=== PATIENT | female | born 1975 | race Caucasian/White ===

== ENCOUNTER 2021-10-13 10:01 | Outpatient (CLI) | payer BC, OTHER, SELFPAY ==
[2021-10-13 13:45] LABS: Aspartate Amino Transferase* 22 U/L (12-35)
[2021-10-13 13:46] LABS: Alanine Aminotransferase* 16 U/L (4-35)
[2021-10-13 13:53] LABS: Total Protein Urine 18 mg/dL
[2021-10-13 13:54] LABS: Creatinine Urine 30.1 mg/dL
[2021-10-13 23:09] LABS: Blood Urea Nitrogen* 10 mg/dL (5-24); Creatinine* 0.5 mg/dL (0.5-1.5); Estimated Glomerular Filt Rate 117 ml/min
[2021-10-14 09:51] LABS: Strep B DNA Probe POSITIVE (Negative)
--- OUTSIDE RECORDS SUMMARY | 2021-11-07 13:10 | XMS_ITS | Encounter Summary ---
:1975 Author Organization [employer] Address [address], [place] [address] Care Team Providers Name Role Phone Britta Cox PA-C Primary Care Provider Encounter Details Date Type Department Care Team Description 08/23/2019 Notes/Orders [facility] Celia Lyons, Abnormal glucose Obstetrics/Gynecolog MD complicating y [address] (Primary Dx) [address] [facility] [address] [place] [id number] [phone] (Wo rk) Social History Tobacco Use Types Packs/Day Years Used Date Smoking Tobacco: Never Smokeless Tobacco: Never Alcohol Use Standard Drinks/Week Comments No 1.7 (1 standard drink = 0.6 oz pure alco hol) 1-2 drinks per week Alcohol Habits Answer Date Recorded How often do you have a drink containing alcohol? Not asked How many drinks containing alcohol do you have on a Not aske d typical day when you are drinking? How often do you have six or more drinks on one Not asked occasion? Comment: 1-2 drinks per week 11/19/2015 Sex Assigned at Date Recorded Not on file documented as of this encounter Plan of Treatment Not on filedocumented as of this encounter Visit Diagnoses Diagnosis Abnormal glucose complicating - Primary Abnormal maternal glucose tolerance, com plicating , childbirth, or the puerperium, unspecified as to episode of care documented in this encounter Care Teams Documentation Clerk Relationship Specialty Start Date End Date Britta Cox PA-C PCP - General 06/13/15 [address], [place] [id number] documented as of this encounter
--- OUTSIDE RECORDS SUMMARY | 2021-11-07 13:10 | XMS_ITS | Encounter Summary ---
:1975 Author Organization [employer] Address [address] [address] Care Team Providers Name Role Phone Britta Cox PA-C Primary Care Provider Reason for Visit Reason Comments Labs Needed Encounter Details Date Type Department Care Team Description 08/25/2019 Telephone [facility] Celia Lyons MD Labs Needed Obstetrics/Gynecolog y [address] [facility] 5th [place] [address] [place], [place] [id number] (Wo rk) Social History Tobacco Use Types [...] on file documented as of this encounter Nursing Notes Kandy Howard LPN - 08/25/2019 9:39 AM CDT Matchbook Assembler spoke with patient to inform her that she needs to make an appointment with lab for the 2 hour glucose test, and gave her number. Patient understands and doesn't have any questions or concerns at this time. documented in this encounter Plan of Treatment Not on filedocumented as of this encounter Visit Diagnoses Not on filedocumented in this encounter Care Teams Wildlife Protector Relationship Specialty Start Date End Date Britta Cox PA-C PCP - General 06/13/[address] [place] [id number] documented as of this encounter
--- OUTSIDE RECORDS SUMMARY | 2021-11-07 13:10 | XMS_ITS | Encounter Summary ---
:1975 Author Organization [employer] Address [address], [place] [address] Care Team Providers Name Role Phone Britta Cox PA-C Primary Care Provider Reason for Visit Reason Onset Date Comments Routine Visit Phone Visit 08/17/2019 Encounter Details Date Type Department Care Team Description 08/17/2019 Telemedicine Cheo Rand, Ruth Ann resul ting from in vitro fertilization in second trimester (Primary Dx); Obstetrics/Gynecolog Paulette H, FOUNTAIN HELPER, Hy pothyroidism, unspecified type; y BREAKER TENDER Psoriasis; [address] [address] [place] Obesi ty in ; Center [facility] [address] Screening for diabetes mellitus; [place] [address] [place], [place] Encounter for blood typing; [phone] screening for isoimmunization; [phone] Screening for b lood disease; (Work) Screening examination for venereal disea se; Screening examination for rubella; Encounter for d rug screening; High-risk pregn sabas, elderly primigravida Social History Tobacco Use Types Packs/Day Years [...] on file documented as of this encounter Last Filed Vital Signs Vital Sign Reading Time Taken Comments Blood Pressure - - Pulse - - Temperature - - Respiratory Rate - - Oxygen Saturation - - Inhaled Oxygen Concentration - - Weight 84.8 kg (187 lb) 08/17/2019 1:47 PM CDT Height - - Body Mass Index 36.52 09/19/2015 11:10 AM CDT documented in this encounter Progress Notes Paulette Rand APRN, CNP - 08/17/2019 1:00 PM CDT Subjective: Today's visit with Courtney was conducted as a scheduled telephone visit. I was at home ,patient at home . Gestational Age: 16w3d AMA , IVF donor egg, both had genetic testing prior to No quickening yet , gets anxious , discussed when she may feel it more. Seems to have grown to her. Weight up 2 lbs , doing well with diet and exercise daily. Has not done her labs yet , orders put back in today . Also glucose and TSH. Level 2 next at . Declines AFP now . Few round ligament pains . Some leg cramping at night , will tryl magnesium. Working at home , also , but he goes out for [employer] some currently. Discussed COVID precautions. Objective: There were no vitals taken for this visit. Weight at home 187lb Assessment/Plan: 1. resulting from in vitro fertilization in second trimester 2. Hypothyroidism, unspecified type (HRC) 3. Psoriasis 4. Obesity in 5. High risk , elderly primipara Will go to [facility] to have New OB labs , TSH and 1 hr glucose. Declines AFP Level 2 Ultrasound next and clinic appt in 4 weeks. Call if problems . . Billing based on: Time 15 minutes spent on the phone with the patient, with greater than 50% in counseling and coordination of care.. Paulette Rand APRN, LIU documented in this encounter Plan of Treatment Not on filedocumented as of this encounter Results Drugs of Abuse Screen, Urine, w/ conf (08/23/2019 9:27 AM CDT) [facility] [employer] Method Time Signature Amphetamines Not Not 08/23/2019 [facility] Screen Detected Detected 5:03 PM CDT LABORATORY Barbiturates Not Not 08/23/2019 [facility] Screen Detected Detected 5:03 PM CDT LABORATORY Benzodiazepines Not Not 08/23/2019 [facility] Screen Detected Detected 5:03 PM CDT LABORATORY Buprenorphine Not Not 08/23/2019 [facility] Screen Detected Detected 5:03 PM CDT LABORATORY Cocaine Metabolite Not Not 08/23/2019 [facility] Screen Detected Detected 5:03 PM CDT LABORATORY Methadone Screen Not Not 08/23/2019 [facility] Detected Detected 5:03 PM CDT LABORATORY Opiates Screen Not Not 08/23/2019 [facility] Detected Detected 5:03 PM CDT LABORATORY Oxycodone Screen Not Not 08/23/2019 [facility] Detected Detected 5:03 PM CDT LABORATORY Phencyclidine Not Not 08/23/2019 [facility] (PCP) Screen Detected Detected 5:03 PM CDT LABORATORY THC (Marijuana) Not Not 08/23/2019 [facility] Metab Screen Detected Detected 5:03 PM CDT LABORATORY Creatinine, Urine, 54 >20 mg/dL 08/23/2019 [facility] Random 5:03 PM CDT LABORATORY Specimen Anatomical Collection Method Collection Time Receive d Time (Source) Location / / Volume Laterality Urine Non-blood 08/23/2019 9:27 AM 0 9:27 Collection / CDT AM CDT Unknown Narrative [facility] - 08/23/2019 5:03 P M CDT The absence of expected drug(s) and/or d rug metabolite(s) may indicate non-compliance, inappropriate timing of specimen collection relative to drug administration, poor drug absorption, di luted/adulterated urine or limitations of testing. The concentration must be great er than or equal to the cutoff concentration to be reported as positive. For medical purposes only: not valid for forensic, legal, or employment use. Paulette Rand APRN, CNP LAB_1 Performing Organization Address City/State/ZIP Code Phon e Number [facility] [address] [place] [address] Urine Culture (08/23/2019 9:27 AM CDT) [facility] [employer] Method Time Signature Urine Culture Urogenital 08/24/2019 [facility] [place] 12:19 PM CDT HOSPITAL Specimen Anatomical Collection Method Collection Time Receive d Time (Source) Location / / Volume Laterality Urine URINE SPECIMEN Non-blood 08/23/2019 9:27 AM 020 9:27 COLLECTION, CLEAN Collection / CDT AM CDT CATCH / Unknown Unknown Paulette Rand APRN, CNP LAB_1 Performing Organization Address [facility]/ZIP Code [facility] [place] [address] (ABNORMAL) Urinalysis Routine(Micro If Pos) (08/23/2019 9:27 AM CDT) [facility] Method Time Signature Urine Color Straw Straw-Yellow 08/23/2019 [facility] 9:50 AM CDT LABORATORY Urine Clarity Hazy (A) Clear 08/23/2019 [place] 9:50 AM CDT LABORATORY Specific 1.020 1.005 - 08/23/2019 [facility] [place], 1.030 9:50 AM CDT LABORATORY Urine PH Urine 6.0 5.0 - 8.0 08/23/2019 [place] 9:50 AM CDT LABORATORY Protein, Negative Neg/Trace 08/23/2019 [place] Urine Qual 9:50 AM CDT LABORATORY (mg/dL) Glucose Urine Negative Negative 08/23/2019 [facility] [place] Qual (mg/dL) 9:50 AM CDT LABORATORY Ketones, Negative Negative 08/23/2019 [facility] [place] Urine (mg/dL) 9:50 AM CDT LABORATORY Urobilinogen, 0.2 <2.0 08/23/2019 [place] [place] Urine (EU/dL) 9:50 AM CDT LABORATORY Bilirubin Negative Negative 08/23/2019 [place] [place] Urine 9:50 AM CDT LABORATORY Blood, Urine Negative Neg/Trace 08/23/2019 [place] 9:50 AM CDT LABORATORY Nitrite Urine Negative Negative 08/23/2019 [place] 9:50 AM CDT LABORATORY Leukocyte Negative Negative 08/23/2019 [place] Est. 9:50 AM CDT LABORATORY Urine Source Clean Catch 08/23/2019 [place] [place] 9:50 AM CDT LABORATORY Specimen Anatomical Collection Method Collection Time Receive d Time (Source) Location / / Volume Laterality Urine URINE SPECIMEN Non-blood 08/23/2019 9:27 AM 020 9:27 COLLECTION, CLEAN Collection / CDT AM CDT CATCH / Unknown Unknown Paulette [place] Radhaelizabeth FOUNTAIN HELPER, BREAKER TENDER LAB_1 Performing Organization Address City/State/ZIP Code Phon e Number [facility] [address] [place] [address] documented in this encounter Visit Diagnoses Diagnosis resulting from in vitro fertil ization in second trimester - Primary Hypothyroidism, unspecified type (HRC) Psoriasis Other psoriasis Obesity in Obesity complicating , childbir th, or the puerperium, unspecified as to episode of care or not applicable Screening for diabetes mellitus Encounter for blood typing screening for isoimmunization Screening for blood disease Screening for unspecified disorder of bl ood and blood-forming organs Screening examination for venereal disea se Screening examination for rubella Encounter for drug screening High-risk , elderly primigravid a Supervision of high-risk of el [place] primigravida documented in this encounter Care Teams Library Services Assistant Relationship Specialty Start Date End Date Britta Cox PA-C PCP - General 06/13/15 [address] [place] [address] documented as of this encounter
--- OUTSIDE RECORDS SUMMARY | 2021-11-07 13:10 | XMS_ITS | Encounter Summary ---
:1975 Author Organization [employer] Address [address] [place] [address] Care Team Providers Name Role Phone Britta Cox PA-C Primary Care Provider Encounter Details Date Type Department Care Team Description 07/20/2019 Lab Visit [facility] Screening for diabetes melli tus; [address] Encounter for blood typing; [place] [address] screening for isoi mmunization; [phone] Screening for b lood disease; Screening exami nation for venereal disease; Screening exami nation for rubella; resul ting from assisted reproductive technology in first trimester; Encounter for d rug screening Social History Tobacco Use Types Packs/Day Years [...] Not on filedocumented as of this encounter Procedures Procedure Name Priority Date/Time Associated Diagnosis Comme nts URINE CULTURE Routine 07/20/2019 8:36 resulting Resu lts for this AM CDT from assisted procedure are in reproductive technology the results in first trimester section. RAPID DRUG PANEL, Routine 07/20/2019 8:36 Encounter for drug R esults for this URINE (WITH AM CDT screening procedure are i n CONFIRMATION) the results section. UA MICRO IF Routine 07/20/2019 8:36 resulting Resul ts for this AM CDT from assisted procedure are in reproductive technology the results in first trimester section. RUBELLA IMMUNE Routine 07/20/2019 8:28 Screening examination R esults for this STATUS, IGG AM CDT for rubella procedure are i n the results section. CBC AND DIFFERENTIAL Routine 07/20/2019 8:28 Screening for blo od Results for this PANEL AM CDT disease procedure are i n the results section. ANTIBODY SCREEN Routine 07/20/2019 8:28 screening fo r Results for this AM CDT isoimmunization procedure ar e in the results section. TREPONEMA SCREEN Routine 07/20/2019 8:28 Screening examination Results for this AM CDT for venereal disease procedu re are in the results section. BLOOD TYPE Routine 07/20/2019 8:28 Encounter for blood Resul ts for this AM CDT typing procedure are i n the results section. HIV 1/2 AG/AB 4TH Routine 07/20/2019 8:28 Screening examinatio n Results for this GEN AM CDT for venereal disease procedu re are in the results section. COMPLETE BLOOD Routine 07/20/2019 8:28 Screening for blood Res ults for this COUNT-W/DIFF AM CDT disease procedure are i n the results section. HBSAG (HEPATITIS B Routine 07/20/2019 8:28 Screening examinati on Results for this SURFACE AG) AM CDT for venereal disease procedu re are in the results section. HGB A1C Routine 07/20/2019 8:28 Screening for diabetes Re sults for this AM CDT mellitus procedure are i n the results section. documented in this encounter Results Drugs of Abuse Screen, Urine, w/ conf (07/20/2019 8:36 AM CDT) [facility] Method Time Signature Amphetamines Not Not 07/20/2019 [facility] Screen Detected Detected 11:38 AM LABORATORY CDT Barbiturates Not Not 07/20/2019 [facility] Screen Detected Detected 11:38 AM LABORATORY CDT Benzodiazepines Not Not 07/20/2019 [facility] Screen Detected Detected 11:38 AM LABORATORY CDT Buprenorphine Not Not 07/20/2019 [facility] Screen Detected Detected 11:38 AM LABORATORY CDT Cocaine Metabolite Not Not 07/20/2019 [facility] Screen Detected Detected 11:38 AM LABORATORY CDT Methadone Screen Not Not 07/20/2019 [facility] Detected Detected 11:38 AM LABORATORY CDT Opiates Screen Not Not 07/20/2019 [facility] Detected Detected 11:38 AM LABORATORY CDT Oxycodone Screen Not Not 07/20/2019 [facility] Detected Detected 11:38 AM LABORATORY CDT Phencyclidine Not Not 07/20/2019 [facility] (PCP) Screen Detected Detected 11:38 AM LABORATORY CDT THC (Marijuana) Not Not 07/20/2019 [facility] Metab Screen Detected Detected 11:38 AM LABORATORY CDT Creatinine, Urine, 155 >20 mg/dL 07/20/2019 [facility] Random 11:38 AM LABORATORY CDT Specimen Anatomical Collection Method Collection Time Receive d Time (Source) Location / / Volume Laterality Urine Non-blood 07/20/2019 8:36 AM 0 8:44 Collection / CDT AM CDT Unknown Narrative [facility] - 07/20/2019 11:38 AM CDT The absence of expected drug(s) and/or d rug metabolite(s) may indicate non-compliance, inappropriate timing of specimen collection relative to drug administration, poor drug absorption, di luted/adulterated urine or limitations of testing. The concentration must be great er than or equal to the cutoff concentration to be reported as positive. For medical purposes only: not valid for forensic, legal, or employment use. Sonal Myers APRN, [employer] LAB_1 Performing Organization Address City/[facility]/ZIP Code Phon e Number [facility] [address] [place] [address] Urine Culture (07/20/2019 8:36 AM CDT) [facility] gist Method Time Signature Urine Culture Urogenital 07/21/2019 [facility] 9:34 AM CDT HOSPITAL Specimen Anatomical Collection Method Collection Time Receive d Time (Source) Location / / Volume Laterality Urine URINE SPECIMEN Non-blood 07/20/2019 8:36 AM 020 8:44 COLLECTION, CLEAN Collection / CDT AM CDT CATCH / Unknown Unknown Sonal Myers APRN, [employer] LAB_1 Performing Organization Address City/[facility]/ZIP [facility] Phon e Number [address] [address] (ABNORMAL) Urinalysis Routine(Micro If Pos) (07/20/2019 8:36 AM CDT) [facility] Method Time Signature Urine Color Yellow Straw-Yellow 07/20/2019 [facility] 9:01 AM CDT LABORATORY Urine Clarity Hazy (A) Clear 07/20/2019 [facility] 9:01 AM CDT LABORATORY Specific 1.017 1.005 - 07/20/2019 [facility] [place], 1.030 9:01 AM CDT LABORATORY Urine PH Urine 5.0 5.0 - 8.0 07/20/2019 [facility] 9:01 AM CDT LABORATORY Protein, Negative Negative 07/20/2019 [facility] Urine Qual 9:01 AM CDT LABORATORY (mg/dL) Glucose Urine Negative Negative 07/20/2019 [facility] Qual (mg/dL) 9:01 AM CDT LABORATORY Ketones, Trace (A) Negative 07/20/2019 [facility] Urine (mg/dL) 9:01 AM CDT LABORATORY Urobilinogen, <2.0 <2.0 07/20/2019 [facility] Urine (EU/dL) 9:01 AM CDT LABORATORY Bilirubin Negative Negative 07/20/2019 [facility] Urine 9:01 AM CDT LABORATORY Blood, Urine Negative Neg/Trace 07/20/2019 [facility] 9:01 AM CDT LABORATORY Nitrite Urine Negative Negative 07/20/2019 [facility] 9:01 AM CDT LABORATORY Leukocyte Negative Negative 07/20/2019 [facility] Est. 9:01 AM CDT LABORATORY Urine Source Clean Catch 07/20/2019 [facility] 9:01 AM CDT LABORATORY Specimen Anatomical Collection Method Collection Time Receive d Time (Source) Location / / Volume Laterality Urine URINE SPECIMEN Non-blood 07/20/2019 8:36 AM 020 8:44 COLLECTION, CLEAN Collection / CDT AM CDT CATCH / Unknown Unknown Sonal Myers APRN, [employer] LAB_1 Performing Organization Address City/State/ZIP Code Phon e Number [facility] [address] [place] [address] (ABNORMAL) Complete Blood Count-W/Diff (07/20/2019 8:28 AM CDT) Analysis Performed At Patho logist Time Signature WBC 9.7 3.5 - 10.5 07/20/2019 [facility] x10(9)/L 8:33 AM CDT LABORATORY RBC 4.70 3.90 - 07/20/2019 [facility] 5.03 8:33 AM CDT LABORATORY x10(12)/L Hemoglobin 14.6 12.0 - 07/20/2019 [facility] 15.5 g/dL 8:33 AM CDT LABORATORY HCT 43.1 34.9 - 07/20/2019 [facility] 44.5 % 8:33 AM CDT LABORATORY MCV 91.7 80.0 - 07/20/2019 [facility] 100.0 fL 8:33 AM CDT LABORATORY MCH 31.1 27.6 - 07/20/2019 [facility] 33.3 pg 8:33 AM CDT LABORATORY MCHC 33.9 31.5 - 07/20/2019 [facility] 35.2 g/dL 8:33 AM CDT LABORATORY RDW 13.9 11.9 - 07/20/2019 [facility] 15.5 % 8:33 AM CDT LABORATORY Platelets 250 150 - 450 07/20/2019 [facility] x10(9)/L 8:33 AM CDT LABORATORY Automated NRBC 0 <=0 /100 07/20/2019 [facility] WBC 8:33 AM CDT LABORATORY Neutrophil 7.1 (H) 1.7 - 7.0 07/20/2019 [facility] Absolute 10(9)/L 8:33 AM CDT LABORATORY Lymphocyte 2.0 1.0 - 4.8 07/20/2019 [facility] Absolute 10(9)/L 8:33 AM CDT LABORATORY Monocytes 0.5 0.2 - 0.9 07/20/2019 [facility] Absolute 10(9)/L 8:33 AM CDT LABORATORY Eosinophil 0.1 0.0 - 0.5 07/20/2019 [facility] Absolute 10(9)/L 8:33 AM CDT LABORATORY Basophil 0.0 0.0 - 0.3 07/20/2019 [facility] Absolute 10(9)/L 8:33 AM CDT LABORATORY Immature Gran % 0.5 0.0 - 0.5 07/20/2019 [facility] % 8:33 AM CDT LABORATORY Specimen Anatomical Collection Method / Collection Time Recei joyce Time (Source) Location / Volume Laterality Blood Venipuncture / 07/20/2019 8:28 07/20/2019 8:30 Unknown AM CDT AM CDT Sonal Myers APRN, LIU LAB_1 Performing Organization Address [facility] Phon e Number [facility] [address] [place] [address] (ABNORMAL) Rubella Immune Status, IgG (07/20/2019 8:28 AM CDT) athologist Signature Rubella Units 0.60 07/20/2019 [facility] 11:12 AM CDT LABORATORY Comment: The magnitude of the measured r esult, above the cutoff, is not indicative of the amount of antibody present. Rubella Intepretation Not Immune (A) Immune 07/20/2019 11 :12 AM [facility] CDT LABORATORY Specimen Anatomical Collection Method / Collection Time Recei joyce Time (Source) Location / Volume Laterality Blood Venipuncture / 07/20/2019 8:28 07/20/2019 8:30 Unknown AM CDT AM CDT Sonal Myers APRN, CNP LAB_1 Performing Organization Address [facility] Phon e Number [facility] [address] [place] [address] Treponema Screen (07/20/2019 8:28 AM CDT) [facility] Method Time Signature Treponema Screen 0.075 {s_co_ratio 07/20/2019 [facility] Result } 10:34 AM LABORATORY CDT Treponema Screen Non Non 07/20/2019 [facility] Interpretation Reactive Reactive 10:34 AM LABORATORY CDT Specimen Anatomical Collection Method / Collection Time Recei joyce Time (Source) Location / Volume Laterality Blood Venipuncture / 07/20/2019 8:28 07/20/2019 8:30 Unknown AM CDT AM CDT Sonal Myers APRN, LIU LAB_1 Performing Organization Address [facility] Phon e Number [facility] [address] [place] [address] HIV 1/2 Ag/Ab 4th Generation (07/20/2019 8:28 AM CDT) [facility] Method Time Signature HIV 1/2 Negative Negative 07/20/2019 [facility] Antigen/Antib (Non (Non 9:21 AM CDT LABORATORY demi (4th Reactive) Reactive) generation) Comment: HIV-1 p24 Antigen and HIV-1/HIV -2 Antibody not detected Specimen Anatomical Collection Method / Collection Time Recei joyce Time (Source) Location / Volume Laterality Blood Venipuncture / 07/20/2019 8:28 07/20/2019 8:30 Unknown AM CDT AM CDT Sonal Myers APRN, LIU LAB_1 Performing Organization Address [facility] Phon e Number [facility] [address] [place] [address] HEP B SURFACE ANTIGEN, NO REFLEX (07/20/2019 8:28 AM CDT) [facility] Method Time Signature Hepatitis B Negative Negative 07/20/2019 [facility] Surface (Non (Non 9:21 AM CDT LABORATORY Antigen Reactive) Reactive) Specimen Anatomical Collection Method / Collection Time Recei joyce Time (Source) Location / Volume Laterality Blood Venipuncture / 07/20/2019 8:28 07/20/2019 8:30 Unknown AM CDT AM CDT Sonal Myers APRN, LIU LAB_1 Performing Organization Address [facility] Phon e Number [facility] [address] [place] [address] Antibody Screen (07/20/2019 8:28 AM CDT) [facility] Method Time Signature Antibody Screen Negative 07/20/2019 [facility] Interpretation 9:47 AM CDT BLOOD BANK Specimen Anatomical Collection Method / Collection Time Recei joyce Time (Source) Location / Volume Laterality Blood Venipuncture / 07/20/2019 8:28 07/20/2019 8:30 Unknown AM CDT AM CDT Sonal Myers APRN, LIU LAB_1 Performing Organization Address [facility] Phon e Number [facility] [address] [place] [address] Blood Group & RH (Blood Type) (07/20/2019 8:28 AM CDT) athologist Signature ABO B 07/20/2019 [facility] 9:47 AM CDT BLOOD BANK RH Positive 07/20/2019 [facility] 9:47 AM CDT BLOOD BANK Specimen Anatomical Collection Method / Collection Time Recei joyce Time (Source) Location / Volume Laterality Blood Venipuncture / 07/20/2019 8:28 07/20/2019 8:30 Unknown AM CDT AM CDT Sonal Myers APRN, [employer] LAB_1 Performing Organization Address City/[facility]/ZIP Code Phon e Number [facility] [address] [place] [address] HGB A1C (07/20/2019 8:28 AM CDT) [facility] Method Time Signature Hemoglobin A1C 4.8 <=5.6 % 07/20/2019 [facility] PM CDT [facility] Specimen Anatomical Collection Method / Collection Time Recei joyce Time (Source) Location / Volume Laterality Blood Venipuncture / 07/20/2019 8:28 07/20/2019 8:30 Unknown AM CDT AM CDT Sonal Myers APRN, LIU LAB_1 Performing Organization Address City/[facility] Phon e Number [facility] [address] [address] documented in this encounter Visit Diagnoses Diagnosis Screening for diabetes mellitus Encounter for blood typing screening for isoimmunization Screening for blood disease Screening for unspecified disorder of bl ood and blood-forming organs Screening examination for venereal disea se Screening examination for rubella resulting from assisted reprod uctive technology in first trimester Encounter for drug screening documented in this encounter Care Teams Hand Hardener Relationship Specialty Start Date End Date Britta Cox PA-C PCP - General 06/13/15 [place] [address] documented as of this encounter
--- OUTSIDE RECORDS SUMMARY | 2021-11-07 13:10 | XMS_ITS | Encounter Summary ---
:1975 Author Organization [facility] Address [address] [address] Care Team Providers Name Role Phone Britta Cox PA-C Primary Care Provider Encounter Details Date Type Department Care Team Description 08/23/2019 Lab Visit Kelvin navarro resulting from in vitro fertilization in second trimester; [address] Encounter for drug screening ; [place] [address] Screening for diabetes primo lim; [phone] Hypothyroidism, unspecified type Social History Tobacco Use Types Packs/Day Years [...] on file documented as of this encounter Progress Notes Celia Lyons MD - 08/23/2019 8:30 AM CDT Please let her know that she had an elevated glucose for the 1 hour lab and needs the 2 hour one. I've ordered it. Please help her schedule it. documented in this encounter Plan of Treatment Not on filedocumented as of this encounter Procedures Procedure Name Priority Date/Time Associated Diagnosis Comme nts TSH, SENSITIVE Routine 08/23/2019 9:42 AM Hypothyroidism, Resu lts for this (WITH REFLEX) CDT unspecified type procedure are in the results section. GLUCOSE - 1 HR. Routine 08/23/2019 9:42 AM Screening for diabe irena Results for this P.C. PREG CDT mellitus procedure are i n the results section. URINE CULTURE Routine 08/23/2019 9:27 AM resulting R esults for this CDT from in vitro procedure are in fertilization in the results second trimester section. RAPID DRUG PANEL, Routine 08/23/2019 9:27 AM Encounter for kevan g Results for this URINE (WITH CDT screening procedure are i n CONFIRMATION) the results section. UA MICRO IF Routine 08/23/2019 9:27 AM resulting Re sults for this CDT from in vitro procedure are in fertilization in the results second trimester section. documented in this encounter Results TSH with Free T4 (if TSH Abnormal) (08/23/2019 9:42 AM CDT) athologist Signature TSH, Reflex 1.88 0.30 - 4.50 08/23/2019 [facility] uIU/mL 5:01 PM CDT LABORATORY Specimen Anatomical Collection Method / Collection Time Recei joyce Time (Source) Location / Volume Laterality Blood Venipuncture / 08/23/2019 9:42 08/23/2019 9:42 Unknown AM CDT AM CDT Narrative [facility] - 08/23/2019 5:01 P M CDT Lab will automatically reflex to Free T4 when TSH results are <0.30 uIU/mL or >4.50 mIU/mL. Celia Lyons MD LAB_1 Performing Organization Address City/State/ZIP Code Phon e Number [facility] [address] [place] [address] (ABNORMAL) Lab Glucose [place] Screen (08/23/2019 9:42 AM CDT) athologist Signature Glucose, 1 157 (H) 70 - 135 08/23/2019 [place] [facility] mg/dL 10:03 AM CDT LABORATORY Challenge Specimen Anatomical Collection Method / Collection Time Recei joyce Time (Source) Location / Volume Laterality Blood Venipuncture / 08/23/2019 9:42 08/23/2019 9:42 Unknown AM CDT AM CDT Celia Lyons MD LAB_1 Performing Organization Address City/State/ZIP Code Phon e Number [facility] [address] [place] [address] Drugs of Abuse Screen, Urine, w/ conf (08/23/2019 9:27 AM CDT) [facility] Method Time Signature Amphetamines Not Not 08/23/2019 [facility] Screen Detected Detected 5:03 PM CDT LABORATORY Barbiturates Not Not 08/23/2019 [facility] Screen Detected Detected 5:03 PM CDT LABORATORY Benzodiazepines Not Not 08/23/2019 [facility] Screen Detected Detected 5:03 PM CDT LABORATORY Buprenorphine Not Not 08/23/2019 [facility] Screen Detected Detected 5:03 PM CDT LABORATORY Cocaine Metabolite Not Not 08/23/2019 [facility] Screen Detected Detected 5:03 PM CDT LABORATORY Methadone Screen Not Not 08/23/2019 [facility] Detected Detected 5:03 PM CDT LABORATORY Opiates Screen Not Not 08/23/2019 [facility] Detected Detected 5:03 PM CDT LABORATORY Oxycodone Screen Not Not 08/23/2019 [facility] Detected Detected 5:03 PM CDT LABORATORY Phencyclidine Not Not 08/23/2019 [facility] (PCP) Screen Detected Detected 5:03 PM CDT LABORATORY THC (Marijuana) Not Not 08/23/2019 [facility] Metab Screen Detected Detected 5:03 PM CDT LABORATORY Creatinine, Urine, 54 >20 mg/dL 08/23/2019 [facility] Random 5:03 PM CDT LABORATORY Specimen Anatomical Collection Method Collection Time Receive d Time (Source) Location / / Volume Laterality Urine Non-blood 08/23/2019 9:27 AM 0 9:27 Collection / CDT AM CDT Unknown Narrative [facility] - 08/23/2019 5:03 P M CDT [...] Organization Address City/State/ZIP Code Phon e Number [facility] [address] [place] [address] Urine Culture (08/23/2019 9:27 AM CDT) [facility] Method Time Signature Urine Culture Urogenital 08/24/2019 [facility] [place] 12:19 PM CDT HOSPITAL Specimen Anatomical Collection Method Collection Time Receive d Time (Source) Location / / Volume Laterality Urine URINE SPECIMEN Non-blood 08/23/2019 9:27 AM 020 9:27 COLLECTION, CLEAN Collection / CDT AM CDT CATCH / Unknown Unknown Paulette Rand APRN, CNP LAB_1 Performing Organization Address City/[facility]/ZIP Code Phon e Number [address] [address] (ABNORMAL) Urinalysis Routine(Micro If Pos) (08/23/2019 9:27 AM CDT) [facility] Method Time Signature Urine Color Straw Straw-Yellow 08/23/2019 [facility] 9:50 AM CDT LABORATORY Urine Clarity Hazy (A) Clear 08/23/2019 [place] 9:50 AM CDT LABORATORY Specific 1.020 1.005 - 08/23/2019 [facility] [place], 1.030 9:50 AM CDT LABORATORY Urine PH Urine 6.0 5.0 - 8.0 08/23/2019 [place] 9:50 AM CDT LABORATORY Protein, Negative Neg/Trace 08/23/2019 [facility] Urine Qual 9:50 AM CDT LABORATORY (mg/dL) Glucose Urine Negative Negative 08/23/2019 [facility] Qual (mg/dL) 9:50 AM CDT LABORATORY Ketones, Negative Negative 08/23/2019 [facility] Urine (mg/dL) 9:50 AM CDT LABORATORY Urobilinogen, 0.2 <2.0 08/23/2019 [facility] Urine (EU/dL) 9:50 AM CDT LABORATORY Bilirubin Negative Negative 08/23/2019 [facility] Urine 9:50 AM CDT LABORATORY Blood, Urine Negative Neg/Trace 08/23/2019 [facility] 9:50 AM CDT LABORATORY Nitrite Urine Negative Negative 08/23/2019 [place] 9:50 AM CDT LABORATORY Leukocyte Negative Negative 08/23/2019 [place] Est. 9:50 AM CDT LABORATORY Urine Source Clean Catch 08/23/2019 [facility] 9:50 AM CDT LABORATORY Specimen Anatomical Collection Method Collection Time Receive d Time (Source) Location / / Volume Laterality Urine URINE SPECIMEN Non-blood 08/23/2019 9:27 AM 020 9:27 COLLECTION, CLEAN Collection / CDT AM CDT CATCH / Unknown Unknown Paulette Rand APRN, LIU LAB_1 Performing Organization Address City/State/ZIP Code Phon e Number [facility] [address] [place] [address] documented in this encounter Visit Diagnoses Diagnosis resulting from in vitro fertil ization in second trimester Encounter for drug screening Screening for diabetes mellitus Hypothyroidism, unspecified type (HRC) documented in this encounter Care Teams Mount Loader Relationship Specialty Start Date End Date Britta Cox PA-C PCP - General 06/13/15 [address] [place] [id number] documented as of this encounter
--- OUTSIDE RECORDS SUMMARY | 2021-11-07 13:10 | XMS_ITS | Encounter Summary ---
:1975 Author Organization [facility] Address [address] [address] Care Team Providers Name Role Phone Britta Cox PA-C Primary Care Provider Reason for Visit Reason Comments Concerns question on lab Encounter Details Date Type Department Care Team Description 07/30/2019 [facility] Celia Lyons MD Concerns Obstetrics/Gynecolog y [address] (question on lab) [address] [facility] [address] [place] [address] [phone] (Wo rk) Social History Tobacco Use Types [...] documented as of this encounter Nursing Notes Stormy Orellana, RN - 07/30/2019 4:12 PM CDT Called pt to review MD message. Left detailed message on pt identified vmail per pt authorization. Lab Scheduling phone number given. Celia Lyons MD - 07/30/2019 3:58 PM CDT 16 weeks Nancy Collado, RN - 07/30/2019 3:50 PM CDT 13w6d ob, saw you 07/20/19. Pt wanting to clarify when she needs to do the 1 hour gtt and TSH. Pleaseadvise. Thanks documented in this encounter Plan of Treatment Not on filedocumented as of this encounter Visit Diagnoses Not on filedocumented in this encounter Care Teams Marketing Reporting Analyst Relationship Specialty Start Date End Date Britta Cox, KARENC PCP - General 06/13/[address] [place] [id number] documented as of this encounter
--- OUTSIDE RECORDS SUMMARY | 2021-11-07 13:10 | XMS_ITS | Clinical Summary ---
:1975 Author Organization [email or web address] Address [address] [place] [address] Care Team Providers Name Role Phone Britta Cox PA-C Primary Care Provider Source Comments You are receiving this document as you are listed as the primary care provider,follow-up provider, or the patient has been referred to you for consultation.This is in compliance with the Medicare and Medicaid EHR Incentive Program,which states Providers who transition their patient to another setting of careor provider of care or refers their patient to another provider of care shouldprovide summarycare record for each transition of care or referral. [employer] Allergies Active Allergy Reactions Severity Noted Date Comments Other 12/25/2011 PN: PT HAS YOANA REAGAN FAMILY HX OF PCN ALLERGY Medications Medication Sig Dispensed Refills Start Date End Date Status Vdtxbd-JrRgt-PpZtay-FA- Take 1 tablet by 0 6 Active [place] mouth daily (MULTIVITAMIN/MINERALS (every 24 hours). OR) clindamycin (CLEOCIN T) 0 06/11/2019 Active 1 % lotion ketoconazole (NIZORAL) 0 06/11/2019 Active 2 % shampoo Active Problems Problem Noted Date Eating disorder 11/19/2011 Overview: Eating disorder, unspecified Major depressive disorder, recurrent episode, moderate 11/19/2011 Obesity, Class II, BMI 35-39.9 11/18/2011 Obesity 12/12/2010 Osteopenia 09/15/2008 Overview: lumbar spine Polycystic ovaries 06/01/2008 Overview: Polycystic Ovary Syndrome Psoriasis 06/01/2008 Overview: josé manuel and legs LAKSHMI III (cervical intraepithelial neoplasia grade III) with severe 06/01/2008 dysplasia Overview: s/p LEEP procedure 2007 Irritable bowel syndrome 06/01/2008 Hypothyroidism 06/01/2008 Overview: subclinical- TSH followed Q6mo ; Hypothyroidism Primary Vitamin D deficiency 05/31/2008 Resolved Problems Problem Noted Date Resolved Date resulting from in vitro fertilization 07/20/2019 01/11/2020 Obesity in 07/20/2019 01/11/2020 Elderly primigravida 07/20/2019 01/11/2020 Primary female infertility 03/06/2018 07/20/2019 Endometrial polyp 02/03/2018 07/20/2019 Overview: Added automatically from request for justus lopez [id number] Encounter for artificial insemination 06/17/2016 Uterine polyp 12/14/2011 07/20/2019 Pneumonia due to organism 08/16/2008 12/13/2010 Overview: LW Modifier: SUZANNE LW Onset: 08/07 ; Pneumonia NOS Immunizations Name Administration Dates Next Due Flu Vac Preserv Free (3+yrs) 12/14/2011, 02/03/2010 Influenza IIV4 (Quadrivalent) 0.5mL (82702) 02/10/2018 TB Skin Test (PPD) 06/12/2011 Family History Medical History Relation Name Comments Osteoporosis Mother Thyroid Disorder Mother Thyroid Disorder Maternal Aunt Alzheimer's Maternal Grandfather Dementia Maternal Grandfather Diabetes Maternal Grandfather Osteoporosis Maternal Grandmother Diabetes Other Heart Disease Paternal Grandfather Thyroid Disorder Paternal Grandmother Relation Name Status Comments Father Alive Mother Alive Brother Alive Maternal Aunt Maternal Grandfather Maternal Grandmother Alive Other Alive Paternal Grandfather Paternal Grandmother Social History Tobacco Use Types Packs/Day Years [...] Assigned at Date Recorded Not on file Last Filed Vital Signs Vital Sign Reading Time Taken Comments Blood Pressure 131/74 07/20/2019 8:37 AM CDT Pulse 91 07/20/2019 8:37 AM CDT Temperature 36.7 ??C (98.1 ??F) 03/02/2019 8:23 AM [facility] Respiratory Rate 16 03/06/2018 5:15 PM [facility] Oxygen Saturation 99% 03/06/2018 5:15 PM [facility] Inhaled Oxygen Concentration - - Weight 84.8 kg (187 lb) 08/17/2019 1:47 PM CDT Height 152.4 cm (5') 09/19/2015 11:10 AM CDT Body Mass Index 36.52 09/19/2015 11:10 AM CDT Plan of Treatment Health Maintenance Due Date Last Done Comments Colon Cancer Screening Plan 1975 Due Hep C Screening (Preventive 1975 Services) HepB (1) 1975 COVID-19 Vaccine (#1) 1975 Adult Preventive Visit 1993 Cholesterol 2020 11/30/2011 Influenza (#1) 2021 01/07/2020, 02/10/2018, 12/14/2011, Additional history exists Pap 07/19/2024 07/20/2019, 05/20/2015, 03/16/2013, Additional history exists Zoster/Shingles (1 of 2) 2025 DTaP/Tdap/Td (2 - Tdap) 11/17/2029 11/18/2019 HIV Screening (Preventive Completed 07/20/2019, 06/24/2012 Services) HepA Aged Out No longer eligib le based on patient 's age to complete this topic Hib Aged Out No longer eligib le based on patient 's age to complete this topic IPV (Polio) Aged Out No longer eligib le based on patient 's age to complete this topic MCV4 Aged Out No longer eligib le based on patient 's age to complete this topic Pneumococcal Aged Out No longer eligib le based on patient 's age to complete this topic Insurance Payer Benefit Plan Subscriber ID Effective Phone Address Typ e / Group Dates MARIVEL THAKUR [id number] 2018-Prese [phone] [employer] [address] [facility] [address] [place] [address] [place] [id number] 2017-[place] [address] [phone] [place] [address] [place]ST [id number] 2019-Prese HEALTH NET G overnment SELECT nt FEDERAL SERV C/O PGBA [address] [place] [address] Courtney Lacy Personal/Family Self 1975 [address] (Home) [place] [phone] [id number] (Work) Courtney Lacy Workers Comp Self 1975 [address] (Home) [place] [id number] Advance Directives Latest Code Status on File Code Status Date Activated Date Inactivated Comments Full Code 03/06/2018 4:19 PM 03/06/2018 7:34 PM Full Code 12/27/2011 10:03 AM 12/27/2011 5:24 PM Care Teams Building Supplies Salesperson Retail Relationship Specialty Start Date End Date Britta Cox PA-C PCP - General 06/13/[address] [place] [id number]
--- OUTSIDE RECORDS SUMMARY | 2021-11-07 13:11 | XMS_ITS | Encounter Summary ---
:1975 Author Organization [facility] Address [address], [place] [address] Care Team Providers Name Role Phone Britta Cox PA-C Primary Care Provider Reason for Visit Auth/Cert Specialty Diagnoses / Procedures Referred By Contact Refer red To Contact Diagnoses Endometrial polyp Referral ID Status Reason Start Date Expiration Date Visits Requ ested Visits Authorized [id number] 1 1 Encounter Details Date Type Department Care Team Description 03/06/2018 Anesthesia Event [facility] [address] [facility] Daryn Chandra MD Bld Ambul Surgery [address] [place] [place] [address] [address] [place] [address] [phone] Anesthesia Record Procedure Summary Procedure Name Responsible Anesthesia Start Anesthesia Stop Anesthesiologist Time Time Hysteroscopy Dilation Daryn Moya MD 03/06/18 1542 09/16 1620 and Curettage and Polypectomy (Uterus) Events Date Time Event Comment 03/06/2018 1542 An Start 1544 An Start Data 1544 Face Tent 1552 An Local Anesthetic By Surgeon 1556 MDA Present 1611 MDA Present 1613 an stop data 1620 An Stop Care transferred . 1620 Care Handoff Note I discussed wi th the receiving nurse and we: 1) Ident ified the patient, pate family member(s) or patient surrogate 2) Identified th e responsible practitioner 3) Reviewed the pertinent medical history 4) Discussed the surgical/procedu re course 5) Reviewed intra-op anesthe aleksandr management and issues during an esthesia 6) Set expectations for the post-procedure period 7) Allowe d opportunity for questions and ac knowledgement of understanding of report Electronically signed by Siobhan Hamm APRN, AIRCRAFT PAINTER Name Total midazolam injection 2 mg/2 mL (VERSED) 2 mg fentaNYL injection (SUBLIMAZE) 100 mcg lidocaine 1% PF injection (XYLOCAINE) 60 mg propofol 10 mg/mL for procedural sedation (aka diPRIva n) 153.94 mg ondansetron injection (ZOFRAN) 4 mg ketorolac 30 mg/mL injection (TORADOL) 30 mg dexamethasone 4 mg/mL injection (aka DECADRON) 4 mg lactated ringers infusion 200 mL Agents Name O2 Identified Agent Name Blood No blood administrations on file. Lines, Drains, and Airways Type Details Placement Removal Airway Placed By: AIRCRAFT PAINTER; 03/06/18 1559 by 03/06/18 1728 by Airway Device: Nasal Kerry Perez, pharyngeal airway; RN Difficulty: Atraumatic; Removal Date: 03/06/18; Removal Time: 1727 Peripheral IV Placement Date: 03/06/18 1507 by 03/06/18 1728 b y 03/06/18; Placement Julianna Swenson, Dee Willis, Time: 150; RN Pre-existing: No; Inserted by?: RN; Size (Gauge): 22 G; Orientation: Right; Site Prep: ChloraPrep; Local Anesthetic: None; Insertion attempts: 1; Blood draw with insertion?: no; Patient Tolerance: Tolerated well; Met Standard Sterile Barrier Technique: Met Standard Sterile Barrier Technique; Removal Date: 03/06/18; Removal Time: 1727 Incision/Surgical Site 03/06/18; 1559; #1; 03/06/18 1559 by 09/16 1728 by No; Vagina; 03/06/18; Shari Rojas Lisabeth A, 172 J, RN RN documented in this encounter Social History Tobacco Use Types Packs/Day Years [...] on file documented as of this encounter Miscellaneous Notes Anesthesia Postprocedure Evaluation - Daryn Moya MD - 03/06/2018 4:29 PM CST [facility] Anesthesia Post-op Note Patient: Courtney Lacy Post-Op Diagnosis: Endometrial polyp Procedure Performed: Procedure(s): Hysteroscopy Dilation and Curettage and Polypectomy Anesthesia Type: MAC Post-op vital signs: BP 125/67 Pulse 89 Temp 36.6 ??C (97.9 ??F) (Temporal) Resp 13 SpO2 96% Pain Score: Presence Of Pain: denies Preferred Pain Scale: number (Numeric Rating Pain Scale) Pain Rating (0-10): Rest: 3 Post-op assessment: No anesthesia complication. Patient location: Phase 2 Airway Status: Patent Cardiovascular function: Satisfactory Hydration status: Satisfactory PONV: None Level of Consciousness: Awake Fully Participates Postop Assessment: Patient tolerated procedure well. Electronically signed by: Daryn Moya MD 03/06/2018 4:29 PM MAKING MACHINE OPERATOR Anesthesia Preprocedure Evaluation - Daryn Moya MD - 03/06/2018 3:02 PM CST [facility] Anesthesia Pre-op Evaluation Procedure: Procedure(s): Hysteroscopy Dilation and Curettage HPI: 42 y.o. old female with Endometrial polyp NPO Status: Last Fluid Intake Time: 1100 Last Fluid Intake Date: 03/06/18 Last Food Intake Date: 03/06/18 Last Food Intake Time: 0700 Allergies Allergen Reactions ??? Other PN: PT HAS MULTIPLE FAMILY HX OF PCN ALLERGY Past Medical History: Diagnosis Date ??? Anxiety (HRC) ??? Asthma (HRC) ??? Cervical dysplasia 2008 LAKSHMI 3, LEEP ??? Depression (HRC) ??? Eating disorder ??? Hypothyroidism Primary ??? Irritable bowel syndrome ??? Migraine ??? Obesity (HRC) ??? Pneumonia ??? Polycystic Ovary Syndrome 24 yo missed periods, acne, hair growth issues, saw Dr Félix Johnson dx with this ??? Psoriasis ??? STD (sexually transmitted disease) (HRC) ??? Vitamin D Deficiency Patient Active Problem List Diagnosis ??? Vitamin D deficiency (HRC) ??? Polycystic ovaries (HRC) ??? Psoriasis ??? Abnormal glandular Papanicolaou smear of cervix ??? Irritable bowel syndrome ??? Hypothyroidism (HRC) ??? Disorder of bone and cartilage ??? Obesity (HRC) ??? Obesity, Class II, BMI 35-39.9 (HRC) ??? Eating disorder ??? Major depressive disorder, recurrent episode, moderate (HRC) ??? Uterine polyp ??? Encounter for artificial insemination ??? Endometrial polyp Past Surgical History: Procedure Laterality Date ??? DILATION AND CURETTAGE ??? LEEP PROCEDURE 2008 LAKSHMI 3 ??? OPERATIVE HYSTEROSCOPY 2012 polyp Outpatient Medications Marked as Taking for the 03/06/18 encounter (Hospital Encounter) Medication Sig Dispense Refill ??? desogestrel-ethinyl estradiol (APRI) 0.15-30 MG-MCG tablet Take 1 Tablet by mouth daily. ??? Btgacr-LpRsg-EaJrtw-FA-[place] (MULTIVITAMIN/MINERALS OR) Take 1 tablet by mouth daily (every 24 hours). ??? scopolamine (TRANSDERM-SCOP) 1.0mg/3 days patch Apply 1 Patch to skin every 3 days. Apply behindthe ear 4 Patch 0 Current Facility-Administered Medications Medication Dose Route Frequency ??? fentaNYL (SUBLIMAZE) injection 25-100 mcg 25-100 mcg Intravenous Q5MIN PRN ??? fentaNYL (SUBLIMAZE) injection 25-50 mcg 25-50 mcg Intravenous Q5MIN PRN ??? HYDROmorphone injectable 0.2-0.4 mg 0.2-0.4 mg Intravenous Q10MIN PRN ??? lactated ringers infusion 25 mL/hr Intravenous Continuous ??? lidocaine (XYLOCAINE) 1 % injection 0.1-0.3 mL 0.1-0.3 mL Subcutaneous Once And ??? lidocaine (XYLOCAINE) 1 % injection 0.1-0.3 mL 0.1-0.3 mL Subcutaneous PRN ??? meperidine (DEMEROL) injection 12.5 mg 12.5 mg Intravenous Q5MIN PRN ??? midazolam (VERSED) injection 1-2 mg 1-2 mg Intravenous Q5MIN PRN ??? morphine injectable 1-2 mg 1-2 mg Intravenous Q5MIN PRN ??? NO pre-op antibiotics needed Miscellaneous Once ??? ondansetron (ZOFRAN) injection 4 mg 4 mg Intravenous Q4H PRN Labs: Lab Results Component Value Date/Time SODIUM 139 02/08/2015 02:21 PM K 4.1 02/08/2015 02:21 PM CHLORIDE 108 (H) 02/08/2015 02:21 PM BUN 11 02/08/2015 02:21 PM CREATININE 0.60 02/08/2015 02:21 PM GLUCOSE 96 02/08/2015 02:21 PM Lab Results Component Value Date/Time WBC 9.3 02/08/2015 02:21 PM HGB 13.3 02/08/2015 02:21 PM HCT 39.6 02/08/2015 02:21 PM PLTS 282 02/08/2015 02:21 PM No results found for: INR No results found for: HCGQUANT Urine : Result: Negative(Simultaneous filing. User may not have seen previous data.) Urine : Blood Bank: No results found for: ABORH, ABSCR EKG: No results found for this or any previous visit. Physical Exam: There were no vitals taken for this visit. Assessment/Plan: Review of Systems Patient does not have GERD. Patient is not a smoker. The patient denies alcohol use. Patient denies any recent URI. History of PONV: No. History of motion sickness: No. Patient denies any personal or family history of anesthesia complications (PONV). Exam Mental Status: Alert and oriented. Mallampati score: II (Two). Mouth opening: Normal Thyromental Distance: > 3 finger breadths and Normal Neck Extension: Full Neck Circumference > 40 cm?: No Current airway assessment:Normal Dentition: Normal. Cardiac Exam: Regular rate and rhythm. Respiratory Exam: Breath sounds clear to auscultation Assessment ASA Status: 2 . Plan Anesthesia type: MAC Induction: Maintenance: PONV Risk Score Peds:0 PONV Risk Score Adult: 2Maint: Propofol Infusion. PONV Prophylaxis (planned):Ondansetron and Decadron Anesthetic plan, risks, benefits and alternatives discussed with: Patient H&P Reviewed and Patient examined, no change observed IV access Antibiotics per surgery Electronically signed by: Daryn Moya MD 03/06/2018 3:02 PM MAKING MACHINE OPERATOR documented in this encounter Plan of Treatment Not on filedocumented as of this encounter Visit Diagnoses Not on filedocumented in this encounter Administered Medications Inactive Administered Medications - up to 3 most recent administrations Medication Order MAR Action Action Date Dose Rate Site dexamethasone (DECADRON) injection Given 03/06/2018 3:50 PM RING MAKING MACHINE OPERATOR 4 mg Starting on Madeleine 18 at 1550, Until Madeleine 03/06/18 at 1620 fentaNYL (SUBLIMAZE) injection Given 03/06/2018 3:40 PM RING MAKING MACHINE OPERATOR 100 mcg Intravenous, Starting on Madeleine 18 at 1540, Until Madeleine 03/06/18 at 1620 ketorolac (TORADOL) injection Given 03/06/2018 4:00 PM RING MAKING MACHINE OPERATOR 30 mg Intravenous, Starting on Madeleine 18 at 1600, Until Madeleine 03/06/18 at 1621 lidocaine (XYLOCAINE) 1 % injection Given 03/06/2018 3:40 PM RING MAKING MACHINE OPERATOR 60 mg Starting on Madeleine 18 at 1540 midazolam (VERSED) injection Given 03/06/2018 3:40 PM RING MAKING MACHINE OPERATOR 2 mg Intravenous, Starting on Madeleine 1218 at 1540, Until Madeleine 03/06/18 at 1620 ondansetron (ZOFRAN) injection Given 03/06/2018 3:45 PM RING MAKING MACHINE OPERATOR 4 mg Intravenous, Starting on Madeleine 18 at 1545, Until Madeleine 03/06/18 at 1620 propofol (aka diPRIvan) Started 03/06/2018 3:40 PM 75 mcg/kg/min 3 6.95 mL/hr injection RING MAKING MACHINE OPERATOR Intravenous, Starting on Madeleine 18 at 1540 documented in this encounter Care Teams Flash Ranging Crewmember Relationship Specialty Start Date End Date Britta Cox PA-C PCP - General 06/13/15 [address] [place] [address] documented as of this encounter
--- OUTSIDE RECORDS SUMMARY | 2021-11-07 13:11 | XMS_ITS | Encounter Summary ---
:1975 Author Organization [facility] Address [address], [place] [address] Care Team Providers Name Role Phone Britta Cox PA-C Primary Care Provider Encounter Details Date Type Department Care Team Description 07/17/2016 [facility] Fertili ty testing Obstetrics/Gynecolog y (Primary Dx) [address] [address] [place], [place] [address] [address] [place], [place] [phone] [address] Social History Tobacco Use Types Packs/Day Years [...] on filedocumented as of this encounter Results Artificial Insemination,Frozen Donor,Specimen Prep (07/17/2016 7:36 AM CDT) P athologist Signature TDI Donor [id number] PN SOFT Number TDI Specimen 10-04-15 PN SOFT Number TDI Number of 2 PN SOFT Vials Semen Total 2.0 PN SOFT Volume Semen % 31 % PN SOFT Motility Grade (IUIP) 2.5 PN SOFT Semen Mil 7.1 PN SOFT Motile (TDI) Specimen Anatomical Collection Method Collection Time Receive d Time (Source) Location / / Volume Laterality 07/17/2016 7:36 AM 7 7:36 CDT AM CDT Narrative PN SOFT - 07/17/2016 7:54 AM CDT Performed at [facility], [address] [place] [address] CLIA number [id number] Good Hernandez MD LAB_1 Performing Organization Address City/State/ZIP Code Phon e Number PN SOFT [address] [place] [address] documented in this encounter Visit Diagnoses Diagnosis Fertility testing - Primary Fertility testing documented in this encounter Care Teams Sliver Handler Relationship Specialty Start Date End Date Britta Cox PA-C PCP - General 06/13/15 [address] [place] [id number] documented as of this encounter
--- OUTSIDE RECORDS SUMMARY | 2021-11-07 13:11 | XMS_ITS | Encounter Summary ---
:1975 Author Organization [employer] Address [address] [address] Care Team Providers Name Role Phone Britta Cox PA-C Primary Care Provider Reason for Visit Reason Comments Routine Visit Encounter Details Date Type Department Care Team Description 07/20/2019 [facility] Celia Lyons Rout ine Obstetrics/Gynecolo MD Visit gy [address] [facility] 5th Floor [facility] [address] [phone] Social History Tobacco Use Types Packs/Day Years [...] Pulse 91 07/20/2019 8:37 AM CDT Temperature - - Respiratory Rate - - Oxygen Saturation - - Inhaled Oxygen Concentration - - Weight 84.2 kg (185 lb 11.2 oz) 07/20/2019 8:37 AM CDT Height - - Body Mass Index 36.27 09/19/2015 11:10 AM CDT documented in this encounter Patient Instructions Patient InstructionsCelia Lyons MD - 07/20/2019 8:30 AM CDT Thank you for choosing [facility] for your care. We recommend you review the following information in the book Your Guide to : ?? Emotional Changes ?? Baby's Development ?? Caring for Yourself It was good to meet you today! As we discussed, please do your labs in four weeks. Do them the day before your next video/phone visit with Miguelina Stevens. Expect movement around 20 weeks. You may also get a little bit of dizzy or lightheaded as wellas headaches from 14-20 weeks. Keep drinking a lot of water. yoga and the back exercises that are in the book we gave you today would also probably be helpful for sleep. documented in this encounter Progress Notes Celia Lyons MD - 07/20/2019 8:30 AM CDT 44 y.o. No LMP recorded. Patient is . EDC 01/29/2020, by early Ultrasound and embryotransfer date, now at 12w3d here for initial MD visit/NOB2 Current Issues: 1. Nausea is subsiding 2. Fatigue is still overwhelming. Not sleeping well, either. No caffeine. Not a lot of exercise except walking the dogs. Working from home. 3. Vulvovaginal itching, which she has had intermittently. She has history of psoriasis, and gets like treatment to her arms and legs, but will not be doing that vaginally. She does not really have a lot of discharge, but she was also recently diagnosed with yeast under her breasts. She had psoriasis there, too. She sees the milk collector on , and will ask her about it but would like a test for yeast today. She does have some steroid creams which she will use if the yeast test is negative. 4. This is an IVF with a donor egg from somebody in their early 20s. Both the donor and her had genetic testing but they did not want to test the embryo due to the potential increasedrisk for nonviable and/or anomalies. So they do not want to do any genetic testing. They are unlikely to want to do an AFP, which would find open neural tube defects that are not genetic, butnorma will discuss that again with her and let us know if she wants that done. Risk Factors: 1. IVF with donor egg from somebody in their early 20s 2. Advanced maternal age 3. Obesity in with pre BMI of 35.81 4. History of PCOS 5. History of subclinical hypothyroidism 6. History of depression, not currently an issue, though certainly some anxiety given current world circumstances BP 131/74 (BP Location: Right Arm, BP Cuff Size: Regular) Pulse 91 Wt 185 lb 11.2 oz (84.2 kg) BMI 36.27 kg/m?? Estimated body mass index is 36.27 kg/m?? as calculated from the following: Height as of 09/19/15: 5' (1.524 m). Weight as of this encounter: 185 lb 11.2 oz (84.2 kg). Gen/Psych: Patient is alert, oriented, normal affect. In no acute distress. Neck: Supple, without masses, nodes, thyromegaly Lungs: Clear to A&P Heart: RRR without murmurs, clicks, rubs Breasts: Examined in the supine and upright positions. No masses. No supraclavicular or axillary adenopathy. No galactorrhea. Erythema with a little bit of a skin break under the right breast, and justerythema under the left breast. Mild satellite lesion formation as well Abdomen: Soft, non-tender, without masses, organomegaly. No CVA tenderness. No inguinal nodes. Pelvic: Normal external genitalia, including urethral meatus, Bartholin's and Micco's glands with the exception of erythema throughout the labia majora, and labia minora, but really not so much in the vestibule. Physiologic appearing discharge at the introitus. Normal perineum and perianal area. Vagina without pathologic appearing discharge or lesions. Cervix without significant discharge, lesions orcervical motion tenderness. Uterus is difficult secondary to obesity but seems about 12 week size. Adnexae without dominant masses, tenderness. Rectovaginal exam is deferred is not clinically indicated. Extremities: Negative for edema or tenderness Skin: No obvious pathologic lesions except some areas of possible psoriasis as noted above ASSESSMENT: 1. Intrauterine at 12w3d 2. IVF with donor egg from somebody in their early 20s 3. Advanced maternal age 4. Obesity in with pre BMI of 35.81 5. History of PCOS 6. History of subclinical hypothyroidism 7. History of depression, not currently an issue, though certainly some anxiety given current world circumstances PLAN: 1. Genetic screening was discussed with the patient and she declines to proceed; will consider AFP at 16 weeks, but would like a regular radiology ultrasound at 20 weeks 2. Visits every 4 weeks to 32 weeks, then every 2 weeks to 36 weeks, then weekly, alternating with the CAREER EDUCATION TEACHER discussed, as well as discussed video/phone visits 3. Early glucose screen is indicated, and will add TSH to it 4. 20 week US; 24-28 week GCT, anti-treponemal marin, hemoglobin, possibly marin screen; 28 week Tdap; 36-37 week GBS discussed 5. She will not need antepartum testing, under the current Covid 19 protocols. They may change by the end of her 6. See checklist for other items discussed today. We did discuss ways to try to improve her insomniaincluding increasing her exercise, and nighttime meditation 7. Pap and wet prep done today. I elected not to do GC/CT as she presumably had that done at [facility] 30 minutes spent with the patient, 20 of which is spent in counseling. Jodi Lyons MD documented in this encounter Plan of Treatment Not on filedocumented as of this encounter Procedures Procedure Name Priority Date/Time Associated Diagnosis Comme nts VAGINAL WET PREP Waiting 07/20/2019 9:25 AM Vaginal itching Re sults for this CDT procedure are i n the results section. PAP TEST Routine 07/20/2019 9:21 AM Screening for malignan t Results for this CDT neoplasm of cervix procedure are in the results section. HPV WITH 16 18 Routine 07/20/2019 9:21 AM Special screening Re sults for this GENOTYPING, CDT examination for human proced ure are in CERVICAL/ENDOCERVI papillomavirus (HPV) t he results JUSTINE section. documented in this encounter Results TSH with Free T4 (if TSH Abnormal) (08/23/2019 9:42 AM CDT) athologist Signature TSH, Reflex 1.88 0.30 - 4.50 08/23/2019 [facility] uIU/mL 5:01 PM CDT LABORATORY Specimen Anatomical Collection Method / Collection Time Recei joyce Time (Source) Location / Volume Laterality Blood Venipuncture / 08/23/2019 9:42 08/23/2019 9:42 Unknown AM CDT AM CDT Narrative [facility] - 08/23/2019 5:01 P M CDT Lab will automatically reflex to Free T4 when TSH results are <0.30 uIU/mL or >4.50 mIU/mL. Celia Lyons MD LAB_1 Performing Organization Address City/State/ZIP Code Phon e Number [facility] [address] [place] [address] (ABNORMAL) Lab Glucose O'Polo Screen (08/23/2019 9:42 AM CDT) athologist Signature Glucose, 1 157 (H) 70 - 135 08/23/2019 [facility] mg/dL 10:03 AM CDT LABORATORY Challenge Specimen Anatomical Collection Method / Collection Time Recei joyce Time (Source) Location / Volume Laterality Blood Venipuncture / 08/23/2019 9:42 08/23/2019 9:42 Unknown AM CDT AM CDT Celia Lyons MD LAB_1 Performing Organization Address City/State/ZIP Code Phon e Number [facility] [address] [place] [address] (ABNORMAL) Wet Prep (07/20/2019 9:25 AM CDT) [facility] Method Time Signature Fungal Not Detected Not detected 07/20/2019 [facility] Elements 9:46 AM CDT LABORATORY Clue Cells Not Detected Not Detected 07/20/2019 [facility] 9:46 AM CDT LABORATORY White Blood Detected (A) Not Detected 07/20/2019 [facility] Cells 9:46 AM CDT LABORATORY Trich Not Detected Not detected 07/20/2019 [facility] Vaginalis 9:46 AM CDT LABORATORY Specimen Anatomical Collection Method Collection Time Receive d Time (Source) Location / / Volume Laterality Swab (Source VAGINAL CERVIX / Non-blood 07/20/2019 9:25 AM 07/19 9:35 Required) Unknown Collection / CDT AM CDT Unknown Narrative [facility] - 07/20/2019 9:46 A M CDT Methodology: ??Manual Microscopic Celia Lyons MD LAB_1 Performing Organization Address [facility] e Number [facility] [address] [place] [address] HPV with 16 18 Genotyping (07/20/2019 9:21 AM CDT) [facility] Method Time [facility] HPV High Risk Not Detected Not detected 07/23/2019 [facility] Type 16 PCR 3:59 PM CDT HOSPITAL HPV High Risk Not Detected Not Detected 07/23/2019 [facility] Type 18 PCR 3:59 PM CDT HOSPITAL HPV High Risk Not Detected Not detected 07/23/2019 [facility] Other Than 3:59 PM CDT HOSPITAL 16/18 Specimen Anatomical Collection Method Collection Time Receive d Time (Source) Location / / Volume Laterality Cervical Broom ENTIRE ENDOCERVIX 07/20/2019 9:21 AM 7:50 / Unknown CDT AM CDT [facility] - 07/23/2019 3:59 PM CD T The Kathy HPV test is a qualitative in vitro test for the detection of Human Papillomavirus in [facility] patient specimens. The test utilizes amplification of target DNA by Polymerase Chain Reaction (PCR ) and nucleic acid hybridization for the detection of 14 high-risk (HR) HPV types. The assay tests for high risk types (16, 18, 31, 33, 35, 39, 45, 51, 52, 56, 58, 59, 66, and 68). Celia Lyons MD LAB_1 Performing Organization Address [facility] e Number [address] [address] PAP Test (07/20/2019 9:21 AM CDT) Component Value Ref Test Analysis Performed At [facility] Method Time [facility] Case Report Pap ? Case: [id number] ? 07/23/2019 [facility] Authorizing Provider: ??Celia Gaona MD ? Collected: ? 07/20/2019 09:21 AM ? 8:54 AM LABORATOR Y Ordering Location: ? [facility] ? Received: ?07/21/2019 07:50 AM ? CDT ? Obstetrics/Gynecology ? First Screen: ? Clarita Blake CT (ASCP) ? Specimen: ?Pap Test, Rou michael, Cervix/Endocervix ? Pap Specimen Satisfactory for 07/23/2019 [facility] Adequacy evaluation, 8:54 AM LABORATORY endocervical/santiago CDT sformation zone component absent. Pap Negative for 07/23/2019 [facility] Electr onically Interpretation intraepithelial 8:54 AM LABORATOR Y signed by jj Blake or CDT MAI Sotomayor malignancy (ASCP) on (NILM). 07/23/2019 at 8:54 AM Pap Disclaimer The Pap test is a 07/23/2019 METHOD IST screening test 8:54 AM LABORATORY designed to aid CDT in the detection of cervical cancer and its precursor lesions. It is not a diagnostic procedure and should not be used as the sole means of detecting cervical cancer. Both false-positive and false-negative reports may occur. Gross The specimen is 07/23/2019 [facility] Description received in 8:54 AM LABORATORY [facility] fixative CDT and properly labeled. 1 Pap-stained [facility] slide is prepared. Embedded Images 07/23/2019 [facility] 8:54 AM LABORATORY CDT Specimen Anatomical Collection Method Collection Time Receive d Time (Source) Location / / Volume Laterality Other Specimen ENTIRE ENDOCERVIX 07/20/2019 9:21 AM 7:50 Type / Unknown CDT AM CDT Comment: LMP: No LMP recorded. Patient i s . Celia Lyons MD LAB PATHOLOGY Performing Organization Address City/State/ZIP Code Phon e Number [facility] [address] [place] [address] documented in this encounter Visit Diagnoses Diagnosis resulting from in vitro fertil ization in first trimester - Primary Obesity in Obesity complicating , childbir th, or the puerperium, unspecified as to episode of care or not applicable Primigravida of advanced maternal age in first trimester Hypothyroidism, unspecified type (HRC) Psoriasis Other psoriasis Vaginal itching Pruritus of genital organs Screening for diabetes mellitus Screening for malignant neoplasm of cerv ix Screening for malignant neoplasm of the cervix Special screening examination for human papillomavirus (HPV) documented in this encounter Care Teams Political Cartoonist Relationship Specialty Start Date End Date Britta Cox PA-C PCP - General 06/13/15 [address] [place] [address] documented as of this encounter
--- OUTSIDE RECORDS SUMMARY | 2021-11-07 13:11 | XMS_ITS | Encounter Summary ---
:1975 Author Organization [employer] Address [address], [place] [address] Care Team Providers Name Role Phone Britta Cox PA-C Primary Care Provider Encounter Details Date Type Department Care Team Description 07/17/2016 Lab Visit Specialty Center 3931 Outpatient Fertility testing Laboratory [address] [place] [address] Social History Tobacco Use Types Packs/Day Years [...] encounter Procedures Procedure Name Priority Date/Time Associated Comments Diagnosis ARTIFICIAL Routine 07/17/2016 7:36 AM Fertility testing Resu lts for this INSEMINATION,FROZEN CDT procedur e are in DONOR,SPECIMEN PREP the resu lts section. documented in this encounter Results Artificial Insemination,Frozen Donor,Specimen Prep [...] - 07/17/2016 7:54 AM CDT Performed at [facility], [address] [place] [address] CLIA number [id number] Good Hernandez MD LAB_1 Performing Organization Address City/State/ZIP Code Phon e Number [facility] [address] [place] [address] documented in this encounter Visit Diagnoses Diagnosis Fertility testing documented in this encounter Care Teams Forming Tube Selector Relationship Specialty Start Date End Date Britta Cox PA-C PCP - General 06/13/15 [address] [place] [id number] documented as of this encounter
--- OUTSIDE RECORDS SUMMARY | 2021-11-07 13:11 | XMS_ITS | Encounter Summary ---
:1975 Author Organization [employer] Address [address], [place] [address] Care Team Providers Name Role Phone Britta Cox PA-C Primary Care Provider Reason for Visit Reason Onset Date Comments Intrauterine Insemination 08/13/2016 Encounter Details Date Type Department Care Team Description 08/13/2016 Telephone Good Monzon, Intrauter ine Obstetrics/Gynecolog y MD Insemination [address] [place] [address] [place] [phone] Social History Tobacco Use Types Packs/Day Years [...] documented as of this encounter Nursing Notes Maddi Marroquin, RN - 08/13/2016 1:00 PM CDT Call placed to the patient; after reviewing the chart. AI process, all pertinent information with her; her questions answered. AI Flowsheets (hard copy and Epic copy) and Schlog completed; reviewed the information with her for accuracy. Gave the patient the call back number for the Nurseline ([phone]) if she has further questions or problems and needs to speak with a nurse. She had her LH surge today; scheduled for AI tomorrow as follows: Future Appointments Date Time Provider Department Center 08/14/2016 8:00 AM Wade Duong MD [facility] OBG PN [facility] Patient verbalized understanding, has no further questions/concerns and is comfortable with the plan. documented in this encounter Plan of Treatment Not on filedocumented as of this encounter Visit Diagnoses Not on filedocumented in this encounter Care Teams Orthotic/Prosthetic Practitioner Relationship Specialty Start Date End Date Britta Cox PA-C PCP - General 06/13/15 [address], [place] [address] documented as of this encounter
--- OUTSIDE RECORDS SUMMARY | 2021-11-07 13:11 | XMS_ITS | Encounter Summary ---
:1975 Author Organization [employer] Address [address] [place] [address] Care Team Providers Name Role Phone Britta Cox PA-C Primary Care Provider Reason for Visit Procedure/Equipment (Routine) - Incomplete Specialty Diagnoses / Procedures Referred By Contact Refer red To Contact Diagnoses Acute left-sided back pain, unspecified back location Martha Gomes PA-C Procedures XR Thoracic Spine [address] [place] [address] Referral ID Status Reason Start Date Expiration Date Visits V isits Requested Authorized [id number] Incomplete 07/31/2018 10/30/2019 1 1 Encounter Details Date Type Department Care Team Description 07/31/2018 Ancillary Procedure [facility] Martha Gomes Acute left-sided [address], [place] ENRIQUE Laura back pain, [address] unspecified back [place] [address] location [phone] [place] [address] Social History Tobacco Use Types Packs/Day Years [...] Name Priority Date/Time Associated Diagnosis Comme nts XR THORACIC SPINE 2 Routine 07/31/2018 3:19 PM Acute left-side d Results for this VIEWS CDT back pain, procedure are i n unspecified back the results location section. documented in this encounter Results XR Thoracic Spine 2 Views (07/31/2018 3:19 PM CDT) Anatomical Region Laterality Modality Spine, T-Spine Computed Radiography Specimen (Source) Anatomical Collection Method Collection Time Re ceived Time Location / / Volume Laterality 07/31/2018 2:41 PM CDT Narrative 07/31/2018 3:27 PM CDT COMPARISON: ??None. FINDINGS: ??Two views were obtained. ??T here are 12 thoracic-type vertebral bodies. ??No fracture or subluxation of the thoracic vertebral bodies is identified. ??Vertebral disk space height and alignment appear normal. Procedure Note Ross Gaviria MD - 07/31/2018Form atting of this note might be different from the original. COMPARISON: None. FINDINGS: Two views were obtained. There are 12 thoracic-type vertebral bodies. No fracture or subluxation of the thoracic vertebral bodies is identified. Vertebral disk space height and alignment appear normal. Martha Gomes PA-C RAD [facility] documented in this encounter Visit Diagnoses Diagnosis Acute left-sided back pain, unspecified back location documented in this encounter Care Teams Senior Professional Services Consultant Relationship Specialty Start Date End Date Britta Cox PA-C PCP - General 06/13/15 [address], [place] [address] documented as of this encounter
--- OUTSIDE RECORDS SUMMARY | 2021-11-07 13:11 | XMS_ITS | Encounter Summary ---
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 [place] [address] Referral ID Status Reason Start Date Expiration Date Visits V isits Requested Authorized [id number] Incomplete 07/11/2016 10/10/2017 1 1 Encounter Details Date Type Department Care Team Description 07/12/2016 Imaging [facility] Good Hernandez, Inf ertility due to Services-Ultrasound oligo-ovulation [address] [place] [address] [address] [place] [address] [phone] (Wo rk) Social History Tobacco Use Types Packs/Day Years Used Date Smoking Tobacco: Never Smokeless Tobacco: Never Alcohol Use Standard Drinks/Week Comments Yes 1.7 (1 standard drink = 0.6 oz [...] Procedure Name Priority Date/Time Associated Diagnosis Comme [facility] US FOLLICLES Routine 07/12/2016 10:44 AM Infertility due to Re sults for this CDT oligo-ovulation procedure ar e in the results section. documented in this encounter Results US Follicles (07/12/2016 10:44 AM CDT) Anatomical Region Laterality Modality Pelvis Ultrasound Specimen (Source) Anatomical Collection Method Collection Time Re ceived Time Location / / Volume Laterality 07/12/2016 9:56 AM CDT Narrative 07/12/2016 10:47 AM CDT HISTORY: Infertility. FINDINGS: Endovaginal scanning was perfo rmed. ?? Day of cycle: ??11 Endometrial Thickness: ??8.0 mm Endometrial Appearance: Trilaminar. Fluid in the Cul [place] Sac: No significant free fluid seen. RIGHT OVARY: Diameters of follicles measuring GREATER than 10 mm (measured in mm): 11.8 and 17.1 mm There are 3 follicles measuring LESS jhonathan n 10mm. LEFT OVARY: Diameters of follicles measuring GREATER than 10 mm (measured in mm): 19.4 and 11.4 mm There are 2 follicles measuring LESS jhonathan n 10mm. Procedure Note Artemio Geller MD - 07/12/2016Formatti ng of this note might be different from the original. HISTORY: Infertility. FINDINGS: Endovaginal scanning was perfo rmed. Day of cycle: 11 Endometrial Thickness: 8.0 mm Endometrial Appearance: Trilaminar. Fluid in the [place]: No significant free fluid seen. RIGHT OVARY: Diameters of follicles measuring GREATER than 10 mm (measured in mm): 11.8 and 17.1 mm There are 3 follicles measuring LESS jhonathan n 10mm. LEFT OVARY: Diameters of follicles measuring GREATER than 10 mm (measured in mm): 19.4 and 11.4 mm There are 2 follicles measuring LESS jhonathan n 10mm. 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
--- OUTSIDE RECORDS SUMMARY | 2021-11-07 13:11 | XMS_ITS | Encounter Summary ---
:1975 Author Organization [employer] Address [address] [place] [address] Care Team Providers Name Role Phone Britta Cox PA-C Primary Care Provider Reason for Visit Reason Comments Ear Pain L Encounter Details Date Type Department Care Team Description 03/02/2019 Office Visit Martha Zapata Ear yancy n, left (Primary Dx); Medicine CARLOS ENRIQUE Laura Motion sickness, subsequent encounter [address], [address] [place] [address] [place], [place] [id number] Social History Tobacco Use Types Packs/Day Years [...] Sign Reading Time Taken Comments Blood Pressure 129/77 03/02/2019 8:23 AM FISH ROE PROCESSOR Pulse 87 03/02/2019 8:23 AM FISH ROE PROCESSOR Temperature 36.7 ??C (98.1 ??F) 03/02/2019 8:23 AM FISH ROE PROCESSOR Respiratory Rate - - Oxygen Saturation - - Inhaled Oxygen Concentration - - Weight 81.6 kg (179 lb 14.4 oz) 03/02/2019 8:23 AM FISH ROE PROCESSOR Height - - Body Mass Index 35.13 09/19/2015 11:10 AM CDT documented in this encounter Patient Instructions Patient InstructionsMartha Gomes PA-C - 03/02/2019 8:00 AM CST 1) I have sent a refill for scopolamine patches to your pharmacy. 2) For the ear discomfort, I recommend the following: -Nasal saline rinses followed by Flonase nasal spray. -Sudafed (follow the package instructions). -Alternate between Tylenol and Ibuprofen for pain control. You can take Tylenol 1000 mg up to 4 times daily and Ibuprofen 400-600 mg up to 3 times daily. -Apply warm compresses to the ear. ROE PROCESSOR documented in this encounter Progress Notes Martha Gomes PA-C - 03/02/2019 8:00 AM CST Patient: Courtney Lacy Provider: Martha Gomes PA-C Chief Complaint Patient presents with ??? Ear Pain L SUBJECTIVE: Courtney is a 43-year-old female who presents with complaints of left ear discomfort. Symptoms began a few days ago. Localizes her discomfort deep within the ear with radiation into the jaw and neck. She will have occasional sharp discomfort as well. The ear feels full and congested, similar to when she has been on an airplane in the past. She denies any popping of the ear. She has had some minor rhinorrhea and a sore throat on and off over the past few weeks. No known fever. She denies any drainage from the ear. No recent swimming. She does not know if she clenches or grinds her teeth but notes she has been under increased stress as of late. She has taken NyQuil on a few occasions. No other OTC treatments have been tried. While here today, she requests a refill of scopolamine patches. She has been prescribed these in thepast for motion sickness on cruises and has tolerated them without apparent adverse effect. She willleaving for a cruise next week for 8 days. Denies possibility of . PAST MEDICAL HISTORY: Past Medical History: Diagnosis Date ??? Anxiety [...] transmitted disease) ([facility]) ??? Vitamin D Deficiency ALLERGIES: Allergies Allergen Reactions ??? Other PN: PT HAS MULTIPLE FAMILY HX OF PCN ALLERGY MEDICATIONS: Current Outpatient Medications Medication Sig Note Dispense Refill ??? cholecalciferol (VITAMIN D3) 1000 UNITS tablet 1 Int'l Units daily (every 24 hours). (Patient not taking: Reported on 03/02/2019) ??? clomiPHENE (CLOMID) 50 MG tablet TAKE TWO TABLETS BY MOUTH EVERY DAY FOR 5 DAYS STARTING ON DAY 3 OR 4 OF CYCLE 08/14/2016: Received from: External Pharmacy 2 ??? ClomiPHENE Citrate (CLOMID OR) 07/17/2016: 100 mg ??? cyclobenzaprine (FLEXERIL) 5 MG tablet Take 1-2 Tablets by mouth daily at bedtime. (Patient not taking: Reported on 03/02/2019) 15 Tablet 0 ??? desogestrel-ethinyl estradiol (APRI) 0.15-30 MG-MCG tablet Take 1 Tablet by mouth daily. ??? ibuprofen (MOTRIN) 200 MG tablet Take 2-3 Tablets by mouth every 6 hours as needed for Pain. (Patient not taking: Reported on 03/02/2019) 100 Tablet 0 ??? Nutritional Supplements (GRAPESEED EXTRACT) 500-50 MG daily. ??? [place]-3 Fatty Acids (FISH OIL) 500 MG Indications: PN: (Patient not taking: Reported on 03/02/2019) ??? Oupgae-IcZcq-QlXojc-FA-[place] (MULTIVITAMIN/MINERALS OR) Take 1 tablet by mouth daily (every 24 hours). ??? Probiotic Product (SUPER PROBIOTIC OR) ??? scopolamine (TRANSDERM-SCOP) 1.0mg/3 days patch Apply 1 Patch to skin every 3 days. Apply behindthe ear 3 Patch 0 No current facility-administered medications for this visit. EXAM VS: BP 129/77 (BP Location: Right Arm, BP Cuff Size: Regular) Pulse 87 Temp 98.1 ??F (36.7 ??C) Wt 179 lb 14.4 oz (81.6 kg) BMI 35.13 kg/m?? General: Pleasant female in NAD. Neck: Supple, non-tender, no cervical or submandibular lymphadenopathy. HEENT: Sclera white, no icterus or injection. External ear canals clear. No pain with palpation of the tragus or traction of the pinna bilaterally. She is mildly TTP over the left TMJ but no crepitus or significant discomfort with jaw range of motion. Her TMs are intact bilaterally, non erythematous. There does appear to be fluid behind the left TM. No mastoid tenderness. Posterior oropharynx is mildly erythematous but without tonsillar enlargement or exudate. Uvula is midline. Nares patent without discharge. No sinus tenderness to percussion. Cardiovascular: RRR, normal S1 & S2, without murmurs, rubs or gallops. Respiratory: Normal respiratory effort. Lungs clear to auscultation bilaterally. Skin: Warm, dry, and well-perfused. Psychiatric: Alert & oriented with appropriate affect and insight ASSESSMENT/PLAN: 1. Ear pain, left Provided Courtney with reassurance that there is no evidence for ear infection. She does have some fluid behind the left TM and likely has a component of eustachian tube dysfunction as well. Recommend more aggressive symptomatic treatment with nasal saline rinses, Flonase nasal spray, and Sudafed. She can alternate between Tylenol and ibuprofen for pain control. I also recommend application of heat to the ear in the event there is a component of TMJ. Should she develop more significant ear pain despitethese measures, or otorrhea, she was advised to return for re-evaluation. 2. Motion sickness, subsequent encounter Refill for scopolamine patches provided to use on upcoming cruise. - scopolamine (TRANSDERM-SCOP) 1.0mg/3 days patch; Apply 1 Patch to skin every 3 days. Apply behind the ear Dispense: 3 Patch; Refill: 0 Maddie Gomes PA-C ROE PROCESSOR documented in this encounter Plan of Treatment Not on filedocumented as of this encounter Visit Diagnoses Diagnosis Ear pain, left - Primary Motion sickness, subsequent encounter documented in this encounter Care Teams Two Way Radio Technician Relationship Specialty Start Date End Date Britta Cox PA-C PCP - General 06/13/15 [address] [place] [address] documented as of this encounter
--- OUTSIDE RECORDS SUMMARY | 2021-11-07 13:11 | XMS_ITS | Encounter Summary ---
:1975 Author Organization [employer] Address [address], [place] [address] Care Team Providers Name Role Phone Britta Cox PA-C Primary Care Provider Reason for Visit Procedure/Equipment (Routine) - Incomplete Specialty Diagnoses / Procedures Referred By Contact Refer red To Contact Diagnoses Primary female infertility Good Hernandez MD Procedures [facility] [id number] [place] [address] C[address] [place] [place] [address] Referral ID Status Reason Start Date Expiration Date Visits V isits Requested Authorized [id number] Incomplete 07/04/2016 10/03/2017 1 1 Encounter Details Date Type Department Care Team Description 07/09/2016 Imaging [facility] Good [facility] female Services-Ultrasound infertility [address] [place] [address], [address] [place] [address] [place] [address] [phone] (Wo rk) Social History Tobacco Use Types [...] Name Priority Date/Time Associated Diagnosis Comme nts US FOLLICLES Routine 07/09/2016 7:41 AM Primary female Results for this CDT infertility procedure are i n the results section. documented in this encounter Results US Follicles (07/09/2016 7:41 AM CDT) Anatomical Region Laterality Modality Pelvis Ultrasound Specimen (Source) Anatomical Collection Method Collection Time Re ceived Time Location / / Volume Laterality 07/09/2016 7:14 AM CDT Narrative 07/09/2016 9:57 AM CDT HISTORY: Infertility. FINDINGS: Endovaginal scanning was perfo rmed. ?? Day of cycle: ??8 Endometrial Thickness: ??6 mm Endometrial Appearance: Trilaminar. Fluid in the Cul de Sac: No significant free fluid seen. RIGHT OVARY: Diameters of follicles measuring GREATER than 10 mm (measured in mm): 10.3, 10.4 There are 6 follicles measuring LESS jhonathan n 10mm. LEFT OVARY: Diameters of follicles measuring GREATER than 10 mm (measured in mm): 14.9, 12.8 There are 3 follicles measuring LESS jhonathan n 10mm. Procedure Note Jonas Talamantes MD - 07/09/2016Format ting of this note might be different from the original. HISTORY: Infertility. FINDINGS: Endovaginal scanning was perfo rmed. Day of cycle: 8 Endometrial Thickness: 6 mm Endometrial Appearance: Trilaminar. Fluid in the Cul de Sac: No significant free fluid seen. RIGHT OVARY: Diameters of follicles measuring GREATER than 10 mm (measured in mm): 10.3, 10.4 There are 6 follicles measuring LESS jhonathan n 10mm. LEFT OVARY: Diameters of follicles measuring GREATER than 10 mm (measured in mm): 14.9, 12.8 There are 3 follicles measuring LESS jhonathan n 10mm. Good Hernandez MD [facility] documented in this encounter Visit Diagnoses Diagnosis Primary female infertility Female infertility of unspecified origin documented in this encounter Care Teams Student Worker Relationship Specialty Start Date End Date Britta Cox PA-C PCP - General 06/13/15 [address] [place] [address] documented as of this encounter
--- OUTSIDE RECORDS SUMMARY | 2021-11-07 13:11 | XMS_ITS | Encounter Summary ---
:1975 Author Organization [employer] Address [address] [place] [address] Care Team Providers Name Role Phone Britta Cox PA-C Primary Care Provider Reason for Visit Procedure/Equipment (Routine) - Incomplete Specialty Diagnoses / Procedures Referred By Contact Refer red To Contact Procedures Provider, Foreign Images LINDA IMAGE(S) [address] [place] [address] Referral ID Status Reason Start Date Expiration Date Visits V isits Requested Authorized [id number] Incomplete 03/20/2018 06/19/2019 1 1 Encounter Details Date Type Department Care Team Description 03/07/2018 Ancillary Procedure [facility] PACS Provider, [address] [address] [address] [place] [address] Social History Tobacco Use Types Packs/Day Years [...] Name Priority Date/Time Associated Diagnosis Comme nts LINDA IMAGE(S) Routine 03/07/2018 12:00 AM Results for this BOTTOM IRONER procedure are i n the results section . documented in this encounter Results LINDA IMAGE(S) (03/07/2018 12:00 AM BOTTOM IRONER) Anatomical Region Laterality Modality Other Specimen (Source) Anatomical Location Collection Method / Collectio n Time Received Time / Laterality Volume Narrative 03/20/2018 11:22 AM BOTTOM IRONER These images were obtained during a surgical procedure. See the Operative Note from this date for findings. Foreign Images Provider RAD NON-REPORTABLES documented in this encounter Visit Diagnoses Not on filedocumented in this encounter Care Teams Mud Analysis Supervisor Relationship Specialty Start Date End Date Britta Cox PA-C PCP - General 06/13/15 [address] [place], [place] [address] documented as of this encounter
--- OUTSIDE RECORDS SUMMARY | 2021-11-07 13:11 | XMS_ITS | Encounter Summary ---
:1975 Author Organization [employer] Address [address] [address] Care Team Providers Name Role Phone Britta Cox PA-C Primary Care Provider Reason for Visit Reason Comments Future Appointments Encounter Details Date Type Department Care Team Description 02/03/2018 Telephone Good Monzon, Future Ap pointments Obstetrics/Gynecolog y [address] [id number] [facility] [place] [address] [place] [address] [phone] (Wo rk) Social History Tobacco Use Types [...] documented as of this encounter Nursing Notes Nancy Collado, RN - 02/04/2018 10:03 AM CST Pt scheduled appt with you 02/10; will bring records at that time. Pt notes ideally she would like to do procedure on 03/06/18. FYI ING MACHINE MECHANIC Good Hernandez MD - 02/03/2018 11:11 AM CST I will put in the request to surgery scheduling. She will need to have a preop with me since she hasn't been seen in quite awhile. ING MACHINE MECHANIC Lizzy Hernandez RN - 02/03/2018 10:20 AM CST Reason for Call: Appointment Work In requested. and Clinician input needed on symptom based concern. Next Steps: Document further recommendations and route to appropriate person or pool. Caller IS expecting a call back from Care Team. Additional Information: Patient called with to schedule procedure. States she is seeing Dr. Plata at [facility], did saline sonogram and found uterine polyp, recommends Hysteroscopy and polypectomy for first week in March. Patient states they will be doing egg retrieval in January and transfer in April. Patient will try todrop off records this week. States she has had a hysteroscopy/polypectomy procedure before. Please advise if patient needs appointment to discuss or if she can schedule procedure. If patient needs to be seen, please advise on work in as well. Thank you! ING MACHINE MECHANIC documented in this encounter Plan of Treatment Not on filedocumented as of this encounter Visit Diagnoses Not on filedocumented in this encounter Care Teams Mental Health Tech Relationship Specialty Start Date End Date Britta Cox PA-C PCP - General 06/13/15 [address] [place], [place] [address] documented as of this encounter
--- OUTSIDE RECORDS SUMMARY | 2021-11-07 13:11 | XMS_ITS | Encounter Summary ---
:1975 Author Organization [employer] Address [address] [place] [address] Care Team Providers Name Role Phone Britta Cox PA-C Primary Care Provider Reason for Visit Procedure/Equipment (Routine) - Incomplete Specialty Diagnoses / Procedures Referred By Contact Refer red To Contact Diagnoses Acute pain of left shoulder Martha Gomes PA-C Procedures XR Shoulder Lt 2+ Views [address] [place] [address] Referral ID Status Reason Start Date Expiration Date Visits V isits Requested Authorized [id number] Incomplete 07/31/2018 10/30/2019 1 1 Encounter Details Date Type Department Care Team Description 07/31/2018 Ancillary Procedure [facility] Martha Gomes Acute pain of left [address] Valentín Morton PA-C shoulder [address] [place] [address] [address] [place] [address] Social History Tobacco Use Types Packs/Day Years [...] Priority Date/Time Associated Diagnosis Comme nts XR SHOULDER LT 2+ Routine 07/31/2018 3:20 PM Acute pain of lef t Results for this VIEWS CDT shoulder procedure are i n the results section. documented in this encounter Results XR Shoulder Lt 2+ Views (07/31/2018 3:20 PM CDT) Anatomical Region Laterality Modality Upper Extremity, Shoulder Computed Radio graphy Specimen (Source) Anatomical Collection Method Collection Time Re ceived Time Location / / Volume Laterality 07/31/2018 2:41 PM CDT Narrative 07/31/2018 3:52 PM CDT COMPARISON: ??None. FINDINGS: ??Mild degenerative and hypert rophic changes in the AC joint. Otherwise unremarkable. Incidentally seen is a small calcified g ranuloma in the left upper lobe and probable calcified lymph node in the left hilum. Procedure Note Ross Gaviria MD - 07/31/2018Form atting of this note might be different from the original. COMPARISON: None. FINDINGS: Mild degenerative and hypertro phic changes in the AC joint. Otherwise unremarkable. Incidentally seen is a small calcified g ranuloma in the left upper lobe and probable calcified lymph node in the left hilum. Martha Gomes PA-C RAD GD documented in this encounter Visit Diagnoses Diagnosis Acute pain of left shoulder documented in this encounter Care Teams Road Engineer Freight Relationship Specialty Start Date End Date Britta Cox PA-C PCP - General 06/13/15 [address] [place] [address] documented as of this encounter
--- OUTSIDE RECORDS SUMMARY | 2021-11-07 13:11 | XMS_ITS | Encounter Summary ---
:1975 Author Organization [employer] Address [address] [place] [address] Care Team Providers Name Role Phone Britta Cox PA-C Primary Care Provider Encounter Details Date Type Department Care Team Description 07/12/2016 Notes/Orders Cheo June, Megan way MD Obstetrics/Gynecolog y [address] [facility] [address] [facility] [place] [address] [place] [address] [phone] Social History Tobacco Use Types Packs/Day Years [...] on filedocumented in this encounter Care Teams Local Telephone Operator Relationship Specialty Start Date End Date Britta Cox PA-C PCP - General 06/13/[address] [place] [address] documented as of this encounter
--- OUTSIDE RECORDS SUMMARY | 2021-11-07 13:11 | XMS_ITS | Encounter Summary ---
:1975 Author Organization [employer] Address [address], [place] [address] Care Team Providers Name Role Phone Britta Cox PA-C Primary Care Provider Reason for Visit Auth/Cert Specialty Diagnoses / Procedures Referred By Contact Refer red To Contact Diagnoses Endometrial polyp Referral ID Status Reason Start Date Expiration Date Visits Requ ested Visits Authorized [id number] 1 1 Encounter Details Date Type Department Care Team Description 03/06/2018 Surgery [facility] [address] , Hysteroscopy Dilation Bld Ambul Surgery MD and Curettage and [address] [facility] [address] [place] [address] [phone] (Wo rk) Social History Tobacco Use Types [...] Sign Reading Time Taken Comments Blood Pressure 106/65 03/06/2018 3:09 PM CREATIVE RECRUITER Pulse 76 03/06/2018 3:09 PM CREATIVE RECRUITER Temperature 37 ??C (98.6 ??F) 03/06/2018 3:09 PM CREATIVE RECRUITER Respiratory Rate 16 03/06/2018 3:09 PM CREATIVE RECRUITER Oxygen Saturation 95% 03/06/2018 3:09 PM CREATIVE RECRUITER Inhaled Oxygen Concentration - - Weight - - Height - - Body Mass Index - - documented in this encounter Medications at Time of Discharge Medication Sig Dispensed Refills Start Date End Date Bnkbxi-JfHkh-TdOdiq-FA- Take 1 tablet by 0 2015 [place] mouth daily (every 24 (MULTIVITAMIN/MINERALS hours). OR) cholecalciferol 1 Int'l Units daily 0 09/03/2008 03/02/2019 (VITAMIN D3) 1000 UNITS (every 24 hours). tablet clomiPHENE (CLOMID) 50 TAKE TWO TABLETS BY 2 07/201607/20/2019 MG tablet MOUTH EVERY DAY FOR 5 DAYS STARTING ON DAY 3 OR 4 OF CYCLE ClomiPHENE Citrate 0 2019 (CLOMID OR) desogestrel-ethinyl Take 1 Tablet by 0 07/20/2019 estradiol (APRI) mouth daily. 0.15-30 MG-MCG tablet HYDROcodone-acetaminoph Take 1-2 Tablets by 4 Tablet 0 08/201707/31/2018 en (NORCO) 5-325 MG mouth every 4 hours tablet as needed for Pain. Maximum acetaminophen dose is 4000 mg in 24 hours. ibuprofen (MOTRIN) 200 Take 2-3 Tablets by 100 Tablet 0 08/201707/20/2019 MG tablet mouth every 6 hours as needed for Pain. Nutritional Supplements daily. 0 0 07/20/2019 (GRAPESEED EXTRACT) 500-50 MG [place]-3 Fatty Acids Indications: PN: 0 05/31/2008 07/20/2019 (FISH OIL) 500 MG Probiotic Product 0 020 (SUPER PROBIOTIC OR) scopolamine Apply 1 Patch to skin 4 Patch 0 02/10/2018 (TRANSDERM-SCOP) every 3 days. Apply 1.0mg/3 days patch behind the ear documented as of this encounter Procedure Notes Good Hernandez MD - 03/06/2018 4:13 PM CST NEWS CONTENT SPECIALIST OPERATIVE REPORT Name: Courtney M Nucla Date of Procedure: 03/06/2018 Pre-Op Diagnosis: 1. Endometrial polyp Post-Op Diagnosis: 1. Endometrial polyp Procedure: Hysteroscopy, Polypectomy Surgeon: Good Hernandez MD Anesthesia: MAC with paracervical block Indications: Patient is a 42yo female G0 LMP 02/25/18 with a polyp on ultrasound. She is going through IVF and it is recommended that she do this before a transfer. Findings: On pelvic exam uterus is anteverted, normalsize. The uterus is sounded to 7cm. On hysteroscopy there is a 1cm long X3mm wide endometrial polyp arising from the anterior left lower uterine segment. Procedure: Patient was taken to the operative room and IV sedation was administered. The patient was placed in the dorsal lithotomy position and a pelvic exam was performed. The perineum was prepped and draped margarita sterile fashion. The 'pause for the cause' was performed. The speculum was placed and the anterior lip of the cervix was infiltrated with 2cc 1% lidocaine with epinephrine and a single toothed tenaculum was applied. A paracervical block was placed for a totalof 20cc local. The uterus was sounded and the cervix dilated to accept a #6 Hegar dilator. The Truclear hysteroscope was inserted and saline was used for distension media. The above findings were noted. The polyp morcellator was used to remove the polyp to the base. Tissue sent to pathology. Instruments were removed. Bleeding from the tenaculum was controlled with silver nitrate. Patient tolerated the procedure well. EBL: 1cc Fluid discrepancy: 50cc Good Hernandez MD TIVE RECRUITER documented in this encounter Plan of Treatment Pending Results Name Type Priority Associated Diagnoses Date/Ti in POCT urine Point of Care STAT 03/06/2018 2:5 2 PM CREATIVE RECRUITER : Scheduled Orders Name Type Priority Associated Diagnoses Order S chedule POCT urine Point of Care STAT Once today sta rting now : for 1 Occurrenc es starting 2017 until 8 POCT Glucose: Point of Care Routine Once today st arting now for 1 Occurrenc es starting 2017 until 8 POCT Glucose: Point of Care Routine Once today st arting now for 1 Occurrenc es starting 2017 until 8 documented as of this encounter Procedures Procedure Name Priority Date/Time Associated Diagnosis Comme nts HYSTEROSCOPY WITH 03/06/2018 3:30 PM Endometrial polyp MORCELLATOR CREATIVE RECRUITER Case Notes 1 HOSPITAL OBTAINED Routine 03/06/2018 3:28 PM CREATIVE RECRUITER Results for this ANATOMICAL PATHOLOGY procedu re are in the REQUEST results section . SURGICAL [facility] COVEL Routine 03/06/2018 6:00 AM CREATIVE RECRUITER Results for this NICOLLET procedure are i n the results section . documented in this encounter Results Anatomical Pathology Request (03/06/2018 3:28 PM CREATIVE RECRUITER) athologist Signature Surgical Path Received PN SOFT Ord Specimen Anatomical Collection Method Collection Time Receive d Time (Source) Location / / Volume Laterality 03/06/2018 3:28 PM 8 1:12 CREATIVE RECRUITER AM CREATIVE RECRUITER Narrative PN SOFT - 03/07/2018 9:53 AM CREATIVE RECRUITER Performed at [facility], [address] [place] [address] CLIA number [id number] Good Hernandez MD LAB_1 Performing Organization Address City/State/[facility] Code Phon e Number PN SOFT [address] [place] [address] Pathology Report (03/06/2018 6:00 AM CREATIVE RECRUITER) [facility] Time Signature Path: FINAL SURGICAL PATHOLOGY REPORT PN SOFT Pathology #: [id number] ? Date Obtained: 03/06/2018 ?Date Received: 03/07/2018 DIAGNOSIS: A) Uterus, hysteroscopic resection: ?- Endometrial polyp ?- Inactive glandular epithelium and pseudodecidual change ?(changes consistent with progestational effect) ?Roxanna MARAVILLA ? (electronic signatur e) ? 03/10/2018 ??09:0 0 CLINICAL NOTES: Endometrial polyp GROSS DESCRIPTION: The specimen is received in formalin labeled endometrial p olyp and ?? consists of still, polypoid tissue fragments admixed with blood clot ?? aggregating to 1.5 x 1.5 x 1 cm. ??The tissue is filtere d and ?? submitted in one block. ? WEYAL MICROSCOPIC DESCRIPTION: The microscopic examination has been performed. Performed at [facility], [facility], [place] [address] Specimen Anatomical Location Collection Method Collection Time Received Time (Source) / Laterality / Volume ENDOMETRIAL 03/06/2018 6:00 03/06/2018 6 :00 STRUCTURE / Unknown AM CREATIVE RECRUITER AM CREATIVE RECRUITER Good Hernandez MD LAB_1 Performing Organization Address City/State/ZIP Code Phon e Number PN SOFT [address] [place] [address] documented in this encounter Visit Diagnoses Diagnosis Endometrial polyp - Primary Polyp of corpus uteri Endometrial polyp Polyp of corpus uteri documented in this encounter Administered Medications Inactive Administered Medications - up to 3 most recent administrations Medication Order MAR Action Action Date Dose Rate Site fentaNYL (SUBLIMAZE) injection 25-100 mc g 25-100 mcg, Intravenous, [id number], Pain, Sedation, Pro cedure, Severe Pain (pain score 8-10), Starting on Madeleine 03/06/18 at 1436, Until Th u 03/06/18 at 192, Notify Anesthesiologist if total cumulative dose in excess of 250 mcg., Pre-op fentaNYL (SUBLIMAZE) injection 25-50 mcg 25-50 mcg, Intravenous, [id number], Other, Moderate to Severe Pain (pain score 5 and above) in the immediate postop period when faster on-s et, short acting agent is desired., Starting on Madeleine 03/06/18 at 122 2, Until Madeleine 03/06/18 at 1929, Administer every 5 minutes as needed, to a maximum cumulative dose of 250 mcg. For patients with a regional, spinal, or local anesth etic, may give for anticipated pain as the anesthetic wears off., PACU/Recovery HYDROcodone-acetaminophen (NORCO) 5-325 MG Given 03/06 4:47 PM CREATIVE RECRUITER 2 Tablets per tablet 1-2 Tablet 1-2 Tablet, Oral, Q4H PRN, Other, Moderate Pain (pain score 5-7), Starting on Madeleine 03/06/18 at 1643, Until [facility] 03/06/18 at 192, Post-op HYDROmorphone injectable 0.2-0.4 mg 0.2-0.4 mg, Intravenous, Q10MIN PRN, Oth er, : Moderate to Severe Pain (pain score 5 and above) in the immediate postop period when longer acting agent is desired., Starting on Madeleine 03/06/18 at 1222, Until [facility] 03/06/18 at 1929, Maximum cumulative dose is 2 mg. For patients with a regional, s vivek, or local anesthetic, may give for anticipated pain as the anesthetic wears off., PACU/Re covery lactated ringers infusion Started 03/06/2018 3:08 PM CREATIVE RECRUITER 25 mL/hr 25 mL/hr 25 mL/hr, Intravenous, CONTINUOUS, Starting on Madeleine 03/06/18 at 1500, Administer on all preop surgery patients, ages 12 and older, unless specified differently in the Protocol for Preop Initiation of IV fluids Order Set., Pre-op lidocaine (XYLOCAINE) 1 % injection 0.1- 0.3 mL 0.1-0.3 mL, Subcutaneous, PRN, Other, for additional I V starts, Starting on Madeleine 03/06/18 at 1436, Pre-op lidocaine-epinephrine 1 %-1:243105 Given 03/06/2018 3:59 PM CREATIVE RECRUITER 20 mL Vaginal injection ONCE PRN, Starting on Madeleine 03/06/18 at 1559, Until [facility] 03/06/18 at 192, Intra-op meperidine (DEMEROL) injection 12.5 mg 12.5 mg, Intravenous, [id number], Shiverin g, Starting on Madeleine 03/06/18 at 1222, Until [facility] 03/06/18 at 1929, For 2 doses, Maximu m cumulative dose is 25 mg. Do not give to patients receiving MAO inhibitors (e.g. phenelzine (NA RDIL), tranylcypromine (PARNATE), selegiline (ELDEPRYL))., PACU/Recovery midazolam (VERSED) injection 1-2 mg 1-2 mg, Intravenous, [id number], Sedation, Anxiety, Proc edure, Starting on Madeleine 03/06/18 at 1436, Until Madeleine 03/06/18 at 1929, MAX Dose 2 mg, Pre-op morphine injectable 1-2 mg 1-2 mg, Intravenous, [id number], Other, Moderate to Yoly re Pain (pain score 5 and above) Moderate to Severe Pain (pain score 5 and above ) in the immediate postop period when longer acting agent is desired and HYDROmo rphone is not tolerated., Starting on Madeleine 03/06/18 at 1222, Until [facility] 03/06/18 at 1929, Maximum cumulative dose is 12 mg. For patients with a regional, spinal, or local anesthetic, may give for anticipated pain as the anesthetic wears off., PACU/Re covery ondansetron (ZOFRAN) injection 4 mg 4 mg, Intravenous, Q4H PRN, Nausea, Vomiting, Starting on Madeleine 03/06/18 at 1222, Until Madeleine 03/06/18 at 1929, If multiple medications are ordered for nausea or vomiting - administer in the following priority based on medications ordered, effectiveness and availability: ondanset keely (ZOFRAN) > prochlorPERAZINE (COMPAZINE) > diphenhydrAMINE (BENADRYL) > hydrOXYzi ne HCl (VISTARIL)> ePHEDrine > scopolamine (TRANSDERM-SCOP)., PACU/Recovery documented in this encounter Active and Recently Administered Medications Times are shown in CREATIVE RECRUITER. Scheduled Medication Order 03/04/2018 03/05/2018 03/06/2018 lidocaine (XYLOCAINE) 1 % injection 0.1-0.3 mL 1500 (Due) 0.1-0.3 mL, Subcutaneous, ONCE, Madeleine 03/06 at 1500, For 1 dose, Lidocaine to be used for IV starts unless patient refuses., Pre-op NO pre-op antibiotics needed 150 0 (Due) ONCE, Madeleine 12/6/18 at 1500, For 1 dose, Pre-op Continuous Medication Order 03/04/2018 03/05/2018 03/06/2018 lactated ringers infusion 1508 ( Started - Provider: Julianna Swenson RN)1550 (Anesthesia Fluid - Provider: Siobhan Hamm APRN, WINDOWS ADMIN)1700 (Stopped - Provider: Dee Perez RN) 25 mL/hr, Intravenous, at 25 mL/hr, CONT INUOUS, Starting Madeleine 03/06/18 at 1500, Administer on all preop surgery patients, ages 12 and older, unless specified differently in the Protocol for Preop Initiation of IV fluids Order Set., Pre-op PRN Medication Order 03/04/2018 03/05/2018 03/06/2018 acetaminophen (TYLENOL) tablet 325-650 mg 325-650 mg, Oral, Q4H PRN, Other, Mild P ain (pain score 1-4), Starting Madeleine 03/06/18 at 1643, Give for mild pain or if patient prefers acetaminophen over other options for pain (all pain scores)., Post-op fentaNYL (SUBLIMAZE) injection 25-100 mcg 25-100 mcg, Intravenous, [id number], Pain, Sedation, Procedure, Severe Pain (pain score 8-10), Starting Madeleine 03/06/18 at 1436, Notify Anesthesiologist if total cumulative dose in excess of 250 mcg., Pre-op fentaNYL (SUBLIMAZE) injection 25-50 mcg 25-50 mcg, Intravenous, [id number], Other, Moderate to Severe Pain (pain score 5 and above) in the immediate postop period when faster on-set, short acting agent is desired., Starting Madeleine 03/06/18 at 1222, Administer every 5 minutes as needed, t o a maximum cumulative dose of 250 mcg. For patients with a regional, spinal, or local anesthetic, may give for anticipated pain as the anesthetic wears off., PACU/Recovery HYDROcodone-acetaminophen (NORCO) 5-325 MG per tablet 1-2 Tablet 1647 (Given - Provider: Jael Ribeiro RN) 1-2 Tablet, Oral, Q4H PRN, Other, Modera te Pain (pain score 5-7), Starting Madeleine 03/06/18 at 1643, Post-op HYDROmorphone injectable 0.2-0.4 mg 0.2-0.4 mg, Intravenous, Q10MIN PRN, Oth er, : Moderate to Severe Pain (pain score 5 and above) in the immediate postop period when longer acting agent is desired., Starting Madeleine 03/06/18 at 1222, Maximum cumulative dose is 2 mg. For patients wi a regional, spinal, or local anesthetic, may give for anticipated pain as the anesthetic wears off., PACU/Recovery lidocaine (XYLOCAINE) 1 % injection 0.1-0.3 mL 0.1-0.3 mL, Subcutaneous, PRN, Other, fo r additional IV starts, Starting Madeleine 03/06/18 at 1436, Pre-op lidocaine-epinephrine 1 %-1:811533 injection 1559 (Given - Provider: Good Hernandez MD) ONCE PRN, Starting Madeleine 03/06/18 at 1559, Intra-op meperidine (DEMEROL) injection 12.5 mg 12.5 mg, Intravenous, [id number], Shiverin g, Starting Madeleine 03/06/18 at 1222, For 2 doses, Maximum cumulative dose is 25 mg. Do not give to patients receiving MAO inhibitors (e.g. phenelzine (NARDIL), tranyl cypromine (PARNATE), selegiline (ELDEPRYL))., PACU/Recovery midazolam (VERSED) injection 1-2 mg 1-2 mg, Intravenous, [id number], Sedation, Anxiety, Procedure, Starting Madeleine 03/06/18 at 1436, MAX Dose 2mg, Pre-op morphine injectable 1-2 mg 1-2 mg, Intravenous, [id number], Other, Mo derate to Severe Pain (pain score 5 and above) Moderate to Severe Pain (pain score 5 and above) in the immediate postop period when longer acting agent is desired and HYDROmorphone is not tolerated., St arting Madeleine 03/06/18 at 1222, Maximum cumulative dose is 12 mg. For patients with a regional, spinal, or local anesthetic, may give for anticipated pain as the anesthetic wears off., PACU/Recovery ondansetron (ZOFRAN) injection 4 mg 4 mg, Intravenous, Q4H PRN, Nausea, Vomi ting, Starting Madeleine 03/06/18 at 1222, If multiple medications are ordered for nausea or vomiting - administer in the following priority based on medications ordered , effectiveness and availability: ondans etron (ZOFRAN) > prochlorPERAZINE (COMPAZINE) > diphenhydrAMINE (BENADRYL) > hydrOXYzine HCl (VISTARIL)> ePHEDrine > scopolamine (TRANSDERM-SCOP)., PACU/Recovery documented in this encounter Care Teams Nursing Aide Relationship Specialty Start Date End Date Britta Cox, KARENC PCP - General 06/13/15 [address] [place] [address] documented as of this encounter
--- OUTSIDE RECORDS SUMMARY | 2021-11-07 13:11 | XMS_ITS | Encounter Summary ---
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 Good Hernandez MD Procedures US Follicles [address] [facility] [address] [place] [id number] Referral ID Status Reason Start Date Expiration Date Visits V isits Requested Authorized [id number] Incomplete 07/11/2016 10/10/2017 1 1 Encounter Details Date Type Department Care Team Description 07/11/2016 Notes/Orders Good Monzon Infertility due to Obstetrics/Gynecolog melanie Sandhu MD oligo-ovulation [address] [facility] [address] [facility] (Prim talha Dx) [facility] [place] [address] [address] [place] [phone] Social History Tobacco Use Types Packs/Day Years [...] on filedocumented as of this encounter Results US Follicles (07/12/2016 10:44 [...] LESS jhonathan n 10mm. 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
--- OUTSIDE RECORDS SUMMARY | 2021-11-07 13:11 | XMS_ITS | Encounter Summary ---
:1975 Author Organization [employer] Address [address], [place] [address] Care Team Providers Name Role Phone Britta Cox PA-C Primary Care Provider Reason for Visit Reason Comments Post-Op Follow Up Call Encounter Details Date Type Department Care Team Description 03/07/2018 Telephone Good Monzon, Post-Op F ollow Up Call Obstetrics/Gynecolog y [address] [place] [address] [place] [phone] [id number] Social History Tobacco Use Types Packs/Day Years [...] documented as of this encounter Nursing Notes Ezequiel Greenwood RN - 03/10/2018 4:24 PM CST Post-Surgical Discharge follow-up call completed. Please refer to DOC Flowsheet: SURGDC for details. F RESEARCH ASSOCIATE Julianna Byrd RN - 03/07/2018 11:27 AM CST Procedure: Hysteroscopy, Polypectomy F RESEARCH ASSOCIATE documented in this encounter Plan of Treatment Not on filedocumented as of this encounter Visit Diagnoses Not on filedocumented in this encounter Care Teams Multiple Drill Operator Relationship Specialty Start Date End Date Britta Cox PA-C PCP - General 06/13/[address] [place] [address] documented as of this encounter
--- OUTSIDE RECORDS SUMMARY | 2021-11-07 13:11 | XMS_ITS | Encounter Summary ---
:1975 Author Organization [employer] Address [address], [place] [address] Care Team Providers Name Role Phone Britta Cox PA-C Primary Care Provider Reason for Visit Auth/Cert Specialty Diagnoses / Procedures Referred By Contact Refer red To Contact Diagnoses Endometrial polyp Referral ID Status Reason Start Date Expiration Date Visits Requ ested Visits Authorized [id number] 1 1 Encounter Details Date Type Department Care Team Description 03/06/2018 Hospital Encounter [facility] [address] Ambul Surgery [address] [address] [place], [place] [facility] [address] [facility] [place] [phone] (Wo rk) Social History Tobacco Use Types [...] Sign Reading Time Taken Comments Blood Pressure 117/80 03/06/2018 5:15 PM SERVICE CENTER COORDINATOR Pulse 92 03/06/2018 5:15 PM SERVICE CENTER COORDINATOR Temperature 36.4 ??C (97.5 ??F) 03/06/2018 5:00 PM SERVICE CENTER COORDINATOR Respiratory Rate 16 03/06/2018 5:15 PM SERVICE CENTER COORDINATOR Oxygen Saturation 99% 03/06/2018 5:15 PM SERVICE CENTER COORDINATOR Inhaled Oxygen Concentration - - Weight - - Height - - Body Mass Index - - documented in this encounter Medications at Time of Discharge Medication Sig Dispensed Refills Start Date End Date Oklclv-UlQjj-KnVbgk-FA- Take 1 tablet by 0 2015 Turpin mouth daily (every 24 (MULTIVITAMIN/MINERALS hours). OR) [...] 0 0 07/20/2019 (GRAPESEED EXTRACT) 500-50 MG Turpin-3 Fatty Acids Indications: PN: 0 05/31/2008 07/20/2019 (FISH OIL) 500 MG Probiotic Product 0 020 (SUPER PROBIOTIC OR) scopolamine Apply 1 Patch to skin 4 Patch 0 02/10/2018 (TRANSDERM-SCOP) every 3 days. Apply 1.0mg/3 days patch behind the ear documented as of this encounter Procedure Notes Good Hernandez MD - 03/06/2018 4:13 PM CST COGNOS DEVELOPER OPERATIVE REPORT Name: Courtney Lacy Date of Procedure: 03/06/2018 Pre-Op Diagnosis: 1. [...] 1cc Fluid discrepancy: 50cc Good Hernandez MD ICE CENTER COORDINATOR documented in this encounter Plan of Treatment Pending Results Name Type Priority Associated Diagnoses Date/Ti mt POCT urine Point of Care STAT 03/06/2018 2:5 2 PM SERVICE CENTER COORDINATOR : Scheduled Orders Name Type Priority Associated [...] WITH 03/06/2018 3:30 PM Endometrial polyp MORCELLATOR SERVICE CENTER COORDINATOR Case Notes 1 HOSPITAL OBTAINED Routine 03/06/2018 3:28 PM SERVICE CENTER COORDINATOR Results for this ANATOMICAL PATHOLOGY procedu re are in the REQUEST results section . SURGICAL [facility] Routine 03/06/2018 6:00 AM SERVICE CENTER COORDINATOR Results for this NICOLLET procedure are i n the results section . documented in this encounter Results Anatomical Pathology Request (03/06/2018 3:28 PM SERVICE CENTER COORDINATOR) athologist Signature Surgical Path Received PN SOFT Ord Specimen Anatomical Collection Method Collection Time Receive d Time (Source) Location / / Volume Laterality 03/06/2018 3:28 PM 8 1:12 SERVICE CENTER COORDINATOR AM SERVICE CENTER COORDINATOR Narrative PN SOFT - 03/07/2018 9:53 AM SERVICE CENTER COORDINATOR Performed at [facility], [address] [place] [address] CLIA number [id number] Good Hernandez MD LAB_1 Performing Organization Address City/State/ZIP Code Phon e Number PN SOFT [address] [place] [address] Pathology Report (03/06/2018 6:00 AM SERVICE CENTER COORDINATOR) [facility] Signature Path: FINAL SURGICAL PATHOLOGY REPORT PN SOFT Pathology #: [id number] ? Date Obtained: 03/06/2018 ?Date Received: 03/07/2018 [...] microscopic examination has been performed. Performed at [facility], [facility], [place] [address] Specimen Anatomical Location Collection Method Collection Time Received Time (Source) / Laterality / Volume ENDOMETRIAL 03/06/2018 6:00 03/06/2018 6 :00 STRUCTURE / Unknown AM SERVICE CENTER COORDINATOR AM SERVICE CENTER COORDINATOR Good Hernandez MD LAB_1 Performing Organization Address City/State/ZIP Code Phon e Number PN SOFT [address] [place] [address] documented in this encounter Visit Diagnoses Diagnosis Endometrial polyp - Primary Polyp of corpus uteri Obesity, Class II, BMI 35-39.9 (HRC) Obesity, unspecified Primary female infertility Female infertility of unspecified origin documented in this encounter Administered Medications Inactive Administered Medications - up to 3 most recent administrations Medication Order MAR Action Action Date Dose Rate Site fentaNYL (SUBLIMAZE) injection 25-100 mc g 25-100 mcg, Intravenous, [id number], Pain, Sedation, Pro cedure, Severe Pain (pain score 8-10), Starting on Madeleine 03/06/18 at 1436, Until Th u 03/06/18 at 1929, Notify Anesthesiologist if total cumulative dose in excess of 250 mcg., Pre-op fentaNYL (SUBLIMAZE) injection 25-50 mcg 25-50 mcg, Intravenous, [id number], Other, Moderate to Severe Pain (pain score [...] (NORCO) 5-325 MG Given 03/06 4:47 PM SERVICE CENTER COORDINATOR 2 Tablets per tablet 1-2 Tablet 1-2 Tablet, Oral, Q4H PRN, Other, Moderate Pain (pain score 5-7), Starting on Madeleine 03/06/18 at 1643, Until [facility] 03/06/18 at 192, Post-op HYDROmorphone injectable 0.2-0.4 mg 0.2-0.4 mg, Intravenous, Q10MIN PRN, Oth er, : Moderate to Severe Pain (pain score 5 and above) in the immediate postop period when longer acting agent is desired., Starting on Madeleine 03/06/18 at 1222, Until [facility] 03/06/18 at 192, Maximum cumulative dose is 2 mg. For patients with a regional, s vivek, or local anesthetic, may give for anticipated pain as the anesthetic wears off., PACU/Re covery lactated ringers infusion Started 03/06/2018 3:08 PM SERVICE CENTER COORDINATOR 25 mL/hr 25 mL/hr 25 mL/hr, Intravenous, [...] Madeleine 03/06/18 at 1436, Pre-op lidocaine-epinephrine 1 %-1:135578 Given 03/06/2018 3:59 PM SERVICE CENTER COORDINATOR 20 mL Vaginal injection ONCE PRN, Starting on Madeleine 03/06/18 at 1559, Until [facility] 03/06/18 at 192, Intra-op meperidine (DEMEROL) injection 12.5 mg 12.5 mg, Intravenous, [id number], Shiverin g, Starting on Madeleine 03/06/18 at 1222, Until [facility] 03/06/18 at 1929, For 2 doses, Maximu m cumulative dose is 25 mg. Do not give to patients receiving MAO inhibitors (e.g. phenelzine (NA RDIL), tranylcypromine (PARNATE), selegiline (ELDEPRYL))., PACU/Recovery midazolam (VERSED) injection 1-2 mg 1-2 mg, Intravenous, [id number], Sedation, Anxiety, Proc edure, Starting on Madeleine 03/06/18 at 1436, Until [facility] 03/06/18 at 1929, MAX Dose 2 mg, Pre-op morphine injectable 1-2 mg 1-2 mg, Intravenous, [id number], Other, Moderate to Yoly re Pain (pain score 5 and above) Moderate to Severe Pain (pain score 5 and above ) in the immediate postop period when longer acting agent is desired and HYDROmo rphone is not tolerated., Starting on Madeleine 03/06/18 at 1222, Until [facility] 03/06/18 at 1929, Maximum cumulative dose is 12 mg. For patients with a regional, spinal, or local anesthetic, may give for anticipated pain as the anesthetic wears off., PACU/Re covery ondansetron (ZOFRAN) injection 4 mg 4 mg, Intravenous, Q4H PRN, Nausea, Vomiting, Starting on Madeleine 03/06/18 at 1222, Until [facility] 03/06/18 at 1929, If multiple medications are ordered for nausea or vomiting - administer in the following priority based on medications ordered, effectiveness and availability: ondanset keely (ZOFRAN) > prochlorPERAZINE (COMPAZINE) > diphenhydrAMINE (BENADRYL) > hydrOXYzi ne HCl (VISTARIL)> ePHEDrine > scopolamine (TRANSDERM-SCOP)., PACU/Recovery documented in this encounter Active and Recently Administered Medications Times are shown in SERVICE CENTER COORDINATOR. Scheduled Medication Order 03/04/2018 03/05/2018 03/06/2018 lidocaine (XYLOCAINE) 1 % injection 0.1-0.3 mL 1500 (Due) 0.1-0.3 mL, Subcutaneous, ONCE, Madeleine 03/0618 at 1500, For 1 dose, Lidocaine to be used for IV starts unless patient refuses., Pre-op NO pre-op antibiotics needed 150 0 (Due) ONCE, Madeleine 03/06/18 at 1500, For 1 dose, Pre-op Continuous Medication Order 03/04/2018 03/05/2018 03/06/2018 lactated ringers infusion 1508 ( Started - Provider: Julianna Swenson RN)1550 (Anesthesia Fluid - Provider: Siobhan Hamm APRN, WEIGHMASTER LEAD)1700 (Stopped - Provider: Dee Perez RN) 25 [...] (SUBLIMAZE) injection 25-100 mcg 25-100 mcg, Intravenous, [id number], Pain, Sedation, Procedure, Severe Pain (pain score 8-10), Starting Madeleine 03/06/18 at 1436, Notify Anesthesiologist if total cumulative dose in excess of 250 mcg., Pre-op fentaNYL (SUBLIMAZE) injection 25-50 mcg 25-50 mcg, Intravenous, [id number], Other, Moderate to Severe Pain (pain score [...] Madeleine 03/06/18 at 1436, Pre-op lidocaine-epinephrine 1 %-1:954517 injection 1559 (Given - Provider: Good Hernandez MD) ONCE PRN, Starting [facility] 03/06/18 at 1559, Intra-op meperidine (DEMEROL) injection 12.5 mg 12.5 mg, Intravenous, [id number], Shiverin g, Starting [facility] 03/06/18 at 1222, For 2 doses, Maximum cumulative dose is 25 mg. Do not give to patients receiving MAO inhibitors (e.g. phenelzine (NARDIL), tranyl cypromine (PARNATE), selegiline (ELDEPRYL))., PACU/Recovery midazolam (VERSED) injection 1-2 mg 1-2 mg, Intravenous, [id number], Sedation, Anxiety, Procedure, Starting Madeleine 03/06/18 at 1436, MAX Dose 2mg, Pre-op morphine injectable 1-2 mg 1-2 mg, Intravenous, [id number], Other, Mo derate to Severe Pain (pain [...] PACU/Recovery documented in this encounter Care Teams Spool Hauler Relationship Specialty Start Date End Date Britta Cox PA-C PCP - General 06/13/15 [id number], [place] [id number] documented as of this encounter
--- OUTSIDE RECORDS SUMMARY | 2021-11-07 13:11 | XMS_ITS | Encounter Summary ---
:1975 Author Organization [employer] Address [address], [place] [address] Care Team Providers Name Role Phone Britat Cox PA-C Primary Care Provider Reason for Visit Reason Comments Procedure AI INFERTILITY Encounter Details Date Type Department Care Team Description 07/17/2016 Procedure Visit [facility] Eve Langston Proced ure (AI); Obstetrics/Gynecolog INFERTILITY y [address] [facility] [address] [place] [address] [place], [place] [phone] [id number] Social History Tobacco Use Types Packs/Day Years [...] documented as of this encounter Progress Notes Eve Langston MD - 07/17/2016 8:32 AM CDT nsemination procedure note: 41 y.o. presents for intrauterine donor insemination. Her primary fish roe technician is Mary. Her donor sperm number is [id number] and it is her husbands kendy/ Reji Lacy. Patient's last menstrual period was 07/02/2016 (exact date). and she is day 16of her cycle. This is her 3 cycle of insemination. Infertility related medications include 100mg clomid. Her ovulation was identified by LH testing which was positive 07/16/16. Semen sample characteristics include 31% motility, grade 2.5 and total motile sperm count is 7.1 million. Cervical mucous is noted to be of excellent quality. The accuracy of the donor semen specimen identification was confirmed with the patient. A long Marty speculum was placed to visualize and straighten the cervix. A sterile catheter containing the semen specimen was passed through the external os to just past the internal os and the specimen placed in the uterus slowly over 30-60 seconds to minimize cramping. The catheter and speculum were removed, the patient's hips elevated, and the patient instructed to rest for 10 minutes prior to leaving the office. She will call the office with her next menstrual period, if not , to schedule another insemination or make an appointment to discuss options. There were no complications. Diagnosis: Intrauterine insemination donor sperm cycle 3 documented in this encounter Plan of Treatment Not on filedocumented as of this encounter Visit Diagnoses Diagnosis Encounter for artificial insemination - Primary Artificial insemination documented in this encounter Care Teams Paste Thinner Relationship Specialty Start Date End Date Britta Cox PA-C PCP - General 06/13/15 [address] [place] [id number] documented as of this encounter
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
--- OUTSIDE RECORDS SUMMARY | 2021-11-07 13:11 | XMS_ITS | Encounter Summary ---
:1975 Author Organization [employer] Address [address] [address] Care Team Providers Name Role Phone Britta Cox PA-C Primary Care Provider Reason for Visit Reason Comments CONSULT Encounter Details Date Type Department Care Team Description 02/10/2018 Office Visit Good Monzon Preop examin ation (Primary Dx); Obstetrics/Gynecolog melanie Sandhu MD Endometrial polyp [address] [place] [address] [place] [phone] Social History Tobacco Use Types Packs/Day Years [...] Sign Reading Time Taken Comments Blood Pressure 111/81 02/10/2018 11:09 AM WEATHER STRIP MECHANIC Pulse 80 02/10/2018 11:09 AM WEATHER STRIP MECHANIC Temperature - - Respiratory Rate - - Oxygen Saturation - - Inhaled Oxygen Concentration - - Weight 82.1 kg (181 lb) 02/10/2018 11:09 AM WEATHER STRIP MECHANIC Height - - Body Mass Index 35.35 09/19/2015 11:10 AM CDT documented in this encounter Progress Notes Tommy Conley LPN - 02/10/2018 11:00 AM WEATHER STRIP MECHANIC Addended by: TOMMY CONLEY on: 02/10/2018 01:14 PM Modules accepted: Orders HER STRIP MECHANIC Good Hernandez MD - 02/10/2018 11:00 AM CST Name: Courtney Lacy Clinician: Good Hernandez MD Date: 02/10/2018 OPERATIONS MANAGEMENT TRAINEE PRE-OPERATIVE VISIT Scheduled Procedure: Hysteroscopy with polypectomy Date of Procedure: 03/06/18 SUBJECTIVE: Patient is a 42yo female G0 LMP 01/13/18 who presents today for a preoperative visit. Patient is undergoing a hysteroscopy with polypectomy prior to an IVF transfer. She is [facility] K[facility] and on ultrasound 01/31/18 had a probable anterior end ometrial polyp measuring 7.2X5.7mm. Patient brought a copy of the images and report with her. Of note, Courtney, her and tition will be going on a [place] Cruise in March to the [facility]. Her will have already done the semen donation. Past Medical History: Diagnosis Date ??? Anxiety [...] transmitted disease) ([facility]) ??? Vitamin D Deficiency Past Surgical History: Procedure Laterality Date ??? DILATION AND CURETTAGE ??? LEEP PROCEDURE 2008 [place] 3 ??? OPERATIVE HYSTEROSCOPY 2012 polyp Current Outpatient Medications Medication Sig Note Dispense Refill ??? cholecalciferol (VITAMIN D3) 1000 UNITS tablet 1 Int'l Units daily (every 24 hours). (Patient not taking: Reported on 02/10/2018) ??? clomiPHENE (CLOMID) 50 MG tablet TAKE TWO TABLETS BY MOUTH EVERY DAY FOR 5 DAYS STARTING ON DAY 3 OR 4 OF CYCLE 08/14/2016: Received from: External Pharmacy 2 ??? ClomiPHENE Citrate (CLOMID OR) 07/17/2016: 100 mg ??? Nutritional Supplements (GRAPESEED EXTRACT) 500-50 MG daily. ??? [place]-3 Fatty Acids (FISH OIL) 500 MG Indications: PN: ??? Ygtjhc-PyOnz-YcPtyc-FA-[place] (MULTIVITAMIN/MINERALS OR) Take 1 tablet by mouth daily (every 24 hours). ??? Probiotic Product (SUPER PROBIOTIC OR) ??? scopolamine (TRANSDERM-SCOP) 1.0mg/3 days patch Apply 1 Patch to skin every 3 days. Apply behindthe ear 4 Patch 0 No current facility-administered medications for this visit. Allergies Allergen Reactions ??? Other PN: PT HAS MULTIPLE FAMILY HX OF PCN ALLERGY Social History Socioeconomic History ??? Marital status: Single Spouse name: Not on file ??? Number of children: 0 ??? Years of education: Not on file ??? Highest education level: Not on file Social Needs ??? Financial resource strain: Not on file ??? Food insecurity - worry: Not on file ??? Food insecurity - inability: Not on file ??? Transportation needs - medical: Not on file ??? Transportation needs - non-medical: Not on file Occupational History ??? 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 Smoking status: Never Smoker ??? Smokeless tobacco: Never Used Substance and Sexual Activity ??? Alcohol use: No Alcohol/week: 1.0 oz Types: 2 Standard drinks or equivalent per week Comment: 1-2 drinks per week ??? Drug use: No ??? Sexual activity: Yes Partners: Male control/protection: None Comment: Partner-vasectomy Other Topics Concern ??? Bike Helmet Yes ??? City Water No ??? Exercise Yes ??? Guns in home Yes ??? Seat Belt Yes ??? Special Diet No ??? Weight Concern Yes Social History Narrative Works in [employer]. Single, partnered. 1 dog. Review of Systems: As above, otherwise GI and review of systems negative. Objective: Pt is a healthy appearing female in no acute distress. Vital Signs: BP 111/81 (BP Location: Left Arm, BP Cuff Size: Adult Regular) Pulse 80 Wt 181 lb (82.1 kg) LMP 01/13/2018 BMI 35.35 kg/m?? Heart: Regular rate and rhythm without murmurs, rubs or gallops Lung: Clear to auscultation without crackles, wheezes or distress Abdomen: Soft, non-tender, No organomegaly or masses. Pelvic: Deferred to OR ASSESSMENT: 1. Pre-operative Visit. Patient is cleared for surgery. 2. Discussed Zika exposure and CDC recommendations - a 2 month wait from exposure is recommended for2 women and 3 mos for men. [facility] is on the list. This would not change the retrieval timing because that is planned before they leave, however it may impact the transfer timing. The procedure was discussed at length, including risks of bleeding, infection, recurrence of polyp. The consent was reviewed and signed. Recovery was discussed. Total time 25min with 15 min in counseling. HER STRIP MECHANIC documented in this encounter Plan of Treatment Not on filedocumented as of this encounter Visit Diagnoses Diagnosis Preop examination - Primary Preoperative examination, unspecified Endometrial polyp Polyp of corpus uteri documented in this encounter Care Teams Live Games Dealer Relationship Specialty Start Date End Date Britta Cox PA-C PCP - General 06/13/15 [address] [place] [address] documented as of this encounter
--- OUTSIDE RECORDS SUMMARY | 2021-11-07 13:11 | XMS_ITS | Encounter Summary ---
:1975 Author Organization [employer] Address [address] [address] Care Team Providers Name Role Phone Britta Cox PA-C Primary Care Provider Reason for Visit Reason Comments Procedure AID/ [place] Encounter Details Date Type Department Care Team Description 08/14/2016 Procedure Visit [facility] Elizabeth Duong (AID/ Obstetrics/Gynecolog MD Nev[place]) [address] [facility] [address] [place] [address] [place], [place] [phone] [address] Social History Tobacco Use Types Packs/Day Years [...] documented as of this encounter Progress Notes Wade Duong MD - 08/14/2016 8:41 AM CDT Insemination procedure note: 41 y.o. presents for intrauterine donor insemination. Her primary visual basic programmer is Mary Her donor sperm number is [id number] from [facility]-- [place] - is deployed for .The indication for insemination is away spouse Patient's last menstrual period was 08/01/2016. and she is day 14of her cycle. This is her 4 cycle of insemination. Infertility related medications include clomid. Her ovulation was identified by LH testing which was positive 08/13/2016. Semen sample characteristics include 25% motility, grade 2.5 and total motile sperm count is 5.1 million. Cervical mucous is noted to be of fair quality. The accuracy of the donor semen [...] complications. Diagnosis: Intrauterine insemination donor sperm cycle 4 ICD-10-CM 1. Encounter for artificial insemination Z31.89 Artficl Insemination; Intra-Uterine To review with Dr Hernandez whether to do the [facility]. Will contact primary INFORMATION SYSTEMS PROFESSOR documented in this encounter Plan of Treatment Not on filedocumented as of this encounter Visit Diagnoses Diagnosis Encounter for artificial insemination - Primary Artificial insemination documented in this encounter Care Teams Hospice Executive Director Relationship Specialty Start Date End Date Britta Cox PA-C PCP - General 06/13/15 [address] [place], [place] [address] documented as of this encounter
--- OUTSIDE RECORDS SUMMARY | 2021-11-07 13:11 | XMS_ITS | Encounter Summary ---
:1975 Author Organization [email or web address] Address [address], [place] [address] Care Team Providers Name Role Phone Britta Cox PA-C Primary Care Provider Reason for Referral (Routine) - Incomplete Specialty Diagnoses / Procedures Referred By Contact Refer red To Contact Diagnoses Endometrial polyp Good Hernandez MD Procedures Case Request OR - Gynecologic Surg: DILATATION AND CURETTAGE WITH HYSTEROSCOPY [address] [facility] [place] [address] Referral ID Status Reason Start Date Expiration Date Visits V isits Requested Authorized [id number] Incomplete 02/03/2018 05/05/2019 1 1 EL DEPARTMENT MANAGER Encounter Details Date Type Department Care Team Description 02/03/2018 Notes/Orders Good Monzon Endometrial polyp Obstetrics/Gynecolog melanie Sandhu MD (Primary Dx) [address] [facility] [address] [place] [facility] [address] [place] [address] [place] [phone] Social History Tobacco Use Types Packs/Day Years [...] as of this encounter Visit Diagnoses Diagnosis Endometrial polyp - Primary Polyp of corpus uteri documented in this encounter Care Teams Legal Word Processor Relationship Specialty Start Date End Date Britta Cox PA-C PCP - General 06/13/15 [address] [place] [address] documented as of this encounter
--- OUTSIDE RECORDS SUMMARY | 2021-11-07 13:11 | XMS_ITS | Encounter Summary ---
:1975 Author Organization [employer] Address [address], [place] [address] Care Team Providers Name Role Phone Britta Cox PA-C Primary Care Provider Reason for Visit Reason Onset Date Comments Intrauterine Insemination 07/16/2016 Encounter Details Date Type Department Care Team Description 07/16/2016 [facility]phone [facility] Good Hernandez Intraut erine Obstetrics/Gynecolog y MD Insemination [address] [place] [address] [place], [place] [address] [address] [place], [place] [phone] [address] Social History Tobacco Use Types Packs/Day Years [...] documented as of this encounter Nursing Notes Ananya Painter, RN - 07/16/2016 11:41 AM CDT Pt called with surge and would like to schedule AI tomorrow. Reviewed time and location, completed flow sheet, scheduled appt and routed to AI pool. Future Appointments Date Time Provider Department Center 07/17/2016 8:00 AM Eve Langston MD [facility] Karina Francis, BERTA - 07/16/2016 11:32 AM CDT Pt calling to report [facility]K surge that happened this morning. Pt wanting to schedule for AI. documented in this encounter Plan of Treatment Not on filedocumented as of this encounter Visit Diagnoses Not on filedocumented in this encounter Care Teams Grease Rack Worker Relationship Specialty Start Date End Date Britta Cox PAJoeyC PCP - General 06/13/15 [address] [place], [place] [address] documented as of this encounter
--- OUTSIDE RECORDS SUMMARY | 2021-11-07 13:11 | XMS_ITS | Encounter Summary ---
:1975 Author Organization [employer] Address [address], [place] [address] Care Team Providers Name Role Phone Britta Cox PA-C Primary Care Provider Reason for Visit Reason Comments Concerns Encounter Details Date Type Department Care Team Description 06/30/2019 Telephone Good Monzon, Concerns Obstetrics/Gynecolog y [address] [facility] [address] [facility] [place] [address] [employer] [place] [employer] [facility] [place] [address] [phone] (Wo rk) Social History Tobacco Use Types [...] documented as of this encounter Nursing Notes Julianna Byrd RN - 06/30/2019 4:35 PM CDT Newly in vitro wants to know dates to schedule NOB 1&2. U/S at [facility] today shows 9 weeks.Discussed with Keyona and advised NOB 1 for next week and NOB 2 two weeks later. Pt agrees to plan and transferred to schedule. documented in this encounter Plan of Treatment Not on filedocumented as of this encounter Visit Diagnoses Not on filedocumented in this encounter Care Teams Car Sales Consultant Relationship Specialty Start Date End Date Britta Cox PA-C PCP - General 06/13/15 [address], [place] [address] documented as of this encounter
--- OUTSIDE RECORDS SUMMARY | 2021-11-07 13:11 | XMS_ITS | Encounter Summary ---
:1975 Author Organization [employer] Address [address], [place] [address] Care Team Providers Name Role Phone Britta Cox PA-C Primary Care Provider Reason for Visit Reason Comments Ear Pain Encounter Details Date Type Department Care Team Description 02/28/2019 Nurse Triage Britta Paige PA-C Ear Pain [address] [place] [address] [place] [address] [phone] (Wo rk) Social History Tobacco Use Types [...] documented as of this encounter Nursing Notes Melquiades Saul RN - 02/28/2019 11:28 AM CST Called pt who had made appt for Mo. nday already. Pt has had left ear pain and now sore throat and not sure how long but recent. Afebrile. Pain is not severe. Denied recent swimming. Reviewed guidelineto be seen within 24 hours but she would like to wait to see if sx resolve before Saturday. UC advisedwithin 24 hours if sx worsen. Problem list, allergies, and medications reviewed. Reason for Disposition ? ? Earache (Exceptions: brief ear pain of < 60 minutes duration, earache occurring during air travel Protocols used: [id number] MATIC OPERATOR Cherie Rizo - 02/28/2019 11:22 AM CST Symptoms Describe your symptoms (if pain, include location): Ear pain When did they start? unknown Additional comments (related to the above concern): Pt has appt Saturday for her ear ache. Please advise. If a prescription is needed, patient would like it filled at the pharmacy listed in Meds & Orders. (Verify the pharmacy patient would like to use for this request is highlighted in blue in PharmacySelection under Meds & Orders) Is it okay to leave a detailed message on your voicemail? Yes (Advise caller that the PN call back number will end with [phone] or unknown) For urgent symptoms: Please route and transfer to: Triage Pool (high priority) For routine symptoms: Please route to: Triage Pool (only transfer if caller insists) MATIC OPERATOR documented in this encounter Plan of Treatment Not on filedocumented as of this encounter Visit Diagnoses Not on filedocumented in this encounter Care Teams Vb Net Programmer Relationship Specialty Start Date End Date Britta Cox PA-C PCP - General 06/13/15 [address] [place] [address] documented as of this encounter
--- OUTSIDE RECORDS SUMMARY | 2021-11-07 13:11 | XMS_ITS | Encounter Summary ---
:1975 Author Organization [employer] Address [address] [place] [address] Care Team Providers Name Role Phone Britta Cox PA-C Primary Care Provider Reason for Visit Procedure/Equipment (Routine) - Incomplete Specialty Diagnoses / Procedures Referred By Contact Refer red To Contact Diagnoses Acute left-sided back pain, unspecified back location Martha Gomes PA-C Procedures XR Cervical Spine [address] [place] [address] Referral ID Status Reason Start Date Expiration Date Visits V isits Requested Authorized [id number] Incomplete 07/31/2018 10/30/2019 1 1 Encounter Details Date Type Department Care Team Description 07/31/2018 Ancillary Procedure [facility] Martha Gomes Acute left-sided [address], [place] Laura back pain, [address] unspecified back [place] [address] [address] location [phone] [place] [address] Social History Tobacco Use Types Packs/Day Years [...] Priority Date/Time Associated Diagnosis Comme nts XR CERVICAL SPINE 2 Routine 07/31/2018 3:20 PM Acute left-side d Results for this VIEWS CDT back pain, procedure are i n unspecified back the results location section. documented in this encounter Results XR Cervical Spine 2 [...] is seen. Martha Gomes PA-C RAD GD documented in this encounter Visit Diagnoses Diagnosis Acute left-sided back pain, unspecified back location documented in this encounter Care Teams Retanned Leather Roller Relationship Specialty Start Date End Date Britta Cox PA-C PCP - General 06/13/15 [address] [place] [address] documented as of this encounter
--- OUTSIDE RECORDS SUMMARY | 2021-11-07 13:11 | XMS_ITS | Encounter Summary ---
:1975 Author Organization [employer] Address [address], [place] [address] Care Team Providers Name Role Phone Britta Cox PA-C Primary Care Provider Reason for Visit Reason Onset Date Comments Other 08/03/2016 AI Encounter Details Date Type Department Care Team Description 08/03/2016 Telephone Good Monzon MD Other (AI) Obstetrics/Gynecolog y [address] [facility] [address] [address] [place] [address] [place] [address] [phone] Social History Tobacco Use Types Packs/Day Years [...] as of this encounter Nursing Notes Ananya Painter RN - 08/03/2016 3:13 PM CDT Called pt to confirm AI for this cycle. LMP 08/02/16. Will call morning of surge to schedule AI the next day. documented in this encounter Plan of Treatment Not on filedocumented as of this encounter Visit Diagnoses Not on filedocumented in this encounter Care Teams Lead Sustainability Specialist Relationship Specialty Start Date End Date Britta Cox PA-C PCP - General 06/13/[address] [place] [address] [address] documented as of this encounter
--- OUTSIDE RECORDS SUMMARY | 2021-11-07 13:11 | XMS_ITS | Encounter Summary ---
:1975 Author Organization [employer] Address [address] [address] Care Team Providers Name Role Phone Britta Cox PA-C Primary Care Provider Encounter Details Date Type Department Care Team Description 07/12/2016 Notes/Orders [facility] Ce ntGood Boss MD [address] [facility] [address] [place], [place] [address] [place], [place] [address] (Wo rk) Social History Tobacco Use Types [...] documented as of this encounter Progress Notes Good Hernandez MD - 07/12/2016 4:01 PM CDT Patient to have prescription for Novarel (HCG) injection 10,000 units this evening in [facility] documented in this encounter Plan of Treatment Not on filedocumented as of this encounter Visit Diagnoses Not on filedocumented in this encounter Care Teams Towing Pilot Relationship Specialty Start Date End Date Britta Cox, KARENC PCP - General 06/13/[address] [place] [place] [address] documented as of this encounter
--- OUTSIDE RECORDS SUMMARY | 2021-11-07 13:11 | XMS_ITS | Encounter Summary ---
:1975 Author Organization [employer] Address [address] [place] [address] Care Team Providers Name Role Phone Britta Cox PA-C Primary Care Provider Encounter Details Date Type Department Care Team Description 07/31/2018 Lab Visit [facility] Acute pain of left shoulder [address] [place], [place] [id number] Social History Tobacco Use Types Packs/Day Years [...] Name Priority Date/Time Associated Diagnosis Comme nts TEST Routine 07/31/2018 2:39 PM Acute pain of left R esults for this (URINE) CDT shoulder procedure are i n the results section. documented in this encounter Results Test Screen Urine (07/31/2018 2:39 PM CDT) P athologist Signature HCG, Urine Negative Negative 07/31/2018 [place] 2:47 PM CDT LABORATORY Specimen Anatomical Collection Method Collection Time Receive d Time (Source) Location / / Volume Laterality Urine URINE SPECIMEN Non-blood 07/31/2018 2:39 PM 019 2:39 COLLECTION, CLEAN Collection / CDT PM CDT CATCH / Unknown Unknown Martha Gomes PA-C LAB_1 Performing Organization Address City/State/ZIP Code Phon e Number [facility] [address] [facility] [place] [phone] documented in this encounter Visit Diagnoses Diagnosis Acute pain of left shoulder documented in this encounter Care Teams Screener And Blender Operator Relationship Specialty Start Date End Date Britta Cox PA-C PCP - General 06/13/[address] [place] [address] [address] documented as of this encounter
--- OUTSIDE RECORDS SUMMARY | 2021-11-07 13:11 | XMS_ITS | Encounter Summary ---
:1975 Author Organization [id number] Address [address], [place] [address] Care Team Providers Name Role Phone Britta Cox PA-C Primary Care Provider Encounter Details Date Type Department Care Team Description 08/14/2016 Lab Visit Special[facility] 3931 Outpatient Fertility testing Laboratory [address] [place] [address] Social History Tobacco Use Types [...] Priority Date/Time Associated Comments Diagnosis ARTIFICIAL Routine 08/14/2016 7:10 AM Fertility testing Resu lts for this INSEMINATION,FROZEN CDT procedur e are in DONOR,SPECIMEN PREP the resu lts section. documented in this encounter Results Artificial Insemination,Frozen Donor,Specimen Prep (08/14/2016 7:10 AM CDT) P athologist Signature TDI Donor [id number] PN SOFT Number TDI Specimen 10-04-15 PN SOFT Number TDI Number of 2 PN SOFT Vials Semen Total 2.0 PN SOFT Volume Semen % 25 % PN SOFT Motility Grade (IUIP) 2.5 PN SOFT Semen Mil 5.1 PN SOFT Motile (TDI) Specimen Anatomical Collection Method Collection Time Receive d Time (Source) Location / / Volume Laterality 08/14/2016 7:10 AM 7 7:13 CDT AM CDT Narrative PN SOFT - 08/14/2016 7:37 AM CDT Performed at [facility], [address] [place] [address] CLIA number [id number] Good Hernandez MD LAB_1 Performing Organization Address City/State/ZIP Code Phon e Number PN SOFT [address] [place] [address] [phone] documented in this encounter Visit Diagnoses Diagnosis Fertility testing documented in this encounter Care Teams Assistant Football Coach Relationship Specialty Start Date End Date Britta Cox PA-C PCP - General 06/13/15 [address] [place] [id number] documented as of this encounter
--- OUTSIDE RECORDS SUMMARY | 2021-11-07 13:11 | XMS_ITS | Encounter Summary ---
:1975 Author Organization [id number] Address [address], [place] [address] Care Team Providers Name Role Phone Britta Cox PA-C Primary Care Provider Reason for Visit Reason Onset Date Comments INITIAL VISIT Video Visit Video Visit 07/08/2019 Encounter Details Date Type Department Care Team Description 07/08/2019 Telemedicine Cheo Myers, resul ting from assisted reproductive technology in first trimester; Obstetrics/Gynecolog y Sonal I, TALENT CONSULTANT, Screening for diabetes melli tus; [address] [facility] ELECTRIC TAPE SLITTER Encounter for blood typing; [address] [address] [facility] screening for isoi mmunization; [place] [address] Screening for blood disease; [phone] [place], [place] Screening exa mination for venereal disease; [address] Screening examination for rubella; [phone] Encounter for d rug screening (Work) Social History Tobacco Use Types Packs/Day Years [...] - Inhaled Oxygen Concentration - - Weight 82.3 kg (181 lb 8 oz) 07/08/2019 8:20 AM CDT fausto e Height - - Body Mass Index 35.45 09/19/2015 11:10 AM CDT documented in this encounter Progress Notes Sonal Myers I, TALENT CONSULTANT, ELECTRIC TAPE SLITTER - 07/08/2019 8:30 AM CDT Subjective: Today's visit with Courtney was conducted as a scheduled video visit After identifying myself I discussed the video visit purpose and confidentiality which she was in agreement with and wished to continuing with the visit. Courtney Lacy is being seen today for initial care [facility] with Dr. Lunsford for IVF with donor egg and sperm Blastocyst embryosdate - 05/12/19 and 05/13/19 day 5 and 6 No need for genetic testing Positive test: HCG 05/21/19 Gestational age: 10 and 6/7 weeks EDC: Estimated Date of Delivery: 01/29/20 Current symptoms: Nausea, fatigue, breast tenderness. Using Unisom and vitamin B6 OB History Para Term AB Living 1 0 0 0 0 0 SAB TAB Ectopic Multiple Live Births 0 0 0 0 0 # Outcome Date GA Lbr James/2nd Weight Sex Delivery Anes PTL Lv 1 Current Last pap smear: 05/20/15 History of abnormal: no History of sexually transmitted diseases: no Menstrual History: OB History 1 Para 0 Term 0 0 AB 0 Living 0 SAB 0 TAB 0 Ectopic 0 Multiple 0 Live Births Patient plans to breast feed. Past Medical History: Diagnosis Date ??? Anxiety [...] LAKSHMI 3 ??? OPERATIVE HYSTEROSCOPY 2012 polyp ??? OPERATIVE HYSTEROSCOPY 03/06/2018 polypectomy Family History Problem Relation Age of Onset ??? Osteoporosis Mother ??? Thyroid Disorder Mother ??? Osteoporosis Maternal Grandmother ??? Alzheimer's Maternal Grandfather ??? Dementia Maternal Grandfather ??? Diabetes Maternal Grandfather ??? Thyroid Disorder Paternal Grandmother ??? Heart Disease Paternal Grandfather ??? Diabetes Other ??? Thyroid Disorder Maternal Aunt Current Outpatient Medications Medication Sig Note Dispense Refill ??? clomiPHENE (CLOMID) 50 MG tablet TAKE TWO TABLETS BY MOUTH EVERY DAY FOR 5 DAYS STARTING ON DAY 3 OR 4 OF CYCLE 08/14/2016: Received from: External Pharmacy 2 ??? ClomiPHENE Citrate (CLOMID OR) 07/17/2016: 100 mg ??? desogestrel-ethinyl estradiol (APRI) 0.15-30 MG-MCG tablet Take 1 Tablet by mouth daily. ??? ibuprofen (MOTRIN) 200 MG tablet Take 2-3 Tablets by mouth every 6 hours as needed for Pain. (Patient not taking: Reported on 03/02/2019) 100 Tablet 0 ??? Nutritional Supplements (GRAPESEED EXTRACT) 500-50 MG daily. ??? Ronco-3 Fatty Acids (FISH OIL) 500 MG Indications: PN: (Patient not taking: Reported on 03/02/2019) ??? Zchgoy-PyUjh-KwPqmu-FA-Ronco (MULTIVITAMIN/MINERALS OR) Take 1 tablet by mouth daily (every 24 hours). ??? Probiotic Product (SUPER PROBIOTIC OR) ??? scopolamine (TRANSDERM-SCOP) 1.0mg/3 days patch Apply 1 Patch to skin every 3 days. Apply behindthe ear (Patient not taking: Reported on 07/08/2019) 3 Patch 0 No current facility-administered medications for this visit. Outpatient Medications Prior to Visit Medication Sig Note Dispense Refill ??? clomiPHENE (CLOMID) 50 MG tablet TAKE TWO TABLETS BY MOUTH EVERY DAY FOR 5 DAYS STARTING ON DAY 3 OR 4 OF CYCLE 08/14/2016: Received from: External Pharmacy 2 ??? ClomiPHENE Citrate (CLOMID OR) 07/17/2016: 100 mg ??? desogestrel-ethinyl estradiol (APRI) 0.15-30 MG-MCG tablet Take 1 Tablet by mouth daily. ??? ibuprofen (MOTRIN) 200 MG tablet Take 2-3 Tablets by mouth every 6 hours as needed for Pain. (Patient not taking: Reported on 03/02/2019) 100 Tablet 0 ??? Nutritional Supplements (GRAPESEED EXTRACT) 500-50 MG daily. ??? Ronco-3 Fatty Acids (FISH OIL) 500 MG Indications: PN: (Patient not taking: Reported on 03/02/2019) ??? Znxspv-VdUwm-CfOufh-FA-Ronco (MULTIVITAMIN/MINERALS OR) Take 1 tablet by mouth daily (every 24 hours). ??? Probiotic Product (SUPER PROBIOTIC OR) ??? scopolamine (TRANSDERM-SCOP) 1.0mg/3 days patch Apply 1 Patch to skin every 3 days. Apply behindthe ear (Patient not taking: Reported on 07/08/2019) 3 Patch 0 No facility-administered medications prior to visit. Allergies Allergen Reactions ??? Other PN: PT HAS MULTIPLE FAMILY HX OF PCN ALLERGY Social History Socioeconomic History ??? Marital status: Spouse name: Not on file ??? Number of children: 0 ??? Years of education: Not on file ??? Highest education level: Not on file Occupational History ??? 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 Financial resource strain: Not on file ??? Food insecurity Worry: Not on file Inability: Not on file ??? Transportation needs Medical: Not on file Non-medical: Not on file Tobacco Use ??? Smoking status: Never Smoker ??? Smokeless tobacco: Never Used Substance and Sexual Activity ??? Alcohol use: No Alcohol/week: 1.7 standard drinks Types: 2 Standard drinks or equivalent per week Comment: 1-2 drinks per week ??? Drug use: No ??? Sexual activity: Yes Partners: Male control/protection: None Comment: Partner-vasectomy Lifestyle ??? Physical activity Days per week: Not on file Minutes per session: Not on file ??? Stress: Not on file Relationships ??? Social connections Talks on phone: Not on file Gets together: Not on file Attends restoration service: Not on file Active member of club or organization: Not on file Attends meetings of clubs or organizations: Not on file Relationship status: Not on file ??? Intimate partner violence Fear of current or ex partner: Not on file Emotionally abused: Not on file Physically abused: Not on file Forced sexual activity: Not on file Other Topics Concern ??? Bike Helmet Yes ??? City Water No ??? Exercise Yes ??? Guns in home Yes ??? Seat Belt Yes ??? Special Diet No Comment: gluten free ??? Weight Concern Yes Social History Narrative Works in [employer]. Single, partnered. 1 dog. 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 Mother's ethnicity: caucasain Father's ethnicity: Objective: Wt 181 lb 8 oz (82.3 kg) Comment: home BMI 35.45 kg/m?? Transvaginal ultrasound was ordered 06/10/2019 Indication: confirm EDC and viability, Findings: Single living intrauterine . [place] Length: .87 cm Gestational age by ultrasound: 6 and 5/7 weeks cardiac activity: present Yolk sac present present movement present . EDC by ultrasound: 01/28/20 EDC by LMP: Estimated Date of Delivery: 01/29/20 Assessment: Estimated Date of Delivery: 01/29/20 DIAGNOSIS for this visit: ICD-10-CM 1. resulting from assisted reproductive technology in first trimester O09.811 Urinalysis Routine(Micro If Pos) Urine Culture 2. Screening for diabetes mellitus Z13.1 HGB A1C 3. Encounter for blood typing Z01.83 Blood Group & RH (Blood Type) 4. screening for isoimmunization Z36.5 Antibody Screen 5. Screening for blood disease Z13.0 HEMOGRAM/PLTS/DIFF 6. Screening examination for venereal disease Z11.3 HEP B SURFACE ANTIGEN, NO REFLEX HIV 1/2 Ag/Ab 4th Generation Treponema Screen 7. Screening examination for rubella Z11.59 Rubella Immune Status, IgG 8. Encounter for drug screening Z02.83 Drugs of Abuse Screen, Urine, w/ conf Plan: Orders Placed This Encounter ??? HGB A1C ? ? Blood Group & RH (Blood Type) ??? Antibody Screen ??? HEMOGRAM/PLTS/DIFF ??? Urinalysis Routine(Micro If Pos) ??? Drugs of Abuse Screen, Urine, w/ conf ??? HEP B SURFACE ANTIGEN, NO REFLEX ??? HIV 1/2 Ag/Ab 4th Generation ??? Treponema Screen ??? Rubella Immune Status, IgG ??? Urine Culture vitamins. Problem list reviewed and updated. See checklist for documentation of education. New OB education provided regarding anticipated care, vitamins genetic screening, diet, exercise, sexual activity, travel, medication use in , environmental/work hazards, seat belt use, fish precautions, toxoplasmosis and listeriosis. Optional genetic testing available during reviewed and instructed on timing of tests. She was further advised to check for insurance coverage's as some available tests may not be covered by insurance. She will call to schedule any of the offered genetic tests if she desires them. Follow-up in 2 weeks 60% of 45 min visit spent on counseling and coordination of care. Assessment/Plan: Courtney was seen today for initial visit, video visit and video visit. Diagnoses and all orders for this visit: resulting from assisted reproductive technology in first trimester - Urinalysis Routine(Micro If Pos); Future - Urine Culture; Future Screening for diabetes mellitus - HGB A1C; Future Encounter for blood typing - Blood Group & RH (Blood Type); Future screening for isoimmunization - Antibody Screen; Future Screening for blood disease - HEMOGRAM/PLTS/DIFF; Future Screening examination for venereal disease - HEP B SURFACE ANTIGEN, NO REFLEX; Future - HIV 1/2 Ag/Ab 4th Generation; Future - Treponema Screen; Future Screening examination for rubella - Rubella Immune Status, IgG; Future Encounter for drug screening - Drugs of Abuse Screen, Urine, w/ conf; Future Clinician located at: clinic Patient located at: home 25 total time spent on the phone with the patient, with 20 % in counseling and coordination of care. documented in this encounter Plan of Treatment Not on filedocumented as of this encounter Results Drugs of Abuse Screen, Urine, w/ conf (07/20/2019 8:36 AM CDT) [facility] Method Time Signature Amphetamines Not Not 07/20/2019 [facility] Screen Detected Detected 11:38 AM LABORATORY CDT Barbiturates Not Not 07/20/2019 [facility] Screen Detected Detected 11:38 AM LABORATORY CDT Benzodiazepines Not Not 07/20/2019 [facility] Screen Detected Detected 11:38 AM LABORATORY CDT Buprenorphine Not Not 07/20/2019 [facility] Screen Detected Detected 11:38 AM LABORATORY CDT Cocaine Metabolite Not Not 07/20/2019 [facility] Screen Detected Detected 11:38 AM LABORATORY CDT Methadone Screen Not Not 07/20/2019 [facility] Detected Detected 11:38 AM LABORATORY CDT Opiates Screen Not Not 07/20/2019 [facility] Detected Detected 11:38 AM LABORATORY CDT Oxycodone Screen Not Not 07/20/2019 [facility] Detected Detected 11:38 AM LABORATORY CDT Phencyclidine Not Not 07/20/2019 [facility] (PCP) Screen Detected Detected 11:38 AM LABORATORY CDT THC (Marijuana) Not Not 07/20/2019 [facility] Metab Screen Detected Detected 11:38 AM LABORATORY CDT Creatinine, Urine, 155 >20 mg/dL 07/20/2019 [facility] Random 11:38 AM LABORATORY CDT Specimen Anatomical Collection Method Collection Time Receive d Time (Source) Location / / Volume Laterality Urine Non-blood 07/20/2019 8:36 AM 0 8:44 Collection / CDT AM CDT Unknown Narrative [facility] - 07/20/2019 11:38 AM CDT The [...] legal, or employment use. Sonal Myers APRN, ELECTRIC TAPE SLITTER LAB_1 Performing Organization Address City/State/ZIP Code Phon e Number [facility] [address] [place] [address] Urine Culture (07/20/2019 8:36 AM CDT) [facility] Method Time Signature Urine Culture Urogenital 07/21/2019 [facility] Elisabet 9:34 AM CDT HOSPITAL Specimen Anatomical Collection Method Collection Time Receive d Time (Source) Location / / Volume Laterality Urine URINE SPECIMEN Non-blood 07/20/2019 8:36 AM 020 8:44 COLLECTION, CLEAN Collection / CDT AM CDT CATCH / Unknown Unknown Sonal Myers APRN, ELECTRIC TAPE SLITTER LAB_1 Performing Organization Address City/State/ZIP Code Phon e Number [address] [address] (ABNORMAL) Urinalysis Routine(Micro If Pos) (07/20/2019 8:36 AM CDT) [facility] Method Time Signature Urine Color Yellow Straw-Yellow 07/20/2019 [facility] 9:01 AM CDT LABORATORY Urine Clarity Hazy (A) Clear 07/20/2019 [facility] 9:01 AM CDT LABORATORY Specific 1.017 1.005 - 07/20/2019 [facility] [place], 1.030 9:01 AM CDT LABORATORY Urine PH Urine 5.0 5.0 - 8.0 07/20/2019 [facility] 9:01 AM CDT LABORATORY Protein, Negative Negative 07/20/2019 [facility] Urine Qual 9:01 AM CDT LABORATORY (mg/dL) Glucose Urine Negative Negative 07/20/2019 [facility] Qual (mg/dL) 9:01 AM CDT LABORATORY Ketones, Trace (A) Negative 07/20/2019 [facility] Urine (mg/dL) 9:01 AM CDT LABORATORY Urobilinogen, <2.0 <2.0 07/20/2019 [facility] Urine (EU/dL) 9:01 AM CDT LABORATORY Bilirubin Negative Negative 07/20/2019 [facility] Urine 9:01 AM CDT LABORATORY Blood, Urine Negative Neg/Trace 07/20/2019 [facility] 9:01 AM CDT LABORATORY Nitrite Urine Negative Negative 07/20/2019 [facility] 9:01 AM CDT LABORATORY Leukocyte Negative Negative 07/20/2019 [facility] Est. 9:01 AM CDT LABORATORY Urine Source Clean Catch 07/20/2019 [facility] 9:01 AM CDT LABORATORY Specimen Anatomical Collection Method Collection Time Receive d Time (Source) Location / / Volume Laterality Urine URINE SPECIMEN Non-blood 07/20/2019 8:36 AM 020 8:44 COLLECTION, CLEAN Collection / CDT AM CDT CATCH / Unknown Unknown Sonal Myers APRN, ELECTRIC TAPE SLITTER LAB_1 Performing Organization Address City/State/ZIP Code Phon e Number [facility] [address] [place] [address] (ABNORMAL) Rubella Immune Status, IgG (07/20/2019 8:28 AM CDT) athologist Signature Rubella Units 0.60 07/20/2019 [facility] 11:12 AM CDT LABORATORY Comment: The magnitude of the measured r esult, above the cutoff, is not indicative of the amount of antibody present. Rubella Intepretation Not Immune (A) Immune 07/20/2019 11 :12 AM [facility] CDT LABORATORY Specimen Anatomical Collection Method / Collection Time Recei joyce Time (Source) Location / Volume Laterality Blood Venipuncture / 07/20/2019 8:28 07/20/2019 8:30 Unknown AM CDT AM CDT Sonal Myers APRN, CNP LAB_1 Performing Organization Address [facility] Phon e Number [facility] [address] [place] [address] Treponema Screen (07/20/2019 8:28 AM CDT) [facility] Method Time Signature Treponema Screen 0.075 {s_co_ratio 07/20/2019 [facility] Result } 10:34 AM LABORATORY CDT Treponema Screen Non Non 07/20/2019 [facility] Interpretation Reactive Reactive 10:34 AM LABORATORY CDT Specimen Anatomical Collection Method / Collection Time Recei joyce Time (Source) Location / Volume Laterality Blood Venipuncture / 07/20/2019 8:28 07/20/2019 8:30 Unknown AM CDT AM CDT Sonal Myers APRN, CNP LAB_1 Performing Organization Address City/[facility] Phon e Number [facility] [address] [place] [phone] HIV 1/2 Ag/Ab 4th Generation (07/20/2019 8:28 AM CDT) [facility] [employer] Method Time Signature HIV 1/2 Negative Negative 07/20/2019 [facility] Antigen/Antib (Non (Non 9:21 AM CDT LABORATORY demi (4th Reactive) Reactive) generation) Comment: HIV-1 p24 Antigen and HIV-1/HIV -2 Antibody not detected Specimen Anatomical Collection Method / Collection Time Recei joyce Time (Source) Location / Volume Laterality Blood Venipuncture / 07/20/2019 8:28 07/20/2019 8:30 Unknown AM CDT AM CDT Sonal Karin Myers APRN, CNP LAB_1 Performing Organization Address [facility] Phon e Number [facility] [address] [place] [id number] HEP B SURFACE ANTIGEN, NO REFLEX (07/20/2019 8:28 AM CDT) [facility] Method Time Signature Hepatitis B Negative Negative 07/20/2019 [facility] Surface (Non (Non 9:21 AM CDT LABORATORY Antigen Reactive) Reactive) Specimen Anatomical Collection Method / Collection Time Recei joyce Time (Source) Location / Volume Laterality Blood Venipuncture / 07/20/2019 8:28 07/20/2019 8:30 Unknown AM CDT AM CDT Sonal Karin Myers APRN, LIU LAB_1 Performing Organization Address [facility] Phon e Number [facility] [address] [place] [id number] Antibody Screen (07/20/2019 8:28 AM CDT) [facility] Method Time Signature Antibody Screen Negative 07/20/2019 [facility] Interpretation 9:47 AM CDT BLOOD BANK Specimen Anatomical Collection Method / Collection Time Recei joyce Time (Source) Location / Volume Laterality Blood Venipuncture / 07/20/2019 8:28 07/20/2019 8:30 Unknown AM CDT AM CDT Sonal Myers APRN, CNP LAB_1 Performing Organization Address [facility] Phon e Number [facility] [address] [place] [phone] Blood Group & RH (Blood Type) (07/20/2019 8:28 AM CDT) athologist Signature ABO B 07/20/2019 [facility] 9:47 AM CDT BLOOD BANK RH Positive 07/20/2019 [facility] 9:47 AM CDT BLOOD BANK Specimen Anatomical Collection Method / Collection Time Recei joyce Time (Source) Location / Volume Laterality Blood Venipuncture / 07/20/2019 8:28 07/20/2019 8:30 Unknown AM CDT AM CDT Sonal Karin Myers APRN LIU LAB_1 Performing Organization Address City/State/ZIP Code Phon e Number [facility] [address] [place] [address] HGB A1C (07/20/2019 8:28 AM CDT) [facility] gist Method Time Signature Hemoglobin A1C 4.8 <=5.6 % 07/20/2019 [facility] 3:54 PM CDT CENTRAL LAB Specimen Anatomical Collection Method / Collection Time Recei joyce Time (Source) Location / Volume Laterality Blood Venipuncture / 07/20/2019 8:28 07/20/2019 8:30 Unknown AM CDT AM CDT Sonal Myers APRN, LIU LAB_1 Performing Organization Address [facility] Code Phon e Number [facility] [address] [address] documented in this encounter Visit Diagnoses Diagnosis resulting from assisted reprod uctive technology in first trimester Screening for diabetes mellitus Encounter for blood typing screening for isoimmunization Screening for blood disease Screening for unspecified disorder of bl ood and blood-forming organs Screening examination for venereal disea se Screening examination for rubella Encounter for drug screening documented in this encounter Care Teams Plant Control Operator Relationship Specialty Start Date End Date Britta Cox PA-C PCP - General 06/13/15 [address] [place] [address] documented as of this encounter
--- OUTSIDE RECORDS SUMMARY | 2021-11-07 13:12 | XMS_ITS | Encounter Summary ---
:1975 Author Organization [employer] Address [address] [address] Care Team Providers Name Role Phone Britta Cox PA-C Primary Care Provider Reason for Visit Reason Comments Cough Encounter Details Date Type Department Care Team Description 06/13/2015 Office Visit Soheila Garcia e Britta Cox, Breast cancer screening (Damaris héctor Dx); [address] PA-C Acute sinusitis, recurrence not specifie d, unspecified location [place] [address] [address] [phone] [place] [id number] (Wo rk) Social History Tobacco Use Types Packs/Day Years Used Date Smoking Tobacco: Never Assessed Sex Assigned at Date Recorded Not on file documented as of this encounter Last Filed Vital Signs Vital Sign Reading Time Taken Comments Blood Pressure 100/70 06/13/2015 1:24 PM CDT Pulse - - Temperature 36.8 ??C (98.2 ??F) 06/13/2015 1:24 PM CDT Respiratory Rate - - Oxygen Saturation - - Inhaled Oxygen Concentration - - Weight 81.6 kg (180 lb) 06/13/2015 1:24 PM CDT Height - - Body Mass Index 35.15 05/20/2015 11:05 AM [employer] P[employer]ER documented in this encounter Progress Notes Britta Saha PA-C - 06/13/2015 1:55 PM CDT Subjective: Courtney Lang is a 40 y.o. female who presents for evaluation of sinus pain. Symptoms include achiness, congestion, facial pain, lightheadedness, nasal congestion, non productive cough and sinus pressure with no fever, chills, night sweats or weight loss. Onset of symptoms was 12 days ago, gradually worsening since that time. Past history is significant for occasional episodes of bronchitis. Patient is a non-smoker. Patient's medications, allergies, past medical, surgical, social and family histories were reviewed and updated as appropriate. Review of Systems Pertinent items are noted in HPI. Objective: General Appearance: Alert, cooperative, no distress, appears stated age Head: Normocephalic, without obvious abnormality, atraumatic Eyes: PERRL, conjunctiva/corneas clear, EOM's intact, fundi benign, both eyes Ears: Normal TM's and external ear canals, both ears Nose: Nares normal, septum midline, mucosa normal, no drainage or sinus tenderness Throat: Lips, mucosa, and tongue normal; teeth and gums normal Neck: Supple, symmetrical, trachea midline, no adenopathy; thyroid: no enlargement/tenderness/nodules; no carotid bruit or JVD Back: Symmetric, no curvature, ROM normal, no CVA tenderness Lungs: Clear to auscultation bilaterally, respirations unlabored Chest Wall: No tenderness or deformity Heart: Regular rate and rhythm, S1 and S2 normal, no murmur, rub or gallop Breast Exam: No tenderness, masses, or nipple abnormality Abdomen: Soft, non-tender, bowel sounds active all four quadrants, no masses, no organomegaly Genitalia: Normal female without lesion, discharge or tenderness Rectal: Normal tone, no masses or tenderness; guaiac negative stool Extremities: Extremities normal, atraumatic, no cyanosis or edema Pulses: 2+ and symmetric all extremities Skin: Skin color, texture, turgor normal, no rashes or lesions Lymph nodes: Cervical, supraclavicular, and axillary nodes normal Neurologic: CNII-XII intact, normal strength, sensation and reflexes throughout Assessment: Acute bacterial sinusitis. Plan: Discussed dx and tx of URIs Suggested symptomatic OTC remedies. Nasal saline sprays for congestion. RTC prn. Zithromax and cheratussin per epic Risks, benefits and side effects discussed. documented in this encounter Plan of Treatment Not on filedocumented as of this encounter Visit Diagnoses Diagnosis Breast cancer screening - Primary Breast screening, unspecified Acute sinusitis, recurrence not specifie d, unspecified location documented in this encounter Care Teams Cannon Pinion Adjuster Relationship Specialty Start Date End Date Britta Cox PA-C PCP - General 06/13/15 [address] [place] [address] documented as of this encounter
--- OUTSIDE RECORDS SUMMARY | 2021-11-07 13:12 | XMS_ITS | Encounter Summary ---
:1975 Author Organization [employer] Address [address] [place] [address] Care Team Providers Name Role Phone Md DEISI Elaine Primary Care Provider Encounter Details Date Type Department Care Team Description 08/27/2013 Notes/Orders [facility] ry Non Pn, Psoriasis (Primary Dx) [address] ClinicianMD [place], [place] [address] [phone] [place] [address] Social History Tobacco Use Types Packs/Day Years Used Date Smoking Tobacco: Never Assessed Sex Assigned at Date Recorded Not on file documented as of this encounter Plan of Treatment Not on filedocumented as of this encounter Visit Diagnoses Diagnosis Psoriasis - Primary Other psoriasis documented in this encounter Care Teams Engineering Faculty Member Relationship Specialty Start Date End Date Md Elaine MD PCP - General 07/24/11 06/12/15 [place], [place] [id number] documented as of this encounter
--- OUTSIDE RECORDS SUMMARY | 2021-11-07 13:12 | XMS_ITS | Encounter Summary ---
:[address] [facility] Address [address], [place] [address] Care Team Providers Name Role Phone Md DEISI Elaine Primary Care Provider Encounter Details Date Type Department Care Team Description 02/09/2015 Notes/Orders Soheila Owen Medicin e Nuñez, Martha B, Other fatigue (Primary [address] Gorman PA-C Dx) [place] Parnell [address] [address] [phone] GABRIELLA PARNELL [id number] Social History Tobacco Use Types Packs/Day Years Used Date Smoking Tobacco: Never Assessed Sex Assigned at Date Recorded Not on file documented as of this encounter Plan of Treatment Not on filedocumented as of this encounter Visit Diagnoses Diagnosis Other fatigue - Primary documented in this encounter Care Teams Systems Programmer Analyst Relationship Specialty Start Date End Date Md Elaine MD PCP - General 07/24/11 06/12/15 [place] [address] documented as of this encounter
--- OUTSIDE RECORDS SUMMARY | 2021-11-07 13:12 | XMS_ITS | Encounter Summary ---
:1975 Author Organization [employer] Address [address], [place] [address] Care Team Providers Name Role Phone Britta Cox PA-C Primary Care Provider Reason for Visit Reason Onset Date Comments Intrauterine Insemination 05/16/2016 Encounter Details Date Type Department Care Team Description 05/16/2016 Telephone Good Monzon, Intrauter ine Obstetrics/Gynecolog y MD Insemination [address] [place] [address] [place] [phone] Social History Tobacco Use Types Packs/Day Years [...] encounter Nursing Notes Ananya Painter, RN - 05/16/2016 1:35 PM CST Pt left signed consent at restaurant front manager. Consent was sent to Scan doc. Front line stated pt had many questions regarding the AI process. Informed front line information was given to pt over the phone earlier today and letter is at restaurant front manager for pt with AI process information. When pt comes back to front line letter will be given and pt instructed to call nurse line with questions. Routed to Scan doc. Called [facility] management and informed consent was obtained. Note Closed. NESS SERVICES CLERK Ananya Painter RN - 05/16/2016 10:02 AM CST Called pt regarding AI consent. Pt will order picker/assembler today at [facility] and attempt to get it signed by and bring to yet today. Reviewed AI process and phone numbers to all with surge during theweek and on weekend. Left AI information folder at restaurant front manager for pt to order picker/assembler today. Pt is expecting surge Saturday -Saturday. Future Appointments Date Time Provider Department Center 05/16/2016 1:30 PM Nurse, [facility] Obg 1 [facility] OBG PN [facility] 05/16/2016 2:00 PM Eve Langston MD [facility] OBG PN [facility] 05/16/2016 2:00 PM METH XR5 METH XRAY PN METH NESS SERVICES CLERK documented in this encounter Plan of Treatment Not on filedocumented as of this encounter Visit Diagnoses Not on filedocumented in this encounter Care Teams Nursing Education Consultant Relationship Specialty Start Date End Date Britta Cox PA-C PCP - General 06/13/15 [address] [place] [address] documented as of this encounter
--- OUTSIDE RECORDS SUMMARY | 2021-11-07 13:12 | XMS_ITS | Encounter Summary ---
:1975 Author Organization [employer] Address [address] [address] Care Team Providers Name Role Phone Britta Cox PA-C Primary Care Provider Encounter Details Date Type Department Care Team Description 05/20/2016 Lab Visit Specialty Center 3931 Outpatient Fertility testing Laboratory 3931 [place] [address] Social History Tobacco Use Types [...] Priority Date/Time Associated Comments Diagnosis ARTIFICIAL Routine 05/20/2016 6:09 AM Fertility testing Resu lts for this INSEMINATION,FROZEN LIFE INSURANCE UNDERWRITER procedur e are in DONOR,SPECIMEN PREP the resu lts section. documented in this encounter Results Artificial Insemination,Frozen Donor,Specimen Prep (05/20/2016 6:09 AM LIFE INSURANCE UNDERWRITER) P athologist Signature TDI Donor 311,797 PN SOFT Number TDI Specimen 7-5-16 PN SOFT Number TDI Number of 1 PN SOFT Vials Semen Total 1.0 PN SOFT Volume Semen % 27 % PN SOFT Motility Grade (IUIP) 2.5 PN SOFT Semen Mil 2.5 PN SOFT Motile (TDI) Specimen Anatomical Collection Method Collection Time Receive d Time (Source) Location / / Volume Laterality 05/20/2016 6:09 AM 7 6:09 LIFE INSURANCE UNDERWRITER AM LIFE INSURANCE UNDERWRITER Narrative PN SOFT - 05/20/2016 7:48 AM LIFE INSURANCE UNDERWRITER Performed at [facility], [address] [place] [address] CLIA number [id number] Good Hernandez MD LAB_1 Performing Organization Address City/State/ZIP Code Phon e Number PN SOFT [address] [place] [address] documented in this encounter Visit Diagnoses Diagnosis Fertility testing documented in this encounter Care Teams Consulting Solution Manager Relationship Specialty Start Date End Date Britta Cox PA-C PCP - General 06/13/15 [address] [place] [id number] documented as of this encounter
--- OUTSIDE RECORDS SUMMARY | 2021-11-07 13:12 | XMS_ITS | Encounter Summary ---
:1975 Author Organization [employer] Address [address], [place] [address] Care Team Providers Name Role Phone Britta Cox PA-C Primary Care Provider Reason for Referral Procedure/Equipment (Routine) - Incomplete Specialty Diagnoses / Procedures Referred By Contact Refer red To Contact Diagnoses Female infertility Good Hernandez MD Procedures Follicles [address] [facility] Ctr [place] [address] Referral ID Status Reason Start Date Expiration Date Visits V isits Requested Authorized [id number] Incomplete 07/11/2016 10/10/2017 1 1 Encounter Details Date Type Department Care Team Description 07/06/2016 Notes/Orders Good Monzon Female infer [facility] Obstetrics/Gynecolog melanie Sandhu MD (Primary Dx) [address] [facility] [address] [facility] Ctr [place] [address] [place] [phone] Social History Tobacco Use Types Packs/Day Years [...] as of this encounter Results US Follicles (07/11/2016 7:46 AM CDT) Anatomical Region Laterality Modality Pelvis Ultrasound Specimen (Source) Anatomical Collection Method Collection Time Re ceived Time Location / / Volume Laterality 07/11/2016 7:17 AM CDT Narrative 07/11/2016 8:07 AM CDT HISTORY: Infertility. Previous study done on 07/09/2016. FINDINGS: Endovaginal scanning was perfo rmed. ?? Day of cycle: ??10 Endometrial Thickness: ??6.6 mm Endometrial Appearance: Trilaminar. Fluid in the Cul de Sac: No significant free fluid seen. RIGHT OVARY: Diameters of follicles measuring GREATER than 10 mm (measured in mm): 12.3, 14.2, 12.2, 11.6, 11.3. The increased number of small follicles greater than 10 mm on the right compared with 07/09/2016. There are 2 follicles measuring LESS jhonathan n 10mm. LEFT OVARY: Diameters of follicles measuring GREATER than 10 mm (measured in mm): 16.4, 15.9, 12.0. 2 of these are larger than on previous study. There are 2 follicles measuring LESS jhonathan n 10mm. Left ovary difficult to visualize shara alcala of its high location. Procedure Note Ross Gaviria MD - 07/11/2016Form atting of this note might be different from the original. HISTORY: Infertility. Previous study don e on 07/09/2016. FINDINGS: Endovaginal scanning was perfo rmed. Day of cycle: 10 Endometrial Thickness: 6.6 mm Endometrial Appearance: Trilaminar. Fluid in the Cul de Sac: No significant free fluid seen. RIGHT OVARY: Diameters of follicles measuring GREATER than 10 mm (measured in mm): 12.3, 14.2, 12.2, 11.6, 11.3. The increased number of small follicles greater than 10 mm on the right compared with 07/09/2016. There are 2 follicles measuring LESS jhonathan n 10mm. LEFT OVARY: Diameters of follicles measuring GREATER than 10 mm (measured in mm): 16.4, 15.9, 12.0. 2 of these are larger than on previous study. There are 2 follicles measuring LESS jhonathan n 10mm. Left ovary difficult to visualize becaus e of its high location. Good Hernandez MD [facility] documented in this encounter Visit Diagnoses Diagnosis Female infertility - Primary Female infertility of unspecified origin Female infertility Female infertility of unspecified origin documented in this encounter Care Teams Esl Teacher Relationship Specialty Start Date End Date Britta Cox, PA-C PCP - General 06/13/15 [address] [place] [address] documented as of this encounter
--- OUTSIDE RECORDS SUMMARY | 2021-11-07 13:12 | XMS_ITS | Encounter Summary ---
:1975 Author Organization [employer] Address [address] [address] Care Team Providers Name Role Phone Britta Cox PA-C Primary Care Provider Reason for Referral Procedure/Equipment (Routine) - Incomplete Specialty Diagnoses / Procedures Referred By Contact Refer red To Contact Diagnoses Fertility testing Good Hernandez MD Procedures [place] Hysterosalpingiogram Surgical [address] [facility] [place] [address] Referral ID Status Reason Start Date Expiration Date Visits V isits Requested Authorized [id number] Incomplete 05/10/2016 08/09/2017 1 1 ECTIONS TECHNICIAN Procedure/Equipment (Routine) - Incomplete Specialty Diagnoses / Procedures Referred By Contact Refer red To Contact Diagnoses Fertility testing Good Hernandez MD Procedures [place] Hysterosalpingiogram Imaging [address] [facility] [place] [address] Referral ID Status Reason Start Date Expiration Date Visits V isits Requested Authorized [id number] Incomplete 05/10/2016 08/09/2017 1 1 ECTIONS TECHNICIAN Encounter Details Date Type Department Care Team Description 05/10/2016 Notes/Orders [facility] Good Hernandezi ty testing Joe Sandhu MD (Primary Dx) [address] [address] [facility] [address] [place] [id number] [phone] Social History Tobacco Use Types Packs/Day Years [...] on filedocumented as of this encounter Results FL Hysterosalpingiogram Surgical (05/16/2016 2:33 PM COLLECTIONS TECHNICIAN) Anatomical Region Laterality Modality Pelvis Computed Radiography Specimen (Source) Anatomical Location Collection Method / Collectio n Time Received Time / Laterality Volume Narrative 05/21/2016 8:37 AM COLLECTIONS TECHNICIAN Procedure performed under fluoroscopic guidance. See report in Epic for this date. Good Hernandez MD [facility] [place] Hysterosalpingiogram Imaging (05/16/2016 2:33 PM COLLECTIONS TECHNICIAN) Anatomical Region Laterality Modality Pelvis Computed Radiography Specimen (Source) Anatomical Collection Method Collection Time Re ceived Time Location / / Volume Laterality 05/16/2016 1:51 PM COLLECTIONS TECHNICIAN Narrative 05/16/2016 2:46 PM COLLECTIONS TECHNICIAN COMPARISON: ??None. TECHNIQUE: ??Study and procedure were pe rformed in conjunction with the attending LOWER SCHOOL MUSIC TEACHER physician. The uterine cavity was cannulated and nonionic contrast was instilled. FINDINGS: ??The endometrial cavity appea rs normal. Bilateral fallopian tubes appear patent and demonstrate spillage of contrast into the peritoneal cavity. The lower uterine segment was visualized fluoroscopically and appeared normal. Procedure Note Nikko Kilpatrick MD - 05/16/2016Forma tting of this note might be different from the original. COMPARISON: None. TECHNIQUE: Study and procedure were perf ormed in conjunction with the attending LOWER SCHOOL MUSIC TEACHER physician. The uterine cavity was cannulated and nonionic contrast was instilled. FINDINGS: The endometrial cavity appears normal. Bilateral fallopian tubes appear patent and demonstrate spillage of contrast into the peritoneal cavity. The lower uterine segment was visualized fluoroscopically and appeared normal. Good Hernandez MD [facility] documented in this encounter Visit Diagnoses Diagnosis Fertility testing - Primary Fertility testing documented in this encounter Care Teams Railroad Repairer Relationship Specialty Start Date End Date Britta Cox PA-C PCP - General 06/13/15 [address] [place] [address] documented as of this encounter
--- OUTSIDE RECORDS SUMMARY | 2021-11-07 13:12 | XMS_ITS | Encounter Summary ---
:1975 Author [facility] Address [address], [place] [address] Care Team Providers Name Role Phone Britta oCx PA-C Primary Care Provider Encounter Details Date Type Department Care Team Description 09/29/2015 Lab Visit [facility] Encounter for fertility [address] [place] [id number] Social History Tobacco Use Types Packs/Day Years Used Date Smoking Tobacco: Never Assessed Sex Assigned at Date Recorded Not on file documented as of this encounter Plan of Treatment Not on filedocumented as of this encounter Procedures Procedure Name Priority Date/Time Associated Diagnosis Comme nts ANTI MULLERIAN Routine 09/29/2015 1:09 PM Encounter for Result s for this HORMONE CDT fertility planning procedure are in the results section. ESTRADIOL Routine 09/29/2015 1:09 PM Encounter for Results for this CDT fertility planning procedure are in the results section. FSH Routine 09/29/2015 1:09 PM Encounter for Results for this CDT fertility planning procedure are in the results section. documented in this encounter Results ANTI MULLERIAN HORMONE (09/29/2015 1:09 PM CDT) P athologist Signature Anti Mullerian 1.880 <=6.282 HP CONVERSION Hormone ng/mL Comment: INTERPRETIVE INFORMATION: Anti-Mullerian Hormone FEMALE: 6 months - 14 years: 0.256 - 6.345 ng/mL 15-17 years: ? 0.861 - 10.451 ng/mL 18-29 years: ? 0.401 - 16.015 ng/mL 30-39 years: ? 0.176 - 11.705 ng/mL 40-45 years: ? 6.282 ng/mL or less 46-50 years: ? 0.064 ng/mL or less Post-menopausal: ? 0.003 ng/mL or le ss MALE: 6-11 months: ? 56.677 - 495.29 9 ng/mL 1-6 years: ? 33.442 - 342.4 50 ng/mL 7-9 years: ? 20.245 - 189.7 81 ng/mL 10-12 years: ? 2.903 - 178.243 ng/mL 13 years and older: ??2.079 - 30.656 ng/ mL Test developed and characteristics deter mined by [employer]. See Compliance Statement D : [employer]/CS Specimen Anatomical Collection Method Collection Time Receive d Time (Source) Location / / Volume Laterality 09/29/2015 1:09 PM 6 CDT 10:38 AM CDT Narrative HP CONVERSION - 10/02/2015 3:26 PM CDT Performed at [facility] [address] [place] [address] [place] villagomeztobias [id number] Good Hernandez MD LAB_1 Performing Organization Address City/State/ZIP Code Phon e Number HP CONVERSION Estradiol (09/29/2015 1:09 PM CDT) athologist Signature Estradiol 28 pg/mL HP CONVERSION Comment: Reference Ranges (pg/mL): Males: ? <=42 pg/mL Menstruating Females: Follicular Phase: ?27-12 2 pg/mL Mid Luteal Phase: ?49-29 1 pg/mL Luteal Phase: ?95- 433 pg/mL Post Menopause: ?<41 pg/mL Specimen Anatomical Collection Method Collection Time Receive d Time (Source) Location / / Volume Laterality 09/29/2015 1:09 PM 6 CDT 10:24 AM CDT Narrative HP CONVERSION - 09/30/2015 1:38 PM CDT Performed at [address] [address] CLIA number [id number] Good Hernandez MD LAB_1 Performing Organization Address [facility] Phon e Number HP CONVERSION FSH (09/29/2015 1:09 PM CDT) athologist Signature Follicle 5.8 mIU/mL HP CONVERSION Stimulating Hormone Comment: Normal Males: 1.0-12.0 Normally Menstruating Females Follicular Phase: 3.0-8.1 Mid-Cycle Peak: 2.6-16.7 Luteal Phase: 1.4-5.5 Postmenopausal Females without HRT: 26.8 -133.4 Specimen Anatomical Collection Method Collection Time Receive d Time (Source) Location / / Volume Laterality 09/29/2015 1:09 PM 6 7:51 CDT PM CDT Narrative HP CONVERSION - 09/29/2015 8:55 PM CDT Performed at [address] [address] CLIA number [id number] Good Hernandez MD LAB_1 Performing Organization Address [facility] Phon e Number HP CONVERSION documented in this encounter Visit Diagnoses Diagnosis Encounter for fertility planning Other specified procreative management documented in this encounter Care Teams Smoke Chaser Relationship Specialty Start Date End Date Britta Cox PA-C PCP - General 06/13/15 [address] [place] [address] documented as of this encounter
--- OUTSIDE RECORDS SUMMARY | 2021-11-07 13:12 | XMS_ITS | Encounter Summary ---
:1975 Author Organization [employer] Address [address], [place] [address] Care Team Providers Name Role Phone Britta Cox PA-C Primary Care Provider Reason for Visit Reason Onset Date Comments Intrauterine Insemination 05/19/2016 Encounter Details Date Type Department Care Team Description 05/19/2016 [facility]phone [facility] Good Hernandez Intraut erine Obstetrics/Gynecolog y MD Insemination [address] [facility]. [address] [place], [place] [address] [address] [place], [place] [phone] Social History Tobacco Use Types Packs/Day Years [...] documented as of this encounter Nursing Notes Michelle Jose RN - 05/19/2016 9:04 AM CST Pt calling to schedule insemination. Warm-transferred to Church Educational Advisor. RAFT ACCESSORIES MECHANIC documented in this encounter Plan of Treatment Not on filedocumented as of this encounter Visit Diagnoses Not on filedocumented in this encounter Care Teams Supervisor Braiding Relationship Specialty Start Date End Date Britta Cox PA-C PCP - General 06/13/[address] [place] [address] documented as of this encounter
--- OUTSIDE RECORDS SUMMARY | 2021-11-07 13:12 | XMS_ITS | Encounter Summary ---
:1975 Author Organization [employer] Address [address], [place] [address] Care Team Providers Name Role Phone Britta Cox PA-C Primary Care Provider Reason for Visit Reason Onset Date Comments APPOINTMENT REQUEST 06/16/2016 Encounter Details Date Type Department Care Team Description 06/16/2016 Telephone Britta Paige, APPOINTMENT REQUEST [address] [place]C [address] [address] [phone] [place] [id number] (Wo rk) Social History Tobacco Use Types [...] documented as of this encounter Nursing Notes Mady Paz RN - 06/16/2016 9:00 AM CDT Pt calling to set up an appoint for IUI . Warm transfer to Community Midwife to page out the saloonkeeper for OB. documented in this encounter Plan of Treatment Not on filedocumented as of this encounter Visit Diagnoses Not on filedocumented in this encounter Care Teams Alumni Secretary Relationship Specialty Start Date End Date Britta Cox PA-C PCP - General 06/13/[address] [place] [address] documented as of this encounter
--- OUTSIDE RECORDS SUMMARY | 2021-11-07 13:12 | XMS_ITS | Encounter Summary ---
:1975 Author Organization [employer] Address [address] [address] Care Team Providers Name Role Phone Britta Cox PA-C Primary Care Provider Encounter Details Date Type Department Care Team Description 06/17/2016 Notes/Orders Good Monzon Fertility te sting Obstetrics/Gynecolog melanie Sandhu MD (Primary Dx) [address] [place] [address] [facility] [place] [phone] [address] Social History Tobacco Use Types Packs/Day Years [...] this encounter Results Artificial Insemination,Frozen Donor,Specimen Prep (06/17/2016 6:04 AM CDT) P athologist Signature TDI Donor 311,797 PN SOFT Number TDI Specimen 7-5-16 PN SOFT Number TDI Number of 1 PN SOFT Vials Semen Total 1.0 PN SOFT Volume Semen % 23 % PN SOFT Motility Grade (IUIP) 2.5 PN SOFT Semen Mil 2.4 PN SOFT Motile (TDI) Specimen Anatomical Collection Method Collection Time Receive d Time (Source) Location / / Volume Laterality 06/17/2016 6:04 AM 7 6:04 CDT AM CDT Narrative PN SOFT - 06/17/2016 7:37 AM CDT Performed at [facility], [address] [place] [address] CLIA number [id number] Good Hernandez MD LAB_1 Performing Organization Address City/State/ZIP Code Phon e Number PN SOFT [address] [place] [address] documented in this encounter Visit Diagnoses Diagnosis Fertility testing - Primary Fertility testing documented in this encounter Care Teams Yarn Bleaching Machine Operator Relationship Specialty Start Date End Date Britta Cox PA-C PCP - General 06/13/15 [address], [place] [id number] documented as of this encounter
--- OUTSIDE RECORDS SUMMARY | 2021-11-07 13:12 | XMS_ITS | Encounter Summary ---
:1975 Author Organization [employer] Address [address] [address] Care Team Providers Name Role Phone Britta Cox PA-C Primary Care Provider Encounter Details Date Type Department Care Team Description 06/17/2016 Lab Visit Specialty Center 3931 Outpatient Fertility [...] Priority Date/Time Associated Comments Diagnosis ARTIFICIAL Routine 06/17/2016 6:04 AM Fertility testing Resu lts for this [...] - 06/17/2016 7:37 AM CDT Performed at [facility], [address] [place] [address] CLIA number [id number] Good Hernandez MD LAB_1 Performing Organization Address City/State/ZIP Code Phon e Number PN SOFT [address] [place] [address] [phone] documented in this encounter Visit Diagnoses Diagnosis Fertility testing documented in this encounter Care Teams Window Shade Estimator Relationship Specialty Start Date End Date Britta Cox PA-C PCP - General 06/13/15 [address] [place] [id number] documented as of this encounter
--- OUTSIDE RECORDS SUMMARY | 2021-11-07 13:12 | XMS_ITS | Encounter Summary ---
:1975 Author Organization [employer] Address [address] [place] [address] Care Team Providers Name Role Phone Britta Cox PA-C Primary Care Provider Encounter Details Date Type Department Care Team Description 05/11/2016 Notes/Orders Good Monzon MD Obstetrics/Gynecolog y [address] [facility] [address] [facility] [place] [address] [place] [address] [phone] Social History Tobacco Use Types Packs/Day Years [...] on filedocumented in this encounter Care Teams Toy Electric Train Repairer Relationship Specialty Start Date End Date Britta Cox PA-C PCP - General 06/13/[address] [place] [address] documented as of this encounter
--- OUTSIDE RECORDS SUMMARY | 2021-11-07 13:12 | XMS_ITS | Encounter Summary ---
:1975 Author Organization [employer] Address [address], [place] [address] Care Team Providers Name Role Phone Britta Cox PA-C Primary Care Provider Reason for Visit Reason Comments Procedure Encounter Details Date Type Department Care Team Description 05/16/2016 Procedure Visit [facility] Eve Langston MD Procedure Obstetrics/Gynecolog y [address] [facility] 5th [place] [address] [phone] (Wo rk) Social History Tobacco Use Types [...] encounter Progress Notes Eve Langston MD - 05/16/2016 2:32 PM CST [place]. LMP 9 days ago. Preg test is negative. Reviewed procedure in detail with patient. Procedure: SSE, betadine prep Catheter passed without difficulty HSG performed. Grossly normal cavity and lower uterine segment. Spill and fill on left. Fill and probable spill on right. No tubal dilation. See radiology official read. SELING CENTER DIRECTOR documented in this encounter Plan of Treatment Not on filedocumented as of this encounter Visit Diagnoses Diagnosis Fertility testing - Primary documented in this encounter Care Teams Machine Erector Relationship Specialty Start Date End Date Britta Cox, KARENC PCP - General 06/13/15 [address] [place] [address] documented as of this encounter
--- OUTSIDE RECORDS SUMMARY | 2021-11-07 13:12 | XMS_ITS | Encounter Summary ---
:1975 Author Organization [facility] Address [address], [place] [address] Care Team Providers Name Role Phone Md DEISI Elaine Primary Care Provider Reason for Visit Reason Comments MASS FATIGUE WEIGHT GAIN Encounter Details Date Type Department Care Team Description 02/08/2015 Office Visit Martha Denton, Other fatigue (Primary Dx); [address] Marta Gorman PA-C Weight gain GABRIELLA Parnell [id number] [address] MARTA ROLBES [phone] GABRIELLA PARNELL [id number] Social History Tobacco Use Types Packs/Day Years Used Date Smoking Tobacco: Never Assessed Sex Assigned at Date Recorded Not on file documented as of this encounter Last Filed Vital Signs Vital Sign Reading Time Taken Comments Blood Pressure 110/72 02/08/2015 1:00 PM BLANKER OPERATOR Pulse - - Temperature - - Respiratory Rate - - Oxygen Saturation - - Inhaled Oxygen Concentration - - Weight 79.8 kg (176 lb) 02/08/2015 1:00 PM BLANKER OPERATOR Height 151 cm (4' 11.45) 02/08/2015 1:00 PM BLANKER OPERATOR Body Mass Index 35.01 02/08/2015 1:00 PM BLANKER OPERATOR documented in this encounter Progress Notes Martha Nuñez PA-C - 02/08/2015 2:43 PM CST Clinic Visit SUBJECTIVE: CC: Chief Complaint Patient presents with ??? Mass R side of neck x1 wk ??? Fatigue x 2 wks ??? Weight Gain History of Present Illness: Patient is here with a few concerns. Over the last 2 weeks she has felt extremely exhausted. She states she will often sleep 9-12 hours nightly and not feel well rested upon waking. During the day shewill feel like she needs to take a nap in order to get through the day. This is extremely unusual for her. She has also noticed increase in diffuse hair loss, her boyfriend has commented that she seemsto be losing more hair as well. No constipation or diarrhea. Menstrual cycle is regular without change. Last week she became concerned when she noticed a small lump on the right side of her neck. She thinks it is smaller than when she first noticed it. It is minimally uncomfortable with palpation. She's had some recent mild congestion but no fevers or significant respiratory illnesses. She is also frustrated that despite exercising 4-5 days weekly for an hour and maintaining a [id number]-[id number] dietdaily baths instead of losing weight the number is actually increasing. She has dealt with depression in the past and states her current fatigue and exhaustion are quite different. She feels like her mood is overall relatively good. She has been told on occasion that she snores. She has a history of psoriasis, on Humira Past Medical History: Patient Active Problem List Diagnosis ??? Vitamin D Deficiency ??? Polycystic Ovary Syndrome ??? Psoriasis ??? Pap Smear Abnormal Cervix ??? Irritable bowel syndrome ??? Hypothyroidism Primary ??? Osteopenia ??? Obesity ??? Obesity, Class II, BMI 35-39.9 ??? Eating disorder, unspecified ??? Major depressive disorder, recurrent episode, moderate (HRC) ??? Uterine polyp Adverse Drug Reactions: is allergic to allergen not in computer. Medications: Outpatient Encounter Prescriptions as of 02/08/2015 Medication Sig Dispense Refill ??? Adalimumab (HUMIRA PEN) 40 mg/0.8 mL PnKt Inject 40 mg subcutaneously every 2 weeks. ??? cholecalciferol (VITAMIN D) 1,000 unit Tab 1 Int'l Units daily (every 24 hours). ??? clobetasol (TEMOVATE) 0.05 % cream Apply topically 2 times daily. ??? Fluocinolone-Shower Cap (DERMA-SMOOTHE/FS SCALP OIL) 0.01 % Oil Apply 1 Application topically. 118.28 ??? [place] Oil-[place]-3 Fatty Acids (FISH OIL) 500-100 mg Cap No facility-administered encounter medications on file as of 02/08/2015. Family History: Family History Problem Relation Age of Onset ??? Osteoporosis Mother ??? Thyroid Disease Mother ??? Osteoporosis Maternal Grandmother ??? Alzheimer's Dz Maternal Grandfather ??? Dementia Maternal Grandfather ??? Diabetes Maternal Grandfather ??? Thyroid Disease Paternal Grandmother ??? Heart Disease Paternal Grandfather ??? Diabetes Other ??? Thyroid Disease Maternal Aunt Review of Systems: All systems were reviewed and found to be negative except as noted below. OBJECTIVE: Vital Signs: BP 110/72 mmHg Ht 4' 11.45 (1.51 m) Wt 176 lb (79.833 kg) BMI 35.01 kg/m2 General: pleasant in NAD. HEENT:PERRLA, EOM intact. TM's and external canals clear bilaterally. Oropharynx clear. Neck: Supple, no lthyromegaly. She has one freely mobile minimally tender lymph node overlying the sternocleidomastoid muscle, 3-4 mm in size. Lungs: clear to auscultation bilaterally with no crackles or wheezing. CV:RRR, no murmurs, rubs or gallops. Abdomen:Bowel sounds normoactive. Soft, nontender to palpation. Skin: Warm and dry without lesions. Neuro:CN 2-12 intact. Upper and lower extremity reflexes normal bilaterally. Psych:well dressed and groomed, thoughts are linear, affect is normal. ASSESSMENT: Encounter Diagnoses Name Primary? Other fatigue Yes ??? Weight gain PLAN: No orders of the defined types were placed in this encounter. Orders Placed This Encounter Procedures ??? Complete Blood Count W/Diff ??? Thyroid Stimulating Hormone ??? Ferritin ??? Glucose ??? Creatinine ??? Electrolytes (NA, K, CL, Bicarb) ??? BUN ??? Hemoglobin A1C Glycosylated Recommend starting with labs as above. Discussed the lymph nodes most likely reactive based on history and the fact that it is decreasing in size. Recommend she avoid palpating the area for the next week or 2. Followup if it is increasing in size, and not resolving or she notices any other new masses. Abnormal labs will be handled appropriately. If labs are normal recommend consideration of a sleep study. This note was created using voice recognition software and may contain typographical errors. *SH~DNS~SOAP1 KER OPERATOR documented in this encounter Plan of Treatment Not on filedocumented as of this encounter Visit Diagnoses Diagnosis Other fatigue - Primary Weight gain Abnormal weight gain documented in this encounter Care Teams Structural Metal Worker Relationship Specialty Start Date End Date Md Argentina, PCP - General 07/24/11 06/12/15 [place] [address] documented as of this encounter
--- OUTSIDE RECORDS SUMMARY | 2021-11-07 13:12 | XMS_ITS | Encounter Summary ---
:1975 Author Organization [facility] Address [address], [place] [address] Care Team Providers Name Role Phone Md DEISI Elaine Primary Care Provider Reason for Visit Reason Comments Annual Exam Encounter Details Date Type Department Care Team Description 03/16/2013 Office Visit Good Monzon Routine gene ral medical examination at a health care facility (Primary Dx); Obstetrics/Gynecolog melanie Sandhu MD Procreative management counseling; [address] [address] [address] Polyc ystic ovaries; [address] Abnormal cervical Papanicolaou smear; [place] [address] [place], [place] Screening for lipoid disorde rs; [phone] Screening for thyroid disorder; [phone] Screening for o ther and unspecified endocrine, nutritional, metabolic, and immunity disorders (Work) Social History Tobacco Use Types Packs/Day Years Used Date Smoking Tobacco: Never Assessed Sex Assigned at Date Recorded Not on file documented as of this encounter Last Filed Vital Signs Vital Sign Reading Time Taken Comments Blood Pressure - - Pulse - - Temperature - - Respiratory Rate - - Oxygen Saturation - - Inhaled Oxygen Concentration - - Weight 71.7 kg (158 lb) 03/16/2013 2:46 PM PAPER RULER Height 151.8 cm (4' 11.75) 03/16/2013 2:46 PM PAPER RULER Body Mass Index 31.12 03/16/2013 2:46 PM PAPER RULER documented in this encounter Progress Notes Good Hernandez MD - 03/17/2013 8:11 AM CST Name:Courtney Lang MR#:[id number] Clinician: Good Hernandez Date: 03/17/2013 DRAFTER COMMERCIAL PREVENTATIVE EXAM & PELVIC SUBJECTIVE: Patient is a 37-year-old G0 last mental period 03/15/13 who presents today for an annual DRAFTER COMMERCIAL exam. Patient was on antihypertensive and been seen at the [facility] for weight loss and an eating disorder. She stopped all her medications and started a Paleo diet. She has lost approximately 20 pounds and is working out 3-4 times per week with cardio and weight. She is feeling very will good, but still like to lose a significant amount more. The patient has been in a new relationship for last 7-8 months and is hoping that this will lead to marriage. They have not yet been sexually active and he lives 2 hours away. He has a 9-year-old son. Patient had a D&C with hysteroscopy in 2011 and was found to have endometrial polyps. Her periodwas soaker helper for several months, but now is getting heavier again. It is every 28 days lasting for 5-7 days. At this point it is still manageable for her. Current Contraceptive Method: none needed Past Medical History Diagnosis Date ??? Obesity ??? Vitamin D Deficiency ??? Polycystic Ovary Syndrome 24 yo missed periods, acne, hair growth issues, saw Dr Félix Johnson dx with this ??? Psoriasis ??? Pap Smear Abnormal Cervix LEEP ??? Hypothyroidism Primary ??? Pneumonia ??? Anxiety ??? Asthma ??? Depression ??? Migraine ??? STD (sexually transmitted disease) ??? Eating disorder ??? Irritable bowel syndrome ??? Cervical dysplasia 2008 LAKSHMI 3, LEEP Past Surgical History Procedure Laterality Date ??? Leep 2008 LAKSHMI 3 ??? Hysteroscopy 2012 polyp ??? Dilation and curettage of uterus Current Outpatient Prescriptions Medication Sig Dispense Refill ??? Adalimumab (HUMIRA PEN) 40 mg/0.8 mL PnKt Inject 40 mg subcutaneously every 2 weeks. ??? cholecalciferol (VITAMIN D) 1,000 unit Tab 1 Int'l Units daily (every 24 hours). ??? clobetasol (TEMOVATE) 0.05 % cream Apply topically 2 times daily. ??? Fluocinolone-Shower Cap (DERMA-SMOOTHE/FS SCALP OIL) 0.01 % Oil Apply 1 Application topically. 118.28 ??? [place] Oil-[place]-3 Fatty Acids (FISH OIL) 500-100 mg Cap No current facility-administered medications for this visit. Allergies Allergen Reactions ??? Allergen Not In Computer PT HAS MULTIPLE FAMILY HX OF PCN ALLERGY History Social History ??? Marital Status: Single Spouse Name: N/A Number of Children: 0 ??? 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 Smoking status: Never Smoker ??? Smokeless tobacco: Never Used ??? Alcohol Use: 1.0 oz/week 2 drink(s) per week Comment: 1-2 drinks per week ??? Drug Use: No ??? Sexually Active: Yes -- Male partner(s) Control/ Protection: None Comment: Partner-vasectomy Other Topics Concern ??? Bike Helmet Yes ??? City Water Yes ??? Exercise Yes ??? Guns In Home No ??? Seat Belt Yes ??? Special Diet Yes ??? Weight Concern Yes Social History Narrative Works in [employer]. Single, partnered. 1 dog. Patient is single and works in [employer]. She is exercising regularly. Family History Problem Relation Age of Onset ??? Osteoporosis Mother ??? Thyroid Disease Mother ??? Osteoporosis Maternal Grandmother ??? Alzheimer's Dz Maternal Grandfather ??? Dementia Maternal Grandfather ??? Diabetes Maternal Grandfather ??? Thyroid Disease Paternal Grandmother ??? Heart Disease Paternal Grandfather ??? Diabetes Other REVIEW OF SYSTEMS: With the exception of any items noted above, the remainder of the GI and ROS is negative. OBJECTIVE: Healthy appearing female in no acute distress. Vital Signs: Ht 4' 11.75 (1.518 m) Wt 158 lb (71.668 kg) BMI 31.1 kg/m2 LMP 03/15/2013 Breasts: Symmetrical, nontender. No dominant masses, skin dimpling, nipple retraction or nipple discharge. Abdomen: Soft, non-tender, without hepatospenomegaly, masses or hernias. Lymphatics: No lymphadenopathy in the neck, axillae or groin Pelvic: Normal external genitalia including vulva, urethral meatus, Bartholin's and skene's glands. Normal vaginal mucosa and discharge. Pelvic support normal. Cervix is without lesions. Urethra and bladder are without masses or tenderness. Uterus is normal size, nontender. No adnexal masses or tenderness.masses ASSESSMENT: 1. Annual DRAFTER COMMERCIAL Exam. 2. history of LAKSHMI-3 status post LEEP 2006-continued annual Pap smear screening 3. PCOS - patient is having normal menses and weight loss will certainly be helpful. We'll check a cholesterol this year. 4. STD testing-tested after last relationship and has not been sexually active since. 5. Preconception counseling-patient will like to know what she should do in order to make herself ashealthy as possible to get in the future. We discussed diet, exercise, vitamins. Patient is a nonsmoker. We did discuss the decline of infertility with age, increased risk of miscarriage and chromosome abnormalities and discussed testing. I also was optimistic however given her age and current her health. 6. History of depression - has questions regarding the SAD light and she was referred back to her therapist. 7. Preventative labs-cholesterol, TSH, vitamin D PLAN: Follow-up in 1 year, sooner prn any concerns. Prescriptions provided R RULER documented in this encounter Plan of Treatment Not on filedocumented as of this encounter Procedures Procedure Name Priority Date/Time Associated Diagnosis Comme nts ANATOMICAL PATH Routine 03/16/2013 3:36 PM Result s for this LIQUID BASED PAPER RULER procedure are i n the results section. PAP SMEAR ORDER Routine 03/16/2013 3:36 PM Abnormal cervical R esults for this PAPER RULER Papanicolaou smear procedure are in the results section. documented in this encounter Results Pap Smear (03/16/2013 3:36 PM PAPER RULER) Specimen (Source) Anatomical Collection Method Collection Time Re ceived Time Location / / Volume Laterality 03/16/2013 3:36 PM PAPER RULER Narrative HP CONVERSION - 04/03/2013 11:34 AM PAPER RULER FINAL GYNECOLOGICAL CYTOLOGY REPORT Pathology #: [id number] ?Date Obtained: 03/16/2013 ? Date Received: 03/17/2013 INTERPRETATION/RESULTS: Negative for Intraepithelial Lesion or M alignancy SPECIMEN ADEQUACY: Satisfactory for Evaluation. ??No endoce rvical cells/transformation zone component present. Verified on 04/03/2013 ??by MAI REYES(ASCP) (electronic signature) CLINICAL NOTES: ?Abnormal bleeding: No, LMP: , Hormonal TX: No LIQUID BASED PAP SMEAR SPECIMEN TYPE: ?CERVICAL WITH REFLEX TO HPV IF ASCUS PLEASE NOTE: The pap smear is a screening test design ed to aid in the detection of cervical cancer and its pre cursor lesions. It is not a diagnostic procedure and orquidea uld not be used as the sole means of detecting cervical cancer. Both false-positive and false-negative report s may occur. ? End of Report Good Hernandez MD LAB_1 Performing Organization Address City/[facility]/ZIP Code Phon e Number HP CONVERSION Pap Smear Order (03/16/2013 3:36 PM PAPER RULER) P athologist Signature PAP Routine Collected HP CONVERSION Specimen Anatomical Collection Method Collection Time Receive d Time (Source) Location / / Volume Laterality 03/16/2013 3:36 PM 3 6:44 PAPER RULER AM PAPER RULER Good Hernandez MD LAB_1 Performing Organization Address [facility] Phon e Number HP CONVERSION documented in this encounter Visit Diagnoses Diagnosis Routine general medical examination at a health care facility - Primary Procreative management counseling Other procreative management counseling and advice Polycystic ovaries (HRC) Polycystic ovaries Abnormal cervical Papanicolaou smear Abnormal glandular Papanicolaou smear of cervix Screening for lipoid disorders Screening for thyroid disorder Screening for other and unspecified endo crine, nutritional, metabolic, and immunity disorders documented in this encounter Care Teams Steamer Operator Relationship Specialty Start Date End Date Md Elaine MD PCP - General 07/24/11 06/12/15 [place] [address] documented as of this encounter
--- OUTSIDE RECORDS SUMMARY | 2021-11-07 13:12 | XMS_ITS | Encounter Summary ---
:1975 Author Organization [facility] Address [address] [place] [address] Care Team Providers Name Role Phone Md DEISI Elaine Primary Care Provider Encounter Details Date Type Department Care Team Description 07/30/2012 Hospital Encounter [facility] [address] [facility] [address] [facility] [address] [place], [place] [address] Social History Tobacco Use Types Packs/Day Years Used Date Smoking Tobacco: Never Assessed Sex Assigned at Date Recorded Not on file documented as of this encounter Medications at Time of Discharge Medication Sig Dispensed Refills Start Date End Date azithromycin (AKA Take by mouth. Take 2 6 tablet 0 013 08/10/2012 ZITHROMAX) 250 MG tablets by mouth on tabletIndications: day 1, then take 1 Acute sinusitis, tablet by mouth daily unspecified on days 2-5. Etanercept 25 MG/0.5ML Inject 25 mg 0 11/06/2011 08/10/2012 SOSYIndications: subcutaneously twice a Depression, major week. (HRC), Obesity, Class II, BMI 35-39.9 (HRC) fluticasone (AKA 1-2 sprays daily 16 11 02/03/2010 FLONASE) 50 MCG/ACT (every 24 hours). nasal solution sertraline (aka ZOLOFT) Take 1.5 tablets by 45 tablet 12 03/201203/12/2013 tabletIndications: mouth daily (every 24 Major depressive hours). disorder, recurrent episode, moderate (HRC) TOPAMAX Take 1 tablet by mouth 60 tablet 12 03/12/2012 TABSIndications: Eating 2 times daily. disorder, unspecified, Obesity, Class II, BMI 35-39.9 (HRC) Calcipotriene-Betameth Apply 1 Application 0 07/0103/16/2013 Diprop (AKA TACLONEX) topically daily (every 0.005-0.064 % ointment 24 hours). cholecalciferol 1 Int'l Units daily 0 09/03/2008 03/02/2019 (VITAMIN D3) 1000 UNITS (every 24 hours). tablet clobetasol prop Apply topically 2 0 10/25/2011 emollient base 0.05 % times daily. cream FLUOCINOLONE ACETONIDE Apply 1 Application 118.28 0 07/0109/19/2015 SCALP 0.01 % OIL topically. LORazepam (AKA ATIVAN) Take 1-2 tablets by 30 tablet 0 11/3003/16/2013 0.5 MG mouth 2 times daily as tabletIndications: needed. Generalized anxiety disorder (HRC) [place]-3 Fatty Acids Indications: PN: 0 05/31/2008 07/20/2019 (FISH OIL) 500 MG documented as of this encounter Plan of Treatment Not on filedocumented as of this encounter Visit Diagnoses Not on filedocumented in this encounter Care Teams Train Gateman Relationship Specialty Start Date End Date Md Elaine MD PCP - General 07/24/11 06/12/15 [place] [address] documented as of this encounter
--- OUTSIDE RECORDS SUMMARY | 2021-11-07 13:12 | XMS_ITS | Encounter Summary ---
:1975 Author Organization [facility] Address [address], [place] [address] Care Team Providers Name Role Phone Britta Cox PA-C Primary Care Provider Reason for Visit Reason Comments TEST, Encounter Details Date Type Department Care Team Description 05/16/2016 [facility] Visit [facility], [id number] Obg Pregnanc y examination Obstetrics/Gynecolog y 1 or test, negative [address] result (Primary Dx) [place] [address] Social History Tobacco Use Types Packs/Day Years [...] documented as of this encounter Progress Notes Cynthia Conley LPN - 05/16/2016 1:39 PM VENEER STOCK GRADER Addended by: CYNTHIA CONLEY on: 05/16/2016 01:39 PM Modules accepted: Orders ER STOCK GRADER documented in this encounter Plan of Treatment Not on filedocumented as of this encounter Procedures Procedure Name Priority Date/Time Associated Diagnosis Comme nts POCT URINE Routine 05/16/2016 1:40 PM Results f or this VENEER STOCK GRADER examination or test, procedu re are in negative result the results section. documented in this encounter Results POCT urine (05/16/2016 1:40 PM VENEER STOCK GRADER) [facility] Method Time Signature Urine Negative PN POCT Test - POC Control Line Yes PN POCT Present, Clear Background - Internal control Cartridge Lot# [id number] PN POCT Specimen (Source) Anatomical Collection Method Collection Time Re ceived Time Location / / Volume Laterality Urine specimen 05/16/2016 1:40 PM (specimen) VENEER STOCK GRADER Eve Langston MD PN POINT OF CARE TESTS Performing Organization Address City/State/ZIP Code Phon e Number POCT PN POCT documented in this encounter Visit Diagnoses Diagnosis examination or test, negative result - Primary documented in this encounter Care Teams Franchise Sales Manager Relationship Specialty Start Date End Date Britta Cox PA-C PCP - General 06/13/15 [address] [place] [address] documented as of this encounter
--- OUTSIDE RECORDS SUMMARY | 2021-11-07 13:12 | XMS_ITS | Encounter Summary ---
:1975 Author Organization [facility] Address [address] [place] [address] Care Team Providers Name Role Phone Md DEISI Elaine Primary Care Provider Encounter Details Date Type Department Care Team Description 02/08/2015 Lab Visit [facility] Other fatigue; [address] Weight gain GABRIELLA Parnell [phone] Social History Tobacco Use Types Packs/Day Years Used Date Smoking Tobacco: Never Assessed Sex Assigned at Date Recorded Not on file documented as of this encounter Plan of Treatment Not on filedocumented as of this encounter Procedures Procedure Name Priority Date/Time Associated Comments Diagnosis GLUCOSE Routine 02/08/2015 2:21 PM Other fatigue Results for this ELECTRIC CELL TENDER Weight gain procedure are i n the results section. THYROID STIMULATING Routine 02/08/2015 2:21 PM Other fat igue Results for this HORMONE ELECTRIC CELL TENDER Weight gain procedure are i n the results section. CREATININE / GFR Routine 02/08/2015 2:21 PM Other fatigu e Results for this ELECTRIC CELL TENDER Weight gain procedure are i n the results section. COMPLETE BLOOD Routine 02/08/2015 2:21 PM Other fatigue Results for this COUNT-W/DIFF ELECTRIC CELL TENDER Weight gain procedure are i n the results section. DIFFERENTIAL Routine 02/08/2015 2:21 PM Results f or this ELECTRIC CELL TENDER procedure are i n the results section. ELECTROLYTE PANEL Routine 02/08/2015 2:21 PM Other fatig ue Results for this ELECTRIC CELL TENDER Weight gain procedure are i n the results section. FERRITIN Routine 02/08/2015 2:21 PM Other fatigue Results for this ELECTRIC CELL TENDER Weight gain procedure are i n the results section. HGB A1C Routine 02/08/2015 2:21 PM Other fatigue Results for this ELECTRIC CELL TENDER Weight gain procedure are i n the results section. BUN Routine 02/08/2015 2:21 PM Other fatigue Results for this ELECTRIC CELL TENDER Weight gain procedure are i n the results section. documented in this encounter Results Differential (02/08/2015 2:21 PM ELECTRIC CELL TENDER) athologist Signature Absolute 5.7 1.8 - 8.0 HP CONVERSION Neutrophils k/cmm Absolute 2.8 1.1 - 4.0 HP CONVERSION Lymphocytes k/cmm Absolute 0.7 0.2 - 0.8 HP CONVERSION Monocytes k/cmm Absolute 0.1 0.0 - 0.5 HP CONVERSION Eosinophils k/cmm Absolute 0.0 0.0 - 0.2 HP CONVERSION Basophils k/cmm Specimen Anatomical Collection Method Collection Time Receive d Time (Source) Location / / Volume Laterality 02/08/2015 2:21 PM 5 2:20 ELECTRIC CELL TENDER PM ELECTRIC CELL TENDER Narrative HP CONVERSION - 02/08/2015 2:34 PM ELECTRIC CELL TENDER Performed at [facility], [address] [place] [address] CLIA number [id number] Martha Nuñez PA-C LAB_1 Performing Organization Address City/[facility] Phon e Number HP CONVERSION Hgb A1c (02/08/2015 2:21 PM ELECTRIC CELL TENDER) athologist [facility] HGB A1C 5.3 4.0 - 5.6 % HP CONVERSION Specimen Anatomical Collection Method Collection Time Receive d Time (Source) Location / / Volume Laterality 02/08/2015 2:21 PM 5 7:35 ELECTRIC CELL TENDER PM ELECTRIC CELL TENDER Narrative HP CONVERSION - 02/08/2015 8:42 PM ELECTRIC CELL TENDER Performed at [address] [address] CLIA number [id number] Martha Nuñez PA-C LAB_1 Performing Organization Address City/State/ZIP Code Phon e Number HP CONVERSION BUN (02/08/2015 2:21 PM ELECTRIC CELL TENDER) athologist Signature Blood Urea 11 9 - 26 HP CONVERSION Nitrogen mg/dL Specimen Anatomical Collection Method Collection Time Receive d Time (Source) Location / / Volume Laterality 02/08/2015 2:21 PM 5 5:41 ELECTRIC CELL TENDER PM ELECTRIC CELL TENDER Narrative HP CONVERSION - 02/08/2015 7:17 PM ELECTRIC CELL TENDER Performed at [facility], [facility] [address] [address] CLIA number [id number] Martha Nuñez PA-C LAB_1 Performing Organization Address [facility] Phon e Number HP CONVERSION (ABNORMAL) Electrolyte Panel (02/08/2015 2:21 PM ELECTRIC CELL TENDER) athologist Signature Sodium 139 136 - 145 HP CONVERSION mmol/L Potassium 4.1 3.5 - 5.2 HP CONVERSION mmol/L Chloride 108 (H) 98 - 107 HP CONVERSION mmol/L Bicarbonate 23 22 - 29 HP CONVERSION mmol/L Specimen Anatomical Collection Method Collection Time Receive d Time (Source) Location / / Volume Laterality 02/08/2015 2:21 PM 5 5:41 ELECTRIC CELL TENDER PM ELECTRIC CELL TENDER Narrative HP CONVERSION - 02/08/2015 7:17 PM ELECTRIC CELL TENDER Performed at [facility], [facility] [address] [place] [id number] CLIA number [id number] Martha Nuñez PA-C LAB_1 Performing Organization Address [facility] Phon e Number HP CONVERSION Creatinine / GFR (02/08/2015 2:21 PM ELECTRIC CELL TENDER) athologist Signature Creatinine 0.60 0.55 - HP CONVERSION Serum 1.02 mg/dL Est GFR >60 >60 HP CONVERSION Am mL/min/1.7 3m2 Est GFR Non-Afr >60 >60 HP CONVERSION Am mL/min/1.7 3m2 Comment: Normal>60, moderate decrease 30 - 59, se pastor decrease 15 - 29, renal failure <15 mL/min/1.73 m2 NOTE: ??Choose the eGFR result above john paul ropriate for the race of the patient. Specimen Anatomical Collection Method Collection Time Receive d Time (Source) Location / / Volume Laterality 02/08/2015 2:21 PM 5 5:41 ELECTRIC CELL TENDER PM ELECTRIC CELL TENDER Narrative HP CONVERSION - 02/08/2015 7:17 PM ELECTRIC CELL TENDER Performed at [facility], [facility] [address] [place] [id number] CLIA number [id number] Martha Nuñez PA-C LAB_1 Performing Organization Address City/[facility] Code Phon e Number HP CONVERSION GLUCOSE (02/08/2015 2:21 PM ELECTRIC CELL TENDER) athologist Signature Lab Glucose 96 60 - 100 HP CONVERSION mg/dL Specimen Anatomical Collection Method Collection Time Receive d Time (Source) Location / / Volume Laterality 02/08/2015 2:21 PM 5 5:41 ELECTRIC CELL TENDER PM ELECTRIC CELL TENDER Narrative HP CONVERSION - 02/08/2015 7:17 PM ELECTRIC CELL TENDER Performed at [facility], [address] [place] [address] CLIA number [id number] Martha Nuñez PA-C LAB_1 Performing Organization Address [facility] Phon e Number HP CONVERSION Ferritin (02/08/2015 2:21 PM ELECTRIC CELL TENDER) athologist Signature Ferritin Serum 16 10 - 291 HP CONVERSION ng/mL Specimen Anatomical Collection Method Collection Time Receive d Time (Source) Location / / Volume Laterality 02/08/2015 2:21 PM 5 7:34 ELECTRIC CELL TENDER PM ELECTRIC CELL TENDER Narrative HP CONVERSION - 02/08/2015 8:19 PM ELECTRIC CELL [place]END[place] [address] CLIA number [id number] Martha Nuñez PA-C LAB_1 Performing Organization Address [facility] Phon e Number HP CONVERSION THYROID STIMULATING HORMONE (02/08/2015 2:21 PM ELECTRIC CELL TENDER) athologist Signature Thyroid 4.11 0.20 - HP CONVERSION Stimulating 4.50 mIU/L Hormone Specimen Anatomical Collection Method Collection Time Receive d Time (Source) Location / / Volume Laterality 02/08/2015 2:21 PM 5 7:34 ELECTRIC CELL TENDER PM ELECTRIC CELL TENDER Narrative HP CONVERSION - 02/08/2015 8:19 PM ELECTRIC CELL [place]ENDER [place] [address] CLIA number [id number] Martha Nuñez PA-C LAB_1 Performing Organization Address [facility] Phon e Number HP CONVERSION Complete Blood Count W/Diff (02/08/2015 2:21 PM ELECTRIC CELL TENDER) P athologist Signature White Blood Cell 9.3 3.8 - 11.0 HP CONVERSIO N Count k/cmm Red Blood Cell 4.55 3.70 - HP CONVERSION Count 5.20 m/cmm Hemoglobin 13.3 11.8 - HP CONVERSION 15.5 g/dL Hematocrit 39.6 35.0 - HP CONVERSION 46.0 % Mean Corpuscular 87.0 80.0 - HP CONVERSION Volume 100.0 fL RDW 13.2 11.0 - HP CONVERSION 15.0 % Platelet Count 282 140 - 450 HP CONVERSION k/cmm Specimen Anatomical Collection Method Collection Time Receive d Time (Source) Location / / Volume Laterality 02/08/2015 2:21 PM 5 2:20 ELECTRIC CELL TENDER PM ELECTRIC CELL TENDER Narrative HP CONVERSION - 02/08/2015 2:34 PM ELECTRIC CELL TENDER Performed at [facility], [address] [place] [address] CLIA number [id number] Martha Nuñez PA-C LAB_1 Performing Organization Address City/State/[facility] Code Phon e Number HP CONVERSION documented in this encounter Visit Diagnoses Diagnosis Other fatigue Weight gain Abnormal weight gain documented in this encounter Care Teams Netsuite Consultant Relationship Specialty Start Date End Date Md Elaine MD PCP - General 07/24/11 06/12/15 [place] [address] documented as of this encounter
--- OUTSIDE RECORDS SUMMARY | 2021-11-07 13:12 | XMS_ITS | Encounter Summary ---
:1975 Author Organization [employer] Address [address], [place] [address] Care Team Providers Name Role Phone Britta Cox PA-C Primary Care Provider Reason for Visit Reason Comments Procedure AIH frozen Encounter Details Date Type Department Care Team Description 05/20/2016 [facility] Procedure ([facility]H frozen) Obstetrics/Gynecolog y [address] [place] [address] Social History Tobacco Use Types Packs/Day Years [...] documented as of this encounter Progress Notes Arabella Kern MD - 05/20/2016 8:46 AM CST Insemination procedure note: 41 y.o. No obstetric history on file. presents for intrauterine donor insemination. Her primary typing section chief is Dr. June. Her donor sperm number is [id number] from [facility]. 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 Patient's last menstrual period was 05/07/2016 (exact date). and she is day 14of her cycle. This is her 1 cycle of insemination. Infertility related medications include none. Her ovulation was identified by LH testing which was positive on 05/19, yesterday. Semen sample characteristics include 27% motility, grade 2.5 and total motile sperm count is 2.5 million. Cervical mucous is noted to be of excellent quality. The accuracy of the donor semen specimen identification was confirmed with the patient. A long Graves speculum was placed to visualize and straighten the cervix. A sterile catheter containing the semenspecimen was passed through the external os to [...] complications. Diagnosis: Intrauterine insemination donor sperm cycle 1 ICD-10-CM 1. Encounter for artificial insemination Z31.89 Cath&Intro Saline/Contrast Sis/Hsg [07591] Patient Active Problem List Diagnosis Date Noted ??? Uterine polyp 12/14/2011 ??? Eating disorder 11/19/2011 ??? Major depressive disorder, recurrent episode, moderate ([facility]) 11/19/2011 ??? Obesity, Class II, BMI 35-39.9 ([facility]) 11/18/2011 ??? Obesity ([facility]) 12/12/2010 ??? 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 Polycystic ovaries ([facility]) 06/01/2008 ??? Psoriasis 06/01/2008 Overview Note: josé manuel and legs ??? Abnormal glandular Papanicolaou smear of cervix 06/01/2008 Overview Note: s/p LEEP procedure 2007 ??? Irritable bowel syndrome 06/01/2008 ??? Hypothyroidism ([facility]) 06/01/2008 Overview Note: subclinical- TSH followed Q6mo ??? Vitamin D deficiency ([facility]) 05/31/2008 Prior to Admission medications Medication Sig Start Date End Date Taking? Authorizing Provider cholecalciferol (VITAMIN D3) 1000 UNITS tablet 1 Int'l Units daily (every 24 hours). 09/03/08 Yes Lubna Yee MD Nutritional Supplements (GRAPESEED EXTRACT) 500-50 MG daily. Yes Unknown, Physician Cordova-3 Fatty Acids (FISH OIL) 500 MG Indications: PN: 05/31/08 Yes Agedoo-XoMgt-BwQqah-FA-Cordova (MULTIVITAMIN/MINERALS OR) Take 1 tablet by mouth daily (every 24 hours). 09/19/15 Yes Provider, External, Probiotic Product (SUPER PROBIOTIC OR) Yes Unknown, Physician Arabella Kern MD LE TIER AND LABELER documented in this encounter Plan of Treatment Not on filedocumented as of this encounter Visit Diagnoses Diagnosis Encounter for artificial insemination - Primary Artificial insemination documented in this encounter Care Teams Employee Benefits Coordinator Relationship Specialty Start Date End Date Britta Cox PAAnkit PCP - General 06/13/15 [address] [place] [address] documented as of this encounter
--- OUTSIDE RECORDS SUMMARY | 2021-11-07 13:12 | XMS_ITS | Encounter Summary ---
:1975 Author Organization [employer] Address [address] [address] Care Team Providers Name Role Phone Britta Cox PA-C Primary Care Provider Reason for Visit Reason Onset Date Comments Intrauterine Insemination 05/11/2016 Encounter Details Date Type Department Care Team Description 05/11/2016 Telephone Good Monzon, Intrauter ine Obstetrics/Gynecolog y [place] Insemination [address] [place] [address] [place] [phone] [address] Social History Tobacco Use Types Packs/Day Years [...] documented as of this encounter Nursing Notes Diana Mancilla RN - 05/14/2016 12:23 PM CST Consent placed at front loader residential driver for pt to picker tender tomorrow, 05/15/16 RINTENDENT STEVEDORING Ananya Painter RN - 05/14/2016 9:25 AM CST Called pt to obtain more information. Reviewed chart and completed LMP flow sheet. Reviewed AI process and paperwork needed. Background is completed, but consent was not signed. Pt informed it must be obtained in order for AI to occur. Pt states she was not informed a consent was needed at and has only signed consents at [facility]. 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 Pt has Power of Sales Project Manager and was recently able to purchase a home by emailing documents. Pt will attempt to email consent and obtain signature. Ptwill come to [facility] to picker tender consent on . 05/15/16, as donor, frozen sperm.This AI will be ordered at [facility] and entered on schedule as frozen. Would like to move forward with AI this cycle, most likely will surge 05/20-05/21. Advised to order specimen from [employer] and have available at lab. Risk Management has been contacted to review process if unable to obtain signature via email. Will call pt on 05/16 to obtain update on signature. Note Closed. RINTENDENT STEVEDORING Ananya Painter RN - 05/11/2016 2:07 PM CST Called pt and left detailed message on personal voice mail regarding AI consent. 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 Will call pt back on . RINTENDENT STEVEDORING documented in this encounter Plan of Treatment Not on filedocumented as of this encounter Visit Diagnoses Not on filedocumented in this encounter Care Teams Acid Etch Operator Relationship Specialty Start Date End Date Britta Cox PA-C PCP - General 06/13/15 [address], [place] [address] documented as of this encounter
--- OUTSIDE RECORDS SUMMARY | 2021-11-07 13:12 | XMS_ITS | Encounter Summary ---
:1975 Author Organization [employer] Address [address], [place] [address] Care Team Providers Name Role Phone Britta Cox PA-C Primary Care Provider Encounter Details Date Type Department Care Team Description 05/20/2016 Notes/Orders Good Monzon Fertility te sting Obstetrics/Gynecolog melanie Sandhu MD (Primary Dx) [address] [place] [address] [facility] [place] [place] [phone] [address] Social History Tobacco Use Types Packs/Day Years [...] Artificial Insemination,Frozen Donor,Specimen Prep (05/20/2016 6:09 AM BATH STEWARD) P athologist Signature TDI Donor [id number] PN [...] Volume Laterality 05/20/2016 6:09 AM 7 6:09 BATH STEWARD AM BATH STEWARD Narrative PN SOFT - 05/20/2016 7:48 AM BATH STEWARD Performed at [facility], [address] [place] [address] CLIA number [id number] Good Hernandez MD LAB_1 Performing Organization Address City/State/ZIP Code Phon e Number PN SOFT [address] [place] [address] [phone] documented in this encounter Visit Diagnoses Diagnosis Fertility testing - Primary Fertility testing documented in this encounter Care Teams Airport Ramp Agent Relationship Specialty Start Date End Date Britta Cox PA-C PCP - General 06/13/15 [address], [place] [id number] documented as of this encounter
--- OUTSIDE RECORDS SUMMARY | 2021-11-07 13:12 | XMS_ITS | Encounter Summary ---
:1975 Author Organization [employer] Address [address] [address] Care Team Providers Name Role Phone Britta Cox PA-C Primary Care Provider Encounter Details Date Type Department Care Team Description 06/06/2016 Notes/Orders Good Monzon MD Obstetrics/Gynecolog y [address] [facility] [address] [facility] [place] [address] [place] [address] [phone] Social History Tobacco Use Types Packs/Day Years [...] on filedocumented in this encounter Care Teams Data Management Specialist Relationship Specialty Start Date End Date Britta Cox PA-C PCP - General 06/13/[address] [place] [address] documented as of this encounter
--- OUTSIDE RECORDS SUMMARY | 2021-11-07 13:12 | XMS_ITS | Encounter Summary ---
:1975 Author Organization [employer] Address [address], [place] [address] Care Team Providers Name Role Phone Md DEISI Elaine Primary Care Provider Reason for Visit Reason Comments Pharyngitis Encounter Details Date Type Department Care Team Description 08/10/2012 Hospital Encounter [facility] [address] Hong , Acute pharyngitis (Primary Dx); Urgent Care URI (upper respiratory infection) [address] [facility] [address] [phone] Social History Tobacco Use Types Packs/Day Years Used Date Smoking Tobacco: Never Assessed Sex Assigned at Date Recorded Not on file documented as of this encounter Last Filed Vital Signs Vital Sign Reading Time Taken Comments Blood Pressure 119/79 08/10/2012 8:23 AM CDT Pulse 90 08/10/2012 8:23 AM CDT Temperature 37.1 ??C (98.8 ??F) 08/10/2012 8:23 AM CDT Respiratory Rate 16 08/10/2012 8:23 AM CDT Oxygen Saturation - - Inhaled Oxygen Concentration - - Weight - - Height - - Body Mass Index - - documented in this encounter Medications at Time of Discharge Medication Sig Dispensed Refills Start Date End Date sertraline (aka ZOLOFT) Take 1.5 tablets by 45 tablet 12 03/201203/12/2013 tabletIndications: mouth daily (every 24 Major depressive hours). disorder, recurrent episode, moderate (HRC) TOPAMAX Take 1 tablet by mouth 60 tablet 12 03/12/2012 TABSIndications: Eating 2 times daily. disorder, unspecified, Obesity, Class II, BMI 35-39.9 (HRC) adalimumab (aka HUMIRA) Inject 40 mg 0 08/10/2012 05/20/2015 subcutaneously every 2 weeks. Calcipotriene-Betameth Apply 1 Application 0 07/0103/16/2013 Diprop [...] as tabletIndications: needed. Generalized anxiety disorder (HRC) [place]-3 Fatty Acids Indications: PN: 0 05/31/2008 07/20/2019 (FISH OIL) 500 MG documented as of this encounter ED Notes Catarina Hong MD - 08/10/2012 3:26 PM CDT ED Provider Notes signed by Catarina Hong MD at 08/13/12 1029 Author: Catarina Hong MD Service: (none) Author Type: Physician Filed: 08/13/12 1029 Note Time: 08/11/12 1017 Status: Signed Interactive Media Designer: Catarina Hong MD (Physician) NAME: SHARIF PRICE MR#: [id number] CSN: [id number] AUTHENTICATING CLINICIAN: Catarina Hong MD CONFIRM #: [id number] LOC: 420 URGENT CARE PROGRESS NOTE DATE OF VISIT: 08/10/2012 : 1975 This 37-year-old woman complains of sore throat for the last 3 days with some coughing. No fever. MEDICATIONS: Reviewed. ALLERGIES: Family history of penicillin allergy. PHYSICAL EXAMINATION: BP 119/79, pulse 90, respirations 16, temperature 98.8. EARS: The TMs are olman bilaterally, right greater than left. THROAT: No erythema, exudate or edema. NECK: No nodes. LUNGS: Entirely clear. Rapid strep test negative. ASSESSMENT: Upper respiratory infection. PLAN: OTC cold medicines are suggested. Recheck p.r.n. worsening. A strep culture is pending. CAM:MEDQ C: CONFIRM #: [id number] documented in this encounter Miscellaneous Notes Medication History - Ed Ames MD - 08/10/2012 8:41 AM CDT INPATIENT MEDS Encounter Date: 08/10/12 Adalimumab (HUMIRA PEN) 40 mg/0.8 mL PnKt Start Date:-, End Date:05/20/15, Frequency:EVERY 2 WEEKS *No Administrations Recorded documented in this encounter Plan of Treatment Not on filedocumented as of this encounter Procedures Procedure Name Priority Date/Time Associated Diagnosis Comme nts BETA STREP FOLLOWUP STAT 08/10/2012 9:11 AM Re sults for this CDT procedure are i n the results section. GROUP A STREP STAT 08/10/2012 8:32 AM Acute pharyngitis Res ults for this ANTIGEN SCREEN CDT procedure are in the results section. documented in this encounter Results BETA STREP FOLLOWUP (08/10/2012 9:11 AM CDT) Patholo gist Method Time Signature Source Throat HP CONVERSION Site HP CONVERSION Strep Screen No beta HP CONVERSION hemolytic Strep Group A isolated. Specimen (Source) Anatomical Collection Method Collection Time Re ceived Time Location / / Volume Laterality Throat: 08/10/2012 9:11 AM CDT Catarina Hong MD LAB_1 Performing Organization Address City/State/ZIP Code Phon e Number HP CONVERSION RAPID STREP GROUP A WAIVED (08/10/2012 8:32 AM CDT) Analysis Performed At Patho logist Time Signature Strep A Negative Negative HP CONVERSION Antigen Strep A Source Throat: HP CONVERSION Specimen Anatomical Collection Method Collection Time Receive d Time (Source) Location / / Volume Laterality 08/10/2012 8:32 AM 3 9:11 CDT AM CDT Narrative HP CONVERSION - 08/10/2012 9:13 AM CDT Performed at [facility], [address] [place] [address] Catarina Hong MD LAB_1 Performing Organization Address City/State/ZIP Code Phon e Number HP CONVERSION documented in this encounter Visit Diagnoses Diagnosis Acute pharyngitis - Primary URI (upper respiratory infection) Acute upper respiratory infections of un specified site Triage Assessment Note - Carlotta Florez RN - 08/10/2012 8:[address] x 3 days. Dur for Humira inj next week, wondering if she should still do it being sick. documented in this encounter Care Teams Offc Spec Relationship Specialty Start Date End Date Md Elaine MD PCP - General 07/24/11 06/12/15 [place] [address] documented as of this encounter
--- OUTSIDE RECORDS SUMMARY | 2021-11-07 13:12 | XMS_ITS | Encounter Summary ---
:1975 Author Organization [employer] Address [address], [place] [address] Care Team Providers Name Role Phone Britta Cox PA-C Primary Care Provider Reason for Referral Procedure/Equipment (Routine) - Incomplete Specialty Diagnoses / Procedures Referred By Contact Refer red To Contact Diagnoses Primary female infertility Good Hernandez MD Procedures US Follicles [address] [facility] [place] [address] Referral ID Status Reason Start Date Expiration Date Visits V isits Requested Authorized [id number] Incomplete 07/04/2016 10/03/2017 1 1 Reason for Visit Reason Onset Date Comments Intrauterine Insemination 07/02/2016 Encounter Details Date Type Department Care Team Description 07/02/2016 [facility]phone [facility] Good Hernandez Intraut erine Obstetrics/Gynecolog y MD Insemination [address] [facility] [address] [place], [place] Ctr [address] [place] [phone] [id number] Social History Tobacco Use Types Packs/Day Years [...] as of this encounter Nursing Notes Ezequiel Lopez, RN - 07/05/2016 8:53 AM CDT Pt returning call. Reviewed Dr. Howell message with pt. Pt agrees to plan and verbalizes understanding. Assisted pt in scheduling US's. Lauren Arzola LPN - 07/04/2016 1:56 PM CDT Left msg for pt to call back Triage and we'll assist in scheduling u/s appts. Needs first thing in morning u/s to allow for dictation of results and AI scheduling Good Hernandez MD - 07/04/2016 1:08 PM CDT Detailed message left on voicemail. Will fax prescription for clomid 100mg d.3-7 and order a follicle study to start d. 8 which is 4/10. We will then repeat q2days until lead follicle is 16mm then qd. If she would like to do hcg she will need to administer that herself IM at nighttime. Typically inject the night the lead follicle is 18mm and insem 36 hours later. Otherwise I recommend using LH predictor kit. Ananya Painter RN - 07/03/2016 1:12 PM CDT Reason for Call: Order Follicle study and which days. Also will HCG injection be ordered? Next Steps: Route to [facility] OB AI pool. Pt would like to move forward with follicle study. LMP 4/3. Has 28-29 day cycles. Pt would like to know if HCG will be ordered also. Informed pt US needs to be scheduled as soon as orders received, schedule early in the morning to allow time for OB to read and advise plan for continued US or AI the next day. Informed AI needs to be scheduled by 1330. Routed to Dr. Hernandez and AI pool. May be reached at [phone] Carlotta Gibbons RN - 07/03/2016 1:06 PM CDT Gave patient recommendation below. States she plans to follow with [facility] but she is unable to be seen with them until August or September of this year. Patient has additional questions. Will route to Ananya in regards to AI questions. Good Hernandez MD - 07/03/2016 12:24 PM CDT Detailed message left on voicemail. Yes, I do think she should use 2 vials because of decreased count last cycle. We could do follicle studies, I just need to know LMP to know when to start them. I would recommend using clomid 100mg d.3-7 this cycle. Lastly I recommend making an appt with an infertility specialist at this time, being sure to use fellowship trained specialist. I suggested looking at [facility] in [place] because they advertise a discount. Ananya Painter RN - 07/02/2016 1:16 PM CDT Reason for Call: Questions regarding AI. Next Steps: Route to Triage Nurse pool for patient follow up. Pt called back. Plans to have AI this cycle with husbands frozen sperm. Completed flow sheet. Routed questions to Dr. Hernadnez. Please route response to AI pool - [facility] OB AI pool. 1. Based on 's sperm, Pt would like to know if she should use 2 vials instead of 1 at next AI. 2. Would US follicle study be of benefit to her. Wants to know if she has viable eggs. Has positive OPK. 3. Pt is concerned that PCOS is causing OPK results to be incorrect. 4. Pt would like to know when she should be referred to Reproductive Endo. Pt has reviewed list of clinics and understands she may need to wait for an appt. Informed endo would do more completed testing. Also, pt has order for 50 mgs of clomid, but is aware she was instructed to take 100 mgs. May be reached at [phone]. 06/10/2016 11:35 PM by Courtney Lacy ?? Hi Courtney, I will prescribe the clomid, 100mg days 3-7. ??Sometimes it can change the day you ovulate, but typically it is between days 12-16 of the cycle. Good Note routed to Dr. Hernandez and SHERIF salinas. Cynthia Herrera RN - 07/02/2016 12:31 PM CDT Pt called with update for AI. LMP today 07/02/16 (period flow started lat night). Pt on Clomid 50 mg day 3-7. documented in this encounter Plan of Treatment Not on filedocumented as of this encounter Results US Follicles (07/09/2016 7:41 [...] LESS jhonathan n 10mm. Good Hernandez MD [facility] documented in this encounter Visit Diagnoses Diagnosis Primary female infertility - Primary Female infertility of unspecified origin Primary female infertility Female infertility of unspecified origin documented in this encounter Care Teams [employer] Maintenance Worker Relationship Specialty Start Date End Date Britta Cox, CARLOS ENRIQUE PCP - General 06/13/15 [address] [place] [address] documented as of this encounter
--- OUTSIDE RECORDS SUMMARY | 2021-11-07 13:12 | XMS_ITS | Encounter Summary ---
:1975 Author Organization [employer] Address [address], [place] [address] Care Team Providers Name Role Phone Britta Cox PA-C Primary Care Provider Reason for Visit Reason Onset Date Comments Appt. Needed 05/10/2016 [facility] Encounter Details Date Type Department Care Team Description 05/10/2016 Telephone Good Monzon, Appt. Eliza silva (HSG) Obstetrics/Gynecolog y [address] [facility] [address] [facility] [place] [address] [place] [address] [phone] (Wo rk) Social History Tobacco Use Types [...] on file documented as of this encounter Patient Instructions Patient InstructionsMaNirali ibanez LPN - 05/11/2016 10:57 AM CST Pt notified of HSG May.16 130pm RVISOR DYER documented in this encounter Nursing Notes Good Hernandez MD - 05/11/2016 2:28 PM CST Nurse, Ananya Painter, will be following up with Courtney. I completed the forms. RVISOR DYER Ezequiel Greenwood, BERTA - 05/10/2016 4:12 PM CST Pt is calling to schedule HSG. LMP 05/07/16. Pt has also misplaced instructions for when to order frozen sperm, where to have it sent, etc. She is requesting info, jonel if possible. Message forwarded to Dr. Hernandez's raymond nurse. RVISOR DYER documented in this encounter Plan of Treatment Not on filedocumented as of this encounter Visit Diagnoses Not on filedocumented in this encounter Care Teams Carbon Paper Coating Machine Setter Relationship Specialty Start Date End Date Britta Cxo PA-C PCP - General 06/13/15 [address] [place], [place] [address] documented as of this encounter
--- OUTSIDE RECORDS SUMMARY | 2021-11-07 13:12 | XMS_ITS | Encounter Summary ---
:1975 Author Organization [employer] Address [address] [address] Care Team Providers Name Role Phone Md DEISI Elaine Primary Care Provider Encounter Details Date Type Department Care Team Description 05/20/2015 Lab Visit [facility] Fatigue, unspecified type; [address] [facility] [address] [place] [address] Social History Tobacco Use Types Packs/Day Years Used Date Smoking Tobacco: Never Assessed Sex Assigned at Date Recorded Not on file documented as of this encounter Plan of Treatment Not on filedocumented as of this encounter Procedures Procedure Name Priority Date/Time Associated Diagnosis Comme nts THYROID STIMULATING Routine 05/20/2015 11:53 Fatigue, unspecif ied Results for this HORMONE AM JUNIOR QA ANALYST type procedure are in Abnormal weight gain the res ults section. T3, FREE Routine 05/20/2015 11:53 Fatigue, unspecified Res ults for this AM JUNIOR QA ANALYST type procedure are in Abnormal weight gain the res ults section. FREE T4 Routine 05/20/2015 11:53 Fatigue, unspecified Res ults for this AM JUNIOR QA ANALYST type procedure are in Abnormal weight gain the res ults section. documented in this encounter Results T3, Free, Serum (05/20/2015 11:53 AM JUNIOR QA ANALYST) P athologist Signature Triiodothyronin 2.6 1.7 - 3.7 HP CONVERSION e, Free pg/mL Specimen Anatomical Collection Method Collection Time Receive d Time (Source) Location / / Volume Laterality 05/20/2015 11:53 05/20/2015 3:21 AM JUNIOR QA ANALYST PM JUNIOR QA ANALYST Narrative HP CONVERSION - 05/20/2015 4:38 PM JUNIOR QA ANALYST Performed at [facility], [address] [place] [address] CLIA number [id number] Good Hernandez MD LAB_1 Performing Organization Address [facility] Phon e Number HP CONVERSION Free T4 (05/20/2015 11:53 AM JUNIOR QA ANALYST) athologist Signature Thyroxine, Free 0.9 0.7 - 1.5 HP CONVERSION ng/dL Specimen Anatomical Collection Method Collection Time Receive d Time (Source) Location / / Volume Laterality 05/20/2015 11:53 05/20/2015 3:21 AM JUNIOR QA ANALYST PM JUNIOR QA ANALYST Narrative HP CONVERSION - 05/20/2015 4:38 PM JUNIOR QA ANALYST Performed at [facility], [address] [place] [address] CLIA number [id number] Good Hernandez MD LAB_1 Performing Organization Address [facility] Phon e Number HP CONVERSION THYROID STIMULATING HORMONE (05/20/2015 11:53 AM JUNIOR QA ANALYST) athologist Signature Thyroid 3.17 0.20 - HP CONVERSION Stimulating 4.50 Hormone uIU/mL Specimen Anatomical Collection Method Collection Time Receive d Time (Source) Location / / Volume Laterality 05/20/2015 11:53 05/20/2015 3:21 AM JUNIOR QA ANALYST PM JUNIOR QA ANALYST Narrative HP CONVERSION - 05/20/2015 4:38 PM JUNIOR QA ANALYST Performed at [facility], [address] [place] [address] CLIA number [id number] Good Hernandez MD LAB_1 Performing Organization Address [facility] Phon e Number HP CONVERSION documented in this encounter Visit Diagnoses Diagnosis Fatigue, unspecified type Abnormal weight gain documented in this encounter Care Teams Die Cast Die Maker Relationship Specialty Start Date End Date Md Elaine MD PCP - General 07/24/11 06/12/15 [place] [address] documented as of this encounter
--- OUTSIDE RECORDS SUMMARY | 2021-11-07 13:12 | XMS_ITS | Encounter Summary ---
:1975 Author Organization [facility] Address [address], [place] [address] Care Team Providers Name Role Phone Britta Cox PA-C Primary Care Provider Reason for Referral Procedure/Equipment (Routine) - Incomplete Specialty Diagnoses / Procedures Referred By Contact Refer red To Contact Diagnoses Fertility testing Good Hernandez MD Procedures [place] Hysterosalpingiogram Surgical [address] [facility] [place] [address] Referral ID Status Reason Start Date Expiration Date Visits V isits Requested Authorized [id number] Incomplete 05/10/2016 08/09/2017 1 1 [address] OPERATOR Procedure/Equipment (Routine) - Incomplete Specialty Diagnoses / Procedures Referred By Contact Refer red To Contact Diagnoses Fertility testing Good Hernandez MD Procedures [place] Hysterosalpingiogram Imaging [address] [place] [address] Referral ID Status Reason Start Date Expiration Date Visits V isits Requested Authorized [id number] Incomplete 05/10/2016 08/09/2017 1 1 TER OPERATOR Reason for Visit Procedure/Equipment (Routine) - Incomplete Specialty Diagnoses / Procedures Referred By Contact Refer red To Contact Diagnoses Fertility testing Good Hernandez MD Procedures [place] Hysterosalpingiogram [facility] [address] [place] [address] Referral ID Status Reason Start Date Expiration Date Visits V isits Requested Authorized [id number] Incomplete 05/10/2016 08/09/2017 1 1 Encounter Details Date Type Department Care Team Description 05/16/2016 Hospital Encounter [facility] Good Hernandez Fertility testing [address] [place] [address] [facility] [address] [facility] [phone] [place] [address] Social History Tobacco Use Types Packs/Day Years [...] Sig Dispensed Refills Start Date End Date Kehnzm-UmIdn-CbKbri-FA-Omeg Take 1 tablet by 0 a (MULTIVITAMIN/MINERALS mouth daily (every OR) 24 hours). cholecalciferol (VITAMIN 1 Int'l Units 0 09/04/19 09 03/02/2019 D3) 1000 UNITS tablet daily (every 24 hours). Winter-3 Fatty Acids (FISH Indications: PN: 0 05/200807/20/2019 OIL) 500 MG documented as of this encounter Plan of Treatment Not on filedocumented as of this encounter Procedures Procedure Name Priority Date/Time Associated Comments Diagnosis FL HYSTEROSALPINGIOGRAM Routine 05/16/2016 2:33 Fertility test ing Results for this IMAGING PM SWEATER OPERATOR procedure are i n the results section. FL HYSTEROSALPINGIOGRAM Routine 05/16/2016 2:33 Fertility test ing Results for this SURGICAL PM SWEATER OPERATOR procedure are i n the results section. documented in this encounter Results FL Hysterosalpingiogram Surgical (05/16/2016 2:33 PM SWEATER OPERATOR) Anatomical Region Laterality Modality Pelvis Computed Radiography Specimen (Source) Anatomical Location Collection Method / Collectio n Time Received Time / Laterality Volume Narrative 05/21/2016 8:37 AM SWEATER OPERATOR Procedure performed under fluoroscopic guidance. See report in Epic for this date. Good Hernandez MD RAD FL FL Hysterosalpingiogram Imaging (05/16/2016 2:33 PM SWEATER OPERATOR) Anatomical Region Laterality Modality Pelvis Computed Radiography Specimen (Source) Anatomical Collection Method Collection Time Re ceived Time Location / / Volume Laterality 05/16/2016 1:51 PM SWEATER OPERATOR Narrative 05/16/2016 2:46 PM SWEATER OPERATOR COMPARISON: ??None. TECHNIQUE: ??Study and procedure were pe rformed in conjunction with the attending LOSS CONTROL ENGINEER physician. The uterine cavity was cannulated and [...] perf ormed in conjunction with the attending LOSS CONTROL ENGINEER physician. The uterine cavity was cannulated and nonionic contrast was instilled. FINDINGS: The endometrial cavity appears normal. Bilateral fallopian tubes appear patent and demonstrate spillage of contrast into the peritoneal cavity. The lower uterine segment was visualized fluoroscopically and appeared normal. Good Hernandez MD RAD [place] documented in this encounter Visit Diagnoses Diagnosis Fertility testing documented in this encounter Administered Medications Inactive Administered Medications - up to 3 most recent administrations Medication Order MAR Action Action Date Dose Rate Site iopamidol (ISOVUE-M 300) 61 % Given 05/16/2016 2:30 PM SWEATER OPERATOR 15 mL intrathecal injection 15 mL 15 mL, Intrathecal, ONCE, On Sat05/16/16 at 1500, For 1 dose, Radiology documented in this encounter Care Teams Oil Distributor Relationship Specialty Start Date End Date Britta Cox PA-C PCP - General 06/13/15 [address] [place] [address] documented as of this encounter
--- OUTSIDE RECORDS SUMMARY | 2021-11-07 13:13 | XMS_ITS | Encounter Summary ---
:1975 Author Organization [employer] Address [address] [address] Care Team Providers Name Role Phone Lubna Yee MD Primary Care Provider Reason for Visit Reason Comments Refill Encounter Details Date Type Department Care Team Description 05/28/2011 Refill [facility] Lubna Yee MD Refill [address] [facility] [address] [place] [address] [place] [address] [phone] Social History Tobacco Use Types Packs/Day Years Used Date Smoking Tobacco: Never Assessed Sex Assigned at Date Recorded Not on file documented as of this encounter Nursing Notes Nicole Moser RN - 05/28/2011 1:11 PM CST faxed documented in this encounter Plan of Treatment Not on filedocumented as of this encounter Visit Diagnoses Not on filedocumented in this encounter Care Teams Snuff Drier Relationship Specialty Start Date End Date Lubna Yee MD PCP - General 07/04/10 07/23/[address] [place] [address] documented as of this encounter
--- OUTSIDE RECORDS SUMMARY | 2021-11-07 13:13 | XMS_ITS | Encounter Summary ---
:1975 Author Organization [employer] Address [address] [place] [address] Care Team Providers Name Role Phone Lubna Yee MD Primary Care Provider Encounter Details Date Type Department Care Team Description 06/14/2011 Lab Visit [facility] Paresthesias; [address] Fatigue; [place] [address] Unspecified vitamin D defici [facility] [phone] Social History Tobacco Use Types Packs/Day Years Used Date Smoking Tobacco: Never Assessed Sex Assigned at Date Recorded Not on file documented as of this encounter Progress Notes Erica Arroyo PA-C - 06/19/2011 11:33 AM CDT Quick Note: Reviewed, letter done, sent to staff for printing and distribution. documented in this encounter Miscellaneous Notes Miscellaneous - 05/11/2016 7:41 PM CSTNotes Recorded by Erica Arroyo PA-C on 06/19/2011 at 11:33 Duc, letter done, sent to staff for printing and distribution. UTER SYSTEM SPECIALIST Miscellaneous - 05/11/2016 7:41 PM CSTNotes Recorded by Erica Arroyo PA-C on 06/19/2011 at 11:33 AMRreinier, letter done, sent to staff for printing and distribution. UTER SYSTEM SPECIALIST Miscellaneous - 05/11/2016 7:41 PM CSTNotes Recorded by Erica Arroyo PA-C on 06/19/2011 at 11:33 AMReviewed, letter done, sent to staff for printing and distribution. UTER SYSTEM SPECIALIST Miscellaneous - 05/11/2016 7:41 PM CSTNotes Recorded by Erica Arroyo PA-C on 06/19/2011 at 11:33 AMReviewed, letter done, sent to staff for printing and distribution. UTER SYSTEM SPECIALIST Miscellaneous - 05/11/2016 7:41 PM CSTNotes Recorded by Erica Arroyo PA-C on 06/19/2011 at 11:33 AMReviewed, letter done, sent to staff for printing and distribution. UTER SYSTEM SPECIALIST Miscellaneous - 05/11/2016 7:41 PM CSTNotes Recorded by Erica Arroyo PA-C on 06/19/2011 at 11:33 AMReviewed, letter done, sent to staff for printing and distribution. UTER SYSTEM SPECIALIST Miscellaneous - 05/11/2016 7:41 PM CSTNotes Recorded by Erica Arroyo PA-C on 06/19/2011 at 11:33 AMReviewed, letter done, sent to staff for printing and distribution. UTER SYSTEM SPECIALIST documented in this encounter Plan of Treatment Not on filedocumented as of this encounter Procedures Procedure Name Priority Date/Time Associated Diagnosis Comme nts TSH AND FREE T4 (FRT4 Routine 06/14/2011 8:53 AM Fatigue Results for this IF TSH ABNORM) CDT procedure are in the results section. VITAMIN D 25-HYDROXY, Routine 06/14/2011 8:53 AM Unspecified v itamin Results for this TOTAL CDT D deficiency (HR C) procedure are in Paresthesias the results section. RHEUMATOID FACTOR, Routine 06/14/2011 8:53 AM Paresthesias Res ults for this QUANT CDT procedure are i n the results section. LYME ANTIBODY (REFLEX Routine 06/14/2011 8:53 AM Paresth esias Results for this TO LYME CONFIRMATORY CDT Fatigue procedu re are in PANEL) the results section. C-REACTIVE PROTEIN Routine 06/14/2011 8:53 AM Paresthesias Res ults for this CDT procedure are i n the results section. CHERISE SCREEN Routine 06/14/2011 8:53 AM Paresthesias Results f or this CDT procedure are i n the results section. ESR Routine 06/14/2011 8:53 AM Paresthesias Results f or this CDT procedure are i n the results section. documented in this encounter Results Vitamin D 25-Hydroxy, Total (06/14/2011 8:53 AM CDT) P athologist Signature Vitamin D 25 Oh 32 20 - 80 HP CONVERSION ng/mL Comment: Deficiency = <20 Adequate ??= 20-29 Preferred = 30-50 Uncertain safety = 51-80 High = >80 Specimen Anatomical Collection Method Collection Time Receive d Time (Source) Location / / Volume Laterality 06/14/2011 8:53 AM 2 CDT 10:51 AM CDT Transcriptions 05/11/2016 7:41 PM CSTNotes Recorded by Erica Arroyo PA-C on 06/19/2011 at 11:33 AMRevcristinawed, letter done, sent to staff for printing and distribution. Erica Arroyo PA-C LAB_1 Performing Organization Address City/State/ZIP Code Phon e Number HP CONVERSION Lyme Antibody, and Western Blot(If Needed) (06/14/2011 8:53 AM CDT) athologist Signature Lyme Screen Negative Negative HP CONVERSION Comment: This is screening test. ??If results are equivocal or positive, serum will be sent to [facility] ref erence lab for western blot confirmatory testing. Specimen Anatomical Collection Method Collection Time Receive d Time (Source) Location / / Volume Laterality 06/14/2011 8:53 AM 2 CDT 12:58 PM CDT Transcriptions 05/11/2016 7:41 PM CSTNotes Recorded by Erica Arroyo PA-C on 06/19/2011 at 11:33 AMReviewed, letter done, sent to staff for printing and distribution. Erica Arroyo PA-C LAB_1 Performing Organization Address [facility] Code Phon e Number HP CONVERSION C-Reactive Protein (06/14/2011 8:53 AM CDT) athologist Signature CRP 0.4 0.0 - 0.9 HP CONVERSION mg/dL Specimen Anatomical Collection Method Collection Time Receive d Time (Source) Location / / Volume Laterality 06/14/2011 8:53 AM 2 CDT 10:51 AM CDT Transcriptions 05/11/2016 7:41 PM CSTNotes Recorded by Erica Arroyo PA-C on 06/19/2011 at 11:33 AMReviewed, letter done, sent to staff for printing and distribution. Erica Arroyo PA-C LAB_1 Performing Organization Address [facility] Phon e Number HP CONVERSION (ABNORMAL) ESR (06/14/2011 8:53 AM CDT) [facility] Method Time Signature Sedimentation Rate 22 (H) 0 - 20 HP CONVERSI ON mm/hr Specimen Anatomical Collection Method Collection Time Receive d Time (Source) Location / / Volume Laterality 06/14/2011 8:53 AM 2 8:53 CDT AM CDT Narrative HP CONVERSION - 06/14/2011 9:26 AM CDT Performed at [facility], [facility] [place] [address] Transcriptions 05/11/2016 7:41 PM CSTNotes Recorded by Erica Arroyo PA-C on 06/19/2011 at 11:33 AMReviewed, letter done, sent to staff for printing and distribution. Erica Arroyo PA-C LAB_1 Performing Organization Address [facility] Code Phon e Number HP CONVERSION TSH AND FREE T4 (FRT4 IF TSH ABNORM) (06/14/2011 8:53 AM CDT) athologist Signature Thyroid 2.79 0.20 - HP CONVERSION Stimulating 4.50 mIU/L Hormone Specimen Anatomical Collection Method Collection Time Receive d Time (Source) Location / / Volume Laterality 06/14/2011 8:53 AM 2 CDT 10:51 AM CDT Transcriptions 05/11/2016 7:41 PM CSTNotes Recorded by Erica Arroyo PA-C on 06/19/2011 at 11:33 AMReviewed, letter done, sent to staff for printing and distribution. Erica Arroyo PA-C LAB_1 Performing Organization Address City/[facility]/ZIP Code Phon e Number HP CONVERSION Rheumatoid Factor, Quant (06/14/2011 8:53 AM CDT) P athologist Signature Rheumatoid 6 0 - 14 HP CONVERSION Factor IU/mL Specimen Anatomical Collection Method Collection Time Receive d Time (Source) Location / / Volume Laterality 06/14/2011 8:53 AM 2 CDT 10:51 AM CDT Transcriptions 05/11/2016 7:41 PM CSTNotes Recorded by Erica Arroyo PA-C on 06/19/2011 at 11:33 AMReviewed, letter done, sent to staff for printing and distribution. Erica Arroyo PA-C LAB_1 Performing Organization Address [facility] Code Phon e Number HP CONVERSION CHERISE Screen (06/14/2011 8:53 AM CDT) Analysis Performed At Patho logist Time Signature Anti-Nuclear Negative Negative HP CONVERSION Ab Specimen Anatomical Collection Method Collection Time Receive d Time (Source) Location / / Volume Laterality 06/14/2011 8:53 AM 2 CDT 12:58 PM CDT Transcriptions 05/11/2016 7:41 PM CSTNotes Recorded by Erica Arroyo PA-C on 06/19/2011 at 11:33 AMReviewed, letter done, sent to staff for printing and distribution. Erica Arroyo PA-C LAB_1 Performing Organization Address City/[facility]/ZIP Code Phon e Number HP CONVERSION documented in this encounter Visit Diagnoses Diagnosis Paresthesias Disturbance of skin sensation Fatigue Other malaise and fatigue Unspecified vitamin D deficiency documented in this encounter Care Teams Director It Relationship Specialty Start Date End Date Lubna Yee MD PCP - General 07/04/10 07/23/11 [address] [place] [address] documented as of this encounter
--- OUTSIDE RECORDS SUMMARY | 2021-11-07 13:13 | XMS_ITS | Encounter Summary ---
:1975 Author Organization [employer] Address [address] [place] [address] Care Team Providers Name Role Phone Lubna Yee MD Primary Care Provider Encounter Details Date Type Department Care Team Description 06/14/2011 Lab Visit [facility] Paresthesias [address] [place] [address] Social History Tobacco Use Types Packs/Day Years [...] sent to staff for printing and distribution. SHER SCREWDOWN documented in this encounter Plan of Treatment Not on filedocumented as of this encounter Procedures Procedure Name Priority Date/Time Associated Diagnosis Comme nts ELECTROLYTE PANEL Routine 06/14/2011 8:53 AM Paresthesias Resu lts for this CDT procedure are i n the results section. documented in this encounter Results Electrolyte Panel (06/14/2011 8:53 AM CDT) P athologist Signature Sodium 138 137 - 147 HP CONVERSION mEq/L Potassium 4.5 3.5 - 5.2 HP CONVERSION mEq/L Chloride 107 98 - 110 HP CONVERSION mEq/L Bicarbonate 24 23 - 33 HP CONVERSION mmol/L Specimen Anatomical Collection Method [...] Diagnoses Diagnosis Paresthesias Disturbance of skin sensation documented in this encounter Care Teams Side Door Man Relationship Specialty Start Date End Date Lubna Yee MD PCP - General 07/04/10 07/23/11 [address] [place] [address] documented as of this encounter
--- OUTSIDE RECORDS SUMMARY | 2021-11-07 13:13 | XMS_ITS | Encounter Summary ---
:1975 Author Organization [employer] Address [address] [place] [address] Care Team Providers Name Role Phone Md DEISI Elaine Primary Care Provider Encounter Details Date Type Department Care Team Description 03/01/2012 Hospital Encounter [facility] [address] [facility] [address] [facility] [address] [place] [address] Social History Tobacco Use Types Packs/Day Years Used Date Smoking Tobacco: Never Assessed Sex Assigned at Date Recorded Not on file documented as of this encounter Medications at Time of Discharge Medication Sig Dispensed Refills Start Date End Date acetaminophen-codeine Take 1-2 tablets by 6 tablet 0 12/2603/12/2012 (aka TYLENOL NO.3) mouth every 4 hours as 300-30 MG tablet needed for Pain. Maximum of 13 tablets/24 hours. Etanercept 25 MG/0.5ML Inject 25 mg 0 11/06/2011 08/10/2012 SOSYIndications: subcutaneously twice a Depression, major week. (HRC), Obesity, Class II, BMI 35-39.9 (HRC) fluticasone (AKA 1-2 sprays daily 16 11 02/03/2010 FLONASE) 50 MCG/ACT (every 24 hours). nasal solution sertraline (AKA ZOLOFT) Take 1 tablet by mouth 30 tablet 12 12/06/2011 03/12/2012 100 MG daily (every 24 tabletIndications: hours). Major depressive disorder, recurrent episode, moderate (HRC) topiramate (AKA Take 1 tablet by mouth 60 tablet 3 12/06/19 12 03/12/2012 TOPAMAX) 25 MG 2 times daily. tabletIndications: Eating disorder, unspecified Calcipotriene-Betameth Apply 1 Application 0 07/0103/16/2013 Diprop [...] as tabletIndications: needed. Generalized anxiety disorder (HRC) [place]-3 Fatty Acids Indications: PN: 0 05/31/2008 07/20/2019 (FISH OIL) 500 MG documented as of this encounter Plan of Treatment Not on filedocumented as of this encounter Visit Diagnoses Not on filedocumented in this encounter Care Teams Photo Mask Cleaner Relationship Specialty Start Date End Date Md Elaine MD PCP - General 07/24/11 06/12/15 [place] [address] documented as of this encounter
--- OUTSIDE RECORDS SUMMARY | 2021-11-07 13:13 | XMS_ITS | Encounter Summary ---
:1975 Author Organization [employer] Address [address], [place] [address] Care Team Providers Name Role Phone Md DEISI Elaine Primary Care Provider Encounter Details Date Type Department Care Team Description 12/27/2011 Hospital Encounter [facility] [place], [address] [place], [place] [address] [facility] [phone] [place] [address] (Wo rk) Social History Tobacco Use Types Packs/Day Years Used Date Smoking Tobacco: Never Assessed Sex Assigned at Date Recorded Not on file documented as of this encounter Last Filed Vital Signs Vital Sign Reading Time Taken Comments Blood Pressure - - Pulse - - Temperature - - Respiratory Rate - - Oxygen Saturation - - Inhaled Oxygen Concentration - - Weight 80.3 kg (177 lb) 12/27/2011 10:19 AM CDT Height 152.4 cm (5') 12/27/2011 10:19 AM CDT Body Mass Index 34.57 12/27/2011 10:19 AM CDT documented in this encounter Medications at Time [...] as tabletIndications: needed. Generalized anxiety disorder (HRC) [place]-3 Fatty Acids Indications: PN: 0 05/31/2008 07/20/2019 (FISH OIL) 500 MG documented as of this encounter Progress Notes Good Hernandez MD - 12/27/2011 3:24 PM CDT Quick Note: Message left on voicemail that pathology was benign and consistent with polypoid tissue. documented in this encounter Procedure Notes Good Hernandez MD - 12/27/2011 1:56 PM CDT Op Note signed by Good Hernandez MD at 12/28/11724 Author: Good Hernandez MD Service: (none) Author Type: Physician Filed: 12/28/11724 Note Time: 12/27/11 1356 Status: Signed Truck Headlight Assembler: Good Hernandez MD (Physician) NAME: SHARIF PRICE MR#: [id number] CSN: [id number] AUTHENTICATING CLINICIAN: Good Hernandez MD CONFIRM #: [id number] LOC: 1 OPERATIVE REPORT DATE OF OPERATION: 12/27/2011 : 1975 SURGEON: Good Hernandez MD PREOPERATIVE DIAGNOSIS: Menorrhagia, intrauterine lesion. POSTOPERATIVE DIAGNOSIS: Menorrhagia, intrauterine lesion, cervical stenosis. PROCEDURE: Hysteroscopy, dilation and curettage. ANESTHESIA: MAC with paracervical block. INDICATIONS: The patient is a 36-year-old female, 0 with a history of heavy bleeding and on ultrasound on11/01/2011, had an endometrial stripe of 12 mm and a thickened, ill-defined hyperechoic area in the upper part of the endometrium. OPERATIVE FINDINGS: On examination under anesthesia, the uterus is anteverted, anteflexed and normal size. No adnexal masses. The uterus was sounded to 7 cm. On hysteroscopy, there was a thickened endometrium and an irregular intrauterine lesion on the posterior right lateral wall, possibly fibroid versus polypoid lesionmeasuring about 1.2 cm in size. PROCEDURE: The patient was taken to the operating room and IV sedation was administered. The patient was placedin the dorsal lithotomy position and a pelvic exam was performed. The perineum was prepped and draped in a sterile fashion. A speculum was placed and the anterior lip of the cervix infused with 2 mL of1% lidocaine with epinephrine and grasped with a single-tooth tenaculum. A paracervical block was placed for a total of 20 mL of local. The uterus was difficult to sound because of cervical stenosis and ultimately a severely anteverted, anteflexed uterus was identified. An os finder was used, followedby the dilation up to a #8 Hegar dilator. Inspection revealed the above. A gentle sharp curettage was performed and there was some gritty along the right posterior uterine wall, possibly consistent with a fibroid. Reinspection, however, showed this area to be clear and the tissue had been obtained. Another sharp curettage was performed to ensure that all the tissue was sampled. Instruments were removed and good hemostasis was noted. ESTIMATED BLOOD LOSS: 30 cc. FLUID DISCREPANCY: 50 cc. FRAN:MARIXA C: CONFIRM #: [id number] documented in this encounter Miscellaneous Notes Miscellaneous - 12/27/2011 3:24 PM CDTNotes Recorded by Good Hernandez MD on 12/31/2011 at 10:09 AMMessage left on voicemail that pathology was benign and consistent with polypoid tissue. EMATICS TEACHER Medication History - Ed Ames MD - 12/27/2011 3:24 PM CDT INPATIENT MEDS Encounter Date: 12/21/11 acetaminophen-codeine (TYLENOL #3) 300-30 mg per tablet 1-2 tablet Start Date:12/27/11, End Date:12/27/11, Frequency:EVERY 4 HOURS PRN *No Administrations Recorded acetaminophen-codeine (TYLENOL #3) 300-30 mg per tablet Start Date:12/27/11, End Date:03/12/12, Frequency:EVERY 4 HOURS PRN *No Administrations Recorded midazolam (VERSED) injection 1-2 mg Start Date:12/27/11, End Date:12/27/11, Frequency:EVERY 5 MIN PRN *No Administrations Recorded fentaNYL (SUBLIMAZE) injection 25-50 mcg Start Date:12/27/11, End Date:12/27/11, Frequency:EVERY 5 MIN PRN *No Administrations Recorded midazolam (VERSED) injection 0.5-1 mg Start Date:12/27/11, End Date:12/27/11, Frequency:EVERY 5 MIN PRN *No Administrations Recorded HYDROmorphone (DILAUDID) injection 0.2-0.6 mg Start Date:12/27/11, End Date:12/27/11, Frequency:EVERY 5 MIN PRN *No Administrations Recorded fentaNYL (SUBLIMAZE) injection 25-50 mcg Start Date:12/27/11, End Date:12/27/11, Frequency:EVERY 5 MIN PRN *No Administrations Recorded meperidine (DEMEROL) injection 12.5 mg Start Date:12/27/11, End Date:12/27/11, Frequency:EVERY 5 MIN PRN *No Administrations Recorded NO pre-op antibiotics needed Start Date:12/27/11, End Date:12/27/11, Frequency:ONCE *No Administrations Recorded lidocaine 1% (PF) 10 mg/mL (1 %) injection Start Date:12/27/11, End Date:-, Frequency:- *No Administrations Recorded lactated ringers infusion Start Date:12/27/11, End Date:-, Frequency:- *No Administrations Recorded HYDROmorphone (DILAUDID) 2 mg/mL injection Start Date:12/27/11, End Date:-, Frequency:- *No Administrations Recorded acetaminophen-codeine (TYLENOL #3) 300-30 mg per tablet Start Date:12/27/11, End Date:-, Frequency:- *No Administrations Recorded documented in this encounter Plan of Treatment Not on filedocumented as of this encounter Procedures Procedure Name Priority Date/Time Associated Diagnosis Comme nts POCT URINE STAT 12/27/2011 10:19 AM Results for this CDT procedure are i n the results section. SURGICAL DENNY MORALES Routine 12/27/2011 7:00 AM Re sults for this NICOLLET CDT procedure are i n the results section. documented in this encounter Results POCT URINE (12/27/2011 10:19 AM CDT) [facility] gist Method Time Signature Urine Negative HP CONVERSION Test - POC Control Line Yes HP CONVERSION Present, Clear Background - Internal control Cartridge Lot# [id number] HP CONVERSION Specimen (Source) Anatomical Collection Method Collection Time Re ceived Time Location / / Volume Laterality 12/27/2011 10:19 AM CDT Good Hernandez MD PN POINT OF CARE TESTS Performing Organization Address City/State/ZIP Code Phon e Number HP CONVERSION Pathology Report (12/27/2011 7:00 AM CDT) [facility] gist Method Time Signature Path: ?Final SURGICAL PATHOLOGY REP ORT HP CONVERSION Pathology #: [id number] ? Date Obtained: 12/27/2011 ?Date Received: 12/27/2011 DIAGNOSIS: Endometrial curettings: ??-Polypoid fragments of secretory endometrium (postovulato ry day ?? -10). ?TATYANA FERGUSON MD ? (electronic signatur e) ? 12/28/2011 ??12:3 5 CLINICAL NOTES: Endometrial lesion ORGAN/TISSUE SITE: Endometrial curettings GROSS DESCRIPTION: The specimen is labeled endometrial curettings and consis ts of a 2.5 x 2 x 2 cm aggregate of still-pink soft tissue fragments admi xed with blood-tinged mucus. ??Entirely submitted in cassette 10000. WEYAL MICROSCOPIC DESCRIPTION: Microscopic examination performed. CPT Codes: ?30599 x 1 ? End of Report Specimen Anatomical Location Collection Method Collection Time Received Time (Source) / Laterality / Volume ENDOMETRIAL 12/27/2011 7:00 12/27/2011 7 :00 STRUCTURE / Unknown AM CDT AM CDT Transcriptions 12/27/2011 3:24 PM CDTNotes Recorded by Good Hernandez MD on 12/31/2011 at 10:09 AMMessage left on voicemail that pathology was benign and consistent with polypoid tissue. Good Hernandez MD LAB_1 Performing Organization Address City/State/ZIP Code Phon e Number HP CONVERSION documented in this encounter Visit Diagnoses Not on filedocumented in this encounter Care Teams Paint Roller Cover Machine Setter Relationship Specialty Start Date End Date Md Elaine MD PCP - General 07/24/11 06/12/15 [place] [address] documented as of this encounter
--- OUTSIDE RECORDS SUMMARY | 2021-11-07 13:13 | XMS_ITS | Encounter Summary ---
:1975 Author Organization [employer] Address [address] [address] Care Team Providers Name Role Phone Md DEISI Elaine Primary Care Provider Encounter Details Date Type Department Care Team Description 11/13/2011 E-Visit Jet Sanchez MD Obstetrics/Gynecolog y [address] [facility] [address] [place] [address] [address] [place] [phone] Social History Tobacco Use Types Packs/Day Years Used Date Smoking Tobacco: Never Assessed Sex Assigned at Date Recorded Not on file documented as of this encounter Miscellaneous Notes Patient Email (Converted) - Trey Corado Provider - 11/14/2011 9:14 AM CDT Subject: RE: E-Visit Submission: E-Visit Form From User: JET LOPEZ I sent the ultrasound results with comments in another [employer] message. Zonia ----- Message ----- From: SHARIF PRICE Sent: 11/13/11 07:20 AM To: Jet Lopez MD Subject: E-Visit Submission: E-Visit Form E-Visit Submission: E-Visit Form Question: What is your current Health Concern? Answer: Received your VM. Can you tell me more about the ultrasound results and recommended next steps? I'm feeling pretty lousy, with continued bloating and severe fatigue. Dr. Mullen did switch me from Celexa to Zoloft for my depression, so some of the fatigue may be an adjustment to new meds. [employer] documented in this encounter Plan of Treatment Not on filedocumented as of this encounter Visit Diagnoses Not on filedocumented in this encounter Care Teams Credit Resolution Representative Relationship Specialty Start Date End Date Md Elaine MD PCP - General 07/24/11 06/12/15 [place] [address] documented as of this encounter
--- OUTSIDE RECORDS SUMMARY | 2021-11-07 13:13 | XMS_ITS | Encounter Summary ---
:1975 Author Organization [facility] Address [address] [address] Care Team Providers Name Role Phone Md DEISI Elaine Primary Care Provider Reason for Visit Reason Comments Surgery Scheduling Log Encounter Details Date Type Department Care Team Description 12/14/2011 Telephone Good [place], Surgery S [place] Log Obstetrics/Gynecolog y [address] [place] [address] [place] [phone] [address] Social History Tobacco Use Types Packs/Day Years Used Date Smoking Tobacco: Never Assessed Sex Assigned at Date Recorded Not on file documented as of this encounter Plan of Treatment Not on filedocumented as of this encounter Visit Diagnoses Not on filedocumented in this encounter Care Teams Wildland Fire Fighter Specialist Relationship Specialty Start Date End Date Md Elaine MD PCP - General 07/24/11 06/12/15 [place] [address] documented as of this encounter
--- OUTSIDE RECORDS SUMMARY | 2021-11-07 13:13 | XMS_ITS | Encounter Summary ---
:1975 Author Organization [employer] Address [address] [address] Care Team Providers Name Role Phone Lubna Yee MD Primary Care Provider Encounter Details Date Type Department Care Team Description 02/03/2010 Office Visit [facility] [place] [address] [address] [phone] Social History Tobacco Use Types Packs/Day Years Used Date Smoking Tobacco: Never Assessed Sex Assigned at Date Recorded Not on file documented as of this encounter Last Filed Vital Signs Vital Sign Reading Time Taken Comments Blood Pressure 104/70 02/03/2010 3:25 PM CDT Pulse 84 02/03/2010 3:25 PM CDT Temperature - - Respiratory Rate - - Oxygen Saturation - - Inhaled Oxygen Concentration - - Weight 74.8 kg (164 lb 15.9 oz) 02/03/2010 3:25 PM CDT C: 74.8kg Height - - Body Mass Index - - documented in this encounter Progress Notes Lubna Yee MD - 02/03/2010 12:01 AM CDT NAME: SHARIF PRICE MR#: [id number] ACCT: [id number] VISIT: [id number] DICTATING CLINICIAN: Lubna Yee MD CONFIRM #: [id number] LOC: 602 CLINIC PROGRESS NOTE DATE OF VISIT: 02/03/2010 : 1975 HPI: The patient presents to follow up on left ear pain. She had some congestion and popping. She has history of rhinitis. She has no fever, chills, sinus pain, sore throat, postnasal drip, cough. She has history of eczema in her ear canals and would like a recheck as well. No history of ceruminosis. She has subclinical hypothyroidism and needs to have her TSH rechecked. She is off medication at this time. REVIEW OF SYSTEMS: Otherwise negative. PAST MEDICAL HISTORY: Reviewed, see PHP in [employer] MEDICATIONS: Reviewed and see PHP in [employer] ALLERGIES: REVIEWED AND SEE PHP IN [employer]. HABITS: Nonsmoker. OBJECTIVE: VITAL SIGNS: Blood pressure 104/70, pulse 84, weight 165 pounds. In general, NAD. Alert and oriented. Well groomed. HEENT: Eyes: Conjunctivae clear. The left ear canal has white, flaky material consistent with eczema. Canal is slightly erythematous. No ceruminosis. TM normal without fluid. Right ear canal again appears flaky, slightly erythematous, nontender. TM normal. Nasal turbinates are enlarged and injected. Nasal passages are slightly occluded by turbinates No thick mucus present. Oropharynx clear without lesions or exudate. NECK: Supple. Thyroid gland nontender. No thyromegaly. No palpable nodules. CV: Regular. No murmurs. LUNGS: Clear. EXTREMITIES: Without lower extremity edema. ASSESSMENT: 1. Subclinical hypothyroidism. Recheck TSH and we will add medication as needed. Continue to observe for now. 2. Eustachian tube is dysfunction. 3. Chronic rhinitis. Will add fluticasone 2 sprays each nostril once daily. Side-effect profile reviewed. Proper delivery of technique reviewed. She may use Afrin nasal spray. Each nostril before flying with travel or business. She is instructed not to use more than 3 days to avoid rebound congestion. She may also try oral decongestant p.r.n. 4. Eczema, ear canals. She may use a steroid ointment and apply with Q-tip as needed. 5. Influenza vaccine given today. She will return to clinic p.r.n. PLAN: See Assessment. ELB:MARIXA C: CONFIRM #: [id number] CHBOARD RECEPTIONIST documented in this encounter Plan of Treatment Not on filedocumented as of this encounter Visit Diagnoses Not on filedocumented in this encounter Care Teams Space Systems Operations Manager Relationship Specialty Start Date End Date Lubna Yee MD PCP - General 07/04/10 07/23/11 [address] [place] [address] documented as of this encounter
--- OUTSIDE RECORDS SUMMARY | 2021-11-07 13:13 | XMS_ITS | Encounter Summary ---
:1975 Author Organization [employer] Address [address], [place] [address] Care Team Providers Name Role Phone Lubna Yee MD Primary Care Provider Encounter Details Date Type Department Care Team Description 07/25/2010 Office Visit [facility] [place] [address] [address] [phone] Social History Tobacco Use Types Packs/Day Years Used Date Smoking Tobacco: Never Assessed Sex Assigned at Date Recorded Not on file documented as of this encounter Last Filed Vital Signs Vital Sign Reading Time Taken Comments Blood Pressure 102/66 07/25/2010 2:40 PM CDT Pulse 62 07/25/2010 2:40 PM CDT Temperature - - Respiratory Rate - - Oxygen Saturation - - Inhaled Oxygen Concentration - - Weight 76.2 kg (167 lb 15.9 oz) 07/25/2010 2:40 PM CDT C: 76.2kg Height - - Body Mass Index - - documented in this encounter Progress Notes Lubna Yee MD - 07/25/2010 12:01 AM CDT Progress Notes signed by Lubna Yee MD at 07/27/10 9350 Author: Lubna Yee MD Service: (none) Author Type: Physician Filed: 08/11/10 7461 Note Time: 07/25/10 0001 Status: Signed Fringe Maker: Lubna Yee MD (Physician) NAME: SHARIF PRICE MR#: [id number] ACCT: [id number] VISIT: [id number] DICTATING CLINICIAN: Lubna Yee MD CONFIRM #: [id number] LOC: 602 CLINIC PROGRESS NOTE DATE OF VISIT: 07/25/2010 : 1975 HPI: Sharif presents to talk about her generalized anxiety and recurrent major depression. She has struggled with depression on and off since high school and had a serious bout of major depression in college, at which time she was given a trial of Paxil which caused a flat affect and Wellbutrin which caused her to hear voices. She did not tolerate these medications. She has been resistant to a trial of other medications due to these side effects. She has tried therapy in the past twice without good result. She feels after each therapy session she cried and felt worse. She presents today with increasing concerns of her emotional lability interfering with her work and personal life. She also had a friend who is 40 years old who of a blood clot, and another friend who is on the liver transplant list for liver failure. Her grandfather has Alzheimer's dementia and does not recognize her now. These events have also made her more emotional. She is in a long-term relationship with her boyfriend and they do not plan to . Their sex life has not been the same since she has felt depressed and she has no libido. She completes a PHQ-9 questionnaire today and scores a 21 with 2 in little interest in doing things, 3 with feeling sadness, 3 trouble sleeping, 3 feeling fatigued, 2 slightly overeating, 3 with feeling bad about herself that she may be a failure, and 3 difficulty concentrating at work, 2 feeling fidgety and restless. She denies any suicidal ideation, but states that these symptoms are somewhat difficult, to very difficult, in managing her ADLs. She is willing to start medication at this time and give a trial of therapy again. PAST MEDICAL HISTORY: Reviewed, see PHP in [employer] MEDICATIONS: Reviewed and updated, see PHP in [employer]. HABITS: She is a nonsmoker. Very little alcohol intake. She exercises regularly with a personal investment adviser. OBJECTIVE: Blood pressure 102/66, pulse 62, weight 168 pounds. GENERAL: She is tearful, depressed, anxious today. CV: Regular. No murmurs. LUNGS: Clear. PSYCH EXAM: Mood and affect appear depressed, slightly flat affect. Her insight is normal. She has no tangential thoughts. Her speech is normal rate and tone. She has no delusions, hallucinations or suicidal ideation. ASSESSMENT/PLAN: Recurrent major depression with severe symptoms. No psychotic features. Will give a trial of citalopram 20 mg, a half a tab daily times 6 days and increase to 1 tab daily. Side effect profile reviewed. I will also add lorazepam 0.5 mg 1 p.o. b.i.d. p.r.n. for breakthrough anxiety and to help her sleep. She will use this sparingly and this will be prescribed on a short-term basis. Potential for dependence reviewed with her. Sedation precaution also reviewed. I gave her referral for behavioral health for therapy and she will return to clinic in 3 weeks for recheck or sooner if needed. She agrees with plan. ELB:MEDQ C: CONFIRM #: [id number] documented in this encounter Plan of Treatment Not on filedocumented as of this encounter Visit Diagnoses Not on filedocumented in this encounter Care Teams Funding Specialist Relationship Specialty Start Date End Date Lubna Yee MD PCP - General 07/04/10 07/23/11 [address] [place] [address] documented as of this encounter
--- OUTSIDE RECORDS SUMMARY | 2021-11-07 13:13 | XMS_ITS | Encounter Summary ---
:1975 Author Organization [employer] Address [address] [address] Care Team Providers Name Role Phone Lubna Yee MD Primary Care Provider Reason for Visit Reason Comments NUMBNESS Encounter Details Date Type Department Care Team Description 06/12/2011 Telephone [facility] Lubna Yee MD NUMBNESS [address] [facility] [address] [place] [address] [place] [address] [phone] Social History Tobacco Use Types Packs/Day Years Used Date Smoking Tobacco: Never Assessed Sex Assigned at Date Recorded Not on file documented as of this encounter Nursing Notes Karla Clark MD - 06/12/2011 7:48 PM CDT agree with recommendation Cindy Rodríguez - 06/12/2011 11:55 AM CDT Call received on ER line. Courtney is complaining of L arm tingling and numbness. Sxs began this morning. She also reports that she had a Mantoux this morning L forearm. There is no redness or swelling atinjection site. Courtney denies headache, dizziness, visual changes. Speech is not slurred and she doesnot feel there has been a change in mental status. She says that she feels flushed - does not knowif she has a fever. Advised that Courtney come to for eval of the numbness L arm. documented in this encounter Plan of Treatment Not on filedocumented as of this encounter Visit Diagnoses Not on filedocumented in this encounter Care Teams Link Trainer Maintenance Man Relationship Specialty Start Date End Date Lubna Yee MD PCP - General 07/04/10 07/23/11 [address] [place] [address] documented as of this encounter
--- OUTSIDE RECORDS SUMMARY | 2021-11-07 13:13 | XMS_ITS | Encounter Summary ---
:1975 Author Organization [facility] Address [address] [address] Care Team Providers Name Role Phone Md DEISI Elaine Primary Care Provider Encounter Details Date Type Department Care Team Description 12/25/2011 Lab Visit [facility] [address] Preop examination [address] [facility] [place] [address] Social History Tobacco Use Types Packs/Day Years Used Date Smoking Tobacco: Never Assessed Sex Assigned at Date Recorded Not on file documented as of this encounter Plan of Treatment Not on filedocumented as of this encounter Procedures Procedure Name Priority Date/Time Associated Diagnosis Comme nts TEST Routine 12/25/2011 9:59 AM Preop examination Re sults for this (URINE) CDT procedure are i n the results section. documented in this encounter Results Test (Urine) (12/25/2011 9:59 AM CDT) Analysis Performed At Patho logist Time Signature Urine Negative HP CONVERSION Test Specimen Anatomical Collection Method Collection Time Receive d Time (Source) Location / / Volume Laterality 12/25/2011 9:59 AM 2 9:59 CDT AM CDT Narrative HP CONVERSION - 12/25/2011 10:09 AM CDT Performed at [facility] [address] [facility], [place] [address] Keyona Wick MD LAB_1 Performing Organization Address City/State/ZIP Code Phon e Number HP CONVERSION documented in this encounter Visit Diagnoses Diagnosis Preop examination Preoperative examination, unspecified documented in this encounter Care Teams Core Winding Operator Relationship Specialty Start Date End Date Md Elaine MD PCP - General 07/24/11 06/12/15 [place] [address] documented as of this encounter
--- OUTSIDE RECORDS SUMMARY | 2021-11-07 13:13 | XMS_ITS | Encounter Summary ---
:1975 Author Organization [employer] Address [address], [place] [address] Care Team Providers Name Role Phone Md DEISI Elaine Primary Care Provider Reason for Visit Reason Comments Appt. Needed Encounter Details Date Type Department Care Team Description 10/23/2011 Telephone Delia Sanchez MD Appt. Needed Obstetrics/Gynecolog y [address] [facility] [address] [place] [address] [place] [address] Social History Tobacco Use Types Packs/Day Years Used Date Smoking Tobacco: Never Assessed Sex Assigned at Date Recorded Not on file documented as of this encounter Nursing Notes Celia Nuñez RN - 10/23/2011 8:42 AM CDT Pt calling to schedule annual exam with Dr Menjivar and also mentions a bump under left armpit sinceyesterday and notice some drainage. Pt denies fever. Explained to pt this should be evaluated with FM or IM and pt wishes to have Dr Menjivar look at it during appointment on 10/25/11 so does not have to make 2 appointments. documented in this encounter Plan of Treatment Not on filedocumented as of this encounter Visit Diagnoses Not on filedocumented in this encounter Care Teams Rivet Sorter Relationship Specialty Start Date End Date Md Elaine MD PCP - General 07/24/11 06/12/15 [place] [address] documented as of this encounter
--- OUTSIDE RECORDS SUMMARY | 2021-11-07 13:13 | XMS_ITS | Encounter Summary ---
:1975 Author Organization [employer] Address [address], [place] [address] Care Team Providers Name Role Phone Lubna Yee MD Primary Care Provider Encounter Details Date Type Department Care Team Description 08/03/2010 PN Conversion Only [facility] [place] [address] [facility] [address] [place] [address] [place] [address] [phone] Social History Tobacco Use Types Packs/Day Years Used Date Smoking Tobacco: Never Assessed Sex Assigned at Date Recorded Not on file documented as of this encounter Plan of Treatment Not on filedocumented as of this encounter Visit Diagnoses Not on filedocumented in this encounter Care Teams Software Installation Engineer Relationship Specialty Start Date End Date Lubna Yee MD PCP - General 07/04/10 07/23/11 [address] [place] [address] documented as of this encounter
--- OUTSIDE RECORDS SUMMARY | 2021-11-07 13:13 | XMS_ITS | Encounter Summary ---
:1975 Author Organization [facility] Address [address], [place] [address] Care Team Providers Name Role Phone Lubna Yee MD Primary Care Provider Encounter Details Date Type Department Care Team Description 02/03/2010 PN Conversion [place] [address] [facility] [address] [place] [address] [place] [address] Social History Tobacco Use Types Packs/Day Years Used Date Smoking Tobacco: Never Assessed Sex Assigned at Date Recorded Not on file documented as of this encounter Plan of Treatment Not on filedocumented as of this encounter Procedures Procedure Name Priority Date/Time Associated Comments Diagnosis THYROID STIMULATING Routine 02/03/2010 4:01 PM Re sults for this HORMONE CDT procedure are i n the results section. documented in this encounter Results THYROID STIMULATING HORMONE (02/03/2010 4:01 PM CDT) athologist Signature Thyroid 2.82 0.20 - HP CONVERSION Stimulating 4.50 mIU/L Hormone Specimen (Source) Anatomical Collection Method Collection Time Re ceived Time Location / / Volume Laterality 02/03/2010 4:01 PM CDT Lubna Yee MD LAB_1 Performing Organization Address City/State/ZIP Code Phon e Number HP CONVERSION documented in this encounter Visit Diagnoses Not on filedocumented in this encounter Care Teams Ship Unloader Relationship Specialty Start Date End Date Lubna Yee MD PCP - General 07/04/10 07/23/11 [address] [place] [address] documented as of this encounter
--- OUTSIDE RECORDS SUMMARY | 2021-11-07 13:13 | XMS_ITS | Encounter Summary ---
:1975 Author Organization [employer] Address [address] [address] Care Team Providers Name Role Phone Md DEISI Elaine Primary Care Provider Reason for Visit Reason Comments CONGESTION Headache FATIGUE Altered Mental Status Encounter Details Date Type Department Care Team Description 04/05/2012 Office Visit [facility] [address] Yepez (upper respiratory infection) (Primary Dx); Internal Medicine MD Bessy Major depressive disorder, recurrent epi sode, moderate; [address] [place] [address] [place] [address] [phone] Social History Tobacco Use Types Packs/Day Years Used Date Smoking Tobacco: Never Assessed Sex Assigned at Date Recorded Not on file documented as of this encounter Last Filed Vital Signs Vital Sign Reading Time Taken Comments Blood Pressure 106/66 04/05/2012 11:57 AM WEB ANALYTICS SPECIALIST Pulse - - Temperature - - Respiratory Rate - - Oxygen Saturation - - Inhaled Oxygen Concentration - - Weight 80.7 kg (178 lb) 04/05/2012 11:57 AM WEB ANALYTICS SPECIALIST Height 152.4 cm (5') 04/05/2012 11:57 AM WEB ANALYTICS SPECIALIST Body Mass Index 34.76 04/05/2012 11:57 AM WEB ANALYTICS SPECIALIST documented in this encounter Progress Notes Paty Yepez MD - 04/13/2012 7:23 PM CST SUBJECTIVE: Courtney is a 36-year-old female comes in to clinic today for evaluation of fatigue and an upper respiratory infection. She states she's had fatigue now for quite some time. This is a constellation of symptoms of depression, eating disorder, and psoriasis. she is seen in mental health and has a counselor. no suicidal ideation. she does have decreased interest in activities and fatigue. She has taken a new job and there are stressors at her job with change in management. she states she's handling the stressors . she states she has supportive friends and family. Limited exercise. menses are r egular denies chance of . Upper respiratory infection started approximately 3 weeks ago andinitial she had a fever but does no longer. minimal cough. no fevers chills or sweats. no shortness of breath. No other complaints today. Past Medical History Diagnosis Date ??? Obesity [...] ??? Cervical dysplasia 2008 LAKSHMI 3, LEEP Social history: single. No children. 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 Limited exercise. rare alcohol. Allergies Allergen Reactions ??? Allergen Not In Computer PT HAS MULTIPLE FAMILY HX OF PCN ALLERGY Current outpatient prescriptions Medication Sig Dispense Refill ??? calcipotriene-betamethasone (TACLONEX) ointment Apply 1 Application topically daily (every 24 hours). ??? cholecalciferol (VITAMIN D) 1,000 unit Tab 1 Int'l Units daily (every 24 hours). ??? clobetasol (TEMOVATE) 0.05 % cream Apply topically 2 times daily. ??? etanercept (ENBREL) 25 mg (1 mL) injection Inject 25 mg subcutaneously twice a week. ??? Fluocinolone-Shower Cap (DERMA-SMOOTHE/FS SCALP OIL) 0.01 % Oil Apply 1 Application topically. 118.28 ??? fluticasone (FLONASE) 50 mcg/Actuation nasal spray 1-2 sprays daily (every 24 hours). 16 11 ??? LORazepam (ATIVAN) 0.5 mg tablet Take 1-2 tablets by mouth 2 times daily as needed. 30 tablet 0 ??? [place] Oil-Spruce Pine-3 Fatty Acids (FISH OIL) 500-100 mg Cap ??? sertraline (ZOLOFT) 100 mg tablet Take 1.5 tablets by mouth daily (every 24 hours). 45 tablet 12 ??? topiramate (TOPAMAX) 50 mg tablet Take 1 tablet by mouth 2 times daily. 60 tablet 12 OBJECTIVE: Vital Signs: BP 106/66 Ht 1.524 m (5') Wt 80.74 kg (178 lb) BMI 34.76 kg/m2 General: appears well, NAD, appropriately groomed and answers questions appropriately. affect appears flat. she's not tearful. HEENT: TM's clear, oropharynx clear, no adenopathy Heart: RR without murmurs, rubs, or gallops. Respiratory: Normal respiratory effort. Lungs are clear with good breath sounds. No crackles or wheezes. Extremities: No edema, rashes or bruises. ASSESSMENT: 36-year-old female comes into clinic today with the following active issues: 1. fatigue 2. depression 3. Upper respiratory infection PLAN: 1-2. fatigue is likely secondary to her depressive symptoms and stressors. Recommend continuing with counseling and current medications. encouraged healthy diet regular exercise 30-60 minutes daily. recent labs were all normal. 3. azithromycin 5 day course. use, benefits and side effects discussed. Followup as needed and for preventive care. The patient was discharged ambulatory and in stable condition. *SH~DNS~SOAP documented in this encounter Plan of Treatment Not on filedocumented as of this encounter Visit Diagnoses Diagnosis URI (upper respiratory infection) - Prim talha Acute upper respiratory infections of un specified site Major depressive disorder, recurrent epi sode, moderate (HRC) Major depressive disorder, recurrent epi sode, moderate Fatigue Other malaise and fatigue documented in this encounter Care Teams Cottonseed Meat Presser Relationship Specialty Start Date End Date Md Elaine MD PCP - General 07/24/11 06/12/15 [place] [address] documented as of this encounter
--- OUTSIDE RECORDS SUMMARY | 2021-11-07 13:13 | XMS_ITS | Encounter Summary ---
:1975 Author Organization [employer] Address [address] [address] Care Team Providers Name Role Phone Md DEISI Elaine Primary Care Provider Reason for Visit Reason Comments CONSULT Encounter Details Date Type Department Care Team Description 12/14/2011 Office Visit Good Monzon Uterine poly p (Primary Dx); Obstetrics/Gynecolog melanie Sandhu MD Influenza vaccine needed [address] [place] [address] [facility] [place] [phone] [address] Social History Tobacco Use Types Packs/Day Years Used Date Smoking Tobacco: Never Assessed Sex Assigned at Date Recorded Not on file documented as of this encounter Last Filed Vital Signs Vital Sign Reading Time Taken Comments Blood Pressure 112/78 12/14/2011 9:11 AM CDT Pulse - - Temperature - - Respiratory Rate - - Oxygen Saturation - - Inhaled Oxygen Concentration - - Weight 80.3 kg (177 lb) 12/14/2011 9:11 AM CDT Height 151.8 cm (4' 11.75) 12/14/2011 9:11 AM CDT Body Mass Index 34.86 12/14/2011 9:11 AM CDT documented in this encounter Patient Instructions Patient InstructionsMargaret Coates - 12/14/2011 9:13 AM CDT Thank you for enrolling in [facility]. Please follow the instructions below to securely access your online medical record. [facility] allows you to send messages to your doctor, view your test results, renewyour prescriptions, schedule appointments, and more. How Do I Sign Up? 1. In your Internet browser, go to: [email or web address] 2. Click on the Sign Up Now link in the Sign In box. You will see the New Member Sign Up page. 3. Enter your [facility] Access Code exactly as it appears below. You will not need to use this code after you???ve completed the sign-up process. If you do not sign up before the expiration date, you must request a new code. [facility] Access Code: Not generated Current [facility] Status: Active 4. Enter your Social Security Number ([id number]) and Date of (mm/dd/yyyy) as indicated and click Submit. You will be taken to the next sign- up page. 5. Create a [facility] ID. This will be your [facility] login ID and cannot be changed, so think of one that is secure and easy to remember. 6. Create a [facility] password. You can change your password at any time. 7. Enter your Password Reset Question and Answer. This can be used at a later time if you forget your password. 8. Enter your e-mail address. You will receive e-mail notification when new information is availablein [facility]. 9. Click Sign Up. You can now view your medical record. Additional Information If you have questions, you can call [phone] to talk to our [facility] staff. Remember, [facility] is NOT to be used for urgent needs. For medical emergencies, dial 911. documented in this encounter Progress Notes Good Hernandez MD - 12/14/2011 9:42 AM CDT Name: Courtney Lang MR#: [id number] Clinician: Good Hernandez MD Date: 12/14/2011 OFFICE SEE SUPERVISOR VISIT CHIEF COMPLAINT: Endometrial lesion on ultrasound, heavy menses SUBJECTIVE: Patient is a 36-year-old female G0 who presents today for followup of an abnormal Pap smear. Patientwas seen for an annual exam by Dr. Menjivar in October and was complaining of a six plus-month history of worsening periods. She noted that they were heavier with more dysmenorrhea and midcycle cramping. Patient has a history of PCO S. and an ultrasound was obtained on 11/01/11 showing a thickened endometrium of 12 mm and in an ill-defined focal area in the upper part of the endometrium in which a polyp cannot be ruled out. Patient states that she has always had difficult period and was diagnosed with PCO S. when she was younger and was on OCPs from the time of college until 4 years ago. She is currently working with Dr. Mullen at [place] for weight control and eating disorder. She is on sertraline and Topamax. Past Medical History Diagnosis Date ??? Obesity 12/12/2010 ??? Vitamin D Deficiency #*LW 1 05/31/2008 ??? Polycystic Ovary Syndrome #*LW 2 06/01/2008 24 yo missed periods, acne, hair growth issues, saw Dr Félix Johnson dx with this ??? Psoriasis #*LW 3 06/01/2008 ??? Pap Smear Abnormal Cervix #*LW 4 06/01/2008 ??? Irritable Bowel Syndrome ??? Hypothyroidism Primary ??? Pneumonia ??? Anxiety ??? Asthma ??? Depression ??? Migraine ??? Urinary tract infection ??? STD (sexually transmitted disease) ??? Eating disorder Past Surgical History Procedure Date ??? Leep 2007 Current outpatient prescriptions Medication Sig Dispense Refill [...] 2 times daily as needed. 30 tablet 1 ??? [place] [employer]-[place]-3 Fatty Acids (FISH OIL) 500-100 mg Cap ??? sertraline (ZOLOFT) 100 mg tablet Take 1 tablet by mouth daily (every 24 hours). 30 tablet 12 ??? topiramate (TOPAMAX) 25 mg tablet Take 1 tablet by mouth 2 times daily. 60 tablet 3 No Known Allergies Social: Patient is in a long-term monogamous relationship with a man with 2 children, ages 17 and 11. He has had a vasectomy. Patient is now thinking about pursuing in her future and is working with a psychologist regarding this. ROS: Pertinent positives as listed above, otherwise complete GI and review of systems is negative. Objective: Heathy appearing female in no acute distress. Vital Signs: BP 112/78 Ht 4' 11.75 (1.518 m) Wt 177 lb (80.287 kg) BMI 34.86 kg/m2 LMP 12/02/2011 ASSESSMENT: 1. Heavy menses with irregular lesion in endometrium-I do agree that a D&C with hysteroscopy would be a good option at this time both for diagnosis and treatment. The ultrasound was reviewed and procedure was discussed as well as risks and recovery. Surgery request forms were submitted. 2. Records requested for LEEP procedure in 2006. PLAN: The patient was discharged ambulatory and in stable condition. Total time spent was 20 minutes to 10minutes in counseling. documented in this encounter Plan of Treatment Not on filedocumented as of this encounter Visit Diagnoses Diagnosis Uterine polyp - Primary Polyp of corpus uteri Influenza vaccine needed Need for prophylactic vaccination and in oculation against influenza documented in this encounter Care Teams Spring Winder Relationship Specialty Start Date End Date Md Elaine MD PCP - General 07/24/11 06/12/15 [place] [address] documented as of this encounter
--- OUTSIDE RECORDS SUMMARY | 2021-11-07 13:13 | XMS_ITS | Encounter Summary ---
:1975 Author Organization [employer] Address [address], [place] [address] Care Team Providers Name Role Phone Md DEISI Elaine Primary Care Provider Reason for Visit Reason Comments Refill Encounter Details Date Type Department Care Team Description 07/22/2011 Refill [facility] Medic Lubna Abebe MD Refill [address] [address] [phone] Social History Tobacco Use Types Packs/Day Years Used Date Smoking Tobacco: Never Assessed Sex Assigned at Date Recorded Not on file documented as of this encounter Nursing Notes Arabella Barrett RN - 08/09/2011 10:02 AM CDT Prescription Refills Refused Prescriptions Disp Refills ??? phentermine 15 mg capsule [Pharmacy Med Name: PHENTERMINE 15 MG CAPSULE] 30 capsule 1 Sig: Take 1 capsule by mouth every morning. Refused By: ARABELLA BARRETT Reason for Refusal: PATIENT NEEDS AN APPOINTMENT Mis Lyons - 08/08/2011 11:59 AM CDT Lm for pt to call back [phone] and ask for Mis. Please transfer to [phone]. Gabriele Moore MD - 08/08/2011 11:17 AM CDT FDC phentermine is not something that I manage. She will need to establish primary care for refills. This is not an urgent meds so no refills until seen by an MD that is willing to manage this. I'm not sure who does phentermine so probably something that should be screened for by MD before scheduling apt. Arabella Barrett RN - 08/08/2011 10:54 AM CDT Med refill needs to be addressed by covering clinician for Nakia at [facility]. Patient last see in [facility] by float clinician; float clinicians do not refill medications. Please advise. Mis Lyons - 08/08/2011 10:03 AM CDT Pt was last seen by Dina in [place] on 06/14/2011. Routing to correct clinic. Nakia is not longer with [facility]. Medication is still pending with no documentation that refill was addressed. Erica Herrera RN - 07/25/2011 11:31 AM CDT UNABLE TO REFILL PER MEDICAL REFILL PROTOCOL Comment: Medication not on [facility] medication list. Prescription Refills Pending Prescriptions Disp Refills ??? phentermine 15 mg capsule [Pharmacy Med Name: PHENTERMINE 15 MG CAPSULE] Sig: Take 1 capsule by mouth every morning. Last qualified clinic visit for medication: 12/12/2010- [facility] Lubna Yee,please forward to appropriate covering provider. Last refill date 12/12/2010 # of tablets dispensed 30 # of refills provided 5 Mis Lyons - 07/24/2011 8:51 AM CDT Pt was last seen by Dina in [place] on 06/14/2011. Routing to correct clinic. documented in this encounter Plan of Treatment Not on filedocumented as of this encounter Visit Diagnoses Not on filedocumented in this encounter Care Teams Cable Wirer Relationship Specialty Start Date End Date Md Elaine MD PCP - General 07/24/11 06/12/15 [place] [address] documented as of this encounter
--- OUTSIDE RECORDS SUMMARY | 2021-11-07 13:13 | XMS_ITS | Encounter Summary ---
:1975 Author Organization [employer] Address [address], [place] [address] Care Team Providers Name Role Phone Md DEISI Elaine Primary Care Provider Reason for Visit Reason Comments Refill Encounter Details Date Type Department Care Team Description 08/08/2011 Refill [facility] Lubna Abebe MD Refill [address] [place] [address] [address] [phone] Social History Tobacco Use Types Packs/Day Years Used Date Smoking Tobacco: Never Assessed Sex Assigned at Date Recorded Not on file documented as of this encounter Nursing Notes Kasey Jimenes RN - 08/09/2011 12:22 PM CDT LM for Courtney that the refill request was denied. Will need to make an appt and establish care with anew provider to discuss future use of Phentermine. Williams Hadley - 08/09/2011 12:15 PM CDT Pt should see new primary MD to address this and discuss appropriateness of refill. Also I do not manage this medication. Kasey Jimenes RN - 08/09/2011 10:19 AM CDT Forwarding Phentermine refill request to the covering provider for Dr Yee. Last Rx was on 12/12/10for 30 tabs with 5 refills. Last appt was on 12/12/10. Per that progress note Dr Yee wrote: Obesity: may continue phentermine but will decrease dose to 15mg daily #30/5. She has been on this years ago for over a year and it helped with cravings. she is going to restart . Has not established care with a new provider. No future appt is scheduled. Michelle Jose RN - 08/08/2011 10:50 AM CDT Pt. needs to establish care with a new provider as Dr. Yee is no longer at [facility]. Called #[phone] and #[phone], left message for return call to [id number] Lea Martin - 08/08/2011 10:44 AM CDT PRESCRIPTION REFILL Please provide enough refills to last until patient's next visit. Comment: Pharmacy Name: [facility] Phone/Fax#: [phone] fax [phone] or City: [facility] Clinician Name: Nakia Drug Name/Strength: phentermine 15mg cap Si cap po qam Quantity: 30 Last Fill: 12/12/10 *ECODE documented in this encounter Plan of Treatment Not on filedocumented as of this encounter Visit Diagnoses Not on filedocumented in this encounter Care Teams Valve Repairer Reclamation Relationship Specialty Start Date End Date Md Elaine MD PCP - General 07/24/11 06/12/15 [place] [address] documented as of this encounter
--- OUTSIDE RECORDS SUMMARY | 2021-11-07 13:13 | XMS_ITS | Encounter Summary ---
:1975 Author Organization [facility] Address [address], [place] [address] Care Team Providers Name Role Phone Lubna Yee MD Primary Care Provider Reason for Visit Reason Comments Provider Return Call Request Encounter Details Date Type Department Care Team Description 03/16/2011 Telephone [facility] Lubna Yee, Provider Return Call Medicine MD Request [address] [address] [phone] Social History Tobacco Use Types Packs/Day Years Used Date Smoking Tobacco: Never Assessed Sex Assigned at Date Recorded Not on file documented as of this encounter Nursing Notes Lubna Yee MD - 03/19/2011 12:46 PM CST Left VM to call back EXAMINER Debbie Ash RN - 03/16/2011 2:16 PM CST Message sent to Dr. Yee. EXAMINER Elinor Chopra - 03/16/2011 2:02 PM CST Patient called to cancel appointment scheduled for later this afternoon because she will not be ableto get to our office and requests a call from Dr Yee. EXAMINER documented in this encounter Plan of Treatment Not on filedocumented as of this encounter Visit Diagnoses Not on filedocumented in this encounter Care Teams Engine Head Repairer Relationship Specialty Start Date End Date Lubna Yee MD PCP - General 07/04/10 07/23/11 [address] [facility] [place] [address] documented as of this encounter
--- OUTSIDE RECORDS SUMMARY | 2021-11-07 13:13 | XMS_ITS | Encounter Summary ---
:1975 [facility] Address [address], [place] [address] Care Team Providers Name Role Phone Lubna Yee MD Primary Care Provider Reason for Visit Reason Comments Other Encounter Details Date Type Department Care Team Description 07/17/2010 [facility]phone [facility], Message Other [address] [place] [address] Social History Tobacco Use Types Packs/Day Years Used Date Smoking Tobacco: Never Assessed Sex Assigned at Date Recorded Not on file documented as of this encounter Progress Notes Center, Message - 07/17/2010 9:34 AM CDT Phone Note filed by Valentin Uzhun at 07/27/10 3194 Author: Valentin Uzhun Service: (none) Author Type: (none) Filed: 07/27/10 1046 Note Time: 07/17/10933 Status: Addendum Route Manager: Valentin Uzhun (Resource) Related Notes: Original Note by Imr Essie (Physician) filed at 07/27/10 1046 Front Line Sx Call Caller Name/Relationship:Courtney/Pt Primary Carpet Journeyman:Dr. Yee Symptom or request?Work in request. Pt is requesting an appt earlier than 08/[address] Yee to discuss sx of fatigue,anxiety & depression. Please contact. Is appointment scheduled & when?yes, 08/01 at 2:30pm Cto:Courtney/Oz Best call back number:[phone] Pharmacy Name:n/a Is it OK to leave a confidential message on this voicemail?Yes *ECODE~PNSX2 Created on 17Jul2010 9:34am by CHIQUITA RIOS On 17Jul2010 10:08am HELEN GARCIA wrote: CA made callback to the patient. Need to get more details on her symptoms of Fatigue, anxiety, and depression for Dr Yee to consider earlier appt. On 18Jul2010 4:21pm KIT BHAKTA wrote: Left Message to call back. Transfer to . On 19Jul2010 10:54am DANUTA SWENSON wrote: Left message at 10:55 am, instructed to call [phone]; tranfer to triage; . On 19Jul2010 11:19am FIDEL MCKNIGHT wrote: CA spoke to pt. She says that her sxs of depression, anxiety and fatigue have worsened and now are consistent. Courtney says that she has spoken to about these sxs in the past. Pt questioned if she needed her thyroid checked, but this was done 2009 (WNL). She is asking for a work-in appt to discuss her sxs. Plz call either cell above or work: [phone] and OK to LM at the work number. On 19Jul2010 8:39pm LUBNA YEE wrote: pls put her in next Tues in 15min slot in AM. see if she availabel otherwise next available is 07/31. thanks Acknowledged by LUBNA YEE on 8:39pm On 20Jul2010 8:48am KIT VICENTE wrote: VM left notifying pt to return call [phone] Acknowledged by KIT VICENTE on 8:48am On 20Jul2010 8:52am KIT VICENTE wrote: appt schedule pt notified. Acknowledged by KIT VICENTE on 8:52am IZED FINISH PLATER documented in this encounter Plan of Treatment Not on filedocumented as of this encounter Visit Diagnoses Not on filedocumented in this encounter Care Teams Nursing Department Chairperson Relationship Specialty Start Date End Date Lubna Yee MD PCP - General 07/04/10 07/23/11 [address] [address] documented as of this encounter
--- OUTSIDE RECORDS SUMMARY | 2021-11-07 13:13 | XMS_ITS | Encounter Summary ---
:1975 Author Organization [employer] Address [address] [place] [address] Care Team Providers Name Role Phone Lubna Yee MD Primary Care Provider Reason for Visit Reason Comments MANTOUX/PPD READ NUMBNESS Encounter Details Date Type Department Care Team Description 06/14/2011 Office Visit Prakash Haro (Primary Dx); Medicine Erica Almendarez PA-C Fatigue; [address] [facility] Unspecified [place] [address] [address] [phone] [place] [address] Social History Tobacco Use Types Packs/Day Years Used Date Smoking Tobacco: Never Assessed Sex Assigned at Date Recorded Not on file documented as of this encounter Last Filed Vital Signs Vital Sign Reading Time Taken Comments Blood Pressure 103/67 06/14/2011 8:03 AM CDT Pulse 77 06/14/2011 8:03 AM CDT Temperature - - Respiratory Rate - - Oxygen Saturation - - Inhaled Oxygen Concentration - - Weight 80.3 kg (177 lb) 06/14/2011 8:03 AM CDT Height - - Body Mass Index - - documented in this encounter Progress Notes Erica Arroyo PA-C - 06/14/2011 9:51 AM CDT note: patient reports CBC, LFTs and kidney function done through outside specialist within last weekand therefore CBC and kidney function not done today. Erica Arroyo PA-C - 06/14/2011 9:27 AM CDT Dictating clinician: Erica Arroyo PA-C SUBJECTIVE: CC: urgent care follow up for arm and face numbness and tingling HPI: Courtney is a 36 y.o. female here alone for urgent care follow up for left arm and face numbness and tingling. This occurred 2 days ago. Reports that had PPD placed and then went to work meeting and 30-60 minutes after PPD was placed developed left arm and face numbness and tingling. Called nurse line and advised to go to . Was seen at , note reviewed. Normal exam at that time. Reassurance given. Clinician suspected anxiety. Patient advised to follow up as needed. Returns today as worried about the events that occurred 2 days ago. States numbness and tingling remained for the day and then better yesterday. Now this morning has numbness and tingling in the left 4th and 5th digits occuring intermittently. Also noting ongoing fatigue, mild not severe headache and feels cloudy, not quite right. No fevers. No vision changes. No congestion, sore throat, ear pain, cough. No chest pain or dyspnea. No abdominal pain. Mild nausea without vomiting or appetite change. Normal urination. Stools loose, not tio diarrhea x 3 days. Has not had anything like this similar. PPD was placed as suspicion for psoriatic arthritis and dermatology outside of [facility] may be starting embrel. also history of vitamin D deficiency. no longer on supplement, would like vitamin D level checked given fatigue. PMH: Patient Active Problem List Diagnoses Code ??? Vitamin D Deficiency 268.9 ??? Polycystic Ovary Syndrome 256.4 ??? Psoriasis 696.1 ??? Pap Smear Abnormal Cervix 795.00 ??? Irritable Bowel Syndrome 564.1 ??? Hypothyroidism Primary 244.9 ??? Osteopenia 733.90 ??? Obesity 278.00M SH: History Smoking status ??? Never Smoker Smokeless tobacco ??? Never Used FH: significant for diabetes, arthritis and fibromyalgia. No family history of CAD or stroke. Adverse Drug Reactions: Review of patient's allergies indicates no known allergies. Medications: Current outpatient prescriptions Medication Sig Dispense Refill ??? calcipotriene-betamethasone (TACLONEX) ointment Apply 1 Application topically daily (every 24 hours). ??? cholecalciferol (VITAMIN D) 1,000 unit Tab 1 Int'l Units daily (every 24 hours). ??? citalopram (CELEXA) 20 mg tablet Take 1 tablet by mouth daily (every 24 hours). LW Comment:Rx PRIORITY: Pt in Clinic LW Addl Instr:Please fill early traveling out of town 30 11 ??? Fluocinolone-Shower Cap (DERMA-SMOOTHE/FS SCALP OIL) 0.01 % Oil Apply 1 Application topically. 118.28 ??? fluticasone (FLONASE) 50 mcg/Actuation nasal spray 1-2 sprays daily (every 24 hours). 16 11 ??? LORazepam (ATIVAN) 0.5 mg tablet Take 1-2 tablets by mouth 2 times daily as needed. 30 tablet 1 ??? [place] [employer]-[place]-3 Fatty Acids (FISH OIL) 500-100 mg Cap OBJECTIVE: Blood pressure 103/67, pulse 77, weight 80.287 kg (177 lb), last menstrual period 05/24/2011. General Appearance: Alert, cooperative, no distress, appears stated age, mildly anxious Head: Normocephalic, without obvious abnormality, atraumatic Eyes: PERRL, conjunctiva/corneas clear, EOM's intact, both eyes Ears: Normal TM's and external ear canals, both ears Nose: Nares normal, septum midline, mucosa normal, no drainage or sinus tenderness Throat: Lips, mucosa, and tongue normal; teeth and gums normal Neck: Supple, symmetrical, trachea midline, no adenopathy; thyroid: no enlargement/tenderness/nodules Lungs: Clear to auscultation bilaterally, respirations unlabored Chest Wall: No tenderness or deformity Heart: Regular rate and rhythm, S1 and S2 normal, no murmur, rub or gallop Breast Exam: No tenderness, masses, or nipple abnormality Abdomen: Soft, non-tender, bowel sounds active all four quadrants, no masses, no organomegaly Extremities: Extremities normal, atraumatic, no cyanosis or edema. left upper extremity appears normal. sensation intact to distal fingers. negative tinels at elbow and wrist. negative phalens. Pulses: 2+ and symmetric all extremities Skin: Skin color, texture, turgor normal, no rashes or lesions Lymph nodes: Cervical, supraclavicular, and axillary nodes normal Neurologic: CNII-XII intact, normal strength, sensation and reflexes throughout; normal finger to nose test. steady gait. normal sensation through facial nerve branches. ASSESSMENT 1. paresthesias, improved 2. fatigue 3. vitamin D deficiency. PLAN 1. reassurance again that todays exam normal. will check baseline labs including lytes, tsh, esr, crp, lyme, CHERISE, rheumatoid and vitamin D. Will mail results and recommendations. referral or treatment if labs indicate need. 2. continue to monitor, do not anticipate recurrence. if new, recurrent or persistent symptoms recheck. Also note: nursing read PPD placed 2 days ago as negative/normal at 0 mm. form for specialist was completed by nursing. Questions answered, patient discharged in stable condition. documented in this encounter Plan of Treatment Not on filedocumented as of this encounter Visit Diagnoses Diagnosis Paresthesias - Primary Disturbance of skin sensation Fatigue Other malaise and fatigue Unspecified vitamin D deficiency documented in this encounter Care Teams Auto Detailer Relationship Specialty Start Date End Date Lubna Yee MD PCP - General 07/04/10 07/23/11 [address] [place] [address] documented as of this encounter
--- OUTSIDE RECORDS SUMMARY | 2021-11-07 13:13 | XMS_ITS | Encounter Summary ---
:1975 Author Organization [facility] Address [address] [place] [address] Care Team Providers Name Role Phone Md DEISI Elaine Primary Care Provider Encounter Details Date Type Department Care Team Description 06/24/2012 Lab Visit [facility] [address] Other psoriasis [address] [place], [place] [address] Social History Tobacco Use Types Packs/Day Years Used Date Smoking Tobacco: Never Assessed Sex Assigned at Date Recorded Not on file documented as of this encounter Plan of Treatment Not on filedocumented as of this encounter Procedures Procedure Name Priority Date/Time Associated Comments Diagnosis HIV ANTIBODY Routine 06/24/2012 2:58 PM Other psoriasis Result s for this CDT procedure are i n the results section. HEPATITIS C VIRUS Routine 06/24/2012 2:58 PM Other psoriasis R esults for this QUANT RT PCR CDT procedure are i n the results section. HEPATITIS B VIRUS Routine 06/24/2012 2:58 PM Other psoriasis R esults for this QUANT RT PCR CDT procedure are i n the results section. COMPLETE BLOOD Routine 06/24/2012 2:58 PM Other psoriasis Resu lts for this COUNT-W/DIFF CDT procedure are i n the results section. COMP METABOLIC PANEL Routine 06/24/2012 2:58 PM Other psoriasi s Results for this CDT procedure are i n the results section. DIFFERENTIAL Routine 06/24/2012 2:58 PM Results f or this CDT procedure are i n the results section. QUANTIFERON GOLD Routine 06/24/2012 2:56 PM Other psoriasis Re sults for this (IN-HOUSE) (TBQFT) CDT procedure are in the results section. documented in this encounter Results Differential (06/24/2012 2:58 PM CDT) athologist Signature Absolute 6.5 1.8 - 8.0 HP CONVERSION Neutrophils k/cmm Absolute 2.7 1.1 - 4.0 HP CONVERSION Lymphocytes k/cmm Absolute 0.6 0.2 - 0.8 HP CONVERSION Monocytes k/cmm Absolute 0.0 0.0 - 0.5 HP CONVERSION Eosinophils k/cmm Absolute 0.1 0.0 - 0.2 HP CONVERSION Basophils k/cmm Specimen Anatomical Collection Method Collection Time Receive d Time (Source) Location / / Volume Laterality 06/24/2012 2:58 PM 3 2:58 CDT PM CDT Narrative HP CONVERSION - 06/24/2012 3:08 PM CDT Performed at [facility], [address] [place] [address] Hudson Millan MD LAB_1 Performing Organization Address City/[facility] Phon e Number HP CONVERSION HIV ANTIBODY (06/24/2012 2:58 PM CDT) athologist Signature HIV 1/HIV 2 Non-React Non-Reacti HP CONVERSION ve Specimen Anatomical Collection Method Collection Time Receive d Time (Source) Location / / Volume Laterality 06/24/2012 2:58 PM 3 4:46 CDT PM CDT Narrative HP CONVERSION - 06/24/2012 10:46 PM CDT .LAB RESULTS FAXED TO [phone], 05/31,15:30, by [facility] Hudson Millan MD LAB_1 Performing Organization Address City/State/ZIP Code Phon e Number HP CONVERSION Comp Metabolic Panel (06/24/2012 2:58 PM CDT) [facility] gist Method Time Signature Aspartate 15 0 - 45 HP CONVERSION Aminotransferase U/L Lab Glucose 86 60 - 100 HP CONVERSION mg/dL Bilirubin Total 0.5 0.2 - 1.2 HP CONVERSION mg/dL Calcium 9.5 8.5 - HP CONVERSION 10.5 mg/dL Sodium 139 137 - 147 HP CONVERSION mEq/L Potassium 3.8 3.5 - 5.2 HP CONVERSION mEq/L Blood Urea Nitrogen 12 5 - 26 HP CONVERS ION mg/dL Albumin 4.4 3.4 - 5.0 HP CONVERSION g/dL Chloride 107 98 - 110 HP CONVERSION mEq/L Alk Phos 86 25 - 135 HP CONVERSION U/L Protein Total, Serum 8.2 5.7 - 8.3 HP CONVER NOVA g/dL Creatinine Serum 0.9 0.4 - 1.3 HP CONVERSION mg/dL Est GFR Am >60 >60 HP CONVERSI ON mL/min/1. 73m2 Est GFR Non-Afr Am >60 >60 HP CONVERSI ON mL/min/1. 73m2 Comment: Normal>60, moderate decrease 30 - 59, se pastor decrease 15 - 29, renal failure <15 mL/min/1.73 m2 NOTE: ??Choose the eGFR result above john paul ropriate for the race of the patient. Alanine Aminotransferase 20 4 - 55 U/L HP C ONVERSION Bicarbonate 26 23 - 33 mmol/L HP CONVERSION Specimen Anatomical Collection Method Collection Time Receive d Time (Source) Location / / Volume Laterality 06/24/2012 2:58 PM 3 2:58 CDT PM CDT Narrative HP CONVERSION - 06/24/2012 3:27 PM CDT Performed at [facility], [address] [place] [address] Hudson Millan MD LAB_1 Performing Organization Address City/State/ZIP Code Phon e Number HP CONVERSION HEPATITIS B VIRUS QUANT RT PCR (06/24/2012 2:58 PM CDT) [facility] Method Time Signature Hep B Quant Not Detec See Text HP CONVERSION PCR IU/mL Comment: Hepatitis B virus DNA not detected Reference Range: Not detected The BENJY TaqMan HBV Test is not intende d for use in the diagnosis or confirmation of primary HBV infection. The linear range of the BENJY TaqMan HBV Test has been determined by the photo mask processor to be 20 IU/mL to 17 0,000,000 IU/mL. An interpretation of Not Detected does no t rule out the presence of PCR inhibitors or Hepatitis B virus D NA virus concentrations below the level of detection of the assa y. LOG HBV DNA QUANT Not Detected HP CONVER NOVA Specimen Anatomical Collection Method Collection Time Receive d Time (Source) Location / / Volume Laterality 06/24/2012 2:58 PM 3 4:35 CDT PM CDT Narrative HP CONVERSION - 06/30/2012 3:40 PM CDT .Results faxed to [phone], 06/28/19 13,11:08, by [facility].LAB RESULTS FAXED TO [phone], 06/25/2012,14:21, by [facility] .LAB RESULTS FAXED TO [phone], 06/24/2012,15:30, by [facility] Hudson Millan MD LAB_1 Performing Organization Address City/State/ZIP Code Phon e Number HP CONVERSION HEPATITIS C VIRUS QUANT RT PCR (06/24/2012 2:58 PM CDT) [facility] gist Method Time Signature Hepatitis C Not Detec Not Detected HP CONVERSION Virus Quant IU/ml Real-Time Comment: Hepatitis C virus RNA not detected An interpretation of Not detected does not rule out the presence of PCR inhibitors or Hepatitis C virus concentr ations below the level of detection. Reference Range: ??Not detected The Yuriy BENJY AmpliPrep/BENJY TaqMan H CV Test is not intended for use in the primary diagnosis or conf irmation of Hepatitis C Virus infection. The linear range of the Yuriy BENJY Ampl iPrep/BENJY TaqMan HCV Test has been determined by the [facility] urer to be 43 IU/mL to 69,000,000 IU/mL. Hepatitis C Virus Log Not detected Log HP CO NVERSION Specimen Anatomical Collection Method Collection Time Receive d Time (Source) Location / / Volume Laterality 06/24/2012 2:58 PM 3 4:35 CDT PM CDT Narrative HP CONVERSION - 06/25/2012 2:15 PM CDT .LAB RESULTS FAXED TO [phone], 05/31,15:30, by [facility] Hudson Millan MD LAB_1 Performing Organization Address City/State/ZIP Code Phon e Number HP CONVERSION Hemogram/Plts/Diff (06/24/2012 2:58 PM CDT) P athologist Signature White Blood Cell 9.9 3.8 - 11.0 HP CONVERSIO N Count k/cmm Red Blood Cell 4.81 3.70 - HP CONVERSION Count 5.20 m/cmm Hemoglobin 14.2 11.8 - HP CONVERSION 15.5 g/dL Hematocrit 43.0 35.0 - HP CONVERSION 46.0 % Mean Corpuscular 89.4 80.0 - HP CONVERSION Volume 100.0 fL RDW 13.5 11.0 - HP CONVERSION 15.0 % Platelet Count 285 140 - 450 HP CONVERSION k/cmm Specimen Anatomical Collection Method Collection Time Receive d Time (Source) Location / / Volume Laterality 06/24/2012 2:58 PM 3 2:58 CDT PM CDT Narrative HP CONVERSION - 06/24/2012 3:08 PM CDT Performed at [facility], [address] [place] [address] .LAB RESULTS FAXED TO [phone], 05/31,14:21, by [facility].LAB RESULTS FAXED TO [phone], 06/24/2012,15:30, by [facility] Hudson Millan MD LAB_1 Performing Organization Address City/State/ZIP Code Phon e Number HP CONVERSION QUANTIFERON GOLD (IN-HOUSE) (TBQFT) (06/24/2012 2:56 PM CDT) [facility] Method Time Signature Tuberculosis Negative Negative HP CONVERSION Qualitative Inhouse Comment: The test result is Negative M.tuberculosis infection is unlikely, bu t cannot be excluded, especially when illness is consistent wi th TB. Qiagen QuantiFERON-TB Gold is an indirec t test utilizing Interferon-gamma (IFN-y) VINCE for M.tub erculosis infection (including disease) and is intended for use in conjunction with risk assessment, radiography and ot her medical and diagnostic evaluations. ??The performanc e of the [facility] format of the test has not been extensively jessika luated with specimens from the followin.Individua ls who have impaired or altered immune function such as those who have HIV infection or AIDS, those who have transp lantation managed with immunosuppressive treatment or othe rs who receive immunosuppressive drugs, and those who h ave other clinical conditions:diabetes, silicosis, chronic renal failure, hematological disorders(e.g.leukemia & l ymphomas), and other specific malignancies (e.g.carcinoma of the head, neck, or lung). 2. Individuals younger than 17 ye ars. Specimen Anatomical Collection Method Collection Time Receive d Time (Source) Location / / Volume Laterality 06/24/2012 2:56 PM 3 3:48 CDT PM CDT Narrative HP CONVERSION - 06/27/2012 10:58 AM CDT .LAB RESULTS FAXED TO [phone], 05/31,14:21, by [facility].LAB RESULTS FAXED TO [phone], 06/24/2012,15:30, by [facility] Hudson Millan MD LAB_1 Performing Organization Address City/State/ZIP Code Phon e Number HP CONVERSION documented in this encounter Visit Diagnoses Diagnosis Other psoriasis documented in this encounter Care Teams Spd Manager Relationship Specialty Start Date End Date Md Elaine MD PCP - General 07/24/11 06/12/15 [place] [address] documented as of this encounter
--- OUTSIDE RECORDS SUMMARY | 2021-11-07 13:13 | XMS_ITS | Encounter Summary ---
:1975 [address] [facility] Address [address], [place] [address] Care Team Providers Name Role Phone Lubna Yee MD Primary Care Provider Encounter Details Date Type Department Care Team Description 10/24/2009 PN Conversion Only BRAY CONVERSION Maikol Conley, [address] [facility] MD [place] [address] [facility] [place] [address] [place] [phone] (Wo rk) Social History Tobacco Use Types Packs/Day Years Used Date Smoking Tobacco: Never Assessed Sex Assigned at Date Recorded Not on file documented as of this encounter Plan of Treatment Not on filedocumented as of this encounter Procedures Procedure Name Priority Date/Time Associated Diagnosis Comme nts LEENA PREP Routine 10/24/2009 2:53 PM Results f or this CDT procedure are i n the results section . documented in this encounter Results LEENA Prep (10/24/2009 2:53 PM CDT) P athologist Signature Leena Prep SEE TEXT HP CONVERSION Comment: LEENA LEENA Prep ? ORDERED BY: MAIKOL CONLEY SOURCE: Skin Scraping Left Torso ? COLLECTED: ??10/24/09 14:53 ? PLATED: ? 10/24/09 15:17 LEENA Prep ? FINAL ? 10/24/09 15:33 No yeast or fungal elements seen. Specimen (Source) Anatomical Collection Method Collection Time Re ceived Time Location / / Volume Laterality 10/24/2009 2:53 PM CDT Maikol Conley MD LAB_1 Performing Organization Address City/State/ZIP Code Phon e Number HP CONVERSION documented in this encounter Visit Diagnoses Not on filedocumented in this encounter Care Teams Environmental Compliance Specialist Relationship Specialty Start Date End Date Lubna Yee MD PCP - General 07/04/10 07/23/11 [address] [facility] [address] documented as of this encounter
--- OUTSIDE RECORDS SUMMARY | 2021-11-07 13:13 | XMS_ITS | Encounter Summary ---
:1975 Author Organization [facility] Address [address] [address] Care Team Providers Name Role Phone Lubna Yee MD Primary Care Provider Reason for Visit Reason Comments ALLERGIC REACTION Encounter Details Date Type Department Care Team Description 06/12/2011 Hospital Encounter [facility] [address] Valentín Hong MD [facility] [address] [place] [address] [phone] Social History Tobacco Use Types Packs/Day Years Used Date Smoking Tobacco: Never Assessed Sex Assigned at Date Recorded Not on file documented as of this encounter Last Filed Vital Signs Vital Sign Reading Time Taken Comments Blood Pressure 121/80 06/12/2011 12:16 PM CDT Pulse 86 06/12/2011 12:16 PM CDT Temperature 36.7 ??C (98.1 ??F) 06/12/2011 12:16 PM CDT Respiratory Rate 24 06/12/2011 12:16 PM CDT Oxygen Saturation 98% 06/12/2011 12:16 PM CDT Inhaled Oxygen Concentration - - Weight - - Height - - Body Mass Index - - documented in this encounter Medications at Time of Discharge Medication Sig Dispensed Refills Start Date End Date citalopram (AKA CELEXA) Take 1 tablet by 30 11 201012/06/2011 20 MG tablet mouth daily (every 24 hours). LW Comment:Rx PRIORITY: Pt in Clinic LW Addl Instr:Please fill early traveling out of town fluticasone (AKA 1-2 sprays daily 16 11 02/03/2010 FLONASE) 50 MCG/ACT (every 24 hours). nasal solution LORazepam (AKA ATIVAN) Take 1-2 tablets by 30 tablet 1 05/0312/17/2011 0.5 MG tablet mouth 2 times daily as needed. phentermine 15 MG Take 1 capsule by 30 capsule 5 12/12/2010 12/06/2011 capsuleIndications: mouth every morning. Obesity ([facility]) Indications: OBESITY Calcipotriene-Betameth Apply 1 Application 0 07/0103/16/2013 Diprop (AKA TACLONEX) topically daily 0.005-0.064 % ointment (every 24 hours). cholecalciferol (VITAMIN 1 Int'l Units daily 0 03/02/2019 D3) 1000 UNITS tablet (every 24 hours). FLUOCINOLONE ACETONIDE Apply 1 Application 118.28 0 07/0109/19/2015 SCALP 0.01 % OIL topically. [facility]-3 Fatty Acids Indications: PN: 0 05/31/2008 07/20/2019 (FISH OIL) 500 MG documented as of this encounter Progress Notes Catarina Hong MD - 06/12/2011 1:48 PM CDT Progress Notes signed by Catarina Hong MD at 06/19/11 1115 Author: Catarina Hong MD Service: (none) Author Type: Physician Filed: 06/19/11 1115 Note Time: 06/12/11 1348 Status: Signed Contract Technical Writer: Catarina Hong MD (Physician) NAME: SHARIF PRICE MR#: [id number] CSN: [id number] AUTHENTICATING CLINICIAN: Catarina Hong MD CONFIRM #: [id number] LOC: 420 CLINIC PROGRESS NOTE DATE OF VISIT: 06/12/2011 : 1975 This 36-year-old woman had a Mantoux done on her left volar forearm at 9 a.m. this morning. At 9:30 she noticed some numbness of her lips and a feeling of swelling. She states that the first symptom was aching in the left forearm with pressure feeling and then tingling and numbness of the fingers. She has had no wheezing or shortness of breath and no cough. No chest pain. She states that with time her lips are coming back to normal sensation. MEDICATIONS: Reviewed. ALLERGIES: None. OBJECTIVE: VITAL SIGNS: BP: 121/80. Pulse 86. Respirations 24. Temperature 98 degrees. Oxygen saturation 98% on room air. Left Forearm: The site of the Mantoux appears entirely normal. No swelling, bruising, or redness. The sensation to light touch is entirely normal in the left forearm and hand. 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 Cerebellar function and muscle strength are all normal. Throat: No edema or erythema. The face appears symmetrical, and the lips do not appear swollen to my eye at all. LUNGS: Clear without wheezing. Mental status normal. ASSESSMENT: Paresthesias. PLAN: I suspect this is related to anxiety and hyperventilation. She is advised to go to the emergency room if she notices asymmetry of her face, or if symptoms do not gradually resolve with time. CAM:MEDQ C: CONFIRM #: [id number] documented in this encounter Plan of Treatment Not on filedocumented as of this encounter Visit Diagnoses Diagnosis Paresthesias Disturbance of skin sensation documented in this encounter Care Teams Solar Energy Specialist Relationship Specialty Start Date End Date Lubna Yee MD PCP - General 07/04/10 07/23/11 [address] [place] [address] documented as of this encounter
--- OUTSIDE RECORDS SUMMARY | 2021-11-07 13:13 | XMS_ITS | Encounter Summary ---
:1975 Author Organization [facility] Address [address] [place] [address] Care Team Providers Name Role Phone Md DEISI Elaine Primary Care Provider Encounter Details Date Type Department Care Team Description 11/30/2011 Lab Visit [facility], [facility]; [address] [facility] . Obesity, Class II, BMI 35-39 .[address] [place], [place] [address] Social History Tobacco Use Types Packs/Day Years Used Date Smoking Tobacco: Never Assessed Sex Assigned at Date Recorded Not on file documented as of this encounter Progress Notes Carlotta Mullen MD - 12/04/2011 8:54 AM CDT Quick Note: Your fasting insulin level (the hormone that controls your blood sugar) is elevated. This is called insulin resistance. Insulin resistance is caused by a lot of factors (genetics, weight, our dietary consumption of sugar). The higher your insulin level the more weight you tend to gain. High insulin levels chronically cause a darkening and thickening of the skin on the back of your neck termed acanthosis nigricans. High insulin levels also predispose you to using your insulin stores up faster and can lead to an earlier onset of diabetes in your lifetime. We treat these high levels with a medication called metformin. It helps to lower these levels and reverse the metabolic syndrome caused by the high insulin levels. We can talk about this medication at your follow up appointment. documented in this encounter Miscellaneous Notes Miscellaneous - 05/11/2016 3:07 PM CSTNotes Recorded by Carlotta Mullen MD on 12/04/2011 at 8:54 AMYour fasting insulin level (the hormone that controls your blood sugar) is elevated.This is called insulin resistance. Insulin resistance is caused by a lot of factors (genetics, weight, our dietary consumption of sugar). The higher your insulin level the more weight you tend to gain.High insulin levels chronically cause a darkening and thickening of the skin on the back of your neck termed acanthosis nigricans.High insulin levels also predispose you to using your insulin stores up faster and can lead to an earlier onset of diabetes in your lifetime.We treat these high levels with a medication called metformin. It helps to lower these levels and reverse the metabolic syndrome caused by the high insulin levels.We can talk about this medication at your follow up appointment. CAR SALES SUPERVISOR Masoud - 05/11/2016 3:07 PM CSTNotes Recorded by Carlotta Mullen MD on 12/04/2011 at 8:54 AMYour fasting insulin level (the hormone that controls your blood sugar) is elevated.This is called insulin resistance. Insulin resistance is caused by a lot of factors (genetics, weight, our dietary consumption of sugar). The higher your insulin level the more weight you tend to gain.High insulin levels chronically cause a darkening and thickening of the skin on the back of your neck termed acanthosis nigricans.High insulin levels also predispose you to using your insulin stores up faster and can lead to an earlier onset of diabetes in your lifetime.We treat these high levels with a medication called metformin. It helps to lower these levels and reverse the metabolic syndrome caused by the high insulin levels.We can talk about this medication at your follow up appointment. CAR SALES SUPERVISOR Masoud - 05/11/2016 3:07 PM CSTNotes Recorded by Carlotta Mullen MD on 12/04/2011 at 8:54 AMYour fasting insulin level (the hormone that controls your blood sugar) is elevated.This is called insulin resistance. Insulin resistance is caused by a lot of factors (genetics, weight, our dietary consumption of sugar). The higher your insulin level the more weight you tend to gain.High insulin levels chronically cause a darkening and thickening of the skin on the back of your neck termed acanthosis nigricans.High insulin levels also predispose you to using your insulin stores up faster and can lead to an earlier onset of diabetes in your lifetime.We treat these high levels with a medication called metformin. It helps to lower these levels and reverse the metabolic syndrome caused by the high insulin levels.We can talk about this medication at your follow up appointment. [facility] - 05/11/2016 3:07 PM CSTNotes Recorded by Carlotta Mullen MD on 12/04/2011 at 8:54 AMYour fasting insulin level (the hormone that controls your blood sugar) is elevated.This is called insulin resistance. Insulin resistance is caused by a lot of factors (genetics, weight, our dietary consumption of sugar). The higher your insulin level the more weight you tend to gain.High insulin levels chronically cause a darkening and thickening of the skin on the back of your neck termed acanthosis nigricans.High insulin levels also predispose you to using your insulin stores up faster and can lead to an earlier onset of diabetes in your lifetime.We treat these high levels with a medication called metformin. It helps to lower these levels and reverse the metabolic syndrome caused by the high insulin levels.We can talk about this medication at your follow up appointment. CAR SALES SUPERVISOR [facility] - 05/11/2016 3:07 PM CSTNotes Recorded by Carlotta Mullen MD on 12/04/2011 at 8:54 AMYour fasting insulin level (the hormone that controls your blood sugar) is elevated.This is called insulin resistance. Insulin resistance is caused by a lot of factors (genetics, weight, our dietary consumption of sugar). The higher your insulin level the more weight you tend to gain.High insulin levels chronically cause a darkening and thickening of the skin on the back of your neck termed acanthosis nigricans.High insulin levels also predispose you to using your insulin stores up faster and can lead to an earlier onset of diabetes in your lifetime.We treat these high levels with a medication called metformin. It helps to lower these levels and reverse the metabolic syndrome caused by the high insulin levels.We can talk about this medication at your follow up appointment. CAR SALES SUPERVISOR Miscellaneous - 05/11/2016 3:07 PM CSTNotes Recorded by Carlotta Mullen MD on 12/04/2011 at 8:54 AMYour fasting insulin level (the hormone that controls your blood sugar) is elevated.This is called insulin resistance. Insulin resistance is caused by a lot of factors (genetics, weight, our dietary consumption of sugar). The higher your insulin level the more weight you tend to gain.High insulin levels chronically cause a darkening and thickening of the skin on the back of your neck termed acanthosis nigricans.High insulin levels also predispose you to using your insulin stores up faster and can lead to an earlier onset of diabetes in your lifetime.We treat these high levels with a medication called metformin. It helps to lower these levels and reverse the metabolic syndrome caused by the high insulin levels.We can talk about this medication at your follow up appointment. CAR SALES SUPERVISOR Miscellaneous - 05/11/2016 3:07 PM CSTNotes Recorded by Carlotta Mullen MD on 12/04/2011 at 8:54 AMYour fasting insulin level (the hormone that controls your blood sugar) is elevated.This is called insulin resistance. Insulin resistance is caused by a lot of factors (genetics, weight, our dietary consumption of sugar). The higher your insulin level the more weight you tend to gain.High insulin levels chronically cause a darkening and thickening of the skin on the back of your neck termed acanthosis nigricans.High insulin levels also predispose you to using your insulin stores up faster and can lead to an earlier onset of diabetes in your lifetime.We treat these high levels with a medication called metformin. It helps to lower these levels and reverse the metabolic syndrome caused by the high insulin levels.We can talk about this medication at your follow up appointment. CAR SALES SUPERVISOR documented in this encounter Plan of Treatment Not on filedocumented as of this encounter Procedures Procedure Name Priority Date/Time Associated Diagnosis Comme nts CORTISOL AM Routine 11/30/2011 11:04 AM Depression, major Results for this CDT Obesity, Class II, procedure are in BMI 35-39.9 the results section. TSH AND FREE T4 Routine 11/30/2011 11:04 AM Depression, major Results for this (FRT4 IF TSH CDT Obesity, Class II, procedure are in ABNORM) BMI 35-39.9 the results section. INSULIN, SERUM Routine 11/30/2011 11:04 AM Depression, major Results for this (10HR FAST CDT Obesity, Class II, procedure are in RECOMMENDED) BMI 35-39.9 the results section. LIPID PANEL AND Routine 11/30/2011 11:04 AM Depression, major Results for this DIRECT LDL(IF CDT Obesity, Class II, procedur e are in NEEDED) BMI 35-39.9 the results section. VITAMIN D Routine 11/30/2011 11:04 AM Depression, major Results for this 25-HYDROXY, TOTAL CDT Obesity, Class II, proc edure are in BMI 35-39.9 the results section. COMP METABOLIC Routine 11/30/2011 11:04 AM Depression, major Results for this PANEL CDT Obesity, Class II, procedure are in BMI 35-39.9 the results section. COMPLETE BLOOD Routine 11/30/2011 11:04 AM Depression, major Results for this COUNT-NO DIFF CDT Obesity, Class II, procedur e are in BMI 35-39.9 the results section. HGB A1C Routine 11/30/2011 11:04 AM Depression, major Results for this CDT Obesity, Class II, procedure are in BMI 35-39.9 the results section. documented in this encounter Results Hemogram/Plts (11/30/2011 11:04 AM CDT) [facility] Signature White Blood Cell 7.6 3.8 - 11.0 HP CONVERSIO N Count k/cmm Red Blood Cell 4.48 3.70 - HP CONVERSION Count 5.20 m/cmm Hemoglobin 13.7 11.8 - HP CONVERSION 15.5 g/dL Hematocrit 39.1 35.0 - HP CONVERSION 46.0 % Mean Corpuscular 87.3 80.0 - HP CONVERSION Volume 100.0 fL RDW 12.5 11.0 - HP CONVERSION 15.0 % Platelet Count 267 140 - 450 HP CONVERSION k/cmm Specimen Anatomical Collection Method Collection Time Receive d Time (Source) Location / / Volume Laterality 11/30/2011 11:04 11/30/2011 AM CDT 11:04 AM CDT Narrative HP CONVERSION - 11/30/2011 11:10 AM CDT Performed at [facility], [address] [place] [address] Transcriptions 05/11/2016 3:07 PM CSTNotes Recorded by Carlotta Mullen MD on 12/04/2011 at 8:54 AMYour fasting insulin level (the hormone that controls your blood sugar) is elevated. This is called insulin resistance. Insul in resistance is caused by a lot of factors (genetics, weight, our dietary consumption of sugar). The higher your insulin level the more weight you tend to gain. High insulin levels chronically cause a darkening and thickening of the skin on the back of your neck termed acanthosis nigricans.High insulin levels also predispose you to using your insulin stores up faster and can lead to an ear lier onset of diabetes in your lifetime. We treat these high levels with a medication called metformin. It helps to lower these levels and reverse the metabolic syndrome caused by the high insulin levels. We can talk about this medication at you r follow up appointment. Carlotta Mullen LAB_1 Performing Organization Address City/State/ZIP Code Phon e Number HP CONVERSION CORTISOL AM (11/30/2011 11:04 AM CDT) athologist Signature Cortisol - AM 12.2 5.0 - 23.0 HP CONVERSION ug/dL Specimen Anatomical Collection Method Collection Time Receive d Time (Source) Location / / Volume Laterality 11/30/2011 11:04 11/30/2011 1:56 AM CDT PM CDT Transcriptions 05/11/2016 3:07 PM CSTNotes Recorded by Carlotta Mullen MD on 12/04/2011 at 8:54 AMYour fasting insulin level (the hormone that controls your blood sugar) is elevated. This is called insulin resistance. Insul in resistance is caused by a lot of factors (genetics, weight, our dietary consumption of sugar). The higher your insulin level the more weight you tend to gain. High insulin levels chronically cause a darkening and thickening of the skin on the back of your neck termed acanthosis nigricans.High insulin levels also predispose you to using your insulin stores up faster and can lead to an ear lier onset of diabetes in your lifetime. We treat these high levels with a medication called metformin. It helps to lower these levels and reverse the metabolic syndrome caused by the high insulin levels. We can talk about this medication at you r follow up appointment. Carlotta Mullen LAB_1 Performing Organization Address City/[facility] Phon e Number HP CONVERSION Insulin, Serum (11/30/2011 11:04 AM CDT) athologist Signature Insulin, 14 3 - 19 HP CONVERSION Fasting uIU/mL Comment: INTERPRETIVE INFORMATION: Insulin, Fasti ng This assay reacts on a nearly equimolar basis with the analogs insulin aspart, insulin glargine , and insulin lispro. To convert to pmol/L, multiply uIU/mL by 6.0. Specimen Anatomical Collection Method Collection Time Receive d Time (Source) Location / / Volume Laterality 11/30/2011 11:04 11/30/2011 3:31 AM CDT PM CDT Narrative HP CONVERSION - 12/03/2011 12:06 AM CDT Performed at [facility] [address] [place] [id number] Transcriptions 05/11/2016 3:07 PM CSTNotes Recorded by Carlotta Mullen MD on 12/04/2011 at 8:54 AMYour fasting insulin level (the hormone that controls your blood sugar) is elevated. This is called insulin resistance. Insul in resistance is caused by a lot of factors (genetics, weight, our dietary consumption of sugar). The higher your insulin level the more weight you tend to gain. High insulin levels chronically cause a darkening and thickening of the skin on the back of your neck termed acanthosis nigricans.High insulin levels also predispose you to using your insulin stores up faster and can lead to an ear lier onset of diabetes in your lifetime. We treat these high levels with a medication called metformin. It helps to lower these levels and reverse the metabolic syndrome caused by the high insulin levels. We can talk about this medication at you r follow up appointment. Carlotta Mullen LAB_1 Performing Organization Address City/[facility] Phon e Number HP CONVERSION Hgb A1c (11/30/2011 11:04 AM CDT) athologist Signature HGB A1C 5.3 0.0 - 6.0 % HP CONVERSION Specimen Anatomical Collection Method Collection Time Receive d Time (Source) Location / / Volume Laterality 11/30/2011 11:04 11/30/2011 1:57 AM CDT PM CDT Transcriptions 05/11/2016 3:07 PM CSTNotes Recorded by Carlotta Mullen MD on 12/04/2011 at 8:54 AMYour fasting insulin level (the hormone that controls your blood sugar) is elevated. This is called insulin resistance. Insul in resistance is caused by a lot of factors (genetics, weight, our dietary consumption of sugar). The higher your insulin level the more weight you tend to gain. High insulin levels chronically cause a darkening and thickening of the skin on the back of your neck termed acanthosis nigricans.High insulin levels also predispose you to using your insulin stores up faster and can lead to an ear lier onset of diabetes in your lifetime. We treat these high levels with a medication called metformin. It helps to lower these levels and reverse the metabolic syndrome caused by the high insulin levels. We can talk about this medication at you r follow up appointment. Carlotta Mullen LAB_1 Performing Organization Address City/State/ZIP Code Phon e Number HP CONVERSION Comp Metabolic Panel (11/30/2011 11:04 AM CDT) [facility] gist Method Time Signature Aspartate 17 0 - 45 HP CONVERSION Aminotransferase U/L Lab Glucose 91 60 - 100 HP CONVERSION mg/dL Bilirubin Total 0.6 0.2 - 1.2 HP CONVERSION mg/dL Calcium 9.1 8.5 - HP CONVERSION 10.5 mg/dL Sodium 141 137 - 147 HP CONVERSION mEq/L Potassium 4.6 3.5 - 5.2 HP CONVERSION mEq/L Blood Urea Nitrogen 10 5 - 26 HP CONVERS ION mg/dL Albumin 4.1 3.4 - 5.0 HP CONVERSION g/dL Chloride 106 98 - 110 HP CONVERSION mEq/L Alk Phos 78 25 - 135 HP CONVERSION U/L Protein Total, Serum 7.3 5.7 - 8.3 HP CONVER NOVA g/dL Creatinine Serum 0.7 0.4 - 1.3 HP CONVERSION mg/dL Est GFR Am >60 >60 HP CONVERSI ON mL/min/1. 73m2 Est GFR Non-Afr Am >60 >60 HP CONVERSI ON mL/min/1. 73m2 Comment: Normal>60, moderate decrease 30 - 59, se pastor decrease 15 - 29, renal failure <15 mL/min/1.73 m2 NOTE: ??Choose the eGFR result above john paul ropriate for the race of the patient. Alanine Aminotransferase 18 4 - 55 U/L HP C ONVERSION Bicarbonate 27 23 - 33 mmol/L HP CONVERSION Specimen Anatomical Collection Method Collection Time Receive d Time (Source) Location / / Volume Laterality 11/30/2011 11:04 11/30/2011 1:56 AM CDT PM CDT Transcriptions 05/11/2016 3:07 PM CSTNotes Recorded by Carlotta Mullen MD on 12/04/2011 at 8:54 AMYour fasting insulin level (the hormone that controls your blood sugar) is elevated. This is called insulin resistance. Insul in resistance is caused by a lot of factors (genetics, weight, our dietary consumption of sugar). The higher your insulin level the more weight you tend to gain. High insulin levels chronically cause a darkening and thickening of the skin on the back of your neck termed acanthosis nigricans.High insulin levels also predispose you to using your insulin stores up faster and can lead to an ear lier onset of diabetes in your lifetime. We treat these high levels with a medication called metformin. It helps to lower these levels and reverse the metabolic syndrome caused by the high insulin levels. We can talk about this medication at you r follow up appointment. Carlotta Mullen LAB_1 Performing Organization Address City/State/ZIP Code Phon e Number HP CONVERSION (ABNORMAL) Lipid Panel and Direct LDL(If Needed) (11/30/2011 11:04 AM CDT) [facility] Method Time Signature Cholesterol 147 0 - 200 HP CONVERSION mg/dL Triglycerides 69 0 - 149 HP CONVERSION mg/dL HDL Cholesterol 38 (L) >39 mg/dL HP CONVERSION Cholesterol/HDL 3.9 HP CONVERSION Ratio Screen LDL Calculated 95 19 - 130 HP CONVERSION mg/dL Length Of Fast 12.0 HP CONVERSION Specimen Anatomical Collection Method Collection Time Receive d Time (Source) Location / / Volume Laterality 11/30/2011 11:04 11/30/2011 1:56 AM CDT PM CDT Transcriptions 05/11/2016 3:07 PM CSTNotes Recorded by Carlotta Mullen MD on 12/04/2011 at 8:54 AMYour fasting insulin level (the hormone that controls your blood sugar) is elevated. This is called insulin resistance. Insul in resistance is caused by a lot of factors (genetics, weight, our dietary consumption of sugar). The higher your insulin level the more weight you tend to gain. High insulin levels chronically cause a darkening and thickening of the skin on the back of your neck termed acanthosis nigricans.High insulin levels also predispose you to using your insulin stores up faster and can lead to an ear lier onset of diabetes in your lifetime. We treat these high levels with a medication called metformin. It helps to lower these levels and reverse the metabolic syndrome caused by the high insulin levels. We can talk about this medication at you r follow up appointment. Carlotta Mullen LAB_1 Performing Organization Address City/State/ZIP Code Phon e Number HP CONVERSION Vitamin D 25-Hydroxy, Total (11/30/2011 11:04 AM CDT) athologist Signature Vitamin D 25 Oh 30 20 - 80 HP CONVERSION ng/mL Comment: Deficiency = <20 Adequate ??= 20-29 Preferred = 30-50 Uncertain safety = 51-80 High = >80 Specimen Anatomical Collection Method Collection Time Receive d Time (Source) Location / / Volume Laterality 11/30/2011 11:04 11/30/2011 1:56 AM CDT PM CDT Carlotta Mullen LAB_1 Performing Organization Address City/[facility] Code Phon e Number HP CONVERSION TSH AND FREE T4 (FRT4 IF TSH ABNORM) (11/30/2011 11:04 AM CDT) athologist Signature Thyroid 2.10 0.20 - HP CONVERSION Stimulating 4.50 mIU/L Hormone Specimen Anatomical Collection Method Collection Time Receive d Time (Source) Location / / Volume Laterality 11/30/2011 11:04 11/30/2011 1:56 AM CDT PM CDT Transcriptions 05/11/2016 3:07 PM CSTNotes Recorded by Carlotta Mullen MD on 12/04/2011 at 8:54 AMYour fasting insulin level (the hormone that controls your blood sugar) is elevated. This is called insulin resistance. Insul in resistance is caused by a lot of factors (genetics, weight, our dietary consumption of sugar). The higher your insulin level the more weight you tend to gain. High insulin levels chronically cause a darkening and thickening of the skin on the back of your neck termed acanthosis nigricans.High insulin levels also predispose you to using your insulin stores up faster and can lead to an ear lier onset of diabetes in your lifetime. We treat these high levels with a medication called metformin. It helps to lower these levels and reverse the metabolic syndrome caused by the high insulin levels. We can talk about this medication at you r follow up appointment. Carlotta Bowie Sebas LAB_1 Performing Organization Address City/State/ZIP Code Phon e Number HP CONVERSION documented in this encounter Visit Diagnoses Diagnosis Depression, major ([facility]) Major depressive disorder, single episod e, unspecified Obesity, Class II, BMI 35-39.9 ([facility]) Obesity, unspecified documented in this encounter Care Teams Quality Assurance Supervisor Trim Relationship Specialty Start Date End Date Md Elaine MD PCP - General 07/24/11 06/12/15 [place] [address] documented as of this encounter
--- OUTSIDE RECORDS SUMMARY | 2021-11-07 13:13 | XMS_ITS | Encounter Summary ---
:1975 Author Organization [facility] Address [address] [address] Care Team Providers Name Role Phone Md DEISI Elaine Primary Care Provider Encounter Details Date Type Department Care Team Description 10/25/2011 Lab Visit [facility] Laboratory Female pelvic pain [address] [place] [address] Social History Tobacco Use Types Packs/Day Years Used Date Smoking Tobacco: Never Assessed Sex Assigned at Date Recorded Not on file documented as of this encounter Plan of Treatment Not on filedocumented as of this encounter Procedures Procedure Name Priority Date/Time Associated Comments Diagnosis URINE MICROSCOPIC Routine 10/25/2011 3:03 PM Resu lts for this CDT procedure are i n the results section. URINALYSIS Routine 10/25/2011 3:03 PM Female pelvic pain Res ults for this ROUTINE(MICRO IF POS) CDT proced ure are in the results section. URINE CULTURE Routine 10/25/2011 3:03 PM Female pelvic pain Re sults for this CDT procedure are i n the results section. documented in this encounter Results Urine Culture (10/25/2011 3:03 PM CDT) [facility] Method Time Signature Urine Culture Mixed gram HP CONVERSION positive organisms. 50-100,000 cfu/mL Comment: ? ORDERED BY: JET LOPEZ SOURCE: Urine clean catch ?COLLECTED: ??10/25/11 15:03 ? PLATED: ? 10/25/11 15:04 Culture Urine ?FINAL ? 10/26/11 12:43 Mixed gram positive organisms. ??50-100 ,000 cfu/mL Specimen (Source) Anatomical Collection Method Collection Time Re ceived Time Location / / Volume Laterality Urine:clean catch 10/25/2011 3:03 PM CDT Jet Lopez MD LAB_1 Performing Organization Address City/[facility] Code Phon e Number HP CONVERSION (ABNORMAL) URINE MICROSCOPIC (10/25/2011 3:03 PM CDT) [facility] Method Time Signature Urine WBC 3-4 0 - 4 HP CONVERSION /HPF Urine RBC 0-2 0 - 2 HP CONVERSION /HPF Bacteria Urine Occasional (A) /HPF HP CONVERS ION Epithelial Few /HPF HP CONVERSION Cells Specimen Anatomical Collection Method Collection Time Receive d Time (Source) Location / / Volume Laterality 10/25/2011 3:03 PM 2 3:03 CDT PM CDT Narrative HP CONVERSION - 10/25/2011 3:50 PM CDT Performed at [facility], [address] [place] [address] Jet Lopez MD LAB_1 Performing Organization Address City/[facility] Phon e Number HP CONVERSION (ABNORMAL) URINALYSIS ROUTINE(MICRO IF POS) (10/25/2011 3:03 PM CDT) [facility] Method Time Signature Urine Type Urine:clean HP CONVERSION cat Turbidity Sl Cloudy Clear HP CONVERSION (A) U BILI Negative Negative HP CONVERSION Blood Urine Negative Negative HP CONVERSION Glucose, Negative Neg-30 HP CONVERSION Qualitative U mg/dL Ketones Negative Negative HP CONVERSION Leukocyte Trace (A) Negative HP CONVERSION Esterase Urine Nitrite Urine Negative Negative HP CONVERSION pH Urine 6.0 5.0 - 8.0 HP CONVERSION Protein Urine Negative Neg - Trace HP CONVERSION mg/dL U Specific 1.010 1.005 - HP CONVERSION Conconully 1.030 Urobilinogen Negative Negative HP CONVERSION Urine Eu/dL Specimen Anatomical Collection Method Collection Time Receive d Time (Source) Location / / Volume Laterality Urine: 10/25/2011 3:03 PM 2 3:03 CDT PM CDT Narrative HP CONVERSION - 10/25/2011 3:50 PM CDT Performed at [facility], [address] [place] [address] Jet Lopez MD LAB_1 Performing Organization Address City/State/[facility] Code Phon e Number HP CONVERSION documented in this encounter Visit Diagnoses Diagnosis Female pelvic pain Unspecified symptom associated with fema le genital organs documented in this encounter Care Teams Animal Husbandry Technician Relationship Specialty Start Date End Date Md Elaine MD PCP - General 07/24/11 06/12/15 [place] [address] documented as of this encounter
--- OUTSIDE RECORDS SUMMARY | 2021-11-07 13:13 | XMS_ITS | Encounter Summary ---
:1975 Author Organization [employer] Address [address] [address] Care Team Providers Name Role Phone Md DEISI Elaine Primary Care Provider Reason for Visit Reason Comments Annual Exam Encounter Details Date Type Department Care Team Description 10/25/2011 Office Visit Delia Sanchez, Routine lead software development engineer ecological examination (Primary Dx); Obstetrics/Gynecolog Female pelvic pain; y [address] [facility] Screening for malignant neop lasm of the cervix; [address] [facility] [place] [address] [phone] Social History Tobacco Use Types Packs/Day Years Used Date Smoking Tobacco: Never Assessed Sex Assigned at Date Recorded Not on file documented as of this encounter Last Filed Vital Signs Vital Sign Reading Time Taken Comments Blood Pressure 98/60 10/25/2011 1:15 PM CDT Pulse 80 10/25/2011 1:15 PM CDT Temperature - - Respiratory Rate - - Oxygen Saturation - - Inhaled Oxygen Concentration - - Weight 79.8 kg (176 lb) 10/25/2011 1:15 PM CDT Height 151.1 cm (4' 11.5) 10/25/2011 1:15 PM CDT Body Mass Index 34.95 10/25/2011 1:15 PM CDT documented in this encounter Patient Instructions Patient InstructionsSeEusebia hawk LPN - 10/25/2011 1:15 PM CDT Thank you for enrolling in [employer]. Please follow the instructions below to securely access your online medical record. [employer] allows you to send messages to your doctor, view your test results, renewyour prescriptions, schedule appointments, and more. How Do I Sign Up? 1. In your Internet browser, go to: [email or web address] 2. Click on the Sign Up Now link in the Sign In box. You will see the New Member Sign Up page. 3. Enter your [employer] Access Code exactly as it appears below. You will not need to use this code after you???ve completed the sign-up process. If you do not sign up before the expiration date, you must request a new code. [employer] Access Code: [email or web address] Expires: 11/24/11 01:15 PM 4. Enter your Social Security Number ([id number]) and Date of (mm/dd/yyyy) as indicated and click Submit. You will be taken to the next sign- up page. 5. Create a [employer] ID. This will be your [employer] login ID and cannot be changed, so think of one that is secure and easy to remember. 6. Create a [employer] password. You can change your password at any time. 7. Enter your Password Reset Question and Answer. This can be used at a later time if you forget your password. 8. Enter your e-mail address. You will receive e-mail notification when new information is availablein [employer]. 9. Click Sign Up. You can now view your medical record. Additional Information If you have questions, you can call [phone] to talk to our [employer] staff. Remember, [employer] is NOT to be used for urgent needs. For medical emergencies, dial 911. documented in this encounter Progress Notes Delia Menjivar MD - 11/07/2011 9:27 AM CDT NARRATIVE: Courtney is a 36-year-old, nulligravid woman, LMP 09/30/11 who presents for annual gynecologic examination. There is history of irregular menses and Courtney carries a diagnosis of PCOS. In the past, menses could go up to 3 months in interval but now cycles are more regular occurring on a monthly basis with flow lasting 5-7 days. Gynecological history is significant for LEEP for cervical dysplasia 2004 with normal interval Pap. Courtney has several questions and concerns today. She has been treated with several meds for PCOS and weight loss in the past including Metformin which caused GI side effects, Phenteramine and Meridia. She is frustrated with her weight and requests help ???getting it under control???. She has been exercising and feels like she has been having more abdominal bloating, upset stomach, and crampy abdominal discomfort between menses. She also has general fatigue and malaise and some intermittent breast tenderness. Libido is diminished but Courtney admits to some relationship issues. Partner has had a vasectomy and is not interested in having children and she is becoming more interested in having a family. She also recently had a left axillary lump that spontaneously drained after havinga similar event 3 months ago. PAST MEDICAL HISTORY: Anxiety/depression, asthma, migraines with aura, borderline thyroid in past, PCOS. 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 She does not smoke and socially uses alcohol, tries to exercise on a regular basis, always wears a seatbelt and is probably due for a tetanus. FAMILY HISTORY: Mother with osteoporosis and thyroid issues. Grandparents with diabetes, heart disease, osteoporosisand thyroid issues. OBJECTIVE: VS: BP: 98/60 Ht: 4???11.5?? Wt: 176# Courtney is a very pleasant, healthy-appearing, woman in no distress. NECK: Supple without thyromegaly or adenopathy. HEART: Regular rate and rhythm, without murmur, rub, or gallop. LUNGS: Clear to auscultation and percussion. BACK: Without CVA tenderness or deformity. ABDOMEN: Benign without mass, hepatosplenomegaly, rebound, guarding, or rigidity. No surgical scars are seen. No hernia is noted. BREASTS: Symmetrical bilaterally, without mass, discharge, or skin change. Axillae are negative. Likely remnant of sebaceous cyst on left. EXTREMITIES: Normal. PELVIC EXAMINATION: Shows normal external genitalia. The urethral meatus is normal, and the Tecopa's and Bartholin's glands unremarkable. The perirectal tissues are without mass or lesion. Vagina is normal throughout its course. Cervix is nulliparous appearing without lesion. Uterus is normal size, mobile, nontender. Adnexa are nontender, without mass although exam is limited by body habitus. ASSESSMENT: 1. Annual gynecologic examination, health care maintenance. 2. History of PCOS although menses now regular. Not candidate for OCP due to migraines, intolerant to Metformin. Weight loss would be best solution. 3. Abdominal bloating/discomfort, likely GI in origin, i.e., irritable bowel. PLAN: 1. Pap smear obtained and sent. 2. UA/UC. 3. Pelvic ultrasound. 4. Declines cervical cultures. 5. Referred to [facility] at [place]. 6. Ongoing plan after results of above evaluation known. documented in this encounter Plan of Treatment Not on filedocumented as of this encounter Procedures Procedure Name Priority Date/Time Associated Comments Diagnosis US PELVIC COMPLETE W Routine 11/01/2011 3:41 PM Female pelvic pain Results for this EV CDT procedure are i n the results section. ANATOMICAL PATH Routine 10/25/2011 2:21 PM Result s for this LIQUID BASED CDT procedure are i n the results section. PAP SMEAR SCREENING Routine 10/25/2011 2:21 PM Screening for R esults for this CDT malignant neoplasm procedure are in of the cervix the results section. documented in this encounter Results US Pelvic Complete W EV (11/01/2011 3:41 PM CDT) Anatomical Region Laterality Modality Pelvis Other Specimen (Source) Anatomical Location Collection Method / Collectio n Time Received Time / Laterality Volume Impressions 11/01/2011 3:51 PM CDT IMPRESSION: ??Focal, echogenic area in the endometrium which is suspicious for an endometrial polyp or o ther endometrial process. ? Narrative 11/01/2011 3:51 PM CDT COMPARISON STUDY: ??None. ? FINDINGS: ??Both transabdominal and santiago svaginal scanning were performed. ??The uterus measures 7.7 x 3 .7 x 4.6 cm and appears within normal limits. ??The endometrial stripe measures 12 mm in maximum thickness with a more focal, ill-defined , hyperechoic and vascular area in the upper most part of the endom etrium. The ovaries appear within normal limits and demonstrate normal vascular flow. ??There is no free fluid in the cul-de-sac. ? Procedure Note Cris Silverman MD - 09/17/2015Formattin g of this note might be different from the original. COMPARISON STUDY: None. FINDINGS: Both transabdominal and transv aginal scanning were performed. The uterus measures 7.7 x 3.7 x 4.6 cm and appears within normal limits. The endometrial stripe me asures 12 mm in maximum thickness with a more focal, ill-defined , hyperechoic and vascular area in the upper most part of the endom etrium. The ovaries appear within normal limits and demonstrate normal vascular flow. There is no free fluid in the cul-de-sac. IMPRESSION IMPRESSION: Focal, echogenic area in the endometrium which is suspicious for an endometrial polyp or o ther endometrial process. Delia Menjivar MD [facility] US Pap Smear (10/25/2011 2:21 PM CDT) Specimen (Source) Anatomical Collection Method Collection Time Re ceived Time Location / / Volume Laterality 10/25/2011 2:21 PM CDT Narrative HP CONVERSION - 11/01/2011 9:38 AM CDT Final GYNECOLOGICAL CYTOLOGY REPORT Pathology #: [id number] ?Date Obtained: 10/25/2011 ? Date Received: 10/26/2011 INTERPRETATION/RESULTS: Negative for Intraepithelial Lesion or M alignancy SPECIMEN ADEQUACY: Satisfactory for Evaluation. ??No endoce rvical cells/transformation zone component present. Verified on 11/01/2011 ??by MAI REYES(ASCP) (electronic signature) CLINICAL NOTES: ? LMP: Not Stated. LIQUID BASED PAP SMEAR SPECIMEN TYPE: ?CERVICAL [...] s may occur. ? End of Report Delia Menjivar MD LAB_1 Performing Organization Address City/[facility] Code Phon e Number HP CONVERSION Pap Smear Screening (10/25/2011 2:21 PM CDT) P athologist Signature PAP Routine Collected HP CONVERSION Specimen Anatomical Collection Method Collection Time Receive d Time (Source) Location / / Volume Laterality 10/25/2011 2:21 PM 2 5:50 CDT AM CDT Delia Menjivar MD LAB_1 Performing Organization Address [facility] Phon e Number HP CONVERSION documented in this encounter Visit Diagnoses Diagnosis Routine gynecological examination - Prim talha Female pelvic pain Unspecified symptom associated with fema le genital organs Screening for malignant neoplasm of the cervix Polycystic ovaries ([facility]) Polycystic ovaries documented in this encounter Care Teams Direct Care Provider Relationship Specialty Start Date End Date Md Elaine MD PCP - General 07/24/11 06/12/15 [place] [address] documented as of this encounter
--- OUTSIDE RECORDS SUMMARY | 2021-11-07 13:13 | XMS_ITS | Encounter Summary ---
:1975 Author Organization [facility] Address [address] [address] Care Team Providers Name Role Phone Lubna Yee MD Primary Care Provider Encounter Details Date Type Department Care Team Description 08/15/2010 Office Visit [facility] [place] [address] [facility] [address] [place] [address] [place] [address] [phone] Social History Tobacco Use Types Packs/Day Years Used Date Smoking Tobacco: Never Assessed Sex Assigned at Date Recorded Not on file documented as of this encounter Plan of Treatment Not on filedocumented as of this encounter Visit Diagnoses Not on filedocumented in this encounter Care Teams Urgent Care Physician Assistant Relationship Specialty Start Date End Date Lubna Yee MD PCP - General 07/04/10 07/23/11 [address] [place] [address] documented as of this encounter
--- OUTSIDE RECORDS SUMMARY | 2021-11-07 13:13 | XMS_ITS | Encounter Summary ---
:1975 Author Organization [facility] Address [address] [place] [address] Care Team Providers Name Role Phone Md DEISI Elaine Primary Care Provider Reason for Visit Reason Comments RESULTS, TEST Encounter Details Date Type Department Care Team Description 06/15/2011 Telephone [facility] No Pcp, No Pcp, RESULTS, TEST [address] [facility] [place] [address] [place] [address] [phone] Social History Tobacco Use Types Packs/Day Years Used Date Smoking Tobacco: Never Assessed Sex Assigned at Date Recorded Not on file documented as of this encounter Nursing Notes Luis Garzon LPN - 06/15/2011 11:05 AM CDT Patient had ppd read at the [facility] yesterday. patient said she would call [place] [facility] andhave them fax results. note complete. addi Pascual - 06/15/2011 10:21 AM CDT forwarding to [facility], where pt was seen for PPD. Kasey Jimenes, RN - 06/15/2011 10:13 AM CDT Transferring to [facility] where the patient was seen. Radha Austin - 06/15/2011 9:49 AM CDT please fax [facility] fax [phone] documented in this encounter Plan of Treatment Not on filedocumented as of this encounter Visit Diagnoses Not on filedocumented in this encounter Care Teams Marine Electronics Technician Relationship Specialty Start Date End Date Md Elaine MD PCP - General 07/24/11 06/12/15 [place] [address] documented as of this encounter
--- OUTSIDE RECORDS SUMMARY | 2021-11-07 13:13 | XMS_ITS | Encounter Summary ---
:1975 Author Organization [employer] Address [address], [place] [address] Care Team Providers Name Role Phone Md DEISI Elaine Primary Care Provider Reason for Visit Reason Comments PRE-OP EXAM Encounter Details Date Type Department Care Team Description 12/25/2011 Pre-Op Visit [facility] [address] Keyona Wick, Sonali eop examination Internal Medicine (Primary Dx) [address] [facility] [address] [place] [address] [phone] (Wo rk) Social History Tobacco Use Types Packs/Day Years Used Date Smoking Tobacco: Never Assessed Sex Assigned at Date Recorded Not on file documented as of this encounter Last Filed Vital Signs Vital Sign Reading Time Taken Comments Blood Pressure 104/66 12/25/2011 9:19 AM CDT Pulse 88 12/25/2011 9:19 AM CDT Temperature 36.3 ??C (97.3 ??F) 12/25/2011 9:19 AM CDT Respiratory Rate - - Oxygen Saturation - - Inhaled Oxygen Concentration - - Weight 80.3 kg (177 lb) 12/25/2011 9:19 AM CDT Height 151.8 cm (4' 11.75) 12/25/2011 9:19 AM CDT Body Mass Index 34.86 12/25/2011 9:19 AM CDT documented in this encounter Patient Instructions Patient InstructionsKeyona Wick MD - 12/25/2011 9:28 AM CDT Hold the ibuprofen and omega-3 supplement until surgery. Take your medicines as usual. Take tylenol for pain. As your mailing manager about holding your enbrel around the time of surgery. documented in this encounter OR Notes H&P - Keyona Wick MD - 12/25/2011 1:23 PM CDT PREOPERATIVE CONSULTATION Preop Assessment and Plan: Risk of procedure: low Mets: >4 Risk of fatal SC: low Medications patient should take prior to surgery: as usual NPO at midnight: yes Special considerations: Day of surgery testing: none Medication recommendations: no adjustments needed. Additional screening recommended: no Consult (Cardiology/other): no Additional test results attached: none Beta deepak protocol ordered: no Insulin/Diabetes orders initiated: no Continuous O2 Sat monitoring post op orders initiated: no Other: no I see no contraindication for the planned surgery. Keyona Wick MD [facility] [phone] +++++++++++++++++++++++++++++++++++++++++++++++++++++++++++++++++++++++ [facility] [address] [facility] [address] 36 y.o. female DATE OF ENCOUNTER: 12/25/2011 History Social History Narrative Works in [employer]. Single, partnered. 1 dog. Significant medical problems include: Patient Active Problem List Diagnoses Code ??? Vitamin D Deficiency 268.9 ??? Polycystic Ovary Syndrome 256.4 ??? Psoriasis 696.1 ??? Pap Smear Abnormal Cervix 795.00 ??? Irritable bowel syndrome 564.1 ??? Hypothyroidism Primary 244.9 ??? Osteopenia 733.90 ??? Obesity 278.00M ??? Obesity, Class II, BMI 35-39.9 V85.35D ??? Eating disorder, unspecified 307.50 ??? Major depressive disorder, recurrent episode, moderate 296.32 ??? Uterine polyp 621.0B HPI: I was asked by Dr. Hernandez to see Courtney Lang for a preoperative evaluation in preparation for D&C and hysteroscopy. DATE OF PLANNED SURGERY: 12/27/2011 An ultrasound reveal a uterine polyp and patient has had worsening periods. She has been holding her enbrel for the last 2 months. This is for psoriasis. She recently started topomax to augment sertraline as part of an eating disorder treatment plan. Shedoes not have seizures or migraines. Risk factor review of systems: RECENT ANTI-PLATELET AGENT USE: ibuprofen STEROID USE IN THE LAST YEAR: no LAST MENSTRUAL PERIOD: 12/02/2011 PAST DIFFICULTY WITH ANESTHESIA: no OTHER: Medication ??? calcipotriene-betamethasone (TACLONEX) ointment ??? cholecalciferol (VITAMIN D) 1,000 unit Tab ??? clobetasol (TEMOVATE) 0.05 % cream ??? etanercept (ENBREL) 25 mg (1 mL) injection ??? Fluocinolone-Shower Cap (DERMA-SMOOTHE/FS SCALP OIL) 0.01 % Oil ??? fluticasone (FLONASE) 50 mcg/Actuation nasal spray ??? LORazepam (ATIVAN) 0.5 mg tablet ??? [place] Oil-[place]-3 Fatty Acids (FISH OIL) 500-100 mg Cap ??? sertraline (ZOLOFT) 100 mg tablet ??? topiramate (TOPAMAX) 25 mg tablet Allergies Allergen Reactions ??? Allergen Not In Computer PT HAS MULTIPLE FAMILY HX OF PCN ALLERGY Past Surgical History Procedure Date ??? Gonzalez 2007 Family History Problem Relation Age of Onset ??? Osteoporosis Mother ??? Thyroid Disease Mother ??? Osteoporosis Maternal Grandmother ??? Alzheimer's Dz Maternal Grandfather ??? Dementia Maternal Grandfather ??? Diabetes Maternal Grandfather ??? Thyroid Disease Paternal Grandmother ??? Heart Disease Paternal Grandfather ??? Diabetes Other History Substance Use Topics ??? Smoking status: Never Smoker ??? Smokeless tobacco: Never Used ??? Alcohol Use: 1.0 oz/week 2 drink(s) per week 1-2 drinks per week PHYSICAL EXAM: General Appearance: well appearing, well groomed Filed Vitals: 12/25/11 0919 BP: 104/66 Pulse: 88 Temp: 36.3 ??C (97.4 ??F) TempSrc: Oral Height: 1.518 m (4' 11.75) Weight: 80.287 kg (177 lb) Eyes: PERRL Head, Ears, Nose, Mouth, Throat: Atraumatic. No mouth sores. OP normal. Neck: no LAD, no thyromegaly, supple Respiratory: CTAB Cardiovascular: RRR, no murmur, peripheral pulses 2+ throughout, no carotid bruits, no peripheral edema Abdomen: BS+, soft, non tender, no HSM Musculoskeletal: Joints and muscle normal Lymphatics: There were no enlarged neck, supraclavicular nodes. Skin/Hair/Nails: Skin, hair and nails were normal. Neurologic: CN 2-12 intact. FUNES Psychiatric: Alert and oriented x3. Mood and affect appropriate to situation. Speech fluent. Thoughtcontent appropriate. Labs: test negative Recent CBC and BMP are normal documented in this encounter Plan of Treatment Not on filedocumented as of this encounter Visit Diagnoses Diagnosis Preop examination - Primary Preoperative examination, unspecified documented in this encounter Care Teams Golf Tournament Consultant Relationship Specialty Start Date End Date Md Elaine MD PCP - General 07/24/11 06/12/15 [place] [address] documented as of this encounter
--- OUTSIDE RECORDS SUMMARY | 2021-11-07 13:13 | XMS_ITS | Encounter Summary ---
:1975 Author Organization [facility] Address [address], [place] [address] Care Team Providers Name Role Phone Md DEISI Elaine Primary Care Provider Encounter Details Date Type Department Care Team Description 06/24/2012 Notes/Orders [facility] [address], Other psoriasis Laboratory MD (Primary Dx) [address] [facility] [address] [address] [place], [place] [phone] [address] Social History Tobacco Use Types Packs/Day Years Used Date Smoking Tobacco: Never Assessed Sex Assigned at Date Recorded Not on file documented as of this encounter Plan of Treatment Not on filedocumented as of this encounter Visit Diagnoses Diagnosis Other psoriasis - Primary documented in this encounter Care Teams Long Wall Mining Machine Tender Relationship Specialty Start Date End Date Md Elaine MD PCP - General 07/24/11 06/12/15 [place] [address] documented as of this encounter
--- OUTSIDE RECORDS SUMMARY | 2021-11-07 13:13 | XMS_ITS | Encounter Summary ---
:1975 [facility] Address [address] [address] Care Team Providers Name Role Phone Md DEISI Elaine Primary Care Provider Encounter Details Date Type Department Care Team Description 11/01/2011 [facility] [address] [place] [address] Social History Tobacco Use Types Packs/Day Years Used Date Smoking Tobacco: Never Assessed Sex Assigned at Date Recorded Not on file documented as of this encounter Plan of Treatment Not on filedocumented as of this encounter Visit Diagnoses Not on filedocumented in this encounter Care Teams Technical Professional Relationship Specialty Start Date End Date Md Elaine MD PCP - General 07/24/11 06/12/15 [place] [address] documented as of this encounter
--- OUTSIDE RECORDS SUMMARY | 2021-11-07 13:14 | XMS_ITS | Encounter Summary ---
:1975 Author Organization [employer] Address [address], [place] [address] Care Team Providers Name Role Phone Lubna Yee MD Primary Care Provider Encounter Details Date Type Department Care Team Description 08/09/2008 PN Conversion Only BRAY [place], [address] [facility] [place] [address] [facility] [place] [address] (Wo rk) Social History Tobacco Use Types Packs/Day Years Used Date Smoking Tobacco: Never Assessed Sex Assigned at Date Recorded Not on file documented as of this encounter Plan of Treatment Not on filedocumented as of this encounter Procedures Procedure Name Priority Date/Time Associated Diagnosis Comme nts COMPLETE BLOOD Routine 08/09/2008 9:38 AM Results for this COUNT-W/DIFF CDT procedure are i n the results section. documented in this encounter Results (ABNORMAL) Complete Blood Count-W/Diff (08/09/2008 9:38 AM CDT) [facility] Method Time Signature White Blood Cell 10.0 3.8 - 11.0 HP CONVERSIO N Count K/cmm Red Blood Cell 4.72 3.70 - HP CONVERSION Count 5.20 m/cmm Hemoglobin 14.4 11.8 - HP CONVERSION 15.5 gm/dL Hematocrit 41.6 35.0 - HP CONVERSION 46.0 % Mean Corpuscular 88.2 80.0 - HP CONVERSION Volume 100.0 fl Mean Corpuscular 30.5 27.0 - HP CONVERSION Hemoglobin 34.0 pg Mean Corpuscular 34.5 32.0 - HP CONVERSION Hemoglobin Conc 36.5 gm/dL [place] RDW 11.7 11.0 - HP CONVERSION 15.0 % Platelet Count 224 140 - 450 HP CONVERSION k/cmm Differential Auto-Dif No normal HP CONVERSION Verify range Neutrophils 7.7 (H) 2.0 - 7.5 HP CONVERSION Absolute Count K/cmm Neutrophil 76.9 (H) 50.0 - HP CONVERSION 75.0 % Lymphocyte % 13.1 (L) 20.0 - HP CONVERSION 40.0 % Monocyte 9.7 5.0 - 14.0 HP CONVERSION % Eosinophil 0.1 0.0 - 6.0 HP CONVERSION % Basophil % 0.2 0.0 - 2.0 HP CONVERSION % Specimen (Source) Anatomical Collection Method Collection Time Re ceived Time Location / / Volume Laterality 08/09/2008 9:38 AM CDT Bryce Guidry MD LAB_1 Performing Organization Address City/State/ZIP Code Phon e Number HP CONVERSION documented in this encounter Visit Diagnoses Not on filedocumented in this encounter Care Teams Plant Propagator Relationship Specialty Start Date End Date Lubna Yee MD PCP - General 07/04/10 07/23/11 [address] [facility] [place] [address] documented as of this encounter
--- OUTSIDE RECORDS SUMMARY | 2021-11-07 13:14 | XMS_ITS | Encounter Summary ---
:1975 Author Organization [employer] Address [address] [address] Care Team Providers Name Role Phone Lubna Yee MD Primary Care Provider Encounter Details Date Type Department Care Team Description 09/24/2009 Office Visit [facility] [place] [address] [facility] [address] [place] [address] Social History Tobacco Use Types Packs/Day Years Used Date Smoking Tobacco: Never Assessed Sex Assigned at Date Recorded Not on file documented as of this encounter Last Filed Vital Signs Vital Sign Reading Time Taken Comments Blood Pressure 112/68 09/24/2009 11:36 AM CDT Pulse 80 09/24/2009 11:36 AM CDT Temperature 36.9 ??C (98.4 ??F) 09/24/2009 11:36 AM ORAL C: 36.9 C CDT Respiratory Rate 12 09/24/2009 11:36 AM CDT Oxygen Saturation - - Inhaled Oxygen Concentration - - Weight - - Height - - Body Mass Index - - documented in this encounter Progress Notes Sander Iraheta MD - 09/24/2009 12:01 AM CDT Progress Notes signed by Sander Iraheta MD at 09/25/09 0911 Author: Sander Iraheta MD Service: (none) Author Type: Physician Filed: 07/22/10 2326 Note Time: 09/24/09 0001 Status: Signed Boat Carpenter: Sander Iraheta MD (Physician) NAME: SHARIF PRICE MR#: [id number] ACCT: [id number] VISIT: [id number] DICTATING CLINICIAN: SANDER IRAHETA MD CONFIRM #: [id number] LOC: 620 CLINIC PROGRESS NOTE DATE OF VISIT: 09/24/2009 SUBJECTIVE: Comes in with a rash. Has been there for a few days. OBJECTIVE: VS: BP: 112/68. T: 98.5. She has dime-sized little area of redness, raised area, looks irritated ? side of her body and trunk. ASSESSMENT: PLAN: Going to use triamcinolone 0.1% b.i.d. Follow up p.r.n. PHB:[id number] C: 09/24/09 18:57 CONFIRM #: [id number] documented in this encounter Plan of Treatment Not on filedocumented as of this encounter Visit Diagnoses Not on filedocumented in this encounter Care Teams Sample Paster Relationship Specialty Start Date End Date Lubna Yee MD PCP - General 07/04/10 07/23/11 [address] [place] [address] documented as of this encounter
--- OUTSIDE RECORDS SUMMARY | 2021-11-07 13:14 | XMS_ITS | Encounter Summary ---
:1975 Author Organization [employer] Address [address] [address] Care Team Providers Name Role Phone Lubna Yee MD Primary Care Provider Encounter Details Date Type Department Care Team Description 08/16/2008 Office Visit [facility] [place] [address] [address] [phone] Social History Tobacco Use Types Packs/Day Years Used Date Smoking Tobacco: Never Assessed Sex Assigned at Date Recorded Not on file documented as of this encounter Last Filed Vital Signs Vital Sign Reading Time Taken Comments Blood Pressure 100/62 08/16/2008 3:16 PM CDT Pulse 91 08/16/2008 3:16 PM CDT Temperature - - Respiratory Rate - - Oxygen Saturation 97% 08/16/2008 3:16 PM CDT Inhaled Oxygen Concentration - - Weight 71.2 kg (156 lb 15.8 oz) 08/16/2008 3:16 PM CDT C: 71.2kg Height - - Body Mass Index - - documented in this encounter Progress Notes Lubna Yee MD - 08/16/2008 12:01 AM CDT Progress Notes signed by Lubna Yee MD at 08/25/08 8275 Author: Lubna Yee MD Service: (none) Author Type: Physician Filed: 07/22/10 1332 Note Time: 08/16/08 0001 Status: Signed Statistical Consultant: Lubna Yee MD (Physician) NAME: SHARIF PRICE MR#: [id number] ACCT: [id number] VISIT: [id number] DICTATING CLINICIAN: Lubna Yee MD CONFIRM #: [id number] LOC: 602 CLINIC PROGRESS NOTE DATE OF VISIT: 08/16/2008 SUBJECTIVE: : 1975. REASON FOR VISIT: Followup urgent care for pneumonia. HPI: Sharif presents for followup of left upper lobe pneumonia diagnosed in urgent care on 08/09/08. She was given Levaquin 500 mg one p.o. daily x10 days, along with Phenergan with Codeine for cough. Since her visit in urgent care, she has noticed some improvement in her symptoms. She denies any current symptoms of fever, chills, nasal congestion, postnasal drip, sore throat. She does continue to have a cough with intermittent production of mucus and shortness of breath at times. She also reports extreme fatigue. She went back to work this week and, over the last 4 days at work, she has been working part-time. REVIEW OF SYSTEMS: Complete review of systems otherwise negative. PAST MEDICAL HISTORY: Reviewed. See PHP in LastWord. CURRENT MEDICATIONS: Reviewed and updated. See PHP in LastWord. ADR/ALLERGIES: REVIEWED AND UPDATED. SEE PHP IN LASTWORD. SOCIAL HISTORY: She has a boyfriend who has a son, and she lives the majority of her time with them. She does, however, have her own condominium. She works full-time. HABITS: She is a nonsmoker. OBJECTIVE: VS: BP: 100/62. P: 91. Wt: 157 lb. Oxygen saturation is 97% on room air. GENERAL: She is in no acute distress. She is alert and oriented. Well groomed. HEENT: Her eyes are clear. Her TMs clear. Her nasal turbinates are normal. Nasal passages are patent. Oropharynx is slightly injected without lesions or exudates. NECK: Supple, nontender. No adenopathy. CARDIOVASCULAR: Regular rate, rhythm. S1, S2. No murmurs, gallops, rubs. LUNGS: Clear to auscultation bilaterally. No wheezing, rhonchi, rubs, crackles. Good airway exchange. ASSESSMENT: Left upper lobe pneumonia, slowly improving. She will finish her 10-day course of Levaquin 500 mg a day, along with Phenergan with Codeine p.r.n. I recommended adding Mucinex to help expectorate her mucus in her lungs. She may continue ibuprofen p.r.n., and I recommended rest and plenty of fluids today. She will return to clinic in 3 weeks for repeat chest x-ray to ensure resolution of her pneumonia, or sooner p.r.n. PLAN: See Assessment. ELB:[id number] C: 08/17/08 11:08 CONFIRM #: [id number] documented in this encounter Plan of Treatment Not on filedocumented as of this encounter Visit Diagnoses Not on filedocumented in this encounter Care Teams Char Filter Operator Relationship Specialty Start Date End Date Lubna Yee MD PCP - General 07/04/10 07/23/11 [address] [facility] [address] documented as of this encounter
--- OUTSIDE RECORDS SUMMARY | 2021-11-07 13:14 | XMS_ITS | Encounter Summary ---
:1975 Author Organization [employer] [facility] [employer] Address [address] [address] Care Team Providers Name Role Phone Lubna Yee MD Primary Care Provider Encounter Details Date Type Department Care Team Description 10/24/2009 Office Visit [facility] [place] [id number] [facility] [place] [address] [place] [address] [phone] (Wo rk) Social History Tobacco Use Types Packs/Day Years Used Date Smoking Tobacco: Never Assessed Sex Assigned at Date Recorded Not on file documented as of this encounter Last Filed Vital Signs Vital Sign Reading Time Taken Comments Blood Pressure 94/60 10/24/2009 2:15 PM CDT Pulse 76 10/24/2009 2:15 PM CDT Temperature - - Respiratory Rate - - Oxygen Saturation - - Inhaled Oxygen Concentration - - Weight 70.3 kg (154 lb 15.7 oz) 10/24/2009 2:15 PM CDT C: 70.3kg Height - - Body Mass Index - - documented in this encounter Progress Notes Paulette Conley MD - 10/24/2009 12:01 AM CDT Progress Notes signed by Paulette Conley MD at 10/25/09 0916 Author: Paulette Conley MD Service: (none) Author Type: Physician Filed: 07/23/10 0005 Note Time: 10/24/09 0001 Status: Signed Senior Technologist: Paulette Conley MD (Physician) NAME: SHARIF PRICE MR#: [id number] ACCT: [id number] VISIT: [id number] DICTATING CLINICIAN: Paulette Conley MD CONFIRM #: [id number] LOC: 602 CLINIC PROGRESS NOTE DATE OF VISIT: 10/24/2009 : 1975 SUBJECTIVE: The patient is a very pleasant 34-year-old female who comes in today with concerns of Lyme's disease. She states that she was seen in urgent care September 24, 2009 and was given some triamcinolone cream to use to a patch on her left waistline area. It was more of an elevated area and it seemed to take it away, but then she had a residual dark pigmentary change that has come back. She states that on she was in the [place]. They noticed that her dog had several deer ticks on it as well as regular wood ticks. Two to three weeks later, she developed a rash on her left waistline. She states that she just does not feel well. She has felt feverish, although she has not had a documented fever and chills. Last night, she noticed that there was some faint circular erythema around this area and also almost like a target kind of lesion with a faint ring around it. She has just felt like her upper back has been stiff. This area on her waistline has been intermittently pruritic. She denies any arthralgias. Has had a little bit of a mild headache over the last couple of weeks, but she has some seasonal allergies and was not sure if it was due to that. REVIEW OF SYSTEMS: All other 12-point review of systems are negative. PAST MEDICAL HISTORY: Reviewed and updated in LastWord. MEDICATIONS: Reviewed and updated in LastWord. ALLERGIES: REVIEWED AND UPDATED IN LASTWORD. SOCIAL HISTORY: The patient is a nonsmoker. PHYSICAL EXAMINATION: VITAL SIGNS: Weight 155, blood pressure is 94/60, pulse is 76. GENERAL: She appears stated age. PSYCH: Alert and oriented x3. NECK: Without lymphadenopathy. HEENT: Oropharynx clear. NECK: Supple. HEART: Regular rate and rhythm. LUNGS: Clear to auscultation. SKIN: On her left waistline, she has an elevated patch that is erythematous, some excoriation there, approximately 1.5 cm. Just on either side of this is a faint nummular area that is approximately 1 cm. I do not appreciate any ring of central clearing at this time, though the patient tells me she noticed it yesterday. LEENA today negative. ASSESSMENT/PLAN: Dermatitis. It is possible she may have a couple of things going on. I think the main lesion that is elevated may be more of an eczematous kind of a process versus a contact dermatitis. A prescription for Clobetasol given that she can use twice daily to that area. To the other areas flanking it that is more faint and nummular looking, she feels that there was a ring around those yesterday. I am going to go ahead and treat her with doxycycline 100 mg p.o. b.i.d. x21 days, especially given the fact that her dogs have had deer ticks. Will go ahead and check a Lyme titer. KML:MARIXA C: CONFIRM #: [id number] documented in this encounter Plan of Treatment Not on filedocumented as of this encounter Visit Diagnoses Not on filedocumented in this encounter Care Teams Black Ash Burner Operator Relationship Specialty Start Date End Date Lubna Yee MD PCP - General 07/04/10 07/23/11 [address] [facility] [place] [address] documented as of this encounter
--- OUTSIDE RECORDS SUMMARY | 2021-11-07 13:14 | XMS_ITS | Encounter Summary ---
:1975 [facility] Address [address] [address] Care Team Providers Name Role Phone Lubna Yee MD Primary Care Provider Reason for Visit Reason Comments Other Encounter Details Date Type Department Care Team Description 09/07/2008 Telephone [facility], Message Other [address] [place] [address] Social History Tobacco Use Types Packs/Day Years Used Date Smoking Tobacco: Never Assessed Sex Assigned at Date Recorded Not on file documented as of this encounter Progress Notes Center, Message - 09/07/2008 9:16 AM CDT Phone Note filed by [employer] at 07/21/108 Author: [employer] Service: (none) Author Type: (none) Filed: 07/21/10332 Note Time: 09/07/08915 Status: Signed Assistant Professor Of Religion: [employer] (Resource) Non -Symptom Message from Front Line Caller Name/Relationship: Bone density- Lise Primary Antisubmarine Weapons Officer: elba Message: Missing bone density order please fax to [phone] Electric Motor Tester:Lise Best call back number:[phone] Is it OK to leave a confidential message on this voicemail? yes *ECODE~[email or web address] Created on 07Sep2008 9:16am by RONNIE REDDY R On 07Sep2008 10:03am DANUTA SWENSON wrote: [place] nurse faxed orders. Bone density recommendation in 09/03/08 scrubber machine tender note. KFURTER INSPECTOR documented in this encounter Plan of Treatment Not on filedocumented as of this encounter Visit Diagnoses Not on filedocumented in this encounter Care Teams Therapeutic Recreation Assistant Relationship Specialty Start Date End Date Lubna Yee MD PCP - General 07/04/10 07/23/11 [address] [place] [address] documented as of this encounter
--- OUTSIDE RECORDS SUMMARY | 2021-11-07 13:14 | XMS_ITS | Encounter Summary ---
:1975 Author Organization [facility] Address [address] [place] [address] Care Team Providers Name Role Phone Lubna Yee MD Primary Care Provider Encounter Details Date Type Department Care Team Description 05/28/2008 PN Conversion Only BRAY CONVERSION [address] [facility] [place] [address] Social History Tobacco Use Types Packs/Day Years Used Date Smoking Tobacco: Never Assessed Sex Assigned at Date Recorded Not on file documented as of this encounter Progress Notes Lubna Yee MD - 08/15/2010 12:01 AM CDT CLINIC PROGRESS NOTE HPI: Courtney presents to talk about her generalized anxiety and recurrent major depression. She is tolerating citalopram 20mg daily and is feeling better. She completes a PHQ-9 questionnaire today and scores a 8 (last score was 21) with 1 in little interest in doing things, 1 with feeling sadness, 2 trouble sleeping, 2 feeling fatigued, 1 slightly overeating with new sensation of increased appetite, 1 difficulty concentrating at work. She denies any suicidal ideation. She has struggled with her weight for some time and has been on numerous weight programs and has tried meridia and phentermine. she is requesting a short term trial of phentermine again to help jump start her weight loss again and help diminish her appetite. PAST MEDICAL HISTORY: Reviewed, see PHP in LastWord MEDICATIONS: Reviewed and updated, see PHP in LastWord. HABITS: She is a nonsmoker. Very little alcohol intake. She exercises regularly with a personal property assessor. OBJECTIVE: Blood pressure 102/66, pulse 62, weight 168 pounds. GENERAL: She is tearful, depressed, anxious today. CV: Regular. No murmurs. LUNGS: Clear. PSYCH EXAM: Mood and affect appear depressed, slightly flat affect. Her insight is normal. She has no tangential thoughts. Her speech is normal rate and tone. She has no delusions, hallucinations or suicidal ideation. ASSESSMENT/PLAN: 1. Recurrent major depression with mild symptoms. She is responding to citalopram 20 mg. She may continue lorazepam 0.5 mg 1 p.o. b.i.d. p.r.n. for breakthrough anxiety and to help her sleep. 2. obesity with stress eating: I agreed to give her 3mo of phentermine 30 mg 1 daily, s.e. profile reviewed to help jump start her weight loss and supress appetite. RTC 2-3mo documented in this encounter Plan of Treatment Not on filedocumented as of this encounter Visit Diagnoses Not on filedocumented in this encounter Care Teams Steak Sauce Maker Relationship Specialty Start Date End Date Lubna Yee MD PCP - General 07/04/10 07/23/11 [address] [place] [address] documented as of this encounter
--- OUTSIDE RECORDS SUMMARY | 2021-11-07 13:14 | XMS_ITS | Encounter Summary ---
:1975 Author Organization [facility] Address [address] [address] Care Team Providers Name Role Phone Lubna Yee MD Primary Care Provider Reason for Visit Reason Comments Other Encounter Details Date Type Department Care Team Description 06/09/2009 Telephone [facility], Message Other [address] [place] [address] Social History Tobacco Use Types Packs/Day Years Used Date Smoking Tobacco: Never Assessed Sex Assigned at Date Recorded Not on file documented as of this encounter Progress Notes Center, Message - 06/09/2009 9:21 AM CST Phone Note filed by Extreme DA at 07/22/10127 Author: Extreme DA Service: (none) Author Type: (none) Filed: 07/22/10127 Note Time: 06/09/09920 Status: Signed Steam Conditioner Operator: Extreme DA (Resource) Lab/Radiology Requests Caller Name/Relationship:Courtney/Oz Primary Nuclear Station Operator:Dr. Yee What test is needed and when?states thyroid / vitamin D Why is test needed/requested?f/u per MD *If symptom related, send to triage Cocoa Room Operator:Courtney/Oz Best call back number:[phone] work or [phone] Is it OK to leave a confidential message on this voicemail?yes *ECODE~[email or web address] Created on 09Jun2009 9:21am by CHIQUITA RIOS On 09Jun2009 11:11am DANUTA SWENSON wrote: Message forwarded to Dr. Yee. 08/16/08 TSH 2.04, Vitamin D-25. Should labs be rechecked? On 09Jun2009 12:31pm LUBNA YEE wrote: please send lab slip for TSH-244.9 and Vit D 25OH- 268.9 Acknowledged by LUBNA YEE on 12:31pm On 09Jun2009 1:43pm KIT VICENTE wrote: pt notified lab slip sent to lab. Acknowledged by KIT VICENTE on 1:43pm ER AND CELLOPHANER MACHINE documented in this encounter Plan of Treatment Not on filedocumented as of this encounter Visit Diagnoses Not on filedocumented in this encounter Care Teams Stemhole Borer Relationship Specialty Start Date End Date Lubna Yee MD PCP - General 07/04/10 07/23/11 [address] [place] [address] documented as of this encounter
--- OUTSIDE RECORDS SUMMARY | 2021-11-07 13:14 | XMS_ITS | Encounter Summary ---
:1975 Author Organization [employer] Address [address], [place] [address] Care Team Providers Name Role Phone Lubna Yee MD Primary Care Provider Reason for Visit Reason Comments Other Encounter Details Date Type Department Care Team Description 06/21/2009 Telephone [facility], Message Other [address] [place] [address] Social History Tobacco Use Types Packs/Day Years Used Date Smoking Tobacco: Never Assessed Sex Assigned at Date Recorded Not on file documented as of this encounter Progress Notes Center, Message - 06/21/2009 7:24 AM CDT Phone Note filed by [employer] at 07/22/10225 Author: [employer] Service: (none) Author Type: (none) Filed: 07/22/10225 Note Time: 06/21/09723 Status: Signed Status Controller: [employer] (Resource) Front Line Sx Call Caller Name/Relationship: Courtney Primary Gift Officer: Nakia Symptom or request? cold Is appointment scheduled & when? no Patient Resource Coordinator: Courtney Best call back number: [phone] cell Is it OK to leave a confidential message on this voicemail? y *ECODE~PNSX2 Created on 21Jun2009 7:24am by MAGDY BAUTISTA On 21Jun2009 7:38am MIRACLE HOLT wrote: CLINICIAN FOLLOW-UP: none IMPRESSION: Sinus Pain and Congestion. SYMPTOMS: Cold sx the last 5 days. Very congested with productive cough, yellow-green phlegm. Denies SOB. Face looks a little swollen and pink. Temperature of 100, day 2. Has frontal headache. Nasal speech. Wondering if needs to be seen. REcent pneumonia. No chest pain. Denies emergent symptoms Problem List: reviewed in electronic medical record. Allergies: Reviewed/updated in electronic medical record. Medications: Reviewed/updated in electronic medical record. Status: Not . Breast-Feeding Status: Not breast feeding. Advised to call back if any of the following occur: symptoms worsen or persist, any other questions or concerns. PLAN: SCHEDULE APPOINTMENT WITHIN 12-24 HOURS - appt booked at 11:15 with Zaire Elizondo NP. Patient/Caller agrees with plan and denies additional questions. References Used: Jose Luis Adult Telephone Protocols--Sinus Pain and Congestion with interim home management advise given. Call Complete. *SH~THOMP~SINUSPAIN~ GE LICENSED PRACTICAL NURSE documented in this encounter Plan of Treatment Not on filedocumented as of this encounter Visit Diagnoses Not on filedocumented in this encounter Care Teams Suture Polisher Relationship Specialty Start Date End Date Lubna Yee MD PCP - General 07/04/10 07/23/11 [address] [place] [address] documented as of this encounter
--- OUTSIDE RECORDS SUMMARY | 2021-11-07 13:14 | XMS_ITS | Encounter Summary ---
:1975 Author Organization [employer] Address [address] [address] Care Team Providers Name Role Phone Lubna Yee MD Primary Care Provider Encounter Details Date Type Department Care Team Description 06/21/2009 Office Visit [facility] Carline Elizondo, [address] Castaneda APRN, [place] [address] [place] [address] [address] [address] (Wo rk) Social History Tobacco Use Types Packs/Day Years Used Date Smoking Tobacco: Never Assessed Sex Assigned at Date Recorded Not on file documented as of this encounter Last Filed Vital Signs Vital Sign Reading Time Taken Comments Blood Pressure 106/60 06/21/2009 11:12 AM CDT Pulse 88 06/21/2009 11:12 AM CDT Temperature 36.6 ??C (97.9 ??F) 06/21/2009 11:12 AM ORAL C: 36.6 C CDT Respiratory Rate - - Oxygen Saturation - - Inhaled Oxygen Concentration - - Weight 75.7 kg (166 lb 15.6 06/21/2009 11:12 AM C: 75.8 kg oz) CDT Height - - Body Mass Index - - documented in this encounter Progress Notes Carline Elizondo APRN, SUPERVISOR MOLD YARD - 06/21/2009 12:01 AM CDT Progress Notes signed by ELIZABETH Benson at 06/21/09 1130 Author: ELIZABETH Benson Service: (none) Author Type: Nurse Practitioner Filed: 07/22/10 2106 Note Time: 06/21/09 0001 Status: Signed Political Theory Professor: ELIZABETH Benson (Nurse Practitioner) Acute Clinic Visit IMPRESSION: Viral URI SUBJECTIVE: History of Present Illness: Symptom(s): 34 yr old female here with URI x 5 days. Flew back from [place]. Rhinorrhea/congestion, ear pressure. Drainage and cough this am. Low grade fever last night. Symptoms worsening. History of pneumonia last year. Meds This Illness: Decongestant spray Zyrtec D not helpful Past History: No History of Respiratory Disease Tobacco: None. Adverse Drug Reactions: None. Chronic Medications: Reviewed and updated today on Health Profile in LastWord. OBJECTIVE: Vital Signs: T: 97.9 degrees F. P: 88 BP: 106/60 Weight: 167 lbs. Ears: Bilateral pinnae, canals and TMs normal Oropharynx: Normal, mucous membranes moist, tonsils symmetric without redness or exudate. Neck: Supple without significant adenopathy or thyromegaly Respiratory: Lung sounds clear to auscultation without respiratory distress Cardiac: RRR without murmur Lab & X-Ray: None ASSESSMENT: Viral URI PLAN: Sudafed, fluids, rest. Patient is to start antibiotic Rx in Next week if worsening symptoms days if the following symptoms develop: amoxicillin 875 bid x 10 days Symptomatic care Nutritious liquids RTC PRN if not gradually improving *SH~PC~URIL ~S[place]th[place] Note completed on: 06/21/2009 11:30 AM documented in this encounter Plan of Treatment Not on filedocumented as of this encounter Visit Diagnoses Not on filedocumented in this encounter Care Teams Metal Wire Coating Operator Relationship Specialty Start Date End Date Lubna Yee MD PCP - General 07/04/10 07/23/[address] [address] documented as of this encounter
--- OUTSIDE RECORDS SUMMARY | 2021-11-07 13:14 | XMS_ITS | Encounter Summary ---
:1975 Author Organization [employer] Address [address], [place] [address] Care Team Providers Name Role Phone Lubna Yee MD Primary Care Provider Encounter Details Date Type Department Care Team Description 05/31/2008 Office Visit [facility] Family Medic [facility] [place] [address] [address] [phone] Social History Tobacco Use Types Packs/Day Years Used Date Smoking Tobacco: Never Assessed Sex Assigned at Date Recorded Not on file documented as of this encounter Last Filed Vital Signs Vital Sign Reading Time Taken Comments Blood Pressure 114/60 05/31/2008 11:03 AM ASSEMBLER BRAZER Pulse 90 05/31/2008 11:03 AM ASSEMBLER BRAZER Temperature - - Respiratory Rate - - Oxygen Saturation - - Inhaled Oxygen Concentration - - Weight 73 kg (160 lb 15.7 oz) 05/31/2008 11:03 AM ASSEMBLER BRAZER C : 73.0kg Height - - Body Mass Index - - documented in this encounter Progress Notes Lubna Yee MD - 05/31/2008 12:01 AM CST Progress Notes signed by Lubna Yee MD at 06/02/08 1244 Author: Lubna Yee MD Service: (none) Author Type: Physician Filed: 07/22/10 1128 Note Time: 05/31/08 0001 Status: Signed Pediatric Medical Assistant: Lubna Yee MD (Physician) NAME: SHARIF PRICE MR#: [id number] ACCT: [id number] VISIT: [id number] DICTATING CLINICIAN: Lubna Yee MD CONFIRM #: [id number] LOC: 602 CLINIC PROGRESS NOTE DATE OF VISIT: 05/31/2008 SUBJECTIVE: : 1975. REASON FOR VISIT: Establish care. HPI: Sharif presents to establish care and to review recent onset of multiple symptoms over the last 3 weeks. She has developed a sore throat, fatigue, headache, bodyaches, fever, chills and a rash on her chest. She also reports some mild congestion. Her boyfriend's son has similar symptoms. He was tested for strep this morning, which was negative. She has been taking ibuprofen for discomfort. She also reports fatigue and has had a long history of irritable colon. Her symptoms have increased. Her irritable colon presents as stomach cramping and loose stools. The symptoms are exacerbated by stress. She does not know of other triggers. REVIEW OF SYSTEMS: Complete review of systems is otherwise negative. PAST MEDICAL HISTORY: Reviewed and updated today. See PHP in LastWord. MEDICATIONS: Reviewed and updated. See PHP in LastWord. ADR/ALLERGIES: REVIEWED AND UPDATED. SEE PHP IN LASTWORD. SOCIAL HISTORY: She has a significant other of 3 years- Rubén. He has 2 children, a 7-year-old son and a daughter. Rubén has full custody of his son and his daughter lives with his ex-. She does have her own condo, but lives the majority of the time with her partner, Rubén. She works at [employer] in [place]. HABITS: She is a nonsmoker. Occasionally drinks alcohol and has 1 cup of caffeinated beverage about 4 times a week. She exercises occasionally. She does take a multivitamin, but not calcium. FAMILY HISTORY: She has 1 brother. She has a maternal grandfather and maternal aunt who have diabetes. No family history of hypertension, cholesterol or cancer. There is family history of thyroid disease. Paternal grandmother with Graves and mother and maternal aunt with hypothyroidism. Her father had peptic ulcer disease. There is no family history of inflammatory bowel disease, colon polyps, diverticulosis. OBJECTIVE: VS: BP: 114/60. P: 90. Wt: 161 lb. GENERAL: She is in no acute distress. She is alert and oriented. HEENT: Eyes: Clear. Ears: Clear. Nasal turbinates are injected and nasal passages have yellow mucus present. Oropharynx is injected without lesions or exudates. There was mild cobblestoning. NECK EXAM: She does have enlarged anterior cervical lymph nodes that are slightly tender to palpation. No thyromegaly. No masses. CARDIOVASCULAR EXAM: Regular rate and rhythm, S1, S2. No murmurs, gallops, rubs. LUNG EXAM: Clear to auscultation bilaterally. No wheezing, rhonchi, rubs, crackles. She has fair airway exchange. ABDOMINAL EXAM: Positive bowel sounds in all 4 quadrants. She is nondistended, nontender. No hepatosplenomegaly. No masses. No rebound or guarding. BACK EXAM: Without CVA tenderness bilaterally. RST: negative ASSESSMENT: 1. Prolonged viral illness with pharyngitis. Her rapid strep test was negative today. Prescription for Zithromax 250 mg Z-Samuel given today. Side effect profile reviewed. She will continue to take ibuprofen, rest and increase her fluid intake. 2. Irritable colon with cramping and diarrhea. She may take Imodium p.r.n. Side effect profile reviewed, and will give a trial of Levsin q.i.d. p.r.n. for cramping. Side effect profile reviewed. She will follow up with me in 1 month for recheck of her irritable colon. PLAN: See assessment. ELB:[id number] C: 06/01/08 12:09 CONFIRM #: [id number] MBLER BRAZER documented in this encounter Plan of Treatment Not on filedocumented as of this encounter Visit Diagnoses Not on filedocumented in this encounter Care Teams Metal Sorter Relationship Specialty Start Date End Date Lubna Yee MD PCP - General 07/04/10 07/23/[address] [address] documented as of this encounter
--- OUTSIDE RECORDS SUMMARY | 2021-11-07 13:14 | XMS_ITS | Encounter Summary ---
:1975 Author Organization [employer] Address [address] [place] [address] Care Team Providers Name Role Phone Lubna Yee MD Primary Care Provider Reason for Visit Reason Comments Other Encounter Details Date Type Department Care Team Description 05/31/2008 Telephone [facility], Message Other [address] [place] [address] Social History Tobacco Use Types Packs/Day Years Used Date Smoking Tobacco: Never Assessed Sex Assigned at Date Recorded Not on file documented as of this encounter Progress Notes Center, Message - 05/31/2008 4:42 PM CST Phone Note filed by Silecs at 07/20/10 3360 Author: Silecs Service: (none) Author Type: (none) Filed: 07/20/10 2890 Note Time: 05/31/08 1642 Status: Signed Dairy Equipment Mechanic: Message Center Non -Symptom Message from Front Line Caller Name/Relationship: Xochitl Primary Certified Medical Aide: Dr. Yee She saw Dr. Yee this morning and went to pickup driver prescription from pharmacy that was prescribed and it had a differnt Dr. garfield Allred on it just wants to be sure its the right prescription for her. Her prescriptions are suppose to be Hyomax-SL 0.125.mg sub tabs qty 60 and the second is Zithromyacin 250 tab 6 pack Wire Weaver Helper: Xochitl Best call back number: [phone] Is it OK to leave a confidential message on this voicemail? yes *ECODE~PNMSG2 Created on 31May2008 4:42pm by SANKET ANNE On 31May2008 5:02pm HELEN GARCIA wrote: SD verified that the Levsin and Zithromax she received are the correct orders. SD contacted [facility] and the pharmacist had no explanation on why Dr Allred's name was on the Rx. [facility] will correct their records. SD made callback to the patient and gave her this information. ASSOCIATE documented in this encounter Plan of Treatment Not on filedocumented as of this encounter Visit Diagnoses Not on filedocumented in this encounter Care Teams Automobile Accessories Installer Relationship Specialty Start Date End Date Lubna Yee MD PCP - General 07/04/10 07/23/11 [address] [facility] [place] [address] documented as of this encounter
--- OUTSIDE RECORDS SUMMARY | 2021-11-07 13:14 | XMS_ITS | Encounter Summary ---
:1975 [facility] Address [address] [address] Care Team Providers Name Role Phone Lubna Yee MD Primary Care Provider Reason for Visit Reason Comments Other Encounter Details Date Type Department Care Team Description 08/09/2008 Telephone [facility] [facility], Message Other [address] [place] [address] Social History Tobacco Use Types Packs/Day Years Used Date Smoking Tobacco: Never Assessed Sex Assigned at Date Recorded Not on file documented as of this encounter Progress Notes Center, Message - 08/09/2008 7:47 AM CDT Phone Note filed by Boxfish at 07/21/10113 Author: [employer] Service: (none) Author Type: (none) Filed: 07/21/10113 Note Time: 08/09/08746 Status: Signed Stock Fitter: [employer] (Resource) Front Line Sx Call Caller Name/Relationship: Janae chen Primary Pond Scaler:Lubna Yee Symptom or request? states Neck and back stiffness, with fever Is appointment scheduled & when? n Postal Worker:Janae chen Best call back number:[phone] home Is it OK to leave a confidential message on this voicemail? yes vm *ECODE~PNSX2 Created on 09Aug2008 7:47am by KIT FREIRE On 09Aug2008 8:05am MIRACLE HOLT wrote: CLINICIAN FOLLOW-UP: none IMPRESSION: Influenza. SYMPTOMS: 3 days ago developed neck, back and leg pain. Fever started yesterday with cough and nasal congestion. Neck is a little stiff. Can touch chin to chest. Wondering what to do. Denies emergent symptoms Problem List: reviewed in electronic medical record. Allergies: Reviewed/updated in electronic medical record. Medications: Reviewed/updated in electronic medical record. Advised to call back if any of the following occur: symptoms worsen or persist, any other questions or concerns. PLAN: GO TO URGENT CARE Patient/Caller agrees with plan and denies additional questions. References Used: Jose Luis Adult Telephone Protocols--Influenza. Call Complete. *SH~DARREL~INFLUENZA~ CTOR SUPPLY CHAIN documented in this encounter Plan of Treatment Not on filedocumented as of this encounter Visit Diagnoses Not on filedocumented in this encounter Care Teams Relay Telegrapher Relationship Specialty Start Date End Date Lubna Yee MD PCP - General 07/04/10 07/23/11 [address] [place] [address] documented as of this encounter
--- OUTSIDE RECORDS SUMMARY | 2021-11-07 13:14 | XMS_ITS | Encounter Summary ---
:1975 Author Organization [facility] Address [address] [place] [address] Care Team Providers Name Role Phone Lubna Yee MD Primary Care Provider Encounter Details Date Type Department Care Team Description 05/31/2008 PN Conversion [place] [address] [facility] [address] [place] [address] [place] [address] Social History Tobacco Use Types Packs/Day Years Used Date Smoking Tobacco: Never Assessed Sex Assigned at Date Recorded Not on file documented as of this encounter Plan of Treatment Not on filedocumented as of this encounter Procedures Procedure Name Priority Date/Time Associated Diagnosis Comme nts STREP GROUP A Routine 05/31/2008 2:26 PM Results for this ANTIGEN TEST PROFESSIONAL EMPLOYER CONSULTANT procedure are i n the results section. BETA STREP FOLLOWUP Routine 05/31/2008 2:26 PM Re sults for this PROFESSIONAL EMPLOYER CONSULTANT procedure are i n the results section. documented in this encounter Results Strep Group A Antigen Test (05/31/2008 2:26 PM PROFESSIONAL EMPLOYER CONSULTANT) Analysis Performed At Patho logist Time Signature Strep Group A Negative Negative HP CONVERSION Antigen Test Comment: Culture to follow. Specimen (Source) Anatomical Collection Method Collection Time Re ceived Time Location / / Volume Laterality 05/31/2008 2:26 PM PROFESSIONAL EMPLOYER CONSULTANT Lubna Yee MD LAB_1 Performing Organization Address City/State/ZIP Code Phon e Number HP CONVERSION Beta Strep Followup (05/31/2008 2:26 PM PROFESSIONAL EMPLOYER CONSULTANT) P athologist Signature Strep Screen SEE TEXT HP CONVERSION Comment: Patient: SHARIF PRICE Rapid Strep Follow up Culture ? Collected: ??[id number] ??[id number] Source: Throat ?Processed: ??[id number] ??[id number] Final Report ------ ?[id number] ??1316 No beta hemolytic Strep group A isolated . Specimen (Source) Anatomical Collection Method Collection Time Re ceived Time Location / / Volume Laterality 05/31/2008 2:26 PM PROFESSIONAL EMPLOYER CONSULTANT Lubna Yee MD LAB_1 Performing Organization Address City/State/ZIP Code Phon e Number HP CONVERSION documented in this encounter Visit Diagnoses Not on filedocumented in this encounter Care Teams Purchase Request Editor Relationship Specialty Start Date End Date Lubna Yee MD PCP - General 07/04/10 07/23/11 [address] [facility] [place] [address] documented as of this encounter
--- OUTSIDE RECORDS SUMMARY | 2021-11-07 13:14 | XMS_ITS | Encounter Summary ---
:1975 Author Organization [employer] Address [address], [place] [address] Care Team Providers Name Role Phone Lubna Yee MD Primary Care Provider Encounter Details Date Type Department Care Team Description 09/03/2008 Office Visit [facility] Family Medic [facility] [place] [address] [address] [phone] Social History Tobacco Use Types Packs/Day Years Used Date Smoking Tobacco: Never Assessed Sex Assigned at Date Recorded Not on file documented as of this encounter Last Filed Vital Signs Vital Sign Reading Time Taken Comments Blood Pressure 112/62 09/03/2008 3:12 PM CDT Pulse 84 09/03/2008 3:12 PM CDT Temperature - - Respiratory Rate - - Oxygen Saturation 98% 09/03/2008 3:12 PM CDT Inhaled Oxygen Concentration - - Weight 71.7 kg (157 lb 15.7 oz) 09/03/2008 3:12 PM CDT C: 71.7kg Height - - Body Mass Index - - documented in this encounter Progress Notes Lubna Yee MD - 09/03/2008 12:01 AM CDT Progress Notes signed by Lubna Yee MD at 09/06/08 3667 Author: Lubna Yee MD Service: (none) Author Type: Physician Filed: 07/22/10 1406 Note Time: 09/03/08 0001 Status: Signed Miller Helper: Lubna Yee MD (Physician) NAME: SHARIF PRICE MR#: [id number] ACCT: [id number] VISIT: [id number] DICTATING CLINICIAN: Lubna Yee MD CONFIRM #: [id number] LOC: 602 CLINIC PROGRESS NOTE DATE OF VISIT: 09/03/2008 SUBJECTIVE: : 1975. REASON FOR VISIT: Followup left upper lobe pneumonia. HPI: Sharif presents today to follow up on her left upper lobe pneumonia after 10-day treatment of Levaquin. She reports that she continues to have residual cough and shortness of breath with activity. She is still feeling fatigued. She was found to have vitamin D deficiency on her blood work and needs to start vitamin D replacement. She does have a history of osteopenia as noted on her DEXA scan done 3 years ago by her edge polisher and is requesting a repeat to see where she is at this time. She denies any arthralgias or myalgias, but does have chronic fatigue. REVIEW OF SYSTEMS: Complete review of systems otherwise negative. PAST MEDICAL HISTORY: Reviewed, see PHP in LastWord. MEDICATIONS: Reviewed and updated, see PHP in LastWord. ADR/ALLERGIES: REVIEWED AND UPDATED, SEE PHP IN LASTWORD. HABITS: She is nonsmoker. OBJECTIVE: VS: BP: 112/62. P: 84. Wt: 158 lb. She is 98% on room air. GENERAL: She is in acute distress. She is alert and oriented. HEENT: Her eyes are clear. TMs clear. Nasal turbinates are normal. Nasal passages are patent. Oropharynx is clear. No lesions or exudates. NECK: Supple, nontender, no adenopathy, no thyromegaly. CARDIOVASCULAR: Regular rhythm, S1, S2, no murmurs or gallops. LUNGS: Clear auscultation bilaterally, no wheezing, rales, or crackles, fair airway exchange. Repeat chest x-ray ordered and personally reviewed which shows resolution of the left upper lobe pneumonia. ASSESSMENT: 1. Left upper lobe pneumonia, resolved. 2. Post pneumonia bronchospasm. Will add prednisone 20 mg 2 p.o. q. a.m. x5 days. She may continue Mucinex and will add Ventolin 2 puffs q.4 hours p.r.n. for shortness of breath and intermittent wheezing. 3. Vitamin D deficiency. We will replenish her vitamin D with 50,000 international unit capsule weekly x10 weeks, along with vitamin D 1000 international units 1 supplements daily. She will return to clinic in 4 months for repeat vitamin D level and will aim for 50 nanograms/mL. 4. Osteopenia. Will repeat DEXA scan and reviewed the importance of 1200 mg of calcium a day with 1000 international units of vitamin D a day and regular weightbearing exercise. I will send her results or call if intervention needed. PLAN: See assessment. ELB:[id number] C: 09/06/08 07:06 CONFIRM #: [id number] documented in this encounter Plan of Treatment Not on filedocumented as of this encounter Procedures Procedure Name Priority Date/Time Associated Diagnosis Comme nts XR CHEST 2 VIEWS Routine 09/03/2008 3:26 PM Resul ts for this CDT procedure are i n the results section. documented in this encounter Results XR Chest 2 Views (09/03/2008 3:26 PM CDT) Anatomical Region Laterality Modality Chest, Lung Other Specimen (Source) Anatomical Location Collection Method / Collectio n Time Received Time / Laterality Volume Narrative 09/03/2008 3:26 PM CDT Comparison to exam 08/09/2008 shows interval clearing of the left upper lobe pneumonia. ??No acute consoli dation is seen within the lungs and the costophrenic angles are cl ear. ??The heart is within normal limits in size. ??No other change is seen. CONCLUSION: ??Resolution of the left upp er lobe pneumonia since 08/09/2008. [id number] Dictating TRELL MEYER S RADIOLOGIST Procedure Note Bessy Jennings - 05/31/2016 Comparison to exam 08/09/2008 shows inte rval clearing of the left upper lobe pneumonia. No acute consolida tion is seen within the lungs and the costophrenic angles are cl ear. The heart is within normal limits in size. No other change i s seen. CONCLUSION: Resolution of the left upper lobe pneumonia since 08/09/2008. [id number] Dictating TRELL MEYER RADIOLOGIST Lubna Yee MD RAD GD documented in this encounter Visit Diagnoses Not on filedocumented in this encounter Care Teams Ocean Clam Boat Captain Relationship Specialty Start Date End Date Lubna Yee MD PCP - General 07/04/10 07/23/11 [address] [place] [address] documented as of this encounter
--- OUTSIDE RECORDS SUMMARY | 2021-11-07 13:14 | XMS_ITS | Encounter Summary ---
:1975 Author Organization [employer] Address [address], [place] [address] Care Team Providers Name Role Phone Lubna Yee MD Primary Care Provider Encounter Details Date Type Department Care Team Description 02/27/2009 Office Visit [facility] [address] Jeanette Doyle [facility] [address] [place] [address] [place] [address] [phone] Social History Tobacco Use Types Packs/Day Years Used Date Smoking Tobacco: Never Assessed Sex Assigned at Date Recorded Not on file documented as of this encounter Last Filed Vital Signs Vital Sign Reading Time Taken Comments Blood Pressure 116/75 02/27/2009 10:23 AM STEREO MAP PLOTTER OPERATOR Pulse 81 02/27/2009 10:23 AM STEREO MAP PLOTTER OPERATOR Temperature 36.8 ??C (98.2 ??F) 02/27/2009 10:23 AM STEREO MAP PLOTTER OPERATOR C: 3 6.8 C Respiratory Rate 16 02/27/2009 10:23 AM STEREO MAP PLOTTER OPERATOR Oxygen Saturation - - Inhaled Oxygen Concentration - - Weight - - Height - - Body Mass Index - - documented in this encounter Progress Notes Moris Doyle MBBS - 02/27/2009 12:01 AM CST Progress Notes signed by Moris Doyle MD at 02/27/09 1158 Author: Moris Doyle MD Service: (none) Author Type: Physician Filed: 07/22/10 1827 Note Time: 02/27/09 0001 Status: Signed Welder Oxyhydrogen: Moris Doyle MD (Physician) SUBJECTIVE: Patient is a 32-year-old who presents with left ear feeling plugged since yesterday with hearing loss noted this morning. She has had a slight nasal congestion for the last couple of days. She denies any fevers. No discharge from the ears. Does admit to use of Q-tips. She also put OTC wax softening drops in the left ear. Past Medical history: Reviewed and updated and last word. Adverse Drug Reactions: NKDA. Medications: Reviewed. See Medication List in LastWord. Habits: Nonsmoker. OBJECTIVE: Vital Signs : Reviewed; See Flowsheet Charting in LastWord. T: 98.3. NAD. HEENT: NCAT. PERRLA. Nares are edematous with clear discharge. Oropharynx clear. Right EAC and TM are clear. Left EAC is occluded with cerumen. This was lavaged in the clinic by the nurse. Recheck reveals normal EAC and TM. Patient felt subjectively improved after the ear lavage. Neck: Supple without adenopathy. ASSESSMENT: Left ceruminosis. PLAN: Care of the ears was discussed with the patient. Follow-up with PMD p.r.n. The patient was discharged ambulatory and in stable condition. *SH~DNS~Note EO MAP PLOTTER OPERATOR documented in this encounter Plan of Treatment Not on filedocumented as of this encounter Visit Diagnoses Not on filedocumented in this encounter Care Teams Office Director Relationship Specialty Start Date End Date Lubna Yee MD PCP - General 07/04/10 07/23/11 [address] [place] [address] documented as of this encounter
== END 2021-10-13 10:02 | disposition home or self-care (01) ==
PROVIDERS: Visit Provider Obstetrics & Gynecology
DX: Z34.90 Encounter for supervision of normal pregnancy, unspecified, unspecified trimester (principal); O14.00 Mild to moderate pre-eclampsia, unspecified trimester
CPT/HCPCS: 82565; 82570; 84156; 84450; 84460; 84520; 87081; 87186; 87653

== ENCOUNTER 2021-10-14 11:41 | Outpatient (CLI) | payer BC, OTHER, SELFPAY ==
[2021-10-14] MEDS: BETAMETHASONE SOD PHOS/ACETATE 6 MG/ML ML 12 MG IM (12:01)
--- OUTSIDE RECORDS SUMMARY | 2021-11-07 13:34 | XMS_ITS | Encounter Summary ---
:1975 Author Organization [employer] Address [address], [place] [address] Care Team Providers Name Role Phone Britta Cox PA-C Primary Care Provider Reason for Visit Reason Onset Date Comments INITIAL VISIT Video Visit Video Visit 07/08/2019 Encounter Details Date Type Department Care Team Description 07/08/2019 Telemedicine Cheo Myers, resul ting from assisted reproductive technology in first trimester; Obstetrics/Gynecolog y Sonal I, CLERICAL SUPPORT, Screening for diabetes melli tus; [address] [facility] LATIN PROFESSOR Encounter for blood typing; [address] [address] [facility] screening for isoi mmunization; [place] [address] Screening for blood disease; [phone] [place], [place] Screening exa mination for venereal disease; [address] Screening examination for rubella; [phone] Encounter for d rug screening (Work) Social [...] this encounter Progress Notes Sonal Myers I, CLERICAL SUPPORT, LATIN PROFESSOR - 07/08/2019 8:30 AM CDT Subjective: Today's [...] Supplements (GRAPESEED EXTRACT) 500-50 MG daily. ??? Doole-3 Fatty Acids (FISH OIL) 500 MG Indications: PN: (Patient not taking: Reported on 03/02/2019) ??? Bfofmh-EkEkh-VdBdte-FA-Doole (MULTIVITAMIN/MINERALS OR) Take 1 tablet by mouth [...] Supplements (GRAPESEED EXTRACT) 500-50 MG daily. ??? Doole-3 Fatty Acids (FISH OIL) 500 MG Indications: PN: (Patient not taking: Reported on 03/02/2019) ??? Fiqjxm-KqAts-CbCvnz-FA-Doole (MULTIVITAMIN/MINERALS OR) Take 1 tablet by mouth [...] on file Occupational History ??? 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 Financial [...] file Gets together: Not on file Attends pentecostalism service: Not on file Active member of [...] Concern Yes Social History Narrative Works in [employer]. Single, partnered. 1 dog. 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 Mother's ethnicity: caucasain Father's ethnicity: Objective: Wt 181 lb 8 oz (82.3 kg) Comment: home BMI 35.45 kg/m?? Transvaginal ultrasound was ordered 06/10/2019 Indication: confirm EDC and viability, Findings: Single living intrauterine . [place] Length: .87 cm Gestational age by ultrasound: [...] Urine, w/ conf (07/20/2019 8:36 AM CDT) [facility] Method Time Signature Amphetamines Not Not 07/20/2019 [facility] Screen Detected Detected 11:38 AM LABORATORY CDT Barbiturates Not Not 07/20/2019 [facility] Screen Detected Detected 11:38 AM LABORATORY CDT Benzodiazepines Not Not 07/20/2019 [facility] Screen Detected Detected 11:38 AM LABORATORY CDT Buprenorphine Not Not 07/20/2019 [facility] Screen Detected Detected 11:38 AM LABORATORY CDT Cocaine Metabolite Not Not 07/20/2019 [facility] Screen Detected Detected 11:38 AM LABORATORY CDT Methadone Screen Not Not 07/20/2019 [facility] Detected Detected 11:38 AM LABORATORY CDT Opiates Screen Not Not 07/20/2019 [facility] Detected Detected 11:38 AM LABORATORY CDT Oxycodone Screen Not Not 07/20/2019 [facility] Detected Detected 11:38 AM LABORATORY CDT Phencyclidine Not Not 07/20/2019 [facility] (PCP) Screen Detected Detected 11:38 AM LABORATORY CDT THC (Marijuana) Not Not 07/20/2019 [facility] Metab Screen Detected Detected 11:38 AM LABORATORY CDT Creatinine, Urine, 155 >20 mg/dL 07/20/2019 [facility] Random 11:38 AM LABORATORY CDT Specimen Anatomical Collection Method Collection Time Receive d Time (Source) Location / / Volume Laterality Urine Non-blood 07/20/2019 8:36 AM 0 8:44 Collection / CDT AM CDT Unknown Narrative [facility] - 07/20/2019 11:38 AM CDT The [...] legal, or employment use. Sonal Myers APRN, LATIN PROFESSOR LAB_1 Performing Organization Address City/State/ZIP Code Phon e Number [facility] [address] [place] [address] Urine Culture (07/20/2019 8:36 AM CDT) [facility] Method Time Signature Urine Culture Urogenital 07/21/2019 [facility]et 9:34 AM CDT HOSPITAL Specimen Anatomical Collection Method Collection Time Receive d Time (Source) Location / / Volume Laterality Urine URINE SPECIMEN Non-blood 07/20/2019 8:36 AM 020 8:44 COLLECTION, CLEAN Collection / CDT AM CDT CATCH / Unknown Unknown Sonal Myers APRN, LATIN PROFESSOR LAB_1 Performing Organization Address City/State/ZIP Code Phon e Number [address] [address] (ABNORMAL) Urinalysis Routine(Micro If Pos) (07/20/2019 8:36 AM CDT) [facility] Method Time Signature Urine Color Yellow Straw-Yellow 07/20/2019 [facility] 9:01 AM CDT LABORATORY Urine Clarity Hazy (A) Clear 07/20/2019 [facility] 9:01 AM CDT LABORATORY Specific 1.017 1.005 - 07/20/2019 [facility] [place], 1.030 9:01 AM CDT LABORATORY Urine PH Urine 5.0 5.0 - 8.0 07/20/2019 [facility] 9:01 AM CDT LABORATORY Protein, Negative Negative 07/20/2019 [facility] Urine Qual 9:01 AM CDT LABORATORY (mg/dL) Glucose Urine Negative Negative 07/20/2019 [facility] Qual (mg/dL) 9:01 AM CDT LABORATORY Ketones, Trace (A) Negative 07/20/2019 [facility] Urine (mg/dL) 9:01 AM CDT LABORATORY Urobilinogen, <2.0 <2.0 07/20/2019 [facility] Urine (EU/dL) 9:01 AM CDT LABORATORY Bilirubin Negative Negative 07/20/2019 [facility] Urine 9:01 AM CDT LABORATORY Blood, Urine Negative Neg/Trace 07/20/2019 [facility] 9:01 AM CDT LABORATORY Nitrite Urine Negative Negative 07/20/2019 [facility] 9:01 AM CDT LABORATORY Leukocyte Negative Negative 07/20/2019 [facility] Est. 9:01 AM CDT LABORATORY Urine Source Clean Catch 07/20/2019 [facility] 9:01 AM CDT LABORATORY Specimen Anatomical Collection Method Collection Time Receive d Time (Source) Location / / Volume Laterality Urine URINE SPECIMEN Non-blood 07/20/2019 8:36 AM 020 8:44 COLLECTION, CLEAN Collection / CDT AM CDT CATCH / Unknown Unknown Sonal Myers APRN, LATIN PROFESSOR LAB_1 Performing Organization Address City/State/ZIP Code Phon e Number [facility] [address] [place] [address] (ABNORMAL) Rubella Immune Status, IgG (07/20/2019 8:28 AM CDT) athologist Signature Rubella Units 0.60 07/20/2019 [facility] 11:12 AM CDT LABORATORY Comment: The magnitude of the measured r esult, above the cutoff, is not indicative of the amount of antibody present. Rubella Intepretation Not Immune (A) Immune 07/20/2019 11 :12 AM [facility] CDT LABORATORY Specimen Anatomical Collection Method / Collection Time Recei joyce Time (Source) Location / Volume Laterality Blood Venipuncture / 07/20/2019 8:28 07/20/2019 8:30 Unknown AM CDT AM CDT Sonal Myers APRN, CNP LAB_1 Performing Organization Address [facility] Phon e Number [facility] [address] [place] [phone] Treponema Screen (07/20/2019 8:28 AM CDT) [facility] Method Time Signature Treponema Screen 0.075 {s_co_ratio 07/20/2019 [facility] Result } 10:34 AM LABORATORY CDT Treponema Screen Non Non 07/20/2019 [facility] Interpretation Reactive Reactive 10:34 AM LABORATORY CDT Specimen Anatomical Collection Method / Collection Time Recei joyce Time (Source) Location / Volume Laterality Blood Venipuncture / 07/20/2019 8:28 07/20/2019 8:30 Unknown AM CDT AM CDT Sonal Myers APRN, CNP LAB_1 Performing Organization Address City/[facility] Phon e Number [facility] [address] [place] [address] HIV 1/2 Ag/Ab 4th Generation (07/20/2019 8:28 AM CDT) [facility] Tagged Method Time Signature HIV 1/2 Negative Negative 07/20/2019 [facility] Antigen/Antib (Non (Non 9:21 AM CDT LABORATORY demi (4th Reactive) Reactive) generation) Comment: HIV-1 p24 Antigen and HIV-1/HIV -2 Antibody not detected Specimen Anatomical Collection Method / Collection Time Recei joyce Time (Source) Location / Volume Laterality Blood Venipuncture / 07/20/2019 8:28 07/20/2019 8:30 Unknown AM CDT AM CDT Sonal Karin Myers APRN, CNP LAB_1 Performing Organization Address [facility] Phon e Number [facility] [address] [place] [address] HEP B SURFACE ANTIGEN, NO REFLEX (07/20/2019 8:28 AM CDT) [facility] Method Time Signature Hepatitis B Negative Negative 07/20/2019 [facility] Surface (Non (Non 9:21 AM CDT LABORATORY Antigen Reactive) Reactive) Specimen Anatomical Collection Method / Collection Time Recei joyce Time (Source) Location / Volume Laterality Blood Venipuncture / 07/20/2019 8:28 07/20/2019 8:30 Unknown AM CDT AM CDT Sonal Karin Myers APRN, LIU LAB_1 Performing Organization Address [facility] Phon e Number [facility] [address] [place] [phone] Antibody Screen (07/20/2019 8:28 AM CDT) [facility] Method Time Signature Antibody Screen Negative 07/20/2019 [facility] Interpretation 9:47 AM CDT BLOOD BANK Specimen Anatomical Collection Method / Collection Time Recei joyce Time (Source) Location / Volume Laterality Blood Venipuncture / 07/20/2019 8:28 07/20/2019 8:30 Unknown AM CDT AM CDT Sonal Myers APRN, CNP LAB_1 Performing Organization Address [facility] Phon e Number [facility] BLOOD BANK [address] [place] [phone] Blood Group & RH (Blood Type) (07/20/2019 8:28 AM CDT) athologist Signature ABO B 07/20/2019 [facility] 9:47 AM CDT BLOOD BANK RH Positive 07/20/2019 [facility] 9:47 AM CDT BLOOD BANK Specimen Anatomical Collection Method / Collection Time Recei joyce Time (Source) Location / Volume Laterality Blood Venipuncture / 07/20/2019 8:28 07/20/2019 8:30 Unknown AM CDT AM CDT Sonal Karin Myers APRN LIU LAB_1 Performing Organization Address City/State/ZIP Code Phon e Number [facility] BLOOD BANK [address] [place] [address] HGB A1C (07/20/2019 8:28 AM CDT) [facility] gist Method Time Signature Hemoglobin A1C 4.8 <=5.6 % 07/20/2019 [facility] 3:54 PM CDT CENTRAL LAB Specimen Anatomical Collection Method / Collection Time Recei joyce Time (Source) Location / Volume Laterality Blood Venipuncture / 07/20/2019 8:28 07/20/2019 8:30 Unknown AM CDT AM CDT Sonal Myers APRN, LIU LAB_1 Performing Organization Address [facility] Code Phon e Number [facility] CENTRAL LAB [address] [address] documented in this encounter Visit Diagnoses Diagnosis resulting from assisted reprod uctive technology in first trimester Screening for diabetes mellitus Encounter for blood typing screening for isoimmunization Screening for blood disease Screening for unspecified disorder of bl ood and blood-forming organs Screening examination for venereal disea se Screening examination for rubella Encounter for drug screening documented in this encounter Care Teams Guitar Teacher Relationship Specialty Start Date End Date Britta Cox PA-C PCP - General 06/13/15 [address] [place] [address] documented as of this encounter
--- OUTSIDE RECORDS SUMMARY | 2021-11-07 13:34 | XMS_ITS | Encounter Summary ---
:1975 Author Organization [employer] Address [address], [place] [address] Care Team Providers Name Role Phone Britta Cox PA-C Primary Care Provider Reason for Visit Reason Comments Routine Visit Encounter Details Date Type Department Care Team Description 07/20/2019 [facility] Celia Lyons Rout ine Obstetrics/Gynecolo MD Visit gy [address] [facility] 5th Floor [facility] [address] [phone] Social History Tobacco Use Types Packs/Day Years [...] had psoriasis there, too. She sees the server software engineer on , and will ask her about [...] external genitalia, including urethral meatus, Bartholin's and Oakdale's glands with the exception of erythema throughout [...] 36 weeks, then weekly, alternating with the CAMP HOUSEKEEPER discussed, as well as discussed video/phone visits [...] TSH, Reflex 1.88 0.30 - 4.50 08/23/2019 [facility] uIU/mL 5:01 PM CDT LABORATORY Specimen Anatomical Collection Method / Collection Time Recei joyce Time (Source) Location / Volume Laterality Blood Venipuncture / 08/23/2019 9:42 08/23/2019 9:42 Unknown AM CDT AM CDT Narrative [facility] - 08/23/2019 5:01 P M CDT Lab will automatically reflex to Free T4 when TSH results are <0.30 uIU/mL or >4.50 mIU/mL. Celia Lyons MD LAB_1 Performing Organization Address City/State/ZIP Code Phon e Number [facility] [address] [place] [address] (ABNORMAL) Lab Glucose O'Polo Screen (08/23/2019 9:42 AM CDT) athologist Signature Glucose, 1 157 (H) 70 - 135 08/23/2019 [facility] OB mg/dL 10:03 AM CDT LABORATORY Challenge Specimen Anatomical Collection Method / Collection Time Recei joyce Time (Source) Location / Volume Laterality Blood Venipuncture / 08/23/2019 9:42 08/23/2019 9:42 Unknown AM CDT AM CDT Celia Lyons MD LAB_1 Performing Organization Address City/State/ZIP Code Phon e Number [facility] [address] [place] [address] (ABNORMAL) Wet Prep (07/20/2019 9:25 AM CDT) [facility] Method Time Signature Fungal Not Detected Not detected 07/20/2019 [facility] Elements 9:46 AM CDT LABORATORY Clue Cells Not Detected Not Detected 07/20/2019 [facility] 9:46 AM CDT LABORATORY White Blood Detected (A) Not Detected 07/20/2019 [facility] Cells 9:46 AM CDT LABORATORY Trich Not Detected Not detected 07/20/2019 [facility] Vaginalis 9:46 AM CDT LABORATORY Specimen Anatomical Collection Method Collection Time Receive d Time (Source) Location / / Volume Laterality Swab (Source VAGINAL CERVIX / Non-blood 07/20/2019 9:25 AM 07/19 9:35 Required) Unknown Collection / CDT AM CDT Unknown Narrative [facility] - 07/20/2019 9:46 A M CDT Methodology: ??Manual Microscopic Celia Lyons MD LAB_1 Performing Organization Address [facility] e Number [facility] [address] [place] [address] HPV with 16 18 Genotyping (07/20/2019 9:21 AM CDT) [facility] Method Time [facility] HPV [...] AM 7:50 / Unknown CDT AM CDT Critical access hospital - 07/23/2019 3:59 PM CD T The [...] Celia Lyons MD LAB_1 Performing Organization Address [facility] e Number [address] [address] PAP Test (07/20/2019 9:21 AM CDT) Component Value Ref Test Analysis Performed At [facility] Method Time [facility] Case Report Pap ? Case: [id number] ? 07/23/2019 [facility] Authorizing Provider: ??Celia Gaona MD ? Collected: ? 07/20/2019 09:21 AM ? 8:54 AM LABORATOR Y Ordering Location: ? [facility] ? Received: ?07/21/2019 07:50 AM ? CDT ? Obstetrics/Gynecology ? First Screen: ? Clarita Blake CT (ASCP) ? Specimen: ?Pap Test, Rou michael, Cervix/Endocervix ? Pap Specimen Satisfactory for 07/23/2019 [facility] Adequacy evaluation, 8:54 AM LABORATORY endocervical/santiago CDT sformation zone component absent. Pap Negative for 07/23/2019 [facility] Electr onically Interpretation intraepithelial 8:54 AM LABORATOR [...] may occur. Gross The specimen is 07/23/2019 [facility] Description received in 8:54 AM LABORATORY SurePath fixative CDT and properly labeled. 1 Pap-stained SurePath slide is prepared. Embedded Images 07/23/2019 [facility] 8:54 AM LABORATORY CDT Specimen Anatomical Collection Method Collection Time Receive d Time (Source) Location / / Volume Laterality Other Specimen ENTIRE ENDOCERVIX 07/20/2019 9:21 AM 7:50 Type / Unknown CDT AM CDT Comment: LMP: No LMP recorded. Patient i s . Celia Lyons MD LAB PATHOLOGY Performing Organization Address City/State/ZIP Code Phon e Number [facility] [address] [place] [address] documented in this encounter Visit Diagnoses Diagnosis [...] (HPV) documented in this encounter Care Teams Disability Benefits Specialist Relationship Specialty Start Date End Date Britta Cox PA-C PCP - General 06/13/15 [address] [place] [address] documented as of this encounter
--- OUTSIDE RECORDS SUMMARY | 2021-11-07 13:34 | XMS_ITS | Encounter Summary ---
:1975 Author Organization [employer] Address [address], [place] [address] Care Team Providers Name Role Phone Britta Cox PA-C Primary Care Provider Reason for Visit Reason Onset Date Comments Routine Visit Phone Visit 08/17/2019 Encounter Details Date Type Department Care Team Description 08/17/2019 Telemedicine Cheo Rand, Ruth Ann resul ting from in vitro fertilization in second trimester (Primary Dx); Obstetrics/Gynecolog Paulette H, EDUCATIONAL TECHNOLOGY COORDINATOR, Hy pothyroidism, unspecified type; y DRIED YEAST SUPERVISOR Psoriasis; [address] [address] [address] [place] Obesi ty in ; Center [facility] [address] Screening for diabetes mellitus; [place] [address] [place], [place] Encounter for blood typing; [phone] screening for isoimmunization; [phone] Screening for b lood disease; (Work) Screening [...] also , but he goes out for [employer] Ordering some currently. Discussed COVID precautions. Objective: There [...] Urine, w/ conf (08/23/2019 9:27 AM CDT) [facility] Method Time Signature Amphetamines Not Not 08/23/2019 [facility] Screen Detected Detected 5:03 PM CDT LABORATORY Barbiturates Not Not 08/23/2019 [facility] Screen Detected Detected 5:03 PM CDT LABORATORY Benzodiazepines Not Not 08/23/2019 [facility] Screen Detected Detected 5:03 PM CDT LABORATORY Buprenorphine Not Not 08/23/2019 [facility] Screen Detected Detected 5:03 PM CDT LABORATORY Cocaine Metabolite Not Not 08/23/2019 [facility] Screen Detected Detected 5:03 PM CDT LABORATORY Methadone Screen Not Not 08/23/2019 [facility] Detected Detected 5:03 PM CDT LABORATORY Opiates Screen Not Not 08/23/2019 [facility] Detected Detected 5:03 PM CDT LABORATORY Oxycodone Screen Not Not 08/23/2019 [facility] Detected Detected 5:03 PM CDT LABORATORY Phencyclidine Not Not 08/23/2019 [facility] (PCP) Screen Detected Detected 5:03 PM CDT LABORATORY THC (Marijuana) Not Not 08/23/2019 [facility] Metab Screen Detected Detected 5:03 PM CDT LABORATORY Creatinine, Urine, 54 >20 mg/dL 08/23/2019 [facility] Random 5:03 PM CDT LABORATORY Specimen Anatomical Collection Method Collection Time Receive d Time (Source) Location / / Volume Laterality Urine Non-blood 08/23/2019 9:27 AM 0 9:27 Collection / CDT AM CDT Unknown Narrative [facility] - 08/23/2019 5:03 P M CDT [...] Organization Address City/State/ZIP Code Phon e Number [facility] [address] [place] [address] Urine Culture (08/23/2019 9:27 AM CDT) [facility] Method Time Signature Urine Culture Urogenital 08/24/2019 [facility] 12:19 PM CDT HOSPITAL Specimen Anatomical Collection Method Collection Time Receive d Time (Source) Location / / Volume Laterality Urine URINE SPECIMEN Non-blood 08/23/2019 9:27 AM 020 9:27 COLLECTION, CLEAN Collection / CDT AM CDT CATCH / Unknown Unknown Paulette Rand APRN, CNP LAB_1 Performing Organization Address [facility]/ZIP Code [facility] [place] [address] (ABNORMAL) Urinalysis Routine(Micro If Pos) (08/23/2019 9:27 AM CDT) [facility] Method Time Signature Urine Color Straw Straw-Yellow 08/23/2019 [facility] 9:50 AM CDT LABORATORY Urine Clarity Hazy (A) Clear 08/23/2019 [place] 9:50 AM CDT LABORATORY Specific 1.020 1.005 - 08/23/2019 [facility], 1.030 9:50 AM CDT LABORATORY Urine PH Urine 6.0 5.0 - 8.0 08/23/2019 [place] 9:50 AM CDT LABORATORY Protein, Negative Neg/Trace 08/23/2019 [place] Urine Qual 9:50 AM CDT LABORATORY (mg/dL) Glucose Urine Negative Negative 08/23/2019 [place] Qual (mg/dL) 9:50 AM CDT LABORATORY Ketones, Negative Negative 08/23/2019 [place] Urine (mg/dL) 9:50 AM CDT LABORATORY Urobilinogen, 0.2 <2.0 08/23/2019 [place] Urine (EU/dL) 9:50 AM CDT LABORATORY Bilirubin Negative Negative 08/23/2019 [place] Urine 9:50 AM CDT LABORATORY Blood, Urine Negative Neg/Trace 08/23/2019 [place] 9:50 AM CDT LABORATORY Nitrite Urine Negative Negative 08/23/2019 [place] 9:50 AM CDT LABORATORY Leukocyte Negative Negative 08/23/2019 [place] Est. 9:50 AM CDT LABORATORY Urine Source Clean Catch 08/23/2019 [facility] 9:50 AM CDT LABORATORY Specimen Anatomical Collection Method Collection Time Receive d Time (Source) Location / / Volume Laterality Urine URINE SPECIMEN Non-blood 08/23/2019 9:27 AM 020 9:27 COLLECTION, CLEAN Collection / CDT AM CDT CATCH / Unknown Unknown Paulette Madrid Radhaelizabeth EDUCATIONAL TECHNOLOGY COORDINATOR, DRIED YEAST SUPERVISOR LAB_1 Performing Organization Address City/State/ZIP Code Phon e Number [facility] [address] [place] [address] documented in this encounter [...] primigravida documented in this encounter Care Teams Coffee Farmer Relationship Specialty Start Date End Date Britta Cox PA-C PCP - General 06/13/15 [address] [place] [address] documented as of this encounter
--- OUTSIDE RECORDS SUMMARY | 2021-11-07 13:34 | XMS_ITS | Encounter Summary ---
:1975 Author Organization [employer] Address [address] [place] [address] Care Team Providers Name Role Phone Britta Cox PA-C Primary Care Provider Encounter Details Date Type Department Care Team Description 07/20/2019 Lab Visit [facility] D raw Screening for diabetes melli tus; [address] Encounter for blood typing; [place] [address] screening for isoi mmunization; [phone] Screening for b lood disease; Screening exami [...] Urine, w/ conf (07/20/2019 8:36 AM CDT) [facility] Method Time Signature Amphetamines Not Not 07/20/2019 [facility] Screen Detected Detected 11:38 AM LABORATORY CDT Barbiturates Not Not 07/20/2019 [facility] Screen Detected Detected 11:38 AM LABORATORY CDT Benzodiazepines Not Not 07/20/2019 [facility] Screen Detected Detected 11:38 AM LABORATORY CDT Buprenorphine Not Not 07/20/2019 [facility] Screen Detected Detected 11:38 AM LABORATORY CDT Cocaine Metabolite Not Not 07/20/2019 [facility] Screen Detected Detected 11:38 AM LABORATORY CDT Methadone Screen Not Not 07/20/2019 [facility] Detected Detected 11:38 AM LABORATORY CDT Opiates Screen Not Not 07/20/2019 [facility] Detected Detected 11:38 AM LABORATORY CDT Oxycodone Screen Not Not 07/20/2019 [facility] Detected Detected 11:38 AM LABORATORY CDT Phencyclidine Not Not 07/20/2019 [facility] (PCP) Screen Detected Detected 11:38 AM LABORATORY CDT THC (Marijuana) Not Not 07/20/2019 [facility] Metab Screen Detected Detected 11:38 AM LABORATORY CDT Creatinine, Urine, 155 >20 mg/dL 07/20/2019 [facility] Random 11:38 AM LABORATORY CDT Specimen Anatomical Collection Method Collection Time Receive d Time (Source) Location / / Volume Laterality Urine Non-blood 07/20/2019 8:36 AM 0 8:44 Collection / CDT AM CDT Unknown Narrative [facility] - 07/20/2019 11:38 AM CDT The [...] legal, or employment use. Sonal Myers APRN, PAPER GLUING OPERATOR LAB_1 Performing Organization Address City/[facility]/ZIP Code Phon e Number [facility] [address] [place] [address] Urine Culture (07/20/2019 8:36 AM CDT) [facility] gist Method Time Signature Urine Culture Urogenital 07/21/2019 [facility] Elisabet 9:34 AM CDT HOSPITAL Specimen Anatomical Collection Method Collection Time Receive d Time (Source) Location / / Volume Laterality Urine URINE SPECIMEN Non-blood 07/20/2019 8:36 AM 020 8:44 COLLECTION, CLEAN Collection / CDT AM CDT CATCH / Unknown Unknown Sonal Myers APRN, PAPER GLUING OPERATOR LAB_1 Performing Organization Address City/[facility]/ZIP [facility] Phon e Number [address] [address] (ABNORMAL) Urinalysis Routine(Micro If Pos) (07/20/2019 8:36 AM CDT) [facility] gist Method Time Signature Urine Color Yellow Straw-Yellow 07/20/2019 [facility] 9:01 AM CDT LABORATORY Urine Clarity Hazy (A) Clear 07/20/2019 [facility] 9:01 AM CDT LABORATORY Specific 1.017 1.005 - 07/20/2019 [facility] [place], 1.030 9:01 AM CDT LABORATORY Urine PH Urine 5.0 5.0 - 8.0 07/20/2019 [facility] 9:01 AM CDT LABORATORY Protein, Negative Negative 07/20/2019 [facility] Urine Qual 9:01 AM CDT LABORATORY (mg/dL) Glucose Urine Negative Negative 07/20/2019 [facility] Qual (mg/dL) 9:01 AM CDT LABORATORY Ketones, Trace (A) Negative 07/20/2019 [facility] Urine (mg/dL) 9:01 AM CDT LABORATORY Urobilinogen, <2.0 <2.0 07/20/2019 [facility] Urine (EU/dL) 9:01 AM CDT LABORATORY Bilirubin Negative Negative 07/20/2019 [facility] Urine 9:01 AM CDT LABORATORY Blood, Urine Negative Neg/Trace 07/20/2019 [facility] 9:01 AM CDT LABORATORY Nitrite Urine Negative Negative 07/20/2019 [facility] 9:01 AM CDT LABORATORY Leukocyte Negative Negative 07/20/2019 [facility] Est. 9:01 AM CDT LABORATORY Urine Source Clean Catch 07/20/2019 [facility] 9:01 AM CDT LABORATORY Specimen Anatomical Collection Method Collection Time Receive d Time (Source) Location / / Volume Laterality Urine URINE SPECIMEN Non-blood 07/20/2019 8:36 AM 020 8:44 COLLECTION, CLEAN Collection / CDT AM CDT CATCH / Unknown Unknown Sonal Myers APRN, PAPER GLUING OPERATOR LAB_1 Performing Organization Address City/State/ZIP Code Phon e Number [facility] [address] [place] [address] (ABNORMAL) Complete Blood Count-W/Diff (07/20/2019 8:28 AM CDT) Analysis Performed At Patho logist Time Signature WBC 9.7 3.5 - 10.5 07/20/2019 [facility] x10(9)/L 8:33 AM CDT LABORATORY RBC 4.70 3.90 - 07/20/2019 [facility] 5.03 8:33 AM CDT LABORATORY x10(12)/L Hemoglobin 14.6 12.0 - 07/20/2019 [facility] 15.5 g/dL 8:33 AM CDT LABORATORY HCT 43.1 34.9 - 07/20/2019 [facility] 44.5 % 8:33 AM CDT LABORATORY MCV 91.7 80.0 - 07/20/2019 [facility] 100.0 fL 8:33 AM CDT LABORATORY MCH 31.1 27.6 - 07/20/2019 [facility] 33.3 pg 8:33 AM CDT LABORATORY MCHC 33.9 31.5 - 07/20/2019 [facility] 35.2 g/dL 8:33 AM CDT LABORATORY RDW 13.9 11.9 - 07/20/2019 [facility] 15.5 % 8:33 AM CDT LABORATORY Platelets 250 150 - 450 07/20/2019 [facility] x10(9)/L 8:33 AM CDT LABORATORY Automated NRBC 0 <=0 /100 07/20/2019 [facility] WBC 8:33 AM CDT LABORATORY Neutrophil 7.1 (H) 1.7 - 7.0 07/20/2019 [facility] Absolute 10(9)/L 8:33 AM CDT LABORATORY Lymphocyte 2.0 1.0 - 4.8 07/20/2019 [facility] Absolute 10(9)/L 8:33 AM CDT LABORATORY Monocytes 0.5 0.2 - 0.9 07/20/2019 [facility] Absolute 10(9)/L 8:33 AM CDT LABORATORY Eosinophil 0.1 0.0 - 0.5 07/20/2019 [facility] Absolute 10(9)/L 8:33 AM CDT LABORATORY Basophil 0.0 0.0 - 0.3 07/20/2019 [facility] Absolute 10(9)/L 8:33 AM CDT LABORATORY Immature Gran % 0.5 0.0 - 0.5 07/20/2019 [facility] % 8:33 AM CDT LABORATORY Specimen Anatomical Collection Method / Collection Time Recei joyce Time (Source) Location / Volume Laterality Blood Venipuncture / 07/20/2019 8:28 07/20/2019 8:30 Unknown AM CDT AM CDT Sonal Myers APRN, LIU LAB_1 Performing Organization Address [facility] Phon e Number [facility] [address] [place] [address] (ABNORMAL) Rubella Immune Status, IgG (07/20/2019 8:28 AM CDT) athologist Signature Rubella Units 0.60 07/20/2019 [facility] 11:12 AM CDT LABORATORY Comment: The magnitude of the measured r esult, above the cutoff, is not indicative of the amount of antibody present. Rubella Intepretation Not Immune (A) Immune 07/20/2019 11 :12 AM [facility] CDT LABORATORY Specimen Anatomical Collection Method / Collection Time Recei joyce Time (Source) Location / Volume Laterality Blood Venipuncture / 07/20/2019 8:28 07/20/2019 8:30 Unknown AM CDT AM CDT Sonal Myers APRN, CNP LAB_1 Performing Organization Address [facility] Phon e Number [facility] [address] [place] [address] Treponema Screen (07/20/2019 8:28 AM CDT) [facility] Method Time Signature Treponema Screen 0.075 {s_co_ratio 07/20/2019 [facility] Result } 10:34 AM LABORATORY CDT Treponema Screen Non Non 07/20/2019 [facility] Interpretation Reactive Reactive 10:34 AM LABORATORY CDT Specimen Anatomical Collection Method / Collection Time Recei joyce Time (Source) Location / Volume Laterality Blood Venipuncture / 07/20/2019 8:28 07/20/2019 8:30 Unknown AM CDT AM CDT Sonal Myers APRN, LIU LAB_1 Performing Organization Address [facility] Phon e Number [facility] [address] [place] [address] HIV 1/2 Ag/Ab 4th Generation (07/20/2019 8:28 AM CDT) [facility] Method Time Signature HIV 1/2 Negative Negative 07/20/2019 [facility] Antigen/Antib (Non (Non 9:21 AM CDT LABORATORY demi (4th Reactive) Reactive) generation) Comment: HIV-1 p24 Antigen and HIV-1/HIV -2 Antibody not detected Specimen Anatomical Collection Method / Collection Time Recei joyce Time (Source) Location / Volume Laterality Blood Venipuncture / 07/20/2019 8:28 07/20/2019 8:30 Unknown AM CDT AM CDT Sonal Myers APRN, LIU LAB_1 Performing Organization Address [facility] Phon e Number [facility] [address] [place] [address] HEP B SURFACE ANTIGEN, NO REFLEX (07/20/2019 8:28 AM CDT) [facility] Method Time Signature Hepatitis B Negative Negative 07/20/2019 [facility] Surface (Non (Non 9:21 AM CDT LABORATORY Antigen Reactive) Reactive) Specimen Anatomical Collection Method / Collection Time Recei joyce Time (Source) Location / Volume Laterality Blood Venipuncture / 07/20/2019 8:28 07/20/2019 8:30 Unknown AM CDT AM CDT Sonal Myers APRN, LIU LAB_1 Performing Organization Address [facility] Phon e Number [facility] [address] [place] [address] Antibody Screen (07/20/2019 8:28 AM CDT) [facility] Method Time Signature Antibody Screen Negative 07/20/2019 [facility] Interpretation 9:47 AM CDT BLOOD BANK Specimen Anatomical Collection Method / Collection Time Recei joyce Time (Source) Location / Volume Laterality Blood Venipuncture / 07/20/2019 8:28 07/20/2019 8:30 Unknown AM CDT AM CDT Sonal Myers APRN, LIU LAB_1 Performing Organization Address [facility] Phon e Number [facility] [address] [place] [address] Blood Group & RH (Blood Type) (07/20/2019 8:28 AM CDT) athologist Signature ABO B 07/20/2019 [facility] 9:47 AM CDT BLOOD BANK RH Positive 07/20/2019 [facility] 9:47 AM CDT BLOOD BANK Specimen Anatomical Collection Method / Collection Time Recei joyce Time (Source) Location / Volume Laterality Blood Venipuncture / 07/20/2019 8:28 07/20/2019 8:30 Unknown AM CDT AM CDT Sonal Myers APRN, PAPER GLUING OPERATOR LAB_1 Performing Organization Address City/[facility]/ZIP Code Phon e Number [facility] [address] [place] [address] HGB A1C (07/20/2019 8:28 AM CDT) [facility] Method Time Signature Hemoglobin A1C 4.8 <=5.6 % 07/20/2019 [facility] 3[facility]54 PM CDT [facility] LAB Specimen Anatomical Collection Method / Collection Time Recei joyce Time (Source) Location / Volume Laterality Blood Venipuncture / 07/20/2019 8:28 07/20/2019 8:30 Unknown AM CDT AM CDT Sonal Myers APRN, LIU LAB_1 Performing Organization Address City/[facility] Phon e Number [facility] CENTRAL LAB [address] [address] documented in this encounter Visit Diagnoses Diagnosis Screening for diabetes mellitus Encounter for blood typing screening for isoimmunization Screening for blood disease Screening for unspecified disorder of bl ood and blood-forming organs Screening examination for venereal disea se Screening examination for rubella resulting from assisted reprod uctive technology in first trimester Encounter for drug screening documented in this encounter Care Teams Senior Manager [employer] Relationship Specialty Start Date End Date Britta Cox PA-C PCP - General 06/13/15 [place] [address] documented as of this encounter
--- OUTSIDE RECORDS SUMMARY | 2021-11-07 13:34 | XMS_ITS | Encounter Summary ---
:1975 Author Organization [employer] Address [address] [place] [address] Care Team Providers Name Role Phone Britta Cox PA-C Primary Care Provider Reason for Visit Reason Comments Ear Pain L Encounter Details Date Type Department Care Team Description 03/02/2019 Office Visit Martha Zapata Ear yancy n, left (Primary Dx); Medicine CARLOS ENRIQUE Laura Motion sickness, subsequent encounter [address], [address] [place] [address] [place], [place] [address] Social History Tobacco Use Types Packs/Day Years [...] Comments Blood Pressure 129/77 03/02/2019 8:23 AM MARBLE CLEANER Pulse 87 03/02/2019 8:23 AM MARBLE CLEANER Temperature 36.7 ??C (98.1 ??F) 03/02/2019 8:23 AM MARBLE CLEANER Respiratory Rate - - Oxygen Saturation - - Inhaled Oxygen Concentration - - Weight 81.6 kg (179 lb 14.4 oz) 03/02/2019 8:23 AM MARBLE CLEANER Height - - Body Mass Index 35.13 [...] daily. -Apply warm compresses to the ear. LE CLEANER documented in this encounter Progress Notes Martha [...] Supplements (GRAPESEED EXTRACT) 500-50 MG daily. ??? [place]-3 Fatty Acids (FISH OIL) 500 MG Indications: PN: (Patient not taking: Reported on 03/02/2019) ??? Zihaeg-UyGdv-SuKmlo-FA-[place] (MULTIVITAMIN/MINERALS OR) Take 1 tablet by mouth [...] 3 Patch; Refill: 0 Maddie Gomes PA-C LE CLEANER documented in this encounter Plan of Treatment Not on filedocumented as of this encounter Visit Diagnoses Diagnosis Ear pain, left - Primary Motion sickness, subsequent encounter documented in this encounter Care Teams Shirt Creaser Relationship Specialty Start Date End Date Britta Cox PA-C PCP - General 06/13/15 [address] [place] [address] documented as of this encounter
--- OUTSIDE RECORDS SUMMARY | 2021-11-07 13:34 | XMS_ITS | Encounter Summary ---
:1975 Author Organization [employer] Address [address] [address] Care Team Providers Name Role Phone Britta Cox PA-C Primary Care Provider Reason for Visit Reason Comments Concerns question on lab Encounter Details Date Type Department Care Team Description 07/30/2019 [facility] Celia Lyons MD Concerns Obstetrics/Gynecolog y [address] (question on lab) [address] [facility] [address] [place] [address] [phone] (Wo rk) Social History Tobacco Use Types [...] on filedocumented in this encounter Care Teams Coremaker Pipe Relationship Specialty Start Date End Date Britta Cox, KARENC PCP - General 06/13/[address] [place] [address] documented as of this encounter
--- OUTSIDE RECORDS SUMMARY | 2021-11-07 13:34 | XMS_ITS | Encounter Summary ---
:1975 Author Organization [employer] Address [address] [address] Care Team Providers Name Role Phone Britta Cox PA-C Primary Care Provider Reason for Visit Reason Comments Labs Needed Encounter Details Date Type Department Care Team Description 08/25/2019 [facility] Celia Lyons MD Labs Needed Obstetrics/Gynecolog y [address] [facility] 5th [place] [address] [place], [place] [address] (Wo rk) Social History Tobacco Use Types [...] Howard LPN - 08/25/2019 9:39 AM CDT Heat Treater Helper spoke with patient to inform her that she needs to make an appointment with lab for the 2 hour glucose test, and gave her number. Patient understands and doesn't have any questions or concerns at this time. documented in this encounter Plan of Treatment Not on filedocumented as of this encounter Visit Diagnoses Not on filedocumented in this encounter Care Teams Soyfreeze Operator Relationship Specialty Start Date End Date Britta Cox PA-C PCP - General 06/13/[address] [place] [address] documented as of this encounter
--- OUTSIDE RECORDS SUMMARY | 2021-11-07 13:34 | XMS_ITS | Encounter Summary ---
:1975 Author Organization [employer] Address [address], [place] [address] Care Team Providers Name Role Phone Britta Cox PA-C Primary Care Provider Encounter Details Date Type Department Care Team Description 08/23/2019 Notes/Orders [facility] Celia Lyons, Abnormal glucose Obstetrics/Gynecolog MD complicating y [address] (Primary Dx) [address] [facility] 5th [place] [address] [phone] (Wo rk) Social History Tobacco Use Types [...] care documented in this encounter Care Teams Glass Presser Relationship Specialty Start Date End Date Britta Cox PA-C PCP - General 06/13/15 [address] [place], [place] [address] documented as of this encounter
--- OUTSIDE RECORDS SUMMARY | 2021-11-07 13:34 | XMS_ITS | Clinical Summary ---
:1975 Author Organization [employer] Address [address] [place] [address] Care Team Providers Name Role Phone Britta [...] for each transition of care or referral. Dynadmic Allergies Active Allergy Reactions Severity Noted Date Comments Other 12/25/2011 PN: PT HAS YOANA REAGAN FAMILY HX OF PCN ALLERGY Medications Medication Sig Dispensed Refills Start Date End Date Status Tzwrsk-AoZci-QgKwbw-FA- Take 1 tablet by 0 6 Active [place] mouth daily (MULTIVITAMIN/MINERALS (every 24 hours). OR) [...] Added automatically from request for justus lopez [id number] Encounter for artificial insemination 06/17/2016 Uterine polyp 12/14/2011 07/20/2019 Pneumonia due to organism 08/16/2008 12/13/2010 Overview: LW Modifier: SUZANNE LW Onset: 08/07 ; Pneumonia NOS Immunizations Name Administration Dates Next Due Flu Vac Preserv Free (3+yrs) 12/14/2011, 02/03/2010 Influenza IIV4 (Quadrivalent) 0.5mL (17296) 02/10/2018 TB Skin Test (PPD) 06/12/2011 Family [...] 36.7 ??C (98.1 ??F) 03/02/2019 8:23 AM SPRAY PAINTING MACHINE OPERATOR Respiratory Rate 16 03/06/2018 5:15 PM SPRAY PAINTING MACHINE OPERATOR Oxygen Saturation 99% 03/06/2018 5:15 PM SPRAY PAINTING MACHINE OPERATOR Inhaled Oxygen Concentration - - Weight 84.8 [...] Typ e / Group Dates MARIVEL THAKUR [id number] 2018-Prese [phone] CORVE L PARDEEP Workers Comp [employer] nt [address] [facility] [address] [place] [address] [place] [id number] 2017-[place] [address] [address] [place] [address] WEST [id number] 2019-Prese HEALTH NET G overnment SELECT nt FEDERAL SERV C/O PGBA [address] [place] [address] Courtney Lacy Personal/Family Self 1975 [address]Home) [place] [phone] (Work) Courtney Lacy Workers Comp Self 1975 [address] (Home) [place] [address] Advance Directives Latest Code Status on File Code Status Date Activated Date Inactivated Comments Full Code 03/06/2018 4:19 PM 03/06/2018 7:34 PM Full Code 12/27/2011 10:03 AM 12/27/2011 5:24 PM Care Teams Lens Hardener Relationship Specialty Start Date End Date Britta Cox PA-C PCP - General 06/13/[address] [place] [id number]
--- OUTSIDE RECORDS SUMMARY | 2021-11-07 13:34 | XMS_ITS | Encounter Summary ---
:1975 Author Organization [employer] Address [address] [address] Care Team Providers Name Role Phone Britta Cox PA-C Primary Care Provider Encounter Details Date Type Department Care Team Description 08/23/2019 Lab Visit Kelvin navarro resulting from in vitro fertilization in second trimester; [address] Encounter for drug screening ; [place] [address] Screening for diabetes primo lim; [phone] Hypothyroidism, unspecified type Social History Tobacco Use [...] TSH, Reflex 1.88 0.30 - 4.50 08/23/2019 [facility] uIU/mL 5:01 PM CDT LABORATORY Specimen Anatomical Collection Method / Collection Time Recei joyce Time (Source) Location / Volume Laterality Blood Venipuncture / 08/23/2019 9:42 08/23/2019 9:42 Unknown AM CDT AM CDT Narrative [facility] - 08/23/2019 5:01 P M CDT Lab will automatically reflex to Free T4 when TSH results are <0.30 uIU/mL or >4.50 mIU/mL. Celia Lyons MD LAB_1 Performing Organization Address City/State/ZIP Code Phon e Number [facility] [address] [place] [address] (ABNORMAL) Lab Glucose O'Polo Screen (08/23/2019 9:42 [...] Organization Address City/State/ZIP Code Phon e Number [facility] [address] [place] [address] Drugs of Abuse Screen, Urine, w/ conf (08/23/2019 9:27 AM CDT) [facility] Method Time Signature Amphetamines Not Not 08/23/2019 [facility] Screen Detected Detected 5:03 PM CDT LABORATORY Barbiturates Not Not 08/23/2019 [facility] Screen Detected Detected 5:03 PM CDT LABORATORY Benzodiazepines Not Not 08/23/2019 [facility] Screen Detected Detected 5:03 PM CDT LABORATORY Buprenorphine Not Not 08/23/2019 [facility] Screen Detected Detected 5:03 PM CDT LABORATORY Cocaine Metabolite Not Not 08/23/2019 [facility] Screen Detected Detected 5:03 PM CDT LABORATORY Methadone Screen Not Not 08/23/2019 [facility] Detected Detected 5:03 PM CDT LABORATORY Opiates Screen Not Not 08/23/2019 [facility] Detected Detected 5:03 PM CDT LABORATORY Oxycodone Screen Not Not 08/23/2019 [facility] Detected Detected 5:03 PM CDT LABORATORY Phencyclidine Not Not 08/23/2019 [facility] (PCP) Screen Detected Detected 5:03 PM CDT LABORATORY THC (Marijuana) Not Not 08/23/2019 [facility] Metab Screen Detected Detected 5:03 PM CDT LABORATORY Creatinine, Urine, 54 >20 mg/dL 08/23/2019 [facility] Random 5:03 PM CDT LABORATORY Specimen Anatomical Collection Method Collection Time Receive d Time (Source) Location / / Volume Laterality Urine Non-blood 08/23/2019 9:27 AM 0 9:27 Collection / CDT AM CDT Unknown Narrative [facility] - 08/23/2019 5:03 P M CDT [...] Organization Address City/State/ZIP Code Phon e Number [facility] [address] [place] [address] Urine Culture (08/23/2019 9:27 AM CDT) [facility] Method Time Signature Urine Culture Urogenital 08/24/2019 [facility] Elisabet 12:19 PM CDT HOSPITAL Specimen Anatomical Collection Method Collection Time Receive d Time (Source) Location / / Volume Laterality Urine URINE SPECIMEN Non-blood 08/23/2019 9:27 AM 020 9:27 COLLECTION, CLEAN Collection / CDT AM CDT CATCH / Unknown Unknown Paulette Rand APRN, CNP LAB_1 Performing Organization Address City/[facility]/ZIP Code Phon e Number [address] [address] (ABNORMAL) Urinalysis Routine(Micro If Pos) (08/23/2019 9:27 AM CDT) [facility] Method Time Signature Urine Color Straw Straw-Yellow 08/23/2019 [facility] 9:50 AM CDT LABORATORY Urine Clarity Hazy (A) Clear 08/23/2019 [facility] 9:50 AM CDT LABORATORY Specific 1.020 1.005 - 08/23/2019 [facility] [place], 1.030 9:50 AM CDT LABORATORY Urine PH Urine 6.0 5.0 - 8.0 08/23/2019 [facility] 9:50 AM CDT LABORATORY Protein, Negative Neg/Trace 08/23/2019 [facility] Urine Qual 9:50 AM CDT LABORATORY (mg/dL) Glucose Urine Negative Negative 08/23/2019 [facility] Qual (mg/dL) 9:50 AM CDT LABORATORY Ketones, Negative Negative 08/23/2019 [facility] Urine (mg/dL) 9:50 AM CDT LABORATORY Urobilinogen, 0.2 <2.0 08/23/2019 [facility] Urine (EU/dL) 9:50 AM CDT LABORATORY Bilirubin Negative Negative 08/23/2019 [facility] Urine 9:50 AM CDT LABORATORY Blood, Urine Negative Neg/Trace 08/23/2019 [facility] 9:50 AM CDT LABORATORY Nitrite Urine Negative Negative 08/23/2019 [facility] 9:50 AM CDT LABORATORY Leukocyte Negative Negative 08/23/2019 [facility] Est. 9:50 AM CDT LABORATORY Urine Source Clean Catch 08/23/2019 [facility] 9:50 AM CDT LABORATORY Specimen Anatomical Collection Method Collection Time Receive d Time (Source) Location / / Volume Laterality Urine URINE SPECIMEN Non-blood 08/23/2019 9:27 AM 020 9:27 COLLECTION, CLEAN Collection / CDT AM CDT CATCH / Unknown Unknown Paulette Rand APRN, LIU LAB_1 Performing Organization Address City/State/ZIP Code Phon e Number [facility] [address] [place] [address] documented in this encounter Visit Diagnoses Diagnosis resulting from in vitro fertil ization in second trimester Encounter for drug screening Screening for diabetes mellitus Hypothyroidism, unspecified type (HRC) documented in this encounter Care Teams Disc Pad Grinding Machine Feeder Relationship Specialty Start Date End Date Britta Cox PA-C PCP - General 06/13/15 [address] [place] [id number] documented as of this encounter
--- OUTSIDE RECORDS SUMMARY | 2021-11-07 13:35 | XMS_ITS | Encounter Summary ---
:1975 Author Organization [facility] Address [address] [place] [address] Care Team Providers Name Role Phone Britta Cox PA-C Primary Care Provider Reason for Visit Procedure/Equipment (Routine) - Incomplete Specialty Diagnoses / Procedures Referred By Contact Refer red To Contact Diagnoses Acute pain of left shoulder Martha Gomes PA-C Procedures XR Shoulder Lt 2+ Views [address] [place] [address] Referral ID Status Reason Start Date Expiration Date Visits V isits Requested Authorized [id number] Incomplete 07/31/2018 10/30/2019 1 1 Encounter Details Date Type Department Care Team Description 07/31/2018 Ancillary Procedure [facility] Martha Gomes Acute pain of left [address] Valentín Morton PA-C shoulder [address] [place] [address] [address] [place] [address] Social History Tobacco Use Types Packs/Day Years [...] shoulder documented in this encounter Care Teams Manager Scientific Relationship Specialty Start Date End Date Britta Cox PA-C PCP - General 06/13/15 [address] [place] [address] documented as of this encounter
--- OUTSIDE RECORDS SUMMARY | 2021-11-07 13:35 | XMS_ITS | Encounter Summary ---
:1975 Author Organization [employer] Address [address], [place] [address] Care Team Providers Name Role Phone Britta Cox PA-C Primary Care Provider Encounter Details Date Type Department Care Team Description 06/17/2016 Lab Visit Specialty Center 3931 Outpatient Fertility testing Laboratory 3931 [place] [address] Social History Tobacco Use Types [...] - 06/17/2016 7:37 AM CDT Performed at [facility], [address] [place] [address] CLIA number [id number] Good Hernandez MD LAB_1 Performing Organization Address City/State/ZIP Code Phon e Number PN SOFT [address] [place] [address] [phone] documented in this encounter Visit Diagnoses Diagnosis Fertility testing documented in this encounter Care Teams Web Designer Relationship Specialty Start Date End Date Britta Cox PA-C PCP - General 06/13/15 [address] [place] [id number] documented as of this encounter
--- OUTSIDE RECORDS SUMMARY | 2021-11-07 13:35 | XMS_ITS | Encounter Summary ---
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 Ctr [place] [address] [place] [phone] [address] Social History Tobacco Use Types Packs/Day Years [...] LESS jhonathan n 10mm. 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
--- OUTSIDE RECORDS SUMMARY | 2021-11-07 13:35 | XMS_ITS | Encounter Summary ---
:1975 Author Organization [facility] Address [address] [place] [address] Care Team Providers Name Role Phone Britta oCx PA-C Primary Care Provider Reason for Visit Procedure/Equipment (Routine) - Incomplete Specialty Diagnoses / Procedures Referred By Contact Refer red To Contact Diagnoses Acute left-sided back pain, unspecified back location Martha Gomes PA-C Procedures XR Thoracic Spine [address] [place] [address] Referral ID Status Reason Start Date Expiration Date Visits V isits Requested Authorized [id number] Incomplete 07/31/2018 10/30/2019 1 1 Encounter Details Date Type Department Care Team Description 07/31/2018 Ancillary Procedure [facility] Martha Gomes Acute left-sided [address], CARLOS ENRIQUE Laura back pain, [address] unspecified back [place] [address] [address] location [phone] [place] [address] Social History Tobacco Use Types Packs/Day Years [...] location documented in this encounter Care Teams Materials Planning Analyst Relationship Specialty Start Date End Date Britta Cox PA-C PCP - General 06/13/15 [address] [place], [place] [address] documented as of this encounter
--- OUTSIDE RECORDS SUMMARY | 2021-11-07 13:35 | XMS_ITS | Encounter Summary ---
:1975 Author Organization [employer] Address [address], [place] [address] Care Team Providers Name Role Phone Britta Cox PA-C Primary Care Provider Reason for Visit Reason Comments Procedure AID/ [place] Encounter Details Date Type Department Care Team Description 08/14/2016 Procedure Visit [facility] [place] Elizabeth Duong (AID/ Obstetrics/Gynecolog MD Neville Salcido) y [address] [facility] [address] [place] [address] [place], [place] [phone] [address] Social History Tobacco Use Types Packs/Day Years [...] presents for intrauterine donor insemination. Her primary welfare centre manager is Mary Her donor sperm number is [id number] from [facility]-- [place] - is deployed for [...] whether to do the In vitro with [facility]. Will contact primary COSTING MANAGER documented in this encounter Plan of Treatment Not on filedocumented as of this encounter Visit Diagnoses Diagnosis Encounter for artificial insemination - Primary Artificial insemination documented in this encounter Care Teams Sliding Joint Maker Relationship Specialty Start Date End Date Britta Cox PA-C PCP - General 06/13/15 [address] [place], [place] [address] documented as of this encounter
--- OUTSIDE RECORDS SUMMARY | 2021-11-07 13:35 | XMS_ITS | Encounter Summary ---
:1975 Author Organization [employer] Address [address], [place] [address] Care Team Providers Name Role Phone Britta Cox PA-C Primary Care Provider Reason for Visit Reason Comments Ear Pain Encounter Details Date Type Department Care Team Description 02/28/2019 Nurse Triage Britta Paige PA-C Ear Pain [address] [place] [address] [place] [address] [phone] (Wo rk) Social History Tobacco Use Types [...] earache occurring during air travel Protocols used: [id number] STANT CASE MANAGER Cherie Rizo - 02/28/2019 11:22 AM CST [...] Triage Pool (only transfer if caller insists) STANT CASE MANAGER documented in this encounter Plan of Treatment Not on filedocumented as of this encounter Visit Diagnoses Not on filedocumented in this encounter Care Teams Canvas Cutter Machine Relationship Specialty Start Date End Date Britta Cox PA-C PCP - General 06/13/15 [address] [place] [address] documented as of this encounter
--- OUTSIDE RECORDS SUMMARY | 2021-11-07 13:35 | XMS_ITS | Encounter Summary ---
:1975 Author Organization [employer] Address [address] [place] [address] Care Team Providers Name Role Phone Britta Cox PA-C Primary Care Provider Encounter Details Date Type Department Care Team Description 07/31/2018 Lab Visit [facility] Acute pain of left shoulder [address] [place], [place] [phone] Social History Tobacco Use Types Packs/Day Years [...] Phon e Number [facility] [address] [facility] [place] [phone] documented in this encounter Visit Diagnoses Diagnosis Acute pain of left shoulder documented in this encounter Care Teams Medical Records Technician Relationship Specialty Start Date End Date Britta Cox PA-C PCP - General 06/13/[address] [place] [address] documented as of this encounter
--- OUTSIDE RECORDS SUMMARY | 2021-11-07 13:35 | XMS_ITS | Encounter Summary ---
:1975 Author Organization [employer] Address [address] [place] [address] Care Team Providers Name Role Phone Britta Cox PA-C Primary Care Provider Reason for Visit Procedure/Equipment (Routine) - Incomplete Specialty Diagnoses / Procedures Referred By Contact Refer red To Contact Diagnoses Acute left-sided back pain, unspecified back location Martha Gomes PA-C Procedures XR Cervical Spine [address] [place] [address] Referral ID Status Reason Start Date Expiration Date Visits V isits Requested Authorized [id number] Incomplete 07/31/2018 10/30/2019 1 1 Encounter Details Date Type Department Care Team Description 07/31/2018 Ancillary Procedure [facility] Martha Gomes Acute left-sided [address], [place] ENRIQUE Laura back pain, [address] unspecified back [place] [address] [address] location [phone] [place] [address] Social History Tobacco Use Types Packs/Day Years [...] location documented in this encounter Care Teams Clam Grader Relationship Specialty Start Date End Date Britta Cox PA-C PCP - General 06/13/15 [address] [place] [address] documented as of this encounter
--- OUTSIDE RECORDS SUMMARY | 2021-11-07 13:35 | XMS_ITS | Encounter Summary ---
:1975 Author Organization [employer] Address [address], [place] [address] Care Team Providers Name Role Phone Britta Cox PA-C Primary Care Provider Reason for Visit Auth/Cert Specialty Diagnoses / Procedures Referred By Contact Refer red To Contact Diagnoses Endometrial polyp Referral ID Status Reason Start Date Expiration Date Visits Requ ested Visits Authorized [id number] 1 1 Encounter Details Date Type Department Care Team Description 03/06/2018 Surgery [facility] [address] , Hysteroscopy Dilation Bld Ambul Surgery MD and Curettage and [address] [facility] [address] [place] [address] [phone] (Wo rk) Social History Tobacco Use Types [...] Comments Blood Pressure 106/65 03/06/2018 3:09 PM HYDROLOGY PROFESSOR Pulse 76 03/06/2018 3:09 PM HYDROLOGY PROFESSOR Temperature 37 ??C (98.6 ??F) 03/06/2018 3:09 PM HYDROLOGY PROFESSOR Respiratory Rate 16 03/06/2018 3:09 PM HYDROLOGY PROFESSOR Oxygen Saturation 95% 03/06/2018 3:09 PM HYDROLOGY PROFESSOR Inhaled Oxygen Concentration - - Weight - - Height - - Body Mass Index - - documented in this encounter Medications at Time of Discharge Medication Sig Dispensed Refills Start Date End Date Qviwfm-AdKyo-VmRhdg-FA- Take 1 tablet by 0 2015 [place] mouth daily (every 24 (MULTIVITAMIN/MINERALS hours). OR) [...] 0 0 07/20/2019 (GRAPESEED EXTRACT) 500-50 MG [place]-3 Fatty Acids Indications: PN: 0 05/31/2008 07/20/2019 (FISH OIL) 500 MG Probiotic Product 0 020 (SUPER PROBIOTIC OR) scopolamine Apply 1 Patch to skin 4 Patch 0 02/10/2018 (TRANSDERM-SCOP) every 3 days. Apply 1.0mg/3 days patch behind the ear documented as of this encounter Procedure Notes Good Hernandez MD - 03/06/2018 4:13 PM CST ANSWERING SERVICE OPERATOR OPERATIVE REPORT Name: Courtney M [place] Date of Procedure: 03/06/2018 Pre-Op Diagnosis: 1. [...] 1cc Fluid discrepancy: 50cc Good Hernandez MD OLOGY PROFESSOR documented in this encounter Plan of Treatment Pending Results Name Type Priority Associated Diagnoses Date/Ti nh POCT urine Point of Care STAT 03/06/2018 2:5 2 PM HYDROLOGY PROFESSOR : Scheduled Orders Name Type Priority Associated [...] WITH 03/06/2018 3:30 PM Endometrial polyp MORCELLATOR HYDROLOGY PROFESSOR Case Notes 1 HOSPITAL OBTAINED Routine 03/06/2018 3:28 PM HYDROLOGY PROFESSOR Results for this ANATOMICAL PATHOLOGY procedu re are in the REQUEST results section . [facility] Routine 03/06/2018 6:00 AM HYDROLOGY PROFESSOR Results for this NICOLLET procedure are i n the results section . documented in this encounter Results Anatomical Pathology Request (03/06/2018 3:28 PM HYDROLOGY PROFESSOR) athologist Signature Surgical Path Received PN SOFT Ord Specimen Anatomical Collection Method Collection Time Receive d Time (Source) Location / / Volume Laterality 03/06/2018 3:28 PM 8 1:12 HYDROLOGY PROFESSOR AM HYDROLOGY PROFESSOR Narrative PN SOFT - 03/07/2018 9:53 AM HYDROLOGY PROFESSOR Performed at [facility], [address] [place] [address] CLIA number [id number] Good Hernandez MD LAB_1 Performing Organization Address City/State/RUST Code Phon e Number PN SOFT [address] [place] [address] Pathology Report (03/06/2018 6:00 AM HYDROLOGY PROFESSOR) [facility] Method Time Signature Path: FINAL SURGICAL PATHOLOGY REPORT PN SOFT Pathology #: [id number] ? Date Obtained: 03/06/2018 ?Date Received: 03/07/2018 [...] microscopic examination has been performed. Performed at [facility], [facility], [place] [address] Specimen Anatomical Location Collection Method Collection Time Received Time (Source) / Laterality / Volume ENDOMETRIAL 03/06/2018 6:00 03/06/2018 6 :00 STRUCTURE / Unknown AM HYDROLOGY PROFESSOR AM HYDROLOGY PROFESSOR Good Hernandez MD LAB_1 Performing Organization Address City/State/ZIP Code Phon e Number PN SOFT [address] [place] [address] documented in this encounter Visit Diagnoses Diagnosis Endometrial polyp - Primary Polyp of corpus uteri Endometrial polyp Polyp of corpus uteri documented in this encounter Administered Medications Inactive Administered Medications - up to 3 most recent administrations Medication Order MAR Action Action Date Dose Rate Site fentaNYL (SUBLIMAZE) injection 25-100 mc g 25-100 mcg, Intravenous, [id number], Pain, Sedation, Pro cedure, Severe Pain (pain score 8-10), Starting on Madeleine 03/06/18 at 1436, Until Th u 03/06/18 at 192, Notify Anesthesiologist if total cumulative dose in excess of 250 mcg., Pre-op fentaNYL (SUBLIMAZE) injection 25-50 mcg 25-50 mcg, Intravenous, [id number], Other, Moderate to Severe Pain (pain score [...] (NORCO) 5-325 MG Given 03/06 4:47 PM HYDROLOGY PROFESSOR 2 Tablets per tablet 1-2 Tablet 1-2 Tablet, Oral, Q4H PRN, Other, Moderate Pain (pain score 5-7), Starting on Madeleine 03/06/18 at 1643, Until [facility] 03/06/18 at 192, Post-op HYDROmorphone injectable 0.2-0.4 mg 0.2-0.4 mg, Intravenous, Q10MIN PRN, Oth er, : Moderate to Severe Pain (pain score 5 and above) in the immediate postop period when longer acting agent is desired., Starting on Madeleine 03/06/18 at 1222, Until [facility] 03/06/18 at 1929, Maximum cumulative dose is 2 mg. For patients with a regional, s vivek, or local anesthetic, may give for anticipated pain as the anesthetic wears off., PACU/Re covery lactated ringers infusion Started 03/06/2018 3:08 PM HYDROLOGY PROFESSOR 25 mL/hr 25 mL/hr 25 mL/hr, Intravenous, [...] Madeleine 03/06/18 at 1436, Pre-op lidocaine-epinephrine 1 %-1:196366 Given 03/06/2018 3:59 PM HYDROLOGY PROFESSOR 20 mL Vaginal injection ONCE PRN, Starting on Madeleine 03/06/18 at 1559, Until [facility] 03/06/18 at 192, Intra-op meperidine (DEMEROL) injection 12.5 mg 12.5 mg, Intravenous, [id number], Shiverin g, Starting on Madeleine 03/06/18 at 1222, Until [facility] 03/06/18 at 1929, For 2 doses, Maximu m cumulative dose is 25 mg. Do not give to patients receiving MAO inhibitors (e.g. phenelzine (NA RDIL), tranylcypromine (PARNATE), selegiline (ELDEPRYL))., PACU/Recovery midazolam (VERSED) injection 1-2 mg 1-2 mg, Intravenous, [id number], Sedation, Anxiety, Proc edure, Starting on Madeleine 03/06/18 at 1436, Until [facility] 03/06/18 at 1929, MAX Dose 2 mg, Pre-op morphine injectable 1-2 mg 1-2 mg, Intravenous, [id number], Other, Moderate to Yoly re Pain (pain score 5 and above) Moderate to Severe Pain (pain score 5 and above ) in the immediate postop period when longer acting agent is desired and HYDROmo rphone is not tolerated., Starting on Madeleine 03/06/18 at 1222, Until [facility] 03/06/18 at 1929, Maximum cumulative dose [...] Recently Administered Medications Times are shown in HYDROLOGY PROFESSOR. Scheduled Medication Order 03/04/2018 03/05/2018 03/06/2018 lidocaine [...] (Anesthesia Fluid - Provider: Siobhan Hamm APRN, COMMUNICATIONS DIRECTOR)1700 (Stopped - Provider: Dee Perez RN) 25 [...] (SUBLIMAZE) injection 25-100 mcg 25-100 mcg, Intravenous, [id number], Pain, Sedation, Procedure, Severe Pain (pain score 8-10), Starting Madeleine 03/06/18 at 1436, Notify Anesthesiologist if total cumulative dose in excess of 250 mcg., Pre-op fentaNYL (SUBLIMAZE) injection 25-50 mcg 25-50 mcg, Intravenous, [id number], Other, Moderate to Severe Pain (pain score [...] Madeleine 03/06/18 at 1436, Pre-op lidocaine-epinephrine 1 %-1:935255 injection 1559 (Given - Provider: Good Hernandez MD) ONCE PRN, Starting Madeleine 03/06/18 at 1559, Intra-op meperidine (DEMEROL) injection 12.5 mg 12.5 mg, Intravenous, [id number], Shiverin g, Starting Madeleine 03/06/18 at 1222, For 2 doses, Maximum cumulative dose is 25 mg. Do not give to patients receiving MAO inhibitors (e.g. phenelzine (NARDIL), tranyl cypromine (PARNATE), selegiline (ELDEPRYL))., PACU/Recovery midazolam (VERSED) injection 1-2 mg 1-2 mg, Intravenous, [id number], Sedation, Anxiety, Procedure, Starting Madeleine 03/06/18 at 1436, MAX Dose 2mg, Pre-op morphine injectable 1-2 mg 1-2 mg, Intravenous, [id number], Other, Mo derate to Severe Pain (pain [...] PACU/Recovery documented in this encounter Care Teams Lamination Machine Operator Relationship Specialty Start Date End Date Britta Cox, KARENC PCP - General 06/13/15 [address] [place] [address] documented as of this encounter
--- OUTSIDE RECORDS SUMMARY | 2021-11-07 13:35 | XMS_ITS | Encounter Summary ---
:1975 Author Organization [employer] Address [address], [place] [address] Care Team Providers Name Role Phone Britta Cox PA-C Primary Care Provider Reason for Referral Procedure/Equipment (Routine) - Incomplete Specialty Diagnoses / Procedures Referred By Contact Refer red To Contact Diagnoses Primary female infertility Good Hernandez MD Procedures US Follicles [address] [facility] Ctr [place] [address] Referral ID Status Reason Start Date Expiration Date Visits V isits Requested Authorized [id number] Incomplete 07/04/2016 10/03/2017 1 1 Reason for Visit Reason Onset Date Comments Intrauterine Insemination 07/02/2016 Encounter Details Date Type Department Care Team Description 07/02/2016 [facility] Good Hernandez Intraut erine Obstetrics/Gynecolog y MD Insemination [address] [facility]. [address] [place], [place] Ctr [address] [place] [phone] [address] Social History Tobacco Use Types Packs/Day Years [...] injection be ordered? Next Steps: Route to [facility] OB AI pool. Pt would like to [...] and AI pool. May be reached at [phone] Carlotta Gibbons RN - 07/03/2016 1:06 PM CDT Gave patient recommendation below. States she plans to follow with [facility] for [facility] but she is unable [...] fellowship trained specialist. I suggested looking at [facility] in [place] because they advertise a discount. Ananya Painter RN - 07/02/2016 1:16 PM CDT Reason for Call: Questions regarding AI. Next Steps: Route to Triage Nurse pool for patient follow up. Pt called back. Plans to have AI this cycle with husbands frozen sperm. Completed flow sheet. Routed questions to Dr. Hernandez. Please route response to AI pool - [facility] OB AI pool. 1. Based on 's [...] take 100 mgs. May be reached at [phone]. 06/10/2016 11:35 PM by Courtney Lacy ?? [...] LESS jhonathan n 10mm. Good Hernandez MD [facility] documented in this encounter Visit Diagnoses Diagnosis Primary female infertility - Primary Female infertility of unspecified origin Primary female infertility Female infertility of unspecified origin documented in this encounter Care Teams Physical Meteorologist Relationship Specialty Start Date End Date Britta Cox, CARLOS ENRIQUE PCP - General 06/13/15 [address] [place] [address] documented as of this encounter
--- OUTSIDE RECORDS SUMMARY | 2021-11-07 13:35 | XMS_ITS | Encounter Summary ---
:1975 Author Organization [employer] Address [address], [place] [address] Care Team Providers Name Role Phone Britta Cox PA-C Primary Care Provider Encounter Details Date Type Department Care Team Description 06/17/2016 Notes/Orders Good [place] F[facility] te sting Obstetrics/Gynecolog melanie Sandhu MD (Primary Dx) [address] [place] [address] [facility] [place] [phone] [address] Social History Tobacco Use Types Packs/Day Years [...] - 06/17/2016 7:37 AM CDT Performed at [facility], [address] [place] [address] CLIA number [id number] Good Hernandez MD LAB_1 Performing Organization Address City/State/ZIP Code Phon e Number PN SOFT [address] [place] [address] documented in this encounter Visit Diagnoses Diagnosis Fertility testing - Primary Fertility testing documented in this encounter Care Teams Category Director Relationship Specialty Start Date End Date Britta Cox PA-C PCP - General 06/13/15 [address] [place], [place] [id number] documented as of this encounter
--- OUTSIDE RECORDS SUMMARY | 2021-11-07 13:35 | XMS_ITS | Encounter Summary ---
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 Good Hernandez MD Procedures US Follicles [address] [facility] [place] [address] Referral ID Status Reason Start Date Expiration Date Visits V isits Requested Authorized [id number] Incomplete 07/11/2016 10/10/2017 1 1 Encounter Details Date Type Department Care Team Description 07/12/2016 Imaging [facility] Good Hernandez, Inf ertility due to Services-Ultrasound oligo-ovulation [address] [place] [address] [address] [place] [address] [phone] (Wo rk) Social History Tobacco Use Types [...] Procedure Name Priority Date/Time Associated Diagnosis Comme [facility] US FOLLICLES Routine 07/12/2016 10:44 AM [...] LESS jhonathan n 10mm. 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
--- OUTSIDE RECORDS SUMMARY | 2021-11-07 13:35 | XMS_ITS | Encounter Summary ---
:1975 Author Organization [employer] Address [address], [place] [address] Care Team Providers Name Role Phone Britta Cox PA-C Primary Care Provider Reason for Visit Reason Comments CONSULT Encounter Details Date Type Department Care Team Description 02/10/2018 Office Visit [facility] Preop examin ation (Primary Dx); Obstetrics/Gynecolog melanie Sandhu MD Endometrial polyp [address] [place] [address] [place] [phone] Social History Tobacco Use Types Packs/Day Years [...] Comments Blood Pressure 111/81 02/10/2018 11:09 AM FUR STRETCHER Pulse 80 02/10/2018 11:09 AM FUR STRETCHER Temperature - - Respiratory Rate - - Oxygen Saturation - - Inhaled Oxygen Concentration - - Weight 82.1 kg (181 lb) 02/10/2018 11:09 AM FUR STRETCHER Height - - Body Mass Index 35.35 09/19/2015 11:10 AM CDT documented in this encounter Progress Notes Tommy Conley LPN - 02/10/2018 11:00 AM FUR STRETCHER Addended by: TOMMY CONLEY on: 02/10/2018 01:14 PM Modules accepted: Orders STRETCHER Good Hernandez MD - 02/10/2018 11:00 AM CST Name: Courtney Lacy Clinician: Good Hernandez MD Date: 02/10/2018 HOME ECONOMICS EXTENSION WORKER PRE-OPERATIVE VISIT Scheduled Procedure: Hysteroscopy with polypectomy [...] and tition will be going on a [place] Cruise in March to the [facility]. Her will have already done the [...] Supplements (GRAPESEED EXTRACT) 500-50 MG daily. ??? [place]-3 Fatty Acids (FISH OIL) 500 MG Indications: PN: ??? Ftpwbb-WdWoa-FrFxda-FA-[place] (MULTIVITAMIN/MINERALS OR) Take 1 tablet by mouth [...] Not on file Occupational History ??? 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 Smoking [...] Concern Yes Social History Narrative Works in [employer]. Single, partnered. 1 dog. Review of Systems: [...] for2 women and [address] [facility] is on the list. This would not change the retrieval timing because that is planned before they leave, however it may impact the transfer timing. The procedure was discussed at length, including risks of bleeding, infection, recurrence of polyp. The consent was reviewed and signed. Recovery was discussed. Total time 25min with 15 min in counseling. STRETCHER documented in this encounter Plan of Treatment Not on filedocumented as of this encounter Visit Diagnoses Diagnosis Preop examination - Primary Preoperative examination, unspecified Endometrial polyp Polyp of corpus uteri documented in this encounter Care Teams Marketing Proposal Coordinator Relationship Specialty Start Date End Date Britta Cox PA-C PCP - General 06/13/15 [address] [place] [address] documented as of this encounter
--- OUTSIDE RECORDS SUMMARY | 2021-11-07 13:35 | XMS_ITS | Encounter Summary ---
:1975 Author Organization [employer] Address [address], [place] [address] Care Team Providers Name Role Phone Britta Cox PA-C Primary Care Provider Encounter Details Date Type Department Care Team Description 08/14/2016 Notes/Orders [facility] Fertility te sting Obstetrics/Gynecolog melanie Sandhu MD (Primary Dx) [address] [place] [address] [facility] [place] [phone] Social History Tobacco Use Types Packs/Day Years [...] 7-5-16 PN SOFT Number TDI Number of 2 [...] - 08/14/2016 7:37 AM CDT Performed at [facility], [address] [place] [address] CLIA number [id number] Good Hernandez MD LAB_1 Performing Organization Address City/State/ZIP Code Phon e Number PN SOFT [address] [place] [address] [phone] documented in this encounter Visit Diagnoses Diagnosis Fertility testing - Primary Fertility testing documented in this encounter Care Teams Home Mission Worker Relationship Specialty Start Date End Date Britta Cox PA-C PCP - General 06/13/15 [address] [place], [place] [id number] documented as of this encounter
--- OUTSIDE RECORDS SUMMARY | 2021-11-07 13:35 | XMS_ITS | Encounter Summary ---
:1975 Author Organization [employer] Address [address], [place] [address] Care Team Providers Name Role Phone Britta Cox PA-C Primary Care Provider Reason for Visit Reason Comments Future Appointments Encounter Details Date Type Department Care Team Description 02/03/2018 Telephone Good [facility], Future Ap pointments Obstetrics/Gynecolog y [id number] [facility] [place] [address] [facility] [place] [address] [phone] (Wo rk) Social History Tobacco Use Types [...] like to do procedure on 03/06/18. FYI ROL SYSTEMS ENG Good Hernandez MD - 02/03/2018 11:11 AM CST I will put in the request to surgery scheduling. She will need to have a preop with me since she hasn't been seen in quite awhile. ROL SYSTEMS ENG Lizzy Hernandez RN - 02/03/2018 10:20 AM CST Reason for Call: Appointment Work In requested. and Clinician input needed on symptom based concern. Next Steps: Document further recommendations and route to appropriate person or pool. Caller IS expecting a call back from Care Team. Additional Information: Patient called with to schedule procedure. States she is seeing Dr. Plata at [facility], did saline sonogram and found uterine polyp, [...] on work in as well. Thank you! ROL SYSTEMS ENG documented in this encounter Plan of Treatment Not on filedocumented as of this encounter Visit Diagnoses Not on filedocumented in this encounter Care Teams Stone Unloader Relationship Specialty Start Date End Date Britta Cox PA-C PCP - General 06/13/15 [place], [place] [address] documented as of this encounter
--- OUTSIDE RECORDS SUMMARY | 2021-11-07 13:35 | XMS_ITS | Encounter Summary ---
:1975 Author Organization [employer] Address [address], [place] [address] Care Team Providers Name Role Phone Britta Cox PA-C Primary Care Provider Reason for Visit Procedure/Equipment (Routine) - Incomplete Specialty Diagnoses / Procedures Referred By Contact Refer red To Contact Diagnoses Female infertility Good Hernandez MD Procedures US Follicles [address] [facility] [place] [address] Referral ID Status Reason Start Date Expiration Date Visits V isits Requested Authorized [id number] Incomplete 07/11/2016 10/10/2017 1 1 Encounter Details Date Type Department Care Team Description 07/11/2016 Imaging [facility] Selene Hernandez ea, MD Female infertility Services-Ultrasound [address] [facility] [address] [facility] [address] [place] [address] [place], [place] [id number] [phone] Social History Tobacco Use Types Packs/Day Years [...] Associated Diagnosis Comme nts US FOLLICLES Routine 07/11/2016 7:46 AM Female infertility Res ults for this CDT procedure are i n the results section . documented in this encounter Results US Follicles (07/11/2016 7:46 [...] visualize becaus e of its high location. Procedure Note Ross [...] visualize shara alcala of its high location. Good Hernandez MD [facility] documented in this encounter Visit Diagnoses Diagnosis Female infertility Female infertility of unspecified origin documented in this encounter Care Teams Pricing/Signage Team Member Relationship Specialty Start Date End Date Britta Cox PA-C PCP - General 06/13/15 [address] [place], [place] [address] documented as of this encounter
--- OUTSIDE RECORDS SUMMARY | 2021-11-07 13:35 | XMS_ITS | Encounter Summary ---
:1975 Author Organization [employer] Address [address] [address] Care Team Providers Name Role Phone Britta Cox PA-C Primary Care Provider Reason for Visit Reason Comments Post-Op Follow Up Call Encounter Details Date Type Department Care Team Description 03/07/2018 Telephone Good [facility], Post-Op F ollow Up Call Obstetrics/Gynecolog y [address] [place] [address] [place] [phone] Social History Tobacco Use Types Packs/Day Years [...] refer to DOC Flowsheet: SURGDC for details. EMAKER Julianna Byrd RN - 03/07/2018 11:27 AM CST Procedure: Hysteroscopy, Polypectomy EMAKER documented in this encounter Plan of Treatment Not on filedocumented as of this encounter Visit Diagnoses Not on filedocumented in this encounter Care Teams Sales And Marketing Assistant Relationship Specialty Start Date End Date Britta Cox PA-C PCP - General 06/13/[address] [place] [address] documented as of this encounter
--- OUTSIDE RECORDS SUMMARY | 2021-11-07 13:35 | XMS_ITS | Encounter Summary ---
:1975 Author Organization [employer] Address [address], [place] [address] Care Team Providers Name Role Phone Britta Cox PA-C Primary Care Provider Reason for Visit Auth/Cert Specialty Diagnoses / Procedures Referred By Contact Refer red To Contact Diagnoses Endometrial polyp Referral ID Status Reason Start Date Expiration Date Visits Requ ested Visits Authorized [id number] 1 1 Encounter Details Date Type Department Care Team Description 03/06/2018 Anesthesia Event [facility] [address] Daryn Chandra MD Bld Ambul Surgery [address] [place], [place] [address] [address] [place] [address] [phone] Anesthesia Record Procedure Summary Procedure Name Responsible [...] report Electronically signed by Siobhan Hamm APRN, ROUTE RIDER SUPERVISOR Name Total midazolam injection 2 mg/2 mL [...] Type Details Placement Removal Airway Placed By: ROUTE RIDER SUPERVISOR; 03/06/18 1559 by 03/06/18 1728 by Airway [...] Moya MD - 03/06/2018 4:29 PM CST [facility] Anesthesia Post-op Note Patient: Courtney Lacy Post-Op [...] by: Daryn Moya MD 03/06/2018 4:29 PM LOOP MACHINE OPERATOR Anesthesia Preprocedure Evaluation - Daryn Moya MD - 03/06/2018 3:02 PM CST [facility] Anesthesia Pre-op Evaluation Procedure: Procedure(s): Hysteroscopy Dilation [...] Take 1 Tablet by mouth daily. ??? Crkckq-GqXms-ClFwbn-FA-[place] (MULTIVITAMIN/MINERALS OR) Take 1 tablet by mouth [...] by: Daryn Moya MD 03/06/2018 3:02 PM LOOP MACHINE OPERATOR documented in this encounter Plan of Treatment Not on filedocumented as of this encounter Visit Diagnoses Not on filedocumented in this encounter Administered Medications Inactive Administered Medications - up to 3 most recent administrations Medication Order MAR Action Action Date Dose Rate Site dexamethasone (DECADRON) injection Given 03/06/2018 3:50 PM BELT LOOP MACHINE OPERATOR 4 mg Starting on Madeleine 18 at 1550, Until Madeleine 03/06/18 at 1620 fentaNYL (SUBLIMAZE) injection Given 03/06/2018 3:40 PM BELT LOOP MACHINE OPERATOR 100 mcg Intravenous, Starting on Madeleine 18 at 1540, Until Madeleine 03/06/18 at 1620 ketorolac (TORADOL) injection Given 03/06/2018 4:00 PM BELT LOOP MACHINE OPERATOR 30 mg Intravenous, Starting on Madeleine 18 at 1600, Until Madeleine 03/06/18 at 1621 lidocaine (XYLOCAINE) 1 % injection Given 03/06/2018 3:40 PM BELT LOOP MACHINE OPERATOR 60 mg Starting on Madeleine 18 at 1540 midazolam (VERSED) injection Given 03/06/2018 3:40 PM BELT LOOP MACHINE OPERATOR 2 mg Intravenous, Starting on Madeleine 1218 at 1540, Until Madeleine 03/06/18 at 1620 ondansetron (ZOFRAN) injection Given 03/06/2018 3:45 PM BELT LOOP MACHINE OPERATOR 4 mg Intravenous, Starting on Madeleine 18 at 1545, Until Madeleine 03/06/18 at 1620 propofol (aka diPRIvan) Started 03/06/2018 3:40 PM 75 mcg/kg/min 3 6.95 mL/hr injection BELT LOOP MACHINE OPERATOR Intravenous, Starting on Madeleine 18 at 1540 documented in this encounter Care Teams Etymology Professor Relationship Specialty Start Date End Date Britta Cox PA-C PCP - General 06/13/15 [address] [place] [address] documented as of this encounter
--- OUTSIDE RECORDS SUMMARY | 2021-11-07 13:35 | XMS_ITS | Encounter Summary ---
:1975 Author Organization [employer] Address [address], [place] [address] Care Team Providers Name Role Phone Britta Cox PA-C Primary Care Provider Encounter Details Date Type Department Care Team Description 07/12/2016 Notes/Orders Orthodoxy Surgery Ce ntGood Boss MD [address] [facility] [address] [place], [place] [address] [place], [place] [address] (Wo rk) Social History [...] (HCG) injection 10,000 units this evening in [facility] documented in this encounter Plan of Treatment Not on filedocumented as of this encounter Visit Diagnoses Not on filedocumented in this encounter Care Teams Computer Lab Para Professional Relationship Specialty Start Date End Date Britta Cox, KARENC PCP - General 06/13/[address] [place] [address] documented as of this encounter
--- OUTSIDE RECORDS SUMMARY | 2021-11-07 13:35 | XMS_ITS | Encounter Summary ---
:1975 Author Organization [employer] Address [address] [address] Care Team Providers Name Role Phone Britta Cox PA-C Primary Care Provider Encounter Details Date Type Department Care Team Description 07/17/2016 Lab Visit Specialty Center 3931 Outpatient Fertility testing Laboratory [address] [place] [address] Social History Tobacco Use [...] - 07/17/2016 7:54 AM CDT Performed at [facility], [address] [place] [address] CLIA number [id number] Good Heranndez MD LAB_1 Performing Organization Address City/State/ZIP Code Phon e Number PN SOFT [address] [place] [address] documented in this encounter Visit Diagnoses Diagnosis Fertility testing documented in this encounter Care Teams Woodworking Machine Feeder Relationship Specialty Start Date End Date Britta Cox PA-C PCP - General 06/13/15 [address] [place] [id number] documented as of this encounter
--- OUTSIDE RECORDS SUMMARY | 2021-11-07 13:35 | XMS_ITS | Encounter Summary ---
:1975 Author Organization [employer] Address [address], [place] [address] Care Team Providers Name Role Phone Britta Cox PA-C Primary Care Provider Reason for Visit Reason Onset Date Comments APPOINTMENT REQUEST 06/16/2016 Encounter Details Date Type Department Care Team Description 06/16/2016 Telephone Britta Paige, APPOINTMENT REQUEST [address] [place] [address] [address] [phone] [place] [id number] (Wo rk) Social History Tobacco Use Types [...] appoint for IUI . Warm transfer to Route Process Administrator to page out the prison teacher for OB. documented in this encounter Plan of Treatment Not on filedocumented as of this encounter Visit Diagnoses Not on filedocumented in this encounter Care Teams Manager Skilled Relationship Specialty Start Date End Date Britta Cox PA-C PCP - General 06/13/[address] [place] [address] documented as of this encounter
--- OUTSIDE RECORDS SUMMARY | 2021-11-07 13:35 | XMS_ITS | Encounter Summary ---
:1975 Author Organization [employer] Address [address], [place] [address] Care Team Providers Name Role Phone Britta Cox PA-C Primary Care Provider Reason for Visit Auth/Cert Specialty Diagnoses / Procedures Referred By Contact Refer red To Contact Diagnoses Endometrial polyp Referral ID Status Reason Start Date Expiration Date Visits Requ ested Visits Authorized [id number] 1 1 Encounter Details Date Type Department Care Team Description 03/06/2018 Hospital Encounter [facility] [address] Ambul Surgery [address] [place] [address] [place], [place] [address]tr [address] [facility] [phone] (Wo rk) Social History Tobacco Use Types [...] Comments Blood Pressure 117/80 03/06/2018 5:15 PM INSURANCE PRODUCER Pulse 92 03/06/2018 5:15 PM INSURANCE PRODUCER Temperature 36.4 ??C (97.5 ??F) 03/06/2018 5:00 PM INSURANCE PRODUCER Respiratory Rate 16 03/06/2018 5:15 PM INSURANCE PRODUCER Oxygen Saturation 99% 03/06/2018 5:15 PM INSURANCE PRODUCER Inhaled Oxygen Concentration - - Weight - - Height - - Body Mass Index - - documented in this encounter Medications at Time of Discharge Medication Sig Dispensed Refills Start Date End Date Jvgphn-KtXtq-LyDfsm-FA- Take 1 tablet by 0 2015 [place] mouth daily (every 24 (MULTIVITAMIN/MINERALS hours). OR) [...] 0 0 07/20/2019 (GRAPESEED EXTRACT) 500-50 MG [place]-3 Fatty Acids Indications: PN: 0 05/31/2008 07/20/2019 (FISH OIL) 500 MG Probiotic Product 0 020 (SUPER PROBIOTIC OR) scopolamine Apply 1 Patch to skin 4 Patch 0 02/10/2018 (TRANSDERM-SCOP) every 3 days. Apply 1.0mg/3 days patch behind the ear documented as of this encounter Procedure Notes Good Hernandez MD - 03/06/2018 4:13 PM CST PRINCIPAL ELECTRICAL ENGINEER OPERATIVE REPORT Name: Courteny Lacy Date of Procedure: 03/06/2018 Pre-Op Diagnosis: [...] 1cc Fluid discrepancy: 50cc Good Hernandez MD RANCE PRODUCER documented in this encounter Plan of Treatment Pending Results Name Type Priority Associated Diagnoses Date/Ti de POCT urine Point of Care STAT 03/06/2018 2:5 2 PM INSURANCE PRODUCER : Scheduled Orders Name Type Priority Associated [...] WITH 03/06/2018 3:30 PM Endometrial polyp MORCELLATOR INSURANCE PRODUCER Case Notes 1 HOSPITAL OBTAINED Routine 03/06/2018 3:28 PM INSURANCE PRODUCER Results for this ANATOMICAL PATHOLOGY procedu re are in the REQUEST results section . SURGICAL [facility] Routine 03/06/2018 6:00 AM INSURANCE PRODUCER Results for this NICOLLET procedure are i n the results section . documented in this encounter Results Anatomical Pathology Request (03/06/2018 3:28 PM INSURANCE PRODUCER) athologist Signature Surgical Path Received PN SOFT Ord Specimen Anatomical Collection Method Collection Time Receive d Time (Source) Location / / Volume Laterality 03/06/2018 3:28 PM 8 1:12 INSURANCE PRODUCER AM INSURANCE PRODUCER Narrative PN SOFT - 03/07/2018 9:53 AM INSURANCE PRODUCER Performed at [facility], [address] [place] [address] CLIA number [id number] Good Hernandez MD LAB_1 Performing Organization Address City/State/ZIP Code Phon e Number PN SOFT [address] [place] [address] [phone] Pathology Report (03/06/2018 6:00 AM INSURANCE PRODUCER) [facility] Signature Path: FINAL SURGICAL PATHOLOGY REPORT PN SOFT Pathology #: [id number] ? Date Obtained: 03/06/2018 ?Date Received: 03/07/2018 [...] microscopic examination has been performed. Performed at [facility], [facility], [place] [address] Specimen Anatomical Location Collection Method Collection Time Received Time (Source) / Laterality / Volume ENDOMETRIAL 03/06/2018 6:00 03/06/2018 6 :00 STRUCTURE / Unknown AM INSURANCE PRODUCER AM INSURANCE PRODUCER Good Hernandez MD LAB_1 Performing Organization Address City/State/ZIP Code Phon e Number PN SOFT [address] [place] [address] documented in this encounter Visit Diagnoses Diagnosis [...] injection 25-100 mc g 25-100 mcg, Intravenous, [id number], Pain, Sedation, Pro cedure, Severe Pain (pain score 8-10), Starting on Madeleine 03/06/18 at 1436, Until Th u 03/06/18 at 1929, Notify Anesthesiologist if total cumulative dose in excess of 250 mcg., Pre-op fentaNYL (SUBLIMAZE) injection 25-50 mcg 25-50 mcg, Intravenous, [id number], Other, Moderate to Severe Pain (pain score 5 and above) in the immediate postop period when faster on-s et, short acting agent is desired., Starting on Madeleine 03/06/18 at 122 2, Until Madleeine 03/06/18 at 1929, Administer every 5 minutes as needed, to a maximum cumulative dose of 250 mcg. For patients with a regional, spinal, or local anesth etic, may give for anticipated pain as the anesthetic wears off., PACU/Recovery HYDROcodone-acetaminophen (NORCO) 5-325 MG Given 03/06 4:47 PM INSURANCE PRODUCER 2 Tablets per tablet 1-2 Tablet 1-2 Tablet, Oral, Q4H PRN, Other, Moderate Pain (pain score 5-7), Starting on Madeleine 03/06/18 at 1643, Until [facility] 03/06/18 at 192, Post-op HYDROmorphone injectable 0.2-0.4 mg 0.2-0.4 mg, Intravenous, Q10MIN PRN, Oth er, : Moderate to Severe Pain (pain score 5 and above) in the immediate postop period when longer acting agent is desired., Starting on Madeleine 03/06/18 at 1222, Until [facility] 03/06/18 at 192, Maximum cumulative dose is 2 mg. For patients with a regional, s vivek, or local anesthetic, may give for anticipated pain as the anesthetic wears off., PACU/Re covery lactated ringers infusion Started 03/06/2018 3:08 PM INSURANCE PRODUCER 25 mL/hr 25 mL/hr 25 mL/hr, Intravenous, [...] Madeleine 03/06/18 at 1436, Pre-op lidocaine-epinephrine 1 %-1:301185 Given 03/06/2018 3:59 PM INSURANCE PRODUCER 20 mL Vaginal injection ONCE PRN, Starting on Madeleine 03/06/18 at 1559, Until [facility] 03/06/18 at 192, Intra-op meperidine (DEMEROL) injection 12.5 mg 12.5 mg, Intravenous, [id number], Shiverin g, Starting on Madeleine 03/06/18 at 1222, Until [facility] 03/06/18 at 1929, For 2 doses, Maximu m cumulative dose is 25 mg. Do not give to patients receiving MAO inhibitors (e.g. phenelzine (NA RDIL), tranylcypromine (PARNATE), selegiline (ELDEPRYL))., PACU/Recovery midazolam (VERSED) injection 1-2 mg 1-2 mg, Intravenous, [id number], Sedation, Anxiety, Proc edure, Starting on Madeleine 03/06/18 at 1436, Until [facility] 03/06/18 at 1929, MAX Dose 2 mg, Pre-op morphine injectable 1-2 mg 1-2 mg, Intravenous, [id number], Other, Moderate to Yoly re Pain (pain score 5 and above) Moderate to Severe Pain (pain score 5 and above ) in the immediate postop period when longer acting agent is desired and HYDROmo rphone is not tolerated., Starting on Madeleine 03/06/18 at 1222, Until [facility] 03/06/18 at 1929, Maximum cumulative dose is 12 mg. For patients with a regional, spinal, or local anesthetic, may give for anticipated pain as the anesthetic wears off., PACU/Re covery ondansetron (ZOFRAN) injection 4 mg 4 mg, Intravenous, Q4H PRN, Nausea, Vomiting, Starting on Madeleine 03/06/18 at 1222, Until [facility] 03/06/18 at 1929, If multiple medications are ordered for nausea or vomiting - administer in the following priority based on medications ordered, effectiveness and availability: ondanset keely (ZOFRAN) > prochlorPERAZINE (COMPAZINE) > diphenhydrAMINE (BENADRYL) > hydrOXYzi ne HCl (VISTARIL)> ePHEDrine > scopolamine (TRANSDERM-SCOP)., PACU/Recovery documented in this encounter Active and Recently Administered Medications Times are shown in INSURANCE PRODUCER. Scheduled Medication Order 03/04/2018 03/05/2018 03/06/2018 lidocaine [...] (Anesthesia Fluid - Provider: Siobhan Hamm APRN, STEP DOWN NURSE)1700 (Stopped - Provider: Dee Perez RN) 25 [...] (SUBLIMAZE) injection 25-100 mcg 25-100 mcg, Intravenous, [id number], Pain, Sedation, Procedure, Severe Pain (pain score 8-10), Starting Madeleine 03/06/18 at 1436, Notify Anesthesiologist if total cumulative dose in excess of 250 mcg., Pre-op fentaNYL (SUBLIMAZE) injection 25-50 mcg 25-50 mcg, Intravenous, [id number], Other, Moderate to Severe Pain (pain score [...] Madeleine 03/06/18 at 1436, Pre-op lidocaine-epinephrine 1 %-1:100072 injection 1559 (Given - Provider: Good Hernandez MD) ONCE PRN, Starting [facility] 03/06/18 at 1559, Intra-op meperidine (DEMEROL) injection 12.5 mg 12.5 mg, Intravenous, [id number], Shiverin g, Starting [facility] 03/06/18 at 1222, For 2 doses, Maximum cumulative dose is 25 mg. Do not give to patients receiving MAO inhibitors (e.g. phenelzine (NARDIL), tranyl cypromine (PARNATE), selegiline (ELDEPRYL))., PACU/Recovery midazolam (VERSED) injection 1-2 mg 1-2 mg, Intravenous, [id number], Sedation, Anxiety, Procedure, Starting Madeleine 03/06/18 at 1436, MAX Dose 2mg, Pre-op morphine injectable 1-2 mg 1-2 mg, Intravenous, [id number], Other, Mo derate to Severe Pain (pain [...] PACU/Recovery documented in this encounter Care Teams Director Of Sustainability Relationship Specialty Start Date End Date Britta Cox PA-C PCP - General 06/13/15 [address] [place], [place] [address] documented as of this encounter
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
--- OUTSIDE RECORDS SUMMARY | 2021-11-07 13:35 | XMS_ITS | Encounter Summary ---
:1975 Author Organization [employer] Address [address] [address] Care Team Providers Name Role Phone Britta Cox PA-C Primary Care Provider Reason for Visit Reason Onset Date Comments Other 08/03/2016 AI Encounter Details Date Type Department Care Team Description 08/03/2016 Telephone Good Monzon MD Other (AI) Obstetrics/Gynecolog y [address] [facility] [place] [address] [place] [address] [place] [address] [phone] Social History Tobacco Use Types Packs/Day Years [...] on filedocumented in this encounter Care Teams Card Dealer Relationship Specialty Start Date End Date Britta Cox PA-C PCP - General 06/13/[address] [place] [address] [address] documented as of this encounter
--- OUTSIDE RECORDS SUMMARY | 2021-11-07 13:35 | XMS_ITS | Encounter Summary ---
:1975 Author Organization [employer] Address [address] [address] Care Team Providers Name Role Phone Britta Cox PA-C Primary Care Provider Reason for Visit Procedure/Equipment (Routine) - Incomplete Specialty Diagnoses / Procedures Referred By Contact Refer red To Contact Diagnoses Primary female infertility Good Hernandez MD Procedures [facility] [address] [place] [address] Ctr [place] [address] Referral ID Status Reason Start Date Expiration Date Visits V isits Requested Authorized [id number] Incomplete 07/04/2016 10/03/2017 1 1 Encounter Details Date Type Department Care Team Description 07/09/2016 Imaging [place] [facility] Good Hernandez [facility] female Services-Ultrasound infertility [address] [place] [address], [address] [place] [address] [place] [address] [phone] (Wo rk) Social History Tobacco Use Types [...] LESS jhonathan n 10mm. Good Hernandez MD [facility] documented in this encounter Visit Diagnoses Diagnosis Primary female infertility Female infertility of unspecified origin documented in this encounter Care Teams Manager Of Maintenance Relationship Specialty Start Date End Date Britta Cox PA-C PCP - General 06/13/15 [address] [place] [address] documented as of this encounter
--- OUTSIDE RECORDS SUMMARY | 2021-11-07 13:35 | XMS_ITS | Encounter Summary ---
:1975 Author Organization [employer] Address [address] [place] [address] Care Team Providers Name Role Phone Britta Cox PA-C Primary Care Provider Reason for Visit Procedure/Equipment (Routine) - Incomplete Specialty Diagnoses / Procedures Referred By Contact Refer red To Contact Procedures Provider, Foreign Images LINDA IMAGE(S) [address] [place] [address] Referral ID Status Reason Start Date Expiration Date Visits V isits Requested Authorized [id number] Incomplete 03/20/2018 06/19/2019 1 1 Encounter Details Date Type Department Care Team Description 03/07/2018 Ancillary Procedure [facility]iology PACS Provider, [address] [address] [place] [address] Social History Tobacco Use Types Packs/Day Years [...] Routine 03/07/2018 12:00 AM Results for this AU PAIR procedure are i n the results section . documented in this encounter Results LINDA IMAGE(S) (03/07/2018 12:00 AM AU PAIR) Anatomical Region Laterality Modality Other Specimen (Source) Anatomical Location Collection Method / Collectio n Time Received Time / Laterality Volume Narrative 03/20/2018 11:22 AM AU PAIR These images were obtained during a surgical procedure. See the Operative Note from this date for findings. Foreign Images Provider RAD NON-REPORTABLES documented in this encounter Visit Diagnoses Not on filedocumented in this encounter Care Teams Programmer Developer Relationship Specialty Start Date End Date Britta Cox PA-C PCP - General 06/13/15 [address] [place], [place] [address] documented as of this encounter
--- OUTSIDE RECORDS SUMMARY | 2021-11-07 13:35 | XMS_ITS | Encounter Summary ---
:1975 Author Organization [employer] Address [address], [place] [address] Care Team Providers Name Role Phone Britta Cox PA-C Primary Care Provider Reason for Referral Procedure/Equipment (Routine) - Incomplete Specialty Diagnoses / Procedures Referred By Contact Refer red To Contact Diagnoses Female infertility Good Hernandez MD Procedures [place] [address] [facility] Ctr [place] [address] Referral ID Status Reason Start Date Expiration Date Visits V isits Requested Authorized [id number] Incomplete 07/11/2016 10/10/2017 1 1 Encounter Details Date Type Department Care Team Description 07/06/2016 Notes/Orders Good Monzon Female infer [facility] Obstetrics/Gynecolog melanie Sandhu MD (Primary Dx) [address] [facility] [address] [facility] Ctr [place] [address] [place] [phone] Social History Tobacco Use Types Packs/Day Years [...] of its high location. Good Hernandez MD [facility] documented in this encounter Visit Diagnoses Diagnosis Female infertility - Primary Female infertility of unspecified origin Female infertility Female infertility of unspecified origin documented in this encounter Care Teams Director Law Enforcement Relationship Specialty Start Date End Date Britta Cox, PA-C PCP - General 06/13/15 [address] [place] [address] documented as of this encounter
--- OUTSIDE RECORDS SUMMARY | 2021-11-07 13:35 | XMS_ITS | Encounter Summary ---
:1975 Author Organization [employer] Address [address], [place] [address] Care Team Providers Name Role Phone Britta Cox PA-C Primary Care Provider Reason for Visit Reason Comments Procedure AI INFERTILITY Encounter Details Date Type Department Care Team Description 07/17/2016 Procedure Visit [facility] Eve Langston Proced ure (AI); Obstetrics/Gynecolog INFERTILITY y [address] [facility] [address] [place] [address] [place], [place] [phone] [address] Social History Tobacco Use Types Packs/Day Years [...] presents for intrauterine donor insemination. Her primary vp informatics is Mary. Her donor sperm number is [id number] and it is her husbands kendy/ Reji [...] insemination documented in this encounter Care Teams Bonded Strand Operator Relationship Specialty Start Date End Date Britta Cox PA-C PCP - General 06/13/15 [address] [place] [address] documented as of this encounter
--- OUTSIDE RECORDS SUMMARY | 2021-11-07 13:35 | XMS_ITS | Encounter Summary ---
:1975 Author Organization [employer] Address [address], [place] [address] Care Team Providers Name Role Phone Britta Cox PA-C Primary Care Provider Encounter Details Date Type Department Care Team Description 07/17/2016 [facility] Good Hernandez Fertili ty testing Obstetrics/Gynecolog y (Primary Dx) [address] [place] [address] [place], [place] Ctr [address] [place], [place] [phone] Social History Tobacco Use Types Packs/Day Years [...] - 07/17/2016 7:54 AM CDT Performed at [facility], [address] [place] [address] CLIA number [id number] Good Hernandez MD LAB_1 Performing Organization Address City/State/ZIP Code Phon e Number PN [facility]FT [address] [place] [address] [phone] documented in this encounter Visit Diagnoses Diagnosis Fertility testing - Primary Fertility testing documented in this encounter Care Teams Cylinder Grinder Relationship Specialty Start Date End Date Britta Cox PA-C PCP - General 06/13/15 [address] [id number] documented as of this encounter
--- OUTSIDE RECORDS SUMMARY | 2021-11-07 13:35 | XMS_ITS | Encounter Summary ---
:1975 Author Organization [employer] Address [address] [place] [address] Care Team Providers Name Role Phone Britta Cox PA-C Primary Care Provider Encounter Details Date Type Department Care Team Description 07/12/2016 Notes/Orders Cheo June, Megan way MD Obstetrics/Gynecolog y [address] [facility] [address] [facility] [place] [address] [place] [address] [phone] Social History Tobacco Use Types Packs/Day Years [...] on filedocumented in this encounter Care Teams Instructor Dramatic Arts Relationship Specialty Start Date End Date Britta Cox PA-C PCP - General 06/13/[address] [place] [address] [address] documented as of this encounter
--- OUTSIDE RECORDS SUMMARY | 2021-11-07 13:35 | XMS_ITS | Encounter Summary ---
:1975 Author Organization [employer] Address [address], [place] [address] Care Team Providers Name Role Phone Britta Cox PA-C Primary Care Provider Reason for Referral (Routine) - Incomplete Specialty Diagnoses / Procedures Referred By Contact Refer red To Contact Diagnoses Endometrial polyp Good Hernandez MD Procedures Case Request OR - Gynecologic Surg: DILATATION AND CURETTAGE WITH HYSTEROSCOPY [address] [facility] [place] [address] Referral ID Status Reason Start Date Expiration Date Visits V isits Requested Authorized [id number] Incomplete 02/03/2018 05/05/2019 1 1 TOMETER OPERATOR Encounter Details Date Type Department Care Team Description 02/03/2018 Notes/Orders Good Monzon Endometrial polyp Obstetrics/Gynecolog melanie Sandhu MD (Primary Dx) [address] [facility] [address] [facility] Ctr [place] [address] [place] [phone] Social History Tobacco Use Types Packs/Day Years [...] uteri documented in this encounter Care Teams Casing Finisher And Stuffer Relationship Specialty Start Date End Date Britta Cox PA-C PCP - General 06/13/15 [address] [place] [address] documented as of this encounter
--- OUTSIDE RECORDS SUMMARY | 2021-11-07 13:36 | XMS_ITS | Encounter Summary ---
:1975 Author Organization [employer] Address [address], [place] [address] Care Team Providers Name Role Phone Md DEISI Eliane Primary Care Provider Reason for Visit Reason Comments Pharyngitis Encounter Details Date Type Department Care Team Description 08/10/[address] [facility] [address] Catarina Hong , Acute pharyngitis (Primary Dx); Urgent Care URI (upper respiratory infection) [address] [facility] [address] [phone] Social History Tobacco Use Types Packs/Day Years [...] as tabletIndications: needed. Generalized anxiety disorder (HRC) [place]-3 Fatty Acids Indications: PN: 0 05/31/2008 07/20/2019 (FISH OIL) 500 MG documented as of this encounter ED Notes Catarina Hong MD - 08/10/2012 3:26 PM CDT ED Provider Notes signed by Catarina Hong MD at 08/13/12 1029 Author: Catarina Hong MD Service: (none) Author Type: Physician Filed: 08/13/12 1029 Note Time: 08/11/12 1017 Status: Signed Lean Sensei: Catarina Hong MD (Physician) NAME: SHARIF PRICE MR#: [id number] CSN: [id number] AUTHENTICATING CLINICIAN: Catarina Hong MD CONFIRM #: [id number] LOC: 420 URGENT CARE PROGRESS NOTE DATE [...] culture is pending. CAM:MEDQ C: CONFIRM #: [id number] documented in this encounter Miscellaneous Notes Medication [...] - 08/10/2012 9:13 AM CDT Performed at [facility], [address] [place] [address] Catarina Hong MD LAB_1 Performing Organization Address [...] sick. documented in this encounter Care Teams Prepress Operator Relationship Specialty Start Date End Date Md Elaine MD PCP - General 07/24/11 06/12/15 [place] [address] documented as of this encounter
--- OUTSIDE RECORDS SUMMARY | 2021-11-07 13:36 | XMS_ITS | Encounter Summary ---
:1975 Author Organization [employer] Address [address], [place] [address] Care Team Providers Name Role Phone Britta Cox PA-C Primary Care Provider Reason for Visit Reason Comments TEST, Encounter Details Date Type Department Care Team Description 05/16/2016 Nursing Visit [facility] Nurse, P6500 Obg Pregnanc y examination Obstetrics/Gynecolog y 1 or test, negative [address] result (Primary Dx) [place] [address] Social History Tobacco Use Types Packs/Day Years [...] Cynthia Conley LPN - 05/16/2016 1:39 PM SENIOR INFORMATICA ETL DEVELOPER Addended by: CYNTHIA CONLEY on: 05/16/2016 01:39 PM Modules accepted: Orders OR INFORMATICA ETL DEVELOPER documented in this encounter Plan of Treatment Not on filedocumented as of this encounter Procedures Procedure Name Priority Date/Time Associated Diagnosis Comme nts POCT URINE Routine 05/16/2016 1:40 PM Results f or this SENIOR INFORMATICA ETL DEVELOPER examination or test, procedu re are in negative result the results section. documented in this encounter Results POCT urine (05/16/2016 1:40 PM SENIOR INFORMATICA ETL DEVELOPER) [facility] Method Time Signature Urine Negative PN POCT Test - POC Control Line Yes PN POCT Present, Clear Background - Internal control Cartridge Lot# [id number] PN POCT Specimen (Source) Anatomical Collection Method Collection Time Re ceived Time Location / / Volume Laterality Urine specimen 05/16/2016 1:40 PM (specimen) SENIOR INFORMATICA ETL DEVELOPER Eve Langston MD PN POINT OF CARE TESTS Performing Organization Address City/State/ZIP Code Phon e Number POCT PN POCT documented in this encounter Visit Diagnoses Diagnosis examination or test, negative result - Primary documented in this encounter Care Teams Crop Puller Relationship Specialty Start Date End Date Britta Cox PA-C PCP - General 06/13/15 [address] [place] [address] documented as of this encounter
--- OUTSIDE RECORDS SUMMARY | 2021-11-07 13:36 | XMS_ITS | Encounter Summary ---
:1975 Author Organization [employer] Address [address], [place] [address] Care Team Providers Name Role Phone Britta Cox PA-C Primary Care Provider Reason for Referral Procedure/Equipment (Routine) - Incomplete Specialty Diagnoses / Procedures Referred By Contact Refer red To Contact Diagnoses Fertility testing Good Hernandez MD Procedures [place] Hysterosalpingiogram Surgical [address] [facility] [place] [address] Referral ID Status Reason Start Date Expiration Date Visits V isits Requested Authorized [id number] Incomplete 05/10/2016 08/09/2017 1 1 STRAIGHTENER Procedure/Equipment (Routine) - Incomplete Specialty Diagnoses / Procedures Referred By Contact Refer red To Contact Diagnoses Fertility testing Good Hernandez MD Procedures [place] Hysterosalpingiogram Imaging [address] [facility] [place] [address] Referral ID Status Reason Start Date Expiration Date Visits V isits Requested Authorized [id number] Incomplete 05/10/2016 08/09/2017 1 1 STRAIGHTENER Encounter Details Date Type Department Care Team Description 05/10/2016 Notes/Orders [facility] Good Hernandezi ty testing Joe Sandhu MD (Primary Dx) [address] [address] [facility] [address] [place] [address] [phone] Social History Tobacco Use Types Packs/Day Years [...] Results [place] Hysterosalpingiogram Surgical (05/16/2016 2:33 PM GEAR STRAIGHTENER) Anatomical Region Laterality Modality Pelvis Computed Radiography Specimen (Source) Anatomical Location Collection Method / Collectio n Time Received Time / Laterality Volume Narrative 05/21/2016 8:37 AM GEAR STRAIGHTENER Procedure performed under fluoroscopic guidance. See report in Epic for this date. Good Hernandez MD [facility] [place] Hysterosalpingiogram Imaging (05/16/2016 2:33 PM GEAR STRAIGHTENER) Anatomical Region Laterality Modality Pelvis Computed Radiography Specimen (Source) Anatomical Collection Method Collection Time Re ceived Time Location / / Volume Laterality 05/16/2016 1:51 PM GEAR STRAIGHTENER Narrative 05/16/2016 2:46 PM GEAR STRAIGHTENER COMPARISON: ??None. TECHNIQUE: ??Study and procedure were pe rformed in conjunction with the attending BUSINESS CENTER REPRESENTATIVE physician. The uterine cavity was cannulated and [...] perf ormed in conjunction with the attending BUSINESS CENTER REPRESENTATIVE physician. The uterine cavity was cannulated and nonionic contrast was instilled. FINDINGS: The endometrial cavity appears normal. Bilateral fallopian tubes appear patent and demonstrate spillage of contrast into the peritoneal cavity. The lower uterine segment was visualized fluoroscopically and appeared normal. Good Hernandez MD [facility] documented in this encounter Visit Diagnoses Diagnosis Fertility testing - Primary Fertility testing documented in this encounter Care Teams Data Center Operator Relationship Specialty Start Date End Date Britta Cox PA-C PCP - General 06/13/15 [address] [place] [address] documented as of this encounter
--- OUTSIDE RECORDS SUMMARY | 2021-11-07 13:36 | XMS_ITS | Encounter Summary ---
:1975 Author Organization [employer] Address [address], [place] [address] Care Team Providers Name Role Phone Md DEISI Elaine Primary Care Provider Encounter Details Date Type Department Care Team Description 12/27/2011 Hospital Encounter [facility] [place], [address] [place], [place] [address] [facility] [phone] [place] [address] (Wo rk) Social History Tobacco [...] as tabletIndications: needed. Generalized anxiety disorder (HRC) [place]-3 Fatty Acids Indications: PN: 0 05/31/2008 07/20/2019 [...] 12/28/11724 Note Time: 12/27/11 1356 Status: Signed Video Game Technician: Good Hernandez MD (Physician) NAME: SHARIF PRICE MR#: [id number] CSN: [id number] AUTHENTICATING CLINICIAN: Good Hernandez MD CONFIRM #: [id number] LOC: 1 OPERATIVE REPORT DATE OF OPERATION: [...] DISCREPANCY: 50 cc. FRAN:MARIXA C: CONFIRM #: [id number] documented in this encounter Miscellaneous Notes Miscellaneous - 12/27/2011 3:24 PM CDTNotes Recorded by Good Hernandez MD on 12/31/2011 at 10:09 AMMessage left on voicemail that pathology was benign and consistent with polypoid tissue. COMMUNITY MANAGER Medication History - Ed Ames MD - [...] Results POCT URINE (12/27/2011 10:19 AM CDT) [facility] gist Method Time Signature Urine Negative HP CONVERSION Test - POC Control Line Yes HP CONVERSION Present, Clear Background - Internal control Cartridge Lot# [id number] HP CONVERSION Specimen (Source) Anatomical Collection Method Collection Time Re ceived Time Location / / Volume Laterality 12/27/2011 10:19 AM CDT Good Hernandez MD PN POINT OF CARE TESTS Performing Organization Address City/State/ZIP Code Phon e Number HP CONVERSION Pathology Report (12/27/2011 7:00 AM CDT) [facility] gist Method Time Signature Path: ?Final SURGICAL PATHOLOGY REP ORT HP CONVERSION Pathology #: [id number] ? Date Obtained: 12/27/2011 ?Date Received: 12/27/2011 [...] with blood-tinged mucus. ??Entirely submitted in cassette [id number]. WEYAL MICROSCOPIC DESCRIPTION: Microscopic examination performed. CPT Codes: ?16343 x 1 ? End of Report Specimen [...] on filedocumented in this encounter Care Teams Quill Buncher And Sorter Relationship Specialty Start Date End Date Md Elaine MD PCP - General 07/24/11 06/12/15 [place] [address] documented as of this encounter
--- OUTSIDE RECORDS SUMMARY | 2021-11-07 13:36 | XMS_ITS | Encounter Summary ---
:1975 Author Organization [employer] Address [address], [place] [address] Care Team Providers Name Role Phone Md DEISI Elaine Primary Care Provider Reason for Visit Reason Comments Annual Exam Encounter Details Date Type Department Care Team Description 05/20/2015 Office Visit Good Monzon Well woman e xam with routine gynecological exam (Primary Dx); Obstetrics/Gynecolog melanie Sandhu MD Fatigue, unspecified type; [address] [address] [address] Abnor mal weight gain; [address] Subacute and chronic vulvitis; [place] [address] [place], [place] Encounter for preconception consultation; [phone] [id number] History of cervical dysplasia Social History Tobacco Use Types Packs/Day Years Used Date Smoking Tobacco: Never Assessed Sex Assigned at Date Recorded Not on file documented as of this encounter Last Filed Vital Signs Vital Sign Reading Time Taken Comments Blood Pressure 122/74 05/20/2015 11:05 AM FARE REGISTER REPAIRER Pulse 83 05/20/2015 11:05 AM FARE REGISTER REPAIRER Temperature - - Respiratory Rate - - Oxygen Saturation - - Inhaled Oxygen Concentration - - Weight 82.1 kg (181 lb) 05/20/2015 11:05 AM FARE REGISTER REPAIRER Height 152.4 cm (5') 05/20/2015 11:05 AM FARE REGISTER REPAIRER Body Mass Index 35.35 05/20/2015 11:05 AM FARE REGISTER REPAIRER documented in this encounter Progress Notes Deidre Santiago RN - 05/26/2015 9:15 AM FARE REGISTER REPAIRER Quick Note: Dear Courtney, I am writing to let you know that your PAP and HPV result is negative. This means that your test result was normal. No cancer or precancerous cells were seen. Based on current cervical cancer screening recommendations, your next PAP and HPV should be in 3 years. Continue to schedule your annual preventive exams for your overall health. If you have questions about cervical cancer screening or your test results, call Cervical Cancer Screening and Management Team [phone] Sincerely, Deidre Santiago RN on behalf of Dr. Lizette Thurston, Cash Processing Specialist [place] Cervical Cancer Screening and Management REGISTER REPAIRER Good Max MD - 05/20/2015 3:16 PM FARE REGISTER REPAIRER Addended by: GOOD MAX on: 05/20/2015 03:16 PM Modules accepted: Orders REGISTER REPAIRER Good Max MD - 05/20/2015 1:08 PM CST Name:Courtney Lang MR#:[id number] Clinician: Good Max Date: 05/20/2015 INFRASTRUCTURE PROJECT MANAGER PREVENTATIVE EXAM & PELVIC SUBJECTIVE: Patient is a 40-year-old female G0 last menstrual period of 05/05/15 who presents today with several questions and concerns. Patient has been with her current partner for over 2 years and they have talked marriage and family. They both do want to have children and patient does realize the urgency of starting to try to get . Her partner, however feels that there is plenty of time and has not wanted to take did not step. They are using abstinence for control and do not plan to become sexually active until they are . Patient is complaining of weight gain and fatigue, particularly since January. She was seen at thattime by Dr. Nuñez who ordered a panel of tests which were normal. Patient has worked with a insurance claims examiner yet continues to gain weight. She is tired most days. Patient is complaining of a 6 month history of intermittent vulvar and perianal itching. She does have a history of psoriasis, but not previously this area and it does not typically cause itching to her. Past Medical History Diagnosis Date ??? Obesity (HRC) ??? Vitamin D Deficiency ??? Polycystic Ovary Syndrome 24 yo missed periods, acne, hair growth issues, saw Dr Félix Johnson dx with this ??? Psoriasis ??? Pap Smear Abnormal Cervix LEEP ??? Hypothyroidism Primary ??? Pneumonia ??? Anxiety (HRC) ??? Asthma (HRC) ??? Depression ??? Migraine ??? STD (sexually transmitted disease) (HRC) ??? Eating disorder ??? Irritable bowel syndrome ??? Cervical dysplasia 2008 LAKSHMI 3, LEEP Past Surgical History Procedure Laterality Date ??? Leep 2008 LAKSHMI 3 ??? Hysteroscopy 2012 polyp ??? Dilation and curettage of uterus Medications: Reviewed and Updated in [facility] Allergies: Reviewed and Updated in [facility] History Social History ??? Marital Status: Single Spouse Name: N/A Number of Children: 0 ??? 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 Smoking status: Never Smoker ??? Smokeless tobacco: Never Used ??? Alcohol Use: 1.0 oz/week 2 Not specified per week Comment: 1-2 drinks per week ??? Drug Use: No ??? Sexual Activity: Partners: Male Control/ Protection: None Comment: Partner-vasectomy Other Topics Concern ??? Bike Helmet Yes ??? City Water No ??? Exercise Yes ??? Guns In Home Yes ??? Seat Belt Yes ??? Special Diet No ??? Weight Concern Yes Social History Narrative Works in [employer]. Single, partnered. 1 dog. patient is in a long-term relationship. Her partner has a 12-year-old son. She works in [employer]. Family History Problem Relation Age of Onset ??? Osteoporosis Mother ??? Thyroid Disease Mother ??? Osteoporosis Maternal Grandmother ??? Alzheimer's Dz Maternal Grandfather ??? Dementia Maternal Grandfather ??? Diabetes Maternal Grandfather ??? Thyroid Disease Paternal Grandmother ??? Heart Disease Paternal Grandfather ??? Diabetes Other ??? Thyroid Disease Maternal Aunt REVIEW OF SYSTEMS: With the exception of any items noted above, the remainder of the GI and ROS is negative. OBJECTIVE: Healthy appearing female in no acute distress. Vital Signs: BP 122/74 mmHg Pulse 83 Ht 5' (1.524 m) Wt 181 lb (82.101 kg) BMI 35.35 kg/m2 LMP 05/05/2015 Breasts: Symmetrical, nontender. No dominant masses, skin dimpling, nipple retraction or nipple discharge. Neck: Supple without masses, nodes or thyroidmegaly Abdomen: Soft, non-tender, without hepatospenomegaly, masses or hernias. Lymphatics: No lymphadenopathy in the neck, axillae or groin Pelvic: Normal external genitalia including vulva, urethral meatus, Bartholin's and skene's glands. Normal vaginal mucosa and discharge. Pelvic support normal. Cervix is without lesions. Urethra and bladder are without masses or tenderness. Uterus is normal size, nontender. No adnexal masses or tenderness. ASSESSMENT: 1. Annual INFRASTRUCTURE PROJECT MANAGER Exam. 2. History of LAKSHMI-3 status post LEEP 2007-Pap and HPV to be obtained today. Pap smear guidelines were reviewed. 3. Breast cancer screening-patient and I reviewed the different options for screening and recommendations. She would like to get a mammogram this year. 4. Preconception counseling-patient and I discussed decreasing fertility with aging as well as increased risk to and genetic abnormalities. Handouts were given from [facility] regarding this. I didstrongly to encourage her to consider pursuing a now versus later and she would very much like to do so as well .5. Vulvitis-patient appears to have just some irritation around the vulva and perianal areas. It does not appear to be psoriasis, therefore I recommend Mycolog b.i.d. p.r.n. ointment 6. Fatigue and weight gain-patient is trying to exercise and is following her insurance claims examiner diet, butcontinues to experience weight gain and significant fatigue. Will check a T3 to T4 and TSH. PLAN: Follow-up in 1 year, sooner prn any concerns. REGISTER REPAIRER documented in this encounter Miscellaneous Notes Miscellaneous - 05/09/2016 9:29 PM CSTNotes Recorded by Deidre Santiago RN on 05/26/2015 at 9:15 AMDjason Valdez,I am writing to let you know that your PAP and HPV result is negative. This means that your test result was normal. No cancer or precancerous cells were seen.Based on current cervical cancer screening recommendations, your next PAP and HPV should be in 3 years. Continue to schedule your annual preventive exams for your overall health.If you have questions about cervical cancer screening or your test results, callCervical Cancer Screening and Management [phone] Sandhu, BERTA on behalf ofDr. Lizette Thurston, Medical DirectorParsandrine Rosales Cervical Cancer Screening and Management REGISTER REPAIRER Miscellaneous - 05/09/2016 9:29 PM CSTNotes Recorded by Deidre Santiago RN on 05/26/2015 at 9:15 AMDear Courtney,I am writing to let you know that your PAP and HPV result is negative. This means that your test result was normal. No cancer or precancerous cells were seen.Based on current cervical cancer screening recommendations, your next PAP and HPV should be in 3 years. Continue to schedule your annual preventive exams for your overall health.If you have questions about cervical cancer screening or your test results, callCervical Cancer Screening and Management [phone] Sandhu RN on behalf ofDr. Lizette Thurston Medical DirectorPaulding County Hospitalsandrine Rosales Cervical Cancer Screening and Management REGISTER REPAIRER documented in this encounter Plan of Treatment Not on filedocumented as of this encounter Procedures Procedure Name Priority Date/Time Associated Comments Diagnosis PAP TEST ORDER Routine 05/20/2015 3:27 PM History of cervical Results for this FARE REGISTER REPAIRER dysplasia procedure are i n the results section. HPV WITH 16 18 Routine 05/20/2015 3:27 PM Results for this GENOTYPING, FARE REGISTER REPAIRER procedure are i n CERVICAL/ENDOCERVICA the res ults L section. ANATOMICAL PATH Routine 05/20/2015 3:27 PM Result s for this LIQUID BASED FARE REGISTER REPAIRER procedure are i n the results section. documented in this encounter Results Pap Smear (05/20/2015 3:27 PM FARE REGISTER REPAIRER) Specimen (Source) Anatomical Collection Method Collection Time Re ceived Time Location / / Volume Laterality 05/20/2015 3:27 PM FARE REGISTER REPAIRER Narrative HP CONVERSION - 05/25/2015 12:10 PM FARE REGISTER REPAIRER FINAL GYNECOLOGICAL CYTOLOGY REPORT Pathology #: [id number] ?Date Obtained: 05/20/2015 ? Date Received: 05/23/2015 INTERPRETATION/RESULTS: Negative for Intraepithelial Lesion or M alignancy. SPECIMEN ADEQUACY: Satisfactory for Evaluation. ??No endoce rvical cells/transformation zone component present. Verified on 05/25/2015 ??by NANY BOSCH (electronic signature) CLINICAL NOTES: ?Abnormal bleeding: No, LMP: na, Menstrual status: None Apply, ?Current form of therapy: None a pply LIQUID BASED PAP SMEAR SPECIMEN TYPE: ?ROUTINE CERVICAL PAP TEST PLEASE NOTE: The pap smear is a screening test design ed to aid in the detection of cervical cancer and its pre cursor lesions. It is not a diagnostic procedure and orquidea uld not be used as the sole means of detecting cervical cancer. Both false-positive and false-negative report s may occur. Performed at [facility], [address] [place] [address] Transcriptions 05/09/2016 9:29 PM CSTNotes Recorded by Deidre Santiago RN on 05/26/2015 at 9:15 AMDear Courtney, I am writing to let you know that your PAP and HPV result is negative. This means that your test resu lt was normal. No cancer or precancerous cells were seen. Based on current cervical cancer screening recommendations, your next PAP and HPV should be in 3 years. Continue to schedule your annual preventive exams for your overall health. If you have questions about cervical can cer screening or your test results, call Cervical Cancer Screening and Management [phone],Deidre Santiago, RN on behalf ofDr. Lizette Thurston, Cash Processing Specialist Shira Saraviallet Cervical Cancer Screening and Management Good Max MD LAB_1 Performing Organization Address City/State/ZIP Code Phon e Number HP CONVERSION HPV with 16 18 Genotyping (05/20/2015 3:27 PM FARE REGISTER REPAIRER) [facility] Method Time Signature HPV High Risk Not Detected HP CONVERSION 16 HPV High Risk Not Detected HP CONVERSION 18 Other HPV Not Detected HP CONVERSION High Risk Not 16/18 Comment: The Kathy HPV Test is a qualitative in v itro test for the detection of Human Papillomavirus in [facility] patient specimens. ??The test utilizes amplifica tion of target DNA by Polymerase Chain Reaction (PCR) and n ucleic acid hybridization for the detection of 14 hi gh-risk (HR) HPV types. The assay tests for high risk typ es (16, 18, 31, 33, 35, 39, 45, 51, 52, 56, 58, 59, 66 and 6 8). NOTE: This test was developed and its pe rformance characteristics determined by [facility]. It has not been cleared or approved by [facility]. The laboratory is regulated under CLIA as qualified to perform high-complexity testing. This test is used for clinical purposes. It should not be regarded as investigational or fo r research. Specimen Anatomical Collection Method Collection Time Receive d Time (Source) Location / / Volume Laterality 05/20/2015 3:27 PM 6 3:27 FARE REGISTER REPAIRER PM FARE REGISTER REPAIRER Narrative HP CONVERSION - 05/25/2015 12:51 PM FARE REGISTER REPAIRER Performed at [facility], [address] [place] [address] CLIA number [id number] Transcriptions 05/09/2016 9:29 PM CSTNotes Recorded by Deidre Santiago, RN on 05/26/2015 at 9:15 Timothy Valdez, I am writing to let you know that your PAP and HPV result is negative. This means that your test resu lt was normal. No cancer or precancerous cells were seen. Based on current cervical cancer screening recommendations, your next PAP and HPV should be in 3 years. Continue to schedule your annual preventive exams for your overall health. If you have questions about cervical can cer screening or your test results, call Cervical Cancer Screening and Management [phone], RN on behalf ofDr. Lizette Thurston, Cash Processing Specialist [facility] Cervical Cancer Screening and Management Good Max MD LAB_1 Performing Organization Address City/State/ZIP Code Phon e Number HP CONVERSION Pap Test Order (05/20/2015 3:27 PM FARE REGISTER REPAIRER) [facility] gist Method Time Signature Pap Smear Collected HP CONVERSION Monolayer tracking test Specimen Anatomical Collection Method Collection Time Receive d Time (Source) Location / / Volume Laterality 05/20/2015 3:27 PM 6 8:39 FARE REGISTER REPAIRER AM FARE REGISTER REPAIRER Good Max MD LAB_1 Performing Organization Address City/State/ZIP Code Phon e Number HP CONVERSION documented in this encounter Visit Diagnoses Diagnosis Well woman exam with routine gynecologic al exam - Primary Routine gynecological examination Fatigue, unspecified type Abnormal weight gain Subacute and chronic vulvitis Vaginitis and vulvovaginitis, unspecifie d Encounter for preconception consultation History of cervical dysplasia Personal history of cervical dysplasia documented in this encounter Care Teams Make Ready Mechanic Relationship Specialty Start Date End Date Md Elaine MD PCP - General 07/24/11 06/12/15 [place] [address] documented as of this encounter
--- OUTSIDE RECORDS SUMMARY | 2021-11-07 13:36 | XMS_ITS | Encounter Summary ---
:1975 Author Organization [employer] Address [address], [place] [address] Care Team Providers Name Role Phone Britta Cox PA-C Primary Care Provider Encounter Details Date Type Department Care Team Description 06/06/2016 Notes/Orders Good Monzon MD Obstetrics/Gynecolog y [address] [facility] [address] [facility] [place] [address] [place] [address] [phone] Social History Tobacco Use Types Packs/Day Years [...] on filedocumented in this encounter Care Teams Bandage Maker Relationship Specialty Start Date End Date Britta Cox PA-C PCP - General 06/13/[address] [place] [address] documented as of this encounter
--- OUTSIDE RECORDS SUMMARY | 2021-11-07 13:36 | XMS_ITS | Encounter Summary ---
:1975 Author Organization [facility] Address [address], [place] [address] Care Team Providers Name Role Phone Md DEISI Elaine Primary Care Provider Encounter Details Date Type Department Care Team Description 02/09/2015 Notes/Orders Soheila Owen Medicin e Nuñez, Martha B, Other fatigue (Primary [address] Marta Gorman PA-C Dx) [place] [address] [address] [phone] [place] [id number] Social History Tobacco Use Types Packs/Day Years Used Date Smoking Tobacco: Never Assessed Sex Assigned at Date Recorded Not on file documented as of this encounter Plan of Treatment Not on filedocumented as of this encounter Visit Diagnoses Diagnosis Other fatigue - Primary documented in this encounter Care Teams Quality Control Microbiology Supervisor Relationship Specialty Start Date End Date Md Elaine MD PCP - General 07/24/11 06/12/15 [place] [address] documented as of this encounter
--- OUTSIDE RECORDS SUMMARY | 2021-11-07 13:36 | XMS_ITS | Encounter Summary ---
:1975 Author Organization [employer] Address [address] [place] [address] Care Team Providers Name Role Phone Md DEISI Elaine Primary Care Provider Encounter Details Date Type Department Care Team Description 03/01/2012 Hospital Encounter [facility] [address] [facility] [address] [facility] [address] [place] [address] Social History Tobacco Use Types [...] as tabletIndications: needed. Generalized anxiety disorder (HRC) [place]-3 Fatty Acids Indications: PN: 0 05/31/2008 07/20/2019 (FISH OIL) 500 MG documented as of this encounter Plan of Treatment Not on filedocumented as of this encounter Visit Diagnoses Not on filedocumented in this encounter Care Teams Television Maintenance Worker Relationship Specialty Start Date End Date Md Elaine MD PCP - General 07/24/11 06/12/15 [place] [address] documented as of this encounter
--- OUTSIDE RECORDS SUMMARY | 2021-11-07 13:36 | XMS_ITS | Encounter Summary ---
:1975 Author Organization [employer] [facility] Address [address] [place] [address] Care Team Providers Name Role Phone Md DEISI Elaine Primary Care Provider Encounter Details Date Type Department Care Team Description 08/27/2013 Notes/Orders [facility] ry Non Pn, Psoriasis (Primary Dx) [address]ña ClinicianMD [place], [place] [address] [phone] [place] [address] Social History Tobacco Use Types Packs/Day Years Used Date Smoking Tobacco: Never Assessed Sex Assigned at Date Recorded Not on file documented as of this encounter Plan of Treatment Not on filedocumented as of this encounter Visit Diagnoses Diagnosis Psoriasis - Primary Other psoriasis documented in this encounter Care Teams Welfare Interviewer Relationship Specialty Start Date End Date Md Elaine MD PCP - General 07/24/11 06/12/15 [place], [place] [address] documented as of this encounter
--- OUTSIDE RECORDS SUMMARY | 2021-11-07 13:36 | XMS_ITS | Encounter Summary ---
:1975 Author Organization [employer] Address [address] [address] Care Team Providers Name Role Phone Md DEISI Elaine Primary Care Provider Reason for Visit Reason Comments MASS FATIGUE WEIGHT GAIN Encounter Details Date Type Department Care Team Description 02/08/2015 Office Visit Martha Denton, Other fatigue (Primary Dx); [address] Marta Gorman PA-C Weight gain [place] [address] [address] [phone] [place] [id number] Social History Tobacco Use Types Packs/Day Years Used Date Smoking Tobacco: Never Assessed Sex Assigned at Date Recorded Not on file documented as of this encounter Last Filed Vital Signs Vital Sign Reading Time Taken Comments Blood Pressure 110/72 02/08/2015 1:00 PM ADVERTISING OPERATIONS MANAGER Pulse - - Temperature - - Respiratory Rate - - Oxygen Saturation - - Inhaled Oxygen Concentration - - Weight 79.8 kg (176 lb) 02/08/2015 1:00 PM ADVERTISING OPERATIONS MANAGER Height 151 cm (4' 11.45) 02/08/2015 1:00 PM ADVERTISING OPERATIONS MANAGER Body Mass Index 35.01 02/08/2015 1:00 PM ADVERTISING OPERATIONS MANAGER documented in this encounter Progress Notes Martha [...] weekly for an hour and maintaining a [id number] dietdaily baths instead of losing weight the [...] Oil Apply 1 Application topically. 118.28 ??? [place]-3 Fatty Acids (FISH OIL) 500-100 mg Cap [...] software and may contain typographical errors. *[id number]~SOAP1 RTISING OPERATIONS MANAGER documented in this encounter Plan of Treatment Not on filedocumented as of this encounter Visit Diagnoses Diagnosis Other fatigue - Primary Weight gain Abnormal weight gain documented in this encounter Care Teams Insurance Job Titles Relationship Specialty Start Date End Date Md Argentina, PCP - General 07/24/11 06/12/15 [place] [address] documented as of this encounter
--- OUTSIDE RECORDS SUMMARY | 2021-11-07 13:36 | XMS_ITS | Encounter Summary ---
:1975 Author Organization [employer] Address [address] [address] Care Team Providers Name Role Phone Britta Cox PA-C Primary Care Provider Reason for Visit Reason Comments CONSULT Encounter Details Date Type Department Care Team Description 09/19/2015 Initial Consult Good Monzon Encounter for Obstetrics/Gynecolog melanie Sandhu MD fertility planning [address] (Primary D x) [facility] [place] [address] [place], [place] [phone] [address] Social History Tobacco Use Types Packs/Day Years Used Date Smoking Tobacco: Never Assessed Sex Assigned at Date Recorded Not on file documented as of this encounter Last Filed Vital Signs Vital Sign Reading Time Taken Comments Blood Pressure 138/81 09/19/2015 11:10 AM CDT Pulse 94 09/19/2015 11:10 AM CDT Temperature - - Respiratory Rate - - Oxygen Saturation - - Inhaled Oxygen Concentration - - Weight 79.4 kg (175 lb) 09/19/2015 11:10 AM CDT Height 152.4 cm (5') 09/19/2015 11:10 AM CDT Body Mass Index 34.18 09/19/2015 11:10 AM CDT documented in this encounter Progress Notes Good Hernandez MD - 09/19/2015 4:11 PM CDT Name: Courtney Lang MR#: [id number] Clinician: Good Hernandez MD Date: 09/19/2015 OFFICE RODENT CONTROL WORKER VISIT CHIEF COMPLAINT: Preconception counseling SUBJECTIVE: Patient is a 40-year-old female G0 last menstrual period of 08/30/15 who presents today for discussion of fertility. I last saw the patient on 05/20/15 for a annual exam and we discussed . At that time she and her partner have been together some time and had talked about a family, but were not yet sexually active. In the meantime, a talked about wanting to go ahead with trying to conceive and they got in the beginning of August. She has had one cycle of attempting. The major concern is that her is in the [employer] and is going to be deployed on October 08 to the [facility] and will not be home at all for 9- 12 months. He is currently in [place] and will only be in [place] from September 30-. They have talked about wanting to try to get this next year and the option for freezing his sperm. Patient is here today to try to understand what her options are. Of note, patient's menses are every 28-29 days lasting for 5-6 days. She has not used ovulation predictor kits. Past Medical History Diagnosis Date ??? Obesity ([facility]) ??? Vitamin D Deficiency ??? Polycystic Ovary Syndrome 24 yo missed periods, acne, hair growth issues, saw Dr Félix Johnson dx with this ??? Psoriasis ??? Hypothyroidism Primary ??? Pneumonia ??? Anxiety ([facility]) ??? Asthma ([facility]) ??? Depression ??? Migraine ??? STD (sexually transmitted disease) ([facility]) ??? Eating disorder ??? Irritable bowel syndrome ??? Cervical dysplasia 2008 LAKSHMI 3, LEEP Past Surgical History Procedure Laterality Date ??? Leep 2008 LAKSHMI 3 ??? Hysteroscopy 2012 polyp ??? Dilation and curettage of uterus Medications: Reviewed and Updated in [facility] Allergies: Reviewed and Updated in [facility] ROS: Pertinent positives as listed above, otherwise complete GI and review of systems is negative. Objective: Heathy appearing female in no acute distress. Vital Signs: BP 138/81 mmHg Pulse 94 Ht 5' (1.524 m) Wt 175 lb (79.379 kg) BMI 34.18 kg/m2 LMP 08/30/2015 (Exact Date) ASSESSMENT: Preconception planning-patient and her have only been trying for one month therefore she does not fit the criteria for primary infertility however I do think given their circumstances, that a basic workup would be important before she uses artificial insemination. We discussed checking a day 3FSH, estradiol and antimalarial hormone level, also an HSG. I did speak with cryogenics about donor directed sperm collection in freezing. She will be able to make an appointment while he is home for consultation, blood work, semen analysis and even have time for 2 collections. Patient has several options of what she can do with the frozen sperm. If her labs and HSG are normal, she may consider using a natural cycle and ovulation predictor kit to do inseminations. If labs areHSG are abnormal, we will address those. Another option to optimize her chances may be to consider IVF. We will communicate again after we see the results with cryogenics. Patient does plan to call to schedule an HSG after her next menses. PLAN: The patient was discharged ambulatory and in stable condition. Total time spent was 25 minutes with 15 minutes in counseling. documented in this encounter Plan of Treatment Not on filedocumented as of this encounter Visit Diagnoses Diagnosis Encounter for fertility planning - Prima ry Other specified procreative management documented in this encounter Care Teams Compounding Pharmacy Technician Relationship Specialty Start Date End Date Britta Cox PA-C PCP - General 06/13/15 [address] [place] [address] documented as of this encounter
--- OUTSIDE RECORDS SUMMARY | 2021-11-07 13:36 | XMS_ITS | Encounter Summary ---
:1975 Author Organization [email or web address] Address [address] [place] [address] Care Team Providers Name Role Phone Md DEISI Elaine Primary Care Provider Encounter Details Date Type Department Care Team Description 06/24/2012 Lab Visit [facility] [address] Other psoriasis [address] [place], [place] [id number] Social History Tobacco Use Types Packs/Day Years [...] - 06/24/2012 3:08 PM CDT Performed at [facility], [address] [place] [address] Hudson Millan MD LAB_1 Performing Organization Address City/[facility] Phon e Number HP CONVERSION HIV ANTIBODY (06/24/2012 2:58 PM CDT) athologist Signature HIV 1/HIV 2 Non-React Non-Reacti HP CONVERSION ve Specimen Anatomical Collection Method Collection Time Receive d Time (Source) Location / / Volume Laterality 06/24/2012 2:58 PM 3 4:46 CDT PM CDT Narrative HP CONVERSION - 06/24/2012 10:46 PM CDT .LAB RESULTS FAXED TO [phone], 05/31,15:30, by [facility] Hudson Millan MD LAB_1 Performing Organization Address City/State/ZIP Code Phon e Number HP CONVERSION Comp Metabolic Panel (06/24/2012 2:58 PM CDT) [facility] gist Method Time Signature Aspartate 15 [...] - 06/24/2012 3:27 PM CDT Performed at [facility], [address] [place] [address] Hudson Millan MD LAB_1 Performing Organization Address City/State/ZIP Code Phon e Number HP CONVERSION HEPATITIS B VIRUS QUANT RT PCR (06/24/2012 2:58 PM CDT) [facility] Method Time Signature Hep B Quant Not Detec See Text HP CONVERSION PCR IU/mL Comment: Hepatitis B virus DNA not detected Reference Range: Not detected The BENJY TaqMan HBV Test is not intende d for use in the diagnosis or confirmation of primary HBV infection. The linear range of the BENJY TaqMan HBV Test has been determined by the horse racing analyst to be 20 IU/mL to 17 0,000,000 [...] 06/30/2012 3:40 PM CDT .Results faxed to [phone], 06/28/19 13,11:08, by [email or web address] RESULTS FAXED TO [phone], 06/25/2012,14:21, by [facility] .LAB RESULTS FAXED TO [phone], 06/24/2012,15:30, by [facility] Hudson Millan MD LAB_1 Performing Organization Address City/State/ZIP Code Phon e Number HP CONVERSION HEPATITIS C VIRUS QUANT RT PCR (06/24/2012 2:58 PM CDT) [facility] gist Method Time Signature Hepatitis C [...] infection. The linear range of the Yuriy BEJNY Ampl iPrep/BENJY TaqMan HCV Test has been determined by the [facility] urer to be 43 IU/mL to 69,000,000 IU/mL. Hepatitis C Virus Log Not detected Log HP CO NVERSION Specimen Anatomical Collection Method Collection Time Receive d Time (Source) Location / / Volume Laterality 06/24/2012 2:58 PM 3 4:35 CDT PM CDT Narrative HP CONVERSION - 06/25/2012 2:15 PM CDT .LAB RESULTS FAXED TO [phone], 05/31,15:30, by [facility] Hudson Millan MD LAB_1 Performing Organization Address [...] - 06/24/2012 3:08 PM CDT Performed at [facility], [address] [place] [address] .LAB RESULTS FAXED TO [phone], 05/31,14:21, by [facility].LAB RESULTS FAXED TO [phone], 06/24/2012,15:30, by [facility] Hudson Millan MD LAB_1 Performing Organization Address City/State/ZIP Code Phon e Number HP CONVERSION QUANTIFERON GOLD (IN-HOUSE) (TBQFT) (06/24/2012 2:56 PM CDT) [facility] Method Time Signature Tuberculosis Negative Negative [...] diagnostic evaluations. ??The performanc e of the [facility] format of the test has not been [...] 10:58 AM CDT .LAB RESULTS FAXED TO [phone], 05/31,14:21, by [facility].LAB RESULTS FAXED TO [phone], 06/24/2012,15:30, by [facility] Hudson Millan MD LAB_1 Performing Organization Address City/State/ZIP Code Phon e Number HP CONVERSION documented in this encounter Visit Diagnoses Diagnosis Other psoriasis documented in this encounter Care Teams Ethanol Operator Relationship Specialty Start Date End Date Md Elaine MD PCP - General 07/24/11 06/12/15 [place] [address] documented as of this encounter
--- OUTSIDE RECORDS SUMMARY | 2021-11-07 13:36 | XMS_ITS | Encounter Summary ---
:1975 Author Organization [employer] Address [address] [address] Care Team Providers Name Role Phone Md DEISI Elaine Primary Care Provider Reason for Visit Reason Comments MASS Encounter Details Date Type Department Care Team Description 02/04/2015 Nurse Triage Good Monzon MD [facility] Obstetrics/Gynecolog y [address] [facility] [address] [facility] [place] [address] [place] [address] [phone] Social History Tobacco Use Types Packs/Day Years Used Date Smoking Tobacco: Never Assessed Sex Assigned at Date Recorded Not on file documented as of this encounter Nursing Notes Julianna Byrd RN - 02/04/2015 12:01 PM CST Protocol: SKIN LUMP OR LOCALIZED [id number] Affirmative: [1] Small swelling or lump AND [2] unexplained AND [3] present > 1 week Disposition of See PCP When Office Is Open (Within 3 Days) suggested. Pt has a tender to touch, hard lump in her right neck. She also has been fatigued for 2 weeks. Advised appt in primary care with in the week. [employer] INSIGHTS INTERN documented in this encounter Plan of Treatment Not on filedocumented as of this encounter Visit Diagnoses Not on filedocumented in this encounter Care Teams Heel Sewer Relationship Specialty Start Date End Date Md Elaine MD PCP - General 07/24/11 06/12/15 [place] [address] documented as of this encounter
--- OUTSIDE RECORDS SUMMARY | 2021-11-07 13:36 | XMS_ITS | Encounter Summary ---
:1975 Author Organization [employer] Address [address], [place] [address] Care Team Providers Name Role Phone Britta Cox PA-C Primary Care Provider Reason for Visit Reason Comments Procedure AIH frozen Encounter Details Date Type Department Care Team Description 05/20/2016 [facility] ([facility]H frozen) Obstetrics/Gynecolog y [address] [place] [address] Social History Tobacco Use Types Packs/Day Years [...] presents for intrauterine donor insemination. Her primary loan officer assistant is Dr. June. Her donor sperm number is [id number] from [facility]. The indication for insemination is [...] for artificial insemination Z31.89 Cath&Intro Saline/Contrast Sis/Hsg [53317] Patient Active Problem List Diagnosis Date Noted ??? Uterine polyp 12/14/2011 ??? Eating disorder 11/19/2011 ??? Major depressive disorder, recurrent episode, moderate ([facility]) 11/19/2011 ??? Obesity, Class II, BMI 35-39.9 ([facility]) 11/18/2011 ??? Obesity ([facility]) 12/12/2010 ??? 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 Polycystic ovaries ([facility]) 06/01/2008 ??? Psoriasis 06/01/2008 Overview Note: josé manuel and legs ??? Abnormal glandular Papanicolaou smear of cervix 06/01/2008 Overview Note: s/p LEEP procedure 2007 ??? Irritable bowel syndrome 06/01/2008 ??? Hypothyroidism ([facility]) 06/01/2008 Overview Note: subclinical- TSH followed Q6mo ??? Vitamin D deficiency ([facility]) 05/31/2008 Prior to Admission medications Medication Sig Start Date End Date Taking? Authorizing Provider cholecalciferol (VITAMIN D3) 1000 UNITS tablet 1 Int'l Units daily (every 24 hours). 09/03/08 Yes Lubna Yee MD Nutritional Supplements (GRAPESEED EXTRACT) 500-50 MG daily. Yes Unknown, Physician [place]-3 Fatty Acids (FISH OIL) 500 MG Indications: PN: 05/31/08 Yes Irywag-GrQqt-EbHzmu-FA-[place] (MULTIVITAMIN/MINERALS OR) Take 1 tablet by mouth daily (every 24 hours). 09/19/15 Yes Provider, External, Probiotic Product (SUPER PROBIOTIC OR) Yes Unknown, Physician Arabella Kern MD EEN MANAGER documented in this encounter Plan of Treatment Not on filedocumented as of this encounter Visit Diagnoses Diagnosis Encounter for artificial insemination - Primary Artificial insemination documented in this encounter Care Teams Camp Counselor Relationship Specialty Start Date End Date Britta Cox PAAnkit PCP - General 06/13/15 [address] [place] [address] documented as of this encounter
--- OUTSIDE RECORDS SUMMARY | 2021-11-07 13:36 | XMS_ITS | Encounter Summary ---
:1975 Author Organization [employer] Address [address] [address] Care Team Providers Name Role Phone Britta Cox PA-C Primary Care Provider Reason for Visit Reason Comments Cough Encounter Details Date Type Department Care Team Description 06/13/2015 Office Visit Soheila Garcia e Britta Cox, Breast cancer screening (Damaris héctor Dx); [address] PA-C Acute sinusitis, recurrence not specifie d, unspecified location [place] [address] [address] [phone] [place] [id number] (Wo rk) Social History Tobacco Use Types [...] Body Mass Index 35.15 05/20/2015 11:05 AM MAGNETOMETER OPERATOR documented in this encounter Progress Notes Britta [...] location documented in this encounter Care Teams Lead C Developer Relationship Specialty Start Date End Date Britta Cox PA-C PCP - General 06/13/15 [address] [place] [address] documented as of this encounter
--- OUTSIDE RECORDS SUMMARY | 2021-11-07 13:36 | XMS_ITS | Encounter Summary ---
:1975 Author Organization [facility] Address [address] [address] Care Team Providers Name Role Phone Md DEISI Elaine Primary Care Provider Encounter Details Date Type Department Care Team Description 06/24/2012 Notes/Orders [facility] [address], Other psoriasis Laboratory MD (Primary Dx) [address] [facility] [address] SKIN SPA [address] [address] [place], [place] [phone] [address] Social History Tobacco Use Types Packs/Day Years Used Date Smoking Tobacco: Never Assessed Sex Assigned at Date Recorded Not on file documented as of this encounter Plan of Treatment Not on filedocumented as of this encounter Visit Diagnoses Diagnosis Other psoriasis - Primary documented in this encounter Care Teams Masonry Instructor Relationship Specialty Start Date End Date Md Elaine MD PCP - General 07/24/11 06/12/15 [place] [address] documented as of this encounter
--- OUTSIDE RECORDS SUMMARY | 2021-11-07 13:36 | XMS_ITS | Encounter Summary ---
:1975 Author Organization [employer] Address [address] [address] Care Team Providers Name Role Phone Md DEISI Elaine Primary Care Provider Reason for Visit Reason Comments CONGESTION Headache FATIGUE Altered Mental Status Encounter Details Date Type Department Care Team Description 04/05/2012 Office Visit [facility] [address] Yepez (upper respiratory infection) (Primary Dx); Internal Medicine MD Bessy Major depressive disorder, recurrent epi sode, moderate; [address] [place] [address] [place] [address] [phone] Social History Tobacco Use Types Packs/Day Years Used Date Smoking Tobacco: Never Assessed Sex Assigned at Date Recorded Not on file documented as of this encounter Last Filed Vital Signs Vital Sign Reading Time Taken Comments Blood Pressure 106/66 04/05/2012 11:57 AM MANNEQUIN MAKER Pulse - - Temperature - - Respiratory Rate - - Oxygen Saturation - - Inhaled Oxygen Concentration - - Weight 80.7 kg (178 lb) 04/05/2012 11:57 AM MANNEQUIN MAKER Height 152.4 cm (5') 04/05/2012 11:57 AM MANNEQUIN MAKER Body Mass Index 34.76 04/05/2012 11:57 AM MANNEQUIN MAKER documented in this encounter Progress Notes Paty Yepez MD - 04/13/2012 7:23 PM CST SUBJECTIVE: [place] is a 36-year-old female comes in to [...] daily as needed. 30 tablet 0 ??? [place] [employer]-3 Fatty Acids (FISH OIL) 500-100 mg Cap [...] fatigue documented in this encounter Care Teams Lithographic Stripper Relationship Specialty Start Date End Date Md Elaine MD PCP - General 07/24/11 06/12/15 [place] [address] documented as of this encounter
--- OUTSIDE RECORDS SUMMARY | 2021-11-07 13:36 | XMS_ITS | Encounter Summary ---
:1975 Author Organization [employer] Address [address] [place] [address] Care Team Providers Name Role Phone Md DEISI Elaine Primary Care Provider Encounter Details Date Type Department Care Team Description 02/08/2015 Lab Visit [facility] Other fatigue; [address] Weight gain GABRIELLA Parnell [id number] Social History Tobacco Use Types Packs/Day Years Used Date Smoking Tobacco: Never Assessed Sex Assigned at Date Recorded Not on file documented as of this encounter Plan of Treatment Not on filedocumented as of this encounter Procedures Procedure Name Priority Date/Time Associated Comments Diagnosis GLUCOSE Routine 02/08/2015 2:21 PM Other fatigue Results for this ASSOCIATE CREATIVE DIRECTOR Weight gain procedure are i n the results section. THYROID STIMULATING Routine 02/08/2015 2:21 PM Other fat igue Results for this HORMONE ASSOCIATE CREATIVE DIRECTOR Weight gain procedure are i n the results section. CREATININE / GFR Routine 02/08/2015 2:21 PM Other fatigu e Results for this ASSOCIATE CREATIVE DIRECTOR Weight gain procedure are i n the results section. COMPLETE BLOOD Routine 02/08/2015 2:21 PM Other fatigue Results for this COUNT-W/DIFF ASSOCIATE CREATIVE DIRECTOR Weight gain procedure are i n the results section. DIFFERENTIAL Routine 02/08/2015 2:21 PM Results f or this ASSOCIATE CREATIVE DIRECTOR procedure are i n the results section. ELECTROLYTE PANEL Routine 02/08/2015 2:21 PM Other fatig ue Results for this ASSOCIATE CREATIVE DIRECTOR Weight gain procedure are i n the results section. FERRITIN Routine 02/08/2015 2:21 PM Other fatigue Results for this ASSOCIATE CREATIVE DIRECTOR Weight gain procedure are i n the results section. HGB A1C Routine 02/08/2015 2:21 PM Other fatigue Results for this ASSOCIATE CREATIVE DIRECTOR Weight gain procedure are i n the results section. BUN Routine 02/08/2015 2:21 PM Other fatigue Results for this ASSOCIATE CREATIVE DIRECTOR Weight gain procedure are i n the results section. documented in this encounter Results Differential (02/08/2015 2:21 PM ASSOCIATE CREATIVE DIRECTOR) athologist Signature Absolute 5.7 1.8 - 8.0 [...] Volume Laterality 02/08/2015 2:21 PM 5 2:20 ASSOCIATE CREATIVE DIRECTOR PM ASSOCIATE CREATIVE DIRECTOR Narrative HP CONVERSION - 02/08/2015 2:34 PM ASSOCIATE CREATIVE DIRECTOR Performed at [facility], [address] [place] [address] CLIA number [id number] Martha Nuñez PA-C LAB_1 Performing Organization Address City/[facility] Phon e Number HP CONVERSION Hgb A1c (02/08/2015 2:21 PM ASSOCIATE CREATIVE DIRECTOR) athologist [facility] HGB A1C 5.3 4.0 - 5.6 % HP CONVERSION Specimen Anatomical Collection Method Collection Time Receive d Time (Source) Location / / Volume Laterality 02/08/2015 2:21 PM 5 7:35 ASSOCIATE CREATIVE DIRECTOR PM ASSOCIATE CREATIVE DIRECTOR Narrative HP CONVERSION - 02/08/2015 8:42 PM ASSOCIATE CREATIVE DIRECTOR Performed at [address] [address] CLIA number [id number] Martha Nuñez PA-C LAB_1 Performing Organization Address City/State/ZIP Code Phon e Number HP CONVERSION BUN (02/08/2015 2:21 PM ASSOCIATE CREATIVE DIRECTOR) athologist Signature Blood Urea 11 9 - 26 HP CONVERSION Nitrogen mg/dL Specimen Anatomical Collection Method Collection Time Receive d Time (Source) Location / / Volume Laterality 02/08/2015 2:21 PM 5 5:41 ASSOCIATE CREATIVE DIRECTOR PM ASSOCIATE CREATIVE DIRECTOR Narrative HP CONVERSION - 02/08/2015 7:17 PM ASSOCIATE CREATIVE DIRECTOR Performed at [facility], [facility] [address] [address] CLIA number [id number] Martha Nuñez PA-C LAB_1 Performing Organization Address [facility] Phon e Number HP CONVERSION (ABNORMAL) Electrolyte Panel (02/08/2015 2:21 PM ASSOCIATE CREATIVE DIRECTOR) athologist Signature Sodium 139 136 - 145 HP CONVERSION mmol/L Potassium 4.1 3.5 - 5.2 HP CONVERSION mmol/L Chloride 108 (H) 98 - 107 HP CONVERSION mmol/L Bicarbonate 23 22 - 29 HP CONVERSION mmol/L Specimen Anatomical Collection Method Collection Time Receive d Time (Source) Location / / Volume Laterality 02/08/2015 2:21 PM 5 5:41 ASSOCIATE CREATIVE DIRECTOR PM ASSOCIATE CREATIVE DIRECTOR Narrative HP CONVERSION - 02/08/2015 7:17 PM ASSOCIATE CREATIVE DIRECTOR Performed at [facility], [facility] [address] [id number] CLIA number [id number] Martha Nuñez PA-C LAB_1 Performing Organization Address [facility] Phon e Number HP CONVERSION Creatinine / GFR (02/08/2015 2:21 PM ASSOCIATE CREATIVE DIRECTOR) athologist Signature Creatinine 0.60 0.55 - HP [...] Volume Laterality 02/08/2015 2:21 PM 5 5:41 ASSOCIATE CREATIVE DIRECTOR PM ASSOCIATE CREATIVE DIRECTOR Narrative HP CONVERSION - 02/08/2015 7:17 PM ASSOCIATE CREATIVE DIRECTOR Performed at [facility], [facility] [address] [id number] CLIA number [id number] Martha Nuñez PA-C LAB_1 Performing Organization Address City/[facility] Code Phon e Number HP CONVERSION GLUCOSE (02/08/2015 2:21 PM ASSOCIATE CREATIVE DIRECTOR) athologist Signature Lab Glucose 96 60 - 100 HP CONVERSION mg/dL Specimen Anatomical Collection Method Collection Time Receive d Time (Source) Location / / Volume Laterality 02/08/2015 2:21 PM 5 5:41 ASSOCIATE CREATIVE DIRECTOR PM ASSOCIATE CREATIVE DIRECTOR Narrative HP CONVERSION - 02/08/2015 7:17 PM ASSOCIATE CREATIVE DIRECTOR Performed at [facility], [address] [place] [address] CLIA number [id number] Martha Nuñez PA-C LAB_1 Performing Organization Address [facility] Phon e Number HP CONVERSION Ferritin (02/08/2015 2:21 PM ASSOCIATE CREATIVE DIRECTOR) athologist Signature Ferritin Serum 16 10 - 291 HP CONVERSION ng/mL Specimen Anatomical Collection Method Collection Time Receive d Time (Source) Location / / Volume Laterality 02/08/2015 2:21 PM 5 7:34 ASSOCIATE CREATIVE DIRECTOR PM ASSOCIATE CREATIVE DIRECTOR Narrative HP CONVERSION - 02/08/2015 8:19 PM ASSOCIATE CREATIVE DIRECTOR [place] [address] CLIA number [id number] Martha Nuñez PA-C LAB_1 Performing Organization Address [facility] Phon e Number HP CONVERSION THYROID STIMULATING HORMONE (02/08/2015 2:21 PM ASSOCIATE CREATIVE DIRECTOR) athologist Signature Thyroid 4.11 0.20 - HP CONVERSION Stimulating 4.50 mIU/L Hormone Specimen Anatomical Collection Method Collection Time Receive d Time (Source) Location / / Volume Laterality 02/08/2015 2:21 PM 5 7:34 ASSOCIATE CREATIVE DIRECTOR PM ASSOCIATE CREATIVE DIRECTOR Narrative HP CONVERSION - 02/08/2015 8:19 PM ASSOCIATE CREATIVE DIRECTOR [place] [address] CLIA number [id number] Martha Nuñez PA-C LAB_1 Performing Organization Address [facility] Phon e Number HP CONVERSION Complete Blood Count W/Diff (02/08/2015 2:21 PM ASSOCIATE CREATIVE DIRECTOR) P athologist Signature White Blood Cell 9.3 [...] Volume Laterality 02/08/2015 2:21 PM 5 2:20 ASSOCIATE CREATIVE DIRECTOR PM ASSOCIATE CREATIVE DIRECTOR Narrative HP CONVERSION - 02/08/2015 2:34 PM ASSOCIATE CREATIVE DIRECTOR Performed at [facility], [address] [place] [address] CLIA number [id number] Martha Nuñez PA-C LAB_1 Performing Organization Address City/State/[facility] Code Phon e Number HP CONVERSION documented in this encounter Visit Diagnoses Diagnosis Other fatigue Weight gain Abnormal weight gain documented in this encounter Care Teams Water Registrar Relationship Specialty Start Date End Date Md Elaine MD PCP - General 07/24/11 06/12/15 [place] [address] documented as of this encounter
--- OUTSIDE RECORDS SUMMARY | 2021-11-07 13:36 | XMS_ITS | Encounter Summary ---
:1975 Author Organization [employer] Address [address] [address] Care Team Providers Name Role Phone Britta Cox PA-C Primary Care Provider Reason for Visit Reason Comments Procedure Encounter Details Date Type Department Care Team Description 05/16/2016 [facility] Eve Langston MD Procedure Obstetrics/Gynecolog y [address] [facility] 5th [place] [address] [phone] (Wo rk) Social History Tobacco Use Types [...] No tubal dilation. See radiology official read. R PICKER documented in this encounter Plan of Treatment Not on filedocumented as of this encounter Visit Diagnoses Diagnosis Fertility testing - Primary documented in this encounter Care Teams Hot Roll Inspector Relationship Specialty Start Date End Date Britta Cox, KARENC PCP - General 06/13/15 [address] [place] [address] documented as of this encounter
--- OUTSIDE RECORDS SUMMARY | 2021-11-07 13:36 | XMS_ITS | Encounter Summary ---
:1975 Author Organization [employer] Address [address] [address] Care Team Providers Name Role Phone Britta Cox PA-C Primary Care Provider Reason for Visit Reason Onset Date Comments Medication Request 06/06/2016 Encounter Details Date Type Department Care Team Description 06/06/2016 Telephone Good Monzon, Medicatio n Request Obstetrics/Gynecolog y [address] [id number] [facility] [place] C[facility] [place] [address] [place] [address] [phone] (Wo rk) Social History Tobacco Use Types [...] encounter Nursing Notes Julianna Byrd RN - 06/06/2016 9:03 AM CST Correct pharmacy entered for the Clomid. [facility] documented in this encounter Plan of Treatment Not on filedocumented as of this encounter Visit Diagnoses Not on filedocumented in this encounter Care Teams Chicken Boner Relationship Specialty Start Date End Date Britta Cox PA-C PCP - General 06/13/[address] [place] [address] documented as of this encounter
--- OUTSIDE RECORDS SUMMARY | 2021-11-07 13:36 | XMS_ITS | Encounter Summary ---
:1975 Author Organization [employer] Address [address] [place] [address] Care Team Providers Name Role Phone Md DEISI Elaine Primary Care Provider Encounter Details Date Type Department Care Team Description 07/30/2012 Hospital Encounter Specialty Center [address] [facility] [address] [facility] [address] [place], [place] [address] Social History Tobacco Use Types Packs/Day Years [...] as tabletIndications: needed. Generalized anxiety disorder (HRC) [place]-3 Fatty Acids Indications: PN: 0 05/31/2008 07/20/2019 (FISH OIL) 500 MG documented as of this encounter Plan of Treatment Not on filedocumented as of this encounter Visit Diagnoses Not on filedocumented in this encounter Care Teams General Education Professor Relationship Specialty Start Date End Date Md Elaine MD PCP - General 07/24/11 06/12/15 [place] [address] documented as of this encounter
--- OUTSIDE RECORDS SUMMARY | 2021-11-07 13:36 | XMS_ITS | Encounter Summary ---
:1975 Author Organization [employer] Address [address], [place] [address] Care Team Providers Name Role Phone Md DEISI Elaine Primary Care Provider Reason for Visit Reason Comments PRE-OP EXAM Encounter Details Date Type Department Care Team Description 12/25/2011 Pre-Op Visit [facility] [address] Keyona Wick, Sonali eop examination Internal Medicine (Primary Dx) [address] [facility] [address] [place] [phone] (Wo rk) Social History Tobacco Use Types [...] usual. Take tylenol for pain. As your director compensation about holding your enbrel around the time of surgery. documented in this encounter OR Notes H&P - Keyona Wick MD - 12/25/2011 1:23 PM CDT PREOPERATIVE CONSULTATION Preop Assessment and Plan: Risk of procedure: low Mets: >4 Risk of fatal CO: low Medications patient should take prior to [...] the planned surgery. Keyona Wick MD [facility] [phone] +++++++++++++++++++++++++++++++++++++++++++++++++++++++++++++++++++++++ Courtney Ashbywilliamson [address] [facility] [address] 36 y.o. female DATE OF ENCOUNTER: 12/25/2011 History Social History Narrative Works in [employer]. Single, partnered. 1 dog. Significant medical problems [...] ??? LORazepam (ATIVAN) 0.5 mg tablet ??? [place]-3 Fatty Acids (FISH OIL) 500-100 mg Cap [...] unspecified documented in this encounter Care Teams Balance Staff Inspector Relationship Specialty Start Date End Date Md Elaine MD PCP - General 07/24/11 06/12/15 [place] [address] documented as of this encounter
--- OUTSIDE RECORDS SUMMARY | 2021-11-07 13:36 | XMS_ITS | Encounter Summary ---
:1975 Author Organization [employer] Address [address], [place] [address] Care Team Providers Name Role Phone Britta Cox PA-C Primary Care Provider Reason for Visit Reason Onset Date Comments Intrauterine Insemination 05/16/2016 Encounter Details Date Type Department Care Team Description 05/16/2016 Telephone Good Monzon, Intrauter ine Obstetrics/Gynecolog y [place] Insemination [address] [place] [address] [place] [phone] [address] Social History Tobacco Use Types Packs/Day Years [...] PM CST Pt left signed consent at java front end web developer. Consent was sent to Scan doc. Front line stated pt had many questions regarding the AI process. Informed front line information was given to pt over the phone earlier today and letter is at java front end web developer for pt with AI process information. When pt comes back to front line letter will be given and pt instructed to call nurse line with questions. Routed to Scan doc. Called [facility] management and informed consent was obtained. Note Closed. RONMENTAL PROTECTION INSPECTOR Ananya Painter RN - 05/16/2016 10:02 AM CST Called pt regarding AI consent. Pt will brick picker today at [facility] and attempt to get it signed by and bring to yet today. Reviewed AI process and phone numbers to all with surge during theweek and on weekend. Left AI information folder at java front end web developer for pt to brick picker today. Pt is expecting surge Saturday -Saturday. Future Appointments Date Time Provider Department Center 05/16/2016 1:30 PM Nurse, [facility] Obg 1 [facility] OBG PN [facility] 05/16/2016 2:00 PM Eve Langston MD [facility] OBG PN [facility] 05/16/2016 2:00 PM METH XR5 METH XRAY PN METH RONMENTAL PROTECTION INSPECTOR documented in this encounter Plan of Treatment Not on filedocumented as of this encounter Visit Diagnoses Not on filedocumented in this encounter Care Teams Senior Shipping Clerk Relationship Specialty Start Date End Date Britta Cox PA-C PCP - General 06/13/15 [address] [place] [address] documented as of this encounter
--- OUTSIDE RECORDS SUMMARY | 2021-11-07 13:36 | XMS_ITS | Encounter Summary ---
:1975 Author Organization [employer] Address [address], [place] [address] Care Team Providers Name Role Phone Md DEISI Elaine Primary Care Provider Encounter Details Date Type Department Care Team Description 05/20/2015 Lab Visit [facility] Fatigue, unspecified type; [address] [facility] [address] [place] [address] Social History Tobacco Use Types Packs/Day Years Used Date Smoking Tobacco: Never Assessed Sex Assigned at Date Recorded Not on file documented as of this encounter Plan of Treatment Not on filedocumented as of this encounter Procedures Procedure Name Priority Date/Time Associated Diagnosis Comme nts THYROID STIMULATING Routine 05/20/2015 11:53 Fatigue, unspecif ied Results for this HORMONE AM DSP ENGINEER type procedure are in Abnormal weight gain the res ults section. T3, FREE Routine 05/20/2015 11:53 Fatigue, unspecified Res ults for this AM DSP ENGINEER type procedure are in Abnormal weight gain the res ults section. FREE T4 Routine 05/20/2015 11:53 Fatigue, unspecified Res ults for this AM DSP ENGINEER type procedure are in Abnormal weight gain the res ults section. documented in this encounter Results T3, Free, Serum (05/20/2015 11:53 AM DSP ENGINEER) P athologist Signature Triiodothyronin 2.6 1.7 - 3.7 HP CONVERSION e, Free pg/mL Specimen Anatomical Collection Method Collection Time Receive d Time (Source) Location / / Volume Laterality 05/20/2015 11:53 05/20/2015 3:21 AM DSP ENGINEER PM DSP ENGINEER Narrative HP CONVERSION - 05/20/2015 4:38 PM DSP ENGINEER Performed at [facility], [address] [place] [address] CLIA number [id number] Good Hernandez MD LAB_1 Performing Organization Address [facility] Phon e Number HP CONVERSION Free T4 (05/20/2015 11:53 AM DSP ENGINEER) athologist Signature Thyroxine, Free 0.9 0.7 - 1.5 HP CONVERSION ng/dL Specimen Anatomical Collection Method Collection Time Receive d Time (Source) Location / / Volume Laterality 05/20/2015 11:53 05/20/2015 3:21 AM DSP ENGINEER PM DSP ENGINEER Narrative HP CONVERSION - 05/20/2015 4:38 PM DSP ENGINEER Performed at [facility], [address] [place] [address] CLIA number [id number] Good Hernandez MD LAB_1 Performing Organization Address [facility] Phon e Number HP CONVERSION THYROID STIMULATING HORMONE (05/20/2015 11:53 AM DSP ENGINEER) athologist Signature Thyroid 3.17 0.20 - HP CONVERSION Stimulating 4.50 Hormone uIU/mL Specimen Anatomical Collection Method Collection Time Receive d Time (Source) Location / / Volume Laterality 05/20/2015 11:53 05/20/2015 3:21 AM DSP ENGINEER PM DSP ENGINEER Narrative HP CONVERSION - 05/20/2015 4:38 PM DSP ENGINEER Performed at [facility], [address] [place] [address] CLIA number [id number] Good Hernandez MD LAB_1 Performing Organization Address [facility] Phon e Number HP CONVERSION documented in this encounter Visit Diagnoses Diagnosis Fatigue, unspecified type Abnormal weight gain documented in this encounter Care Teams Log Yard Manager Relationship Specialty Start Date End Date Md Elaine MD PCP - General 07/24/11 06/12/15 [place] [address] documented as of this encounter
--- OUTSIDE RECORDS SUMMARY | 2021-11-07 13:36 | XMS_ITS | Encounter Summary ---
:1975 Author Organization [employer] Address [address], [place] [address] Care Team Providers Name Role Phone Britta Cox PA-C Primary Care Provider Reason for Visit Reason Onset Date Comments Appt. Needed 05/10/2016 [facility]G Encounter Details Date Type Department Care Team Description 05/10/2016 Telephone Good Monzon, Appt. Eliza silva (HSG) Obstetrics/Gynecolog y [address] [facility] [address] [place] [address] [place] [address] [phone] (Wo rk) Social History Tobacco Use Types [...] CST Pt notified of HSG May.16 130pm TER HAND documented in this encounter Nursing Notes Good Hernandez MD - 05/11/2016 2:28 PM CST Nurse, Ananya Painter, will be following up with Courtney. I completed the forms. TER HAND Ezequiel Greenwood, BERTA - 05/10/2016 4:12 PM CST Pt is calling to schedule HSG. LMP 05/07/16. Pt has also misplaced instructions for when to order frozen sperm, where to have it sent, etc. She is requesting info, jonel if possible. Message forwarded to Dr. Hernandez's [place] nurse. TER HAND documented in this encounter Plan of Treatment Not on filedocumented as of this encounter Visit Diagnoses Not on filedocumented in this encounter Care Teams Coastal And Estuary Specialist Relationship Specialty Start Date End Date Britta Cox PA-C PCP - General 06/13/15 [address] [place], [place] [address] documented as of this encounter
--- OUTSIDE RECORDS SUMMARY | 2021-11-07 13:36 | XMS_ITS | Encounter Summary ---
:1975 Author Organization [email or web address] Address [address], [place] [address] Care Team Providers Name Role Phone Britta Cox PA-C Primary Care Provider Encounter Details Date Type Department Care Team Description 05/20/2016 Lab Visit Specialty Center 3931 Outpatient Fertility testing Laboratory [address] [place] [address] Social History Tobacco Use Types [...] Fertility testing Resu lts for this INSEMINATION,FROZEN TECHNICAL SALES ASSOCIATE procedur e are in DONOR,SPECIMEN PREP the resu lts section. documented in this encounter Results Artificial Insemination,Frozen Donor,Specimen Prep (05/20/2016 6:09 AM TECHNICAL SALES ASSOCIATE) P athologist Signature TDI Donor [id number] PN [...] Volume Laterality 05/20/2016 6:09 AM 7 6:09 TECHNICAL SALES ASSOCIATE AM TECHNICAL SALES ASSOCIATE Narrative PN SOFT - 05/20/2016 7:48 AM TECHNICAL SALES ASSOCIATE Performed at , [address] [place] [address] CLIA number [id number] Good Hernandez MD LAB_1 Performing Organization Address City/State/ZIP Code Phon e Number PN SOFT [address] [place] [address] documented in this encounter Visit Diagnoses Diagnosis Fertility testing documented in this encounter Care Teams Wheat Cleaner Relationship Specialty Start Date End Date Britta Cox PA-C PCP - General 06/13/15 [address] [place] [id number] documented as of this encounter
--- OUTSIDE RECORDS SUMMARY | 2021-11-07 13:36 | XMS_ITS | Encounter Summary ---
:1975 Author Organization [employer] Address [address], [place] [address] Care Team Providers Name Role Phone Britta Cox PA-C Primary Care Provider Reason for Visit Reason Onset Date Comments Intrauterine Insemination 05/11/2016 Encounter Details Date Type Department Care Team Description 05/11/2016 Telephone Good Monzon, Intrauter ine Obstetrics/Gynecolog y [place] Insemination [address] [place] [address] [place] [phone] [address] Social History Tobacco Use Types Packs/Day Years [...] 12:23 PM CST Consent placed at front desk officer for pt to pick pack worker tomorrow, 05/15/16 CTOR TRANSLATIONAL Ananya Painter RN - 05/14/2016 9:25 AM [...] at and [facility] only signed cons[facility] at [facility]. 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 Pt has Power of Cylinder Dyer and was recently able to purchase a home by emailing documents. Pt will attempt to email consent and obtain signature. Ptwill come to [facility] to pick pack worker consent on . 05/15/16, as donor, frozen sperm.This AI will be ordered at [facility] and entered on schedule as frozen. Would like to move forward with AI this cycle, most likely will surge 05/20-05/21. Advised to order specimen from [employer] and have available at lab. Risk Management has been contacted to review process if unable to obtain signature via email. Will call pt on 05/16 to obtain update on signature. Note Closed. CTOR TRANSLATIONAL Ananya Painter RN - 05/11/2016 2:07 PM CST Called pt and left detailed message on personal voice mail regarding AI consent. 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 Will call pt back on . CTOR TRANSLATIONAL documented in this encounter Plan of Treatment Not on filedocumented as of this encounter Visit Diagnoses Not on filedocumented in this encounter Care Teams Bleach Boiler Puller Relationship Specialty Start Date End Date Britta Cox PA-C PCP - General 06/13/15 [address] [place], [place] [address] documented as of this encounter
--- OUTSIDE RECORDS SUMMARY | 2021-11-07 13:36 | XMS_ITS | Encounter Summary ---
:1975 Author Organization [employer] Address [address], [place] [address] Care Team Providers Name Role Phone Britta Cox PA-C Primary Care Provider Reason for Visit Reason Onset Date Comments Intrauterine Insemination 05/19/2016 Encounter Details Date Type Department Care Team Description 05/19/2016 [facility] Good Hernandez Intraut erine Obstetrics/Gynecolog y MD Insemination [address] [employer] [facility]. [address] [place], [place] [address] [address] [place], [place] [phone] [address] Social History Tobacco Use Types Packs/Day Years [...] Pt calling to schedule insemination. Warm-transferred to Jainism A Class Lineman. SION SERVICE MANAGER documented in this encounter Plan of Treatment Not on filedocumented as of this encounter Visit Diagnoses Not on filedocumented in this encounter Care Teams Vulnerability Researcher Relationship Specialty Start Date End Date Britta Cox PA-C PCP - General 06/13/[address] [place] [address] documented as of this encounter
--- OUTSIDE RECORDS SUMMARY | 2021-11-07 13:36 | XMS_ITS | Encounter Summary ---
:1975 Author Organization [facility] Address [address] [address] Care Team Providers Name Role Phone Britta Cox PA-C Primary Care Provider Reason for Referral Procedure/Equipment (Routine) - Incomplete Specialty Diagnoses / Procedures Referred By Contact Refer red To Contact Diagnoses Fertility testing Good Hernandez MD Procedures [place] Hysterosalpingiogram Surgical [address] [place] [address] Referral ID Status Reason Start Date Expiration Date Visits V isits Requested Authorized [id number] Incomplete 05/10/2016 08/09/2017 1 1 ON STUDY ANALYST Procedure/Equipment (Routine) - Incomplete Specialty Diagnoses / Procedures Referred By Contact Refer red To Contact Diagnoses Fertility testing Good Hernandez MD Procedures [place] Hysterosalpingiogram Imaging [address] [place] [address] Referral ID Status Reason Start Date Expiration Date Visits V isits Requested Authorized [id number] Incomplete 05/10/2016 08/09/2017 1 1 ON STUDY ANALYST Reason for Visit Procedure/Equipment (Routine) - Incomplete Specialty Diagnoses / Procedures Referred By Contact Refer red To Contact Diagnoses Fertility testing Good Hernandez MD Procedures [place] Hysterosalpingiogram Imaging [address] [place] [address] Referral ID Status Reason Start Date Expiration Date Visits V isits Requested Authorized [id number] Incomplete 05/10/2016 08/09/2017 1 1 Encounter Details Date Type Department Care Team Description 05/16/2016 Hospital Encounter Scient[facility] Radiology Good Hernandez Fertility testing [address] [place] [address] [facility] [address] [phone] [place] [address] Social History Tobacco Use Types Packs/Day Years [...] Sig Dispensed Refills Start Date End Date Tfmhfh-ZfZis-LoLauw-FA-Omeg Take 1 tablet by 0 a (MULTIVITAMIN/MINERALS mouth daily (every OR) 24 hours). cholecalciferol (VITAMIN 1 Int'l Units 0 09/04/19 09 03/02/2019 D3) 1000 UNITS tablet daily (every 24 hours). [place]-3 Fatty Acids (FISH Indications: PN: 0 05/200807/20/2019 OIL) 500 MG documented as of this encounter Plan of Treatment Not on filedocumented as of this encounter Procedures Procedure Name Priority Date/Time Associated Comments Diagnosis FL HYSTEROSALPINGIOGRAM Routine 05/16/2016 2:33 Fertility test ing Results for this IMAGING PM MOTION STUDY ANALYST procedure are i n the results section. FL HYSTEROSALPINGIOGRAM Routine 05/16/2016 2:33 Fertility test ing Results for this SURGICAL PM MOTION STUDY ANALYST procedure are i n the results section. documented in this encounter Results FL Hysterosalpingiogram Surgical (05/16/2016 2:33 PM MOTION STUDY ANALYST) Anatomical Region Laterality Modality Pelvis Computed Radiography Specimen (Source) Anatomical Location Collection Method / Collectio n Time Received Time / Laterality Volume Narrative 05/21/2016 8:37 AM MOTION STUDY ANALYST Procedure performed under fluoroscopic guidance. See report in Epic for this date. Good Hernandez MD RAD FL FL Hysterosalpingiogram Imaging (05/16/2016 2:33 PM MOTION STUDY ANALYST) Anatomical Region Laterality Modality Pelvis Computed Radiography Specimen (Source) Anatomical Collection Method Collection Time Re ceived Time Location / / Volume Laterality 05/16/2016 1:51 PM MOTION STUDY ANALYST Narrative 05/16/2016 2:46 PM MOTION STUDY ANALYST COMPARISON: ??None. TECHNIQUE: ??Study and procedure were pe rformed in conjunction with the attending MECHANIC DRIVER physician. The uterine cavity was cannulated and [...] perf ormed in conjunction with the attending MECHANIC DRIVER physician. The uterine cavity was cannulated and [...] 300) 61 % Given 05/16/2016 2:30 PM MOTION STUDY ANALYST 15 mL intrathecal injection 15 mL 15 mL, Intrathecal, ONCE, On Sat05/16/16 at 1500, For 1 dose, Radiology documented in this encounter Care Teams Supervisor Shearing Relationship Specialty Start Date End Date Britta Cox PA-C PCP - General 06/13/15 [address] [place] [address] documented as of this encounter
--- OUTSIDE RECORDS SUMMARY | 2021-11-07 13:36 | XMS_ITS | Encounter Summary ---
:1975 Author Organization [facility] Address [address], [place] [address] Care Team Providers Name Role Phone Md DEISI Elaine Primary Care Provider Encounter Details Date Type Department Care Team Description 12/25/2011 Lab Visit [facility] [address] Preop examination [address] [place] [address] Social History Tobacco Use Types [...] - 12/25/2011 10:09 AM CDT Performed at [facility], [address], [place] [address] Keyona Wick MD LAB_1 Performing Organization Address City/State/ZIP Code Phon e Number HP CONVERSION documented in this encounter Visit Diagnoses Diagnosis Preop examination Preoperative examination, unspecified documented in this encounter Care Teams Rv Repair Technician Relationship Specialty Start Date End Date Md Elaine MD PCP - General 07/24/11 06/12/15 [place] [address] documented as of this encounter
--- OUTSIDE RECORDS SUMMARY | 2021-11-07 13:36 | XMS_ITS | Encounter Summary ---
:1975 Author Organization [employer] Address [address] [address] Care Team Providers Name Role Phone Md DEISI Elaine Primary Care Provider Reason for Visit Reason Comments Annual Exam Encounter Details Date Type Department Care Team Description 03/16/2013 Office Visit Good Monzon Routine gene ral medical examination at a health care facility (Primary Dx); Obstetrics/Gynecolog melanie Sandhu MD Procreative management counseling; [address] [address] [address] Polyc ystic ovaries; [address] Abnormal cervical Papanicolaou smear; [place] [address] [place], [place] Screening for lipoid disorde rs; [phone] Screening for thyroid disorder; [phone] Screening for o ther and unspecified endocrine, [...] 71.7 kg (158 lb) 03/16/2013 2:46 PM RAILROAD CAR TRUCK BUILDER Height 151.8 cm (4' 11.75) 03/16/2013 2:46 PM RAILROAD CAR TRUCK BUILDER Body Mass Index 31.12 03/16/2013 2:46 PM RAILROAD CAR TRUCK BUILDER documented in this encounter Progress Notes Good Hernandez MD - 03/17/2013 8:11 AM CST Name:Courtney Lang MR#:[id number] Clinician: Good Hernandez Date: 03/17/2013 RENAL CASE MANAGER PREVENTATIVE EXAM & PELVIC SUBJECTIVE: Patient is a 37-year-old G0 last mental period 03/15/13 who presents today for an annual RENAL CASE MANAGER exam. Patient was on antihypertensive and been seen at the [facility] for weight loss and an eating disorder. [...] found to have endometrial polyps. Her periodwas cue selector for several months, but now is getting [...] Oil Apply 1 Application topically. 118.28 ??? [place]-3 Fatty Acids (FISH OIL) 500-100 mg Cap No current facility-administered medications for this visit. Allergies Allergen Reactions ??? Allergen Not In Computer PT HAS MULTIPLE FAMILY HX OF PCN ALLERGY History Social History ??? Marital Status: Single Spouse Name: N/A Number of Children: 0 ??? 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 Smoking status: [...] Concern Yes Social History Narrative Works in [employer]. Single, partnered. 1 dog. Patient is single and works in [employer]iance [employer]. She is exercising regularly. Family History Problem [...] adnexal masses or tenderness.masses ASSESSMENT: 1. Annual RENAL CASE MANAGER Exam. 2. history of LAKSHMI-3 status post [...] year, sooner prn any concerns. Prescriptions provided ROAD CAR TRUCK BUILDER documented in this encounter Plan of Treatment Not on filedocumented as of this encounter Procedures Procedure Name Priority Date/Time Associated Diagnosis Comme nts ANATOMICAL PATH Routine 03/16/2013 3:36 PM Result s for this LIQUID BASED RAILROAD CAR TRUCK BUILDER procedure are i n the results section. PAP SMEAR ORDER Routine 03/16/2013 3:36 PM Abnormal cervical R esults for this RAILROAD CAR TRUCK BUILDER Papanicolaou smear procedure are in the results section. documented in this encounter Results Pap Smear (03/16/2013 3:36 PM RAILROAD CAR TRUCK BUILDER) Specimen (Source) Anatomical Collection Method Collection Time Re ceived Time Location / / Volume Laterality 03/16/2013 3:36 PM RAILROAD CAR TRUCK BUILDER Narrative HP CONVERSION - 04/03/2013 11:34 AM RAILROAD CAR TRUCK BUILDER FINAL GYNECOLOGICAL CYTOLOGY REPORT Pathology #: [id number] ?Date Obtained: 03/16/2013 ? Date Received: 03/17/2013 [...] Good Hernandez MD LAB_1 Performing Organization Address City/[facility]/ZIP Code Phon e Number HP CONVERSION Pap Smear Order (03/16/2013 3:36 PM RAILROAD CAR TRUCK BUILDER) P athologist Signature PAP Routine Collected HP CONVERSION Specimen Anatomical Collection Method Collection Time Receive d Time (Source) Location / / Volume Laterality 03/16/2013 3:36 PM 3 6:44 RAILROAD CAR TRUCK BUILDER AM RAILROAD CAR TRUCK BUILDER Good Hernandez MD LAB_1 Performing Organization Address [facility] Phon e Number HP CONVERSION documented [...] disorders documented in this encounter Care Teams Supreme Court Justice Relationship Specialty Start Date End Date Md Elaine MD PCP - General 07/24/11 06/12/15 [place] [address] documented as of this encounter
--- OUTSIDE RECORDS SUMMARY | 2021-11-07 13:37 | XMS_ITS | Encounter Summary ---
:1975 Author Organization [employer] Address [address] [address] Care Team Providers Name Role Phone Lubna Yee MD Primary Care Provider Encounter Details Date Type Department Care Team Description 06/21/2009 Office Visit [facility] Carline Elizondo, [address] Castaneda APRN, [place] [address] [place] [address] [address] [address] (Wo rk) Social History Tobacco Use Types [...] this encounter Progress Notes Carline Elizondo APRN, HEAD END DESIZING MACHINE OPERATOR - 06/21/2009 12:01 AM CDT Progress Notes signed by ELIZABETH Benson at 06/21/09 1130 Author: ELIZABETH Benson Service: (none) Author Type: Nurse Practitioner Filed: 07/22/10 2106 Note Time: 06/21/09 0001 Status: Signed Manager Commission: ELIZABETH Benson (Nurse Practitioner) Acute Clinic Visit IMPRESSION: Viral URI SUBJECTIVE: History of Present Illness: Symptom(s): 34 yr old female here with URI x 5 days. Flew back from [place]. Rhinorrhea/congestion, ear pressure. Drainage and cough this [...] filedocumented in this encounter Care Teams Software Integration Developer Relationship Specialty Start Date End Date Lubna Yee MD PCP - General 07/04/10 07/23/[address] [address] documented as of this encounter
--- OUTSIDE RECORDS SUMMARY | 2021-11-07 13:37 | XMS_ITS | Encounter Summary ---
:1975 Author Organization [employer] Address [address] [address] Care Team Providers Name Role Phone Lubna Yee MD Primary Care Provider Encounter Details Date Type Department Care Team Description 10/24/2009 Office Visit [facility] Family Medic [facility] [place] [address] [id number] [facility] [place] [address] [place] [address] [phone] (Wo rk) Social History Tobacco Use Types [...] signed by Paulette Conley MD at 10/25/09 7348 Author: Paulette Conley MD Service: (none) Author Type: Physician Filed: 07/23/10 0005 Note Time: 10/24/09 0001 Status: Signed Mail Messenger: Paulette Conley MD (Physician) NAME: SHARIF PRICE MR#: [id number] ACCT: [id number] VISIT: [id number] DICTATING CLINICIAN: Paulette Conley MD CONFIRM #: [id number] LOC: 602 CLINIC PROGRESS NOTE DATE OF [...] a Lyme titer. KML:MARIXA C: CONFIRM #: [id number] documented in this encounter Plan of Treatment Not on filedocumented as of this encounter Visit Diagnoses Not on filedocumented in this encounter Care Teams Pest Technician Relationship Specialty Start Date End Date Lubna Yee MD PCP - General 07/04/10 07/23/11 [address] [address] documented as of this encounter
--- OUTSIDE RECORDS SUMMARY | 2021-11-07 13:37 | XMS_ITS | Encounter Summary ---
:1975 Author Organization [employer] Address [address], [place] [address] Care Team Providers Name Role Phone Lubna Yee MD Primary Care Provider Reason for Visit Reason Comments MEDICATION CHECK Encounter Details Date Type Department Care Team Description 12/12/2010 Office Visit [facility] Lubna Yee, Obesity; Medicine Major depression in complete remission [address] [address] [phone] Social History Tobacco Use Types Packs/Day Years Used Date Smoking Tobacco: Never Assessed Sex Assigned at Date Recorded Not on file documented as of this encounter Last Filed Vital Signs Vital Sign Reading Time Taken Comments Blood Pressure 106/72 12/12/2010 3:10 PM CDT Pulse 84 12/12/2010 3:10 PM CDT Temperature - - Respiratory Rate - - Oxygen Saturation - - Inhaled Oxygen Concentration - - Weight 74.8 kg (165 lb) 12/12/2010 3:10 PM CDT Height - - Body Mass Index - - documented in this encounter Progress Notes Lubna Yee MD - 12/13/2010 5:01 PM CDT CLINIC PROGRESS NOTE HPI: Courtney presents tfor recheck of recurrent major derpession in full remission and obesity. she has h/braulio PCOS and has struggled with her weight her whole life. she has been on metfromin, meridia and phenetermine in the past. she did not tolerate meridia or metformin due to s.e. she did well with phentermine. I prescribed a 3mo trial of phentermine 30mg daily and it has done well with cravings. she is requesting refill but lower dose as 30mg dose makes her jittery and nauseated. she is going to start working with a personal development mentor again. she continues to watch her diet. Her depression is well managed on citalopram 20mg daily. she does not feel as emotional and is handling her premenstrual week much better. she denies suicidal ideation. her relationship with her boyfriend is going well. job is going well. PAST MEDICAL HISTORY: Reviewed MEDICATIONS: Reviewed and updated HABITS: She is a nonsmoker. Very little alcohol intake. She exercises regularly. OBJECTIVE: Blood pressure 106/72, pulse 84, weight 165 lb (79343 g). GENERAL: She is in NAD CV: Regular. No murmurs. LUNGS: Clear. PSYCH EXAM: Mood and affect appear nl today with good range in affect. Her insight is normal. She has no tangential thoughts. Her speech is normal rate and tone. She has no delusions, hallucinations or suicidal ideation. ASSESSMENT/PLAN: Recurrent major depression with complete remission. Continue citalopram 20 mg 1 tab daily. May use lorazepam 0.5 mg 1 p.o. b.i.d. p.r.n. for breakthrough anxiety. Obesity: may continue phentermine but will decrease dose to 15mg daily #30/5. SHe has been on this years ago for over a year and it helped with cravings. she is going to restart TT 25min documented in this encounter Plan of Treatment Not on filedocumented as of this encounter Visit Diagnoses Diagnosis Obesity (HRC) Obesity, unspecified Major depression in complete remission ( HRC) Major depressive disorder, single episod e in full remission documented in this encounter Care Teams Back Joiner Relationship Specialty Start Date End Date Lubna Yee MD PCP - General 07/04/10 07/23/11 [address] [facility] [address] [place] [address] documented as of this encounter
--- OUTSIDE RECORDS SUMMARY | 2021-11-07 13:37 | XMS_ITS | Encounter Summary ---
:1975 Author Organization [employer] Address [address] [address] Care Team Providers Name Role Phone Lubna Yee MD Primary Care Provider Encounter Details Date Type Department Care Team Description 09/24/2009 Office Visit [facility] [place] [address] [facility] [address] [place] [address] Social History Tobacco Use Types Packs/Day Years [...] Sander Iraheta MD at 09/25/09 0911 Author: Sandre Iraheta MD Service: (none) Author Type: Physician Filed: 07/22/10 2326 Note Time: 09/24/09 0001 Status: Signed Robotic Weld Technician: Sander Iraheta MD (Physician) NAME: SHARIF PRICE MR#: [id number] ACCT: [id number] VISIT: [id number] DICTATING CLINICIAN: SANDER IRAHETA MD CONFIRM #: [id number] LOC: 620 CLINIC PROGRESS NOTE DATE OF VISIT: 09/24/2009 SUBJECTIVE: Comes in with a rash. Has been there for a few days. OBJECTIVE: VS: BP: 112/68. T: 98.5. She has dime-sized little area of redness, raised area, looks irritated ? side of her body and trunk. ASSESSMENT: PLAN: Going to use triamcinolone 0.1% b.i.d. Follow up p.r.n. [id number] C: 09/24/09 18:57 CONFIRM #: [id number] documented in this encounter Plan of Treatment Not on filedocumented as of this encounter Visit Diagnoses Not on filedocumented in this encounter Care Teams Rn Patient Services Relationship Specialty Start Date End Date Lubna Yee MD PCP - General 07/04/10 07/23/11 [address] [address] documented as of this encounter
--- OUTSIDE RECORDS SUMMARY | 2021-11-07 13:37 | XMS_ITS | Encounter Summary ---
:1975 Author Organization [facility] Address [address] [address] Care Team Providers Name Role Phone Lubna Yee MD Primary Care Provider Encounter Details Date Type Department Care Team Description 10/24/2009 PN Conversion Only BRAY CONVERSION Maikol Conley, [address] [facility] [place] [address] [facility] [place] [address] [place] [address] (Wo rk) Social History Tobacco [...] on filedocumented in this encounter Care Teams Core Machine Tender Relationship Specialty Start Date End Date Lubna Yee MD PCP - General 07/04/10 07/23/11 [address] [facility] [address] documented as of this encounter
--- OUTSIDE RECORDS SUMMARY | 2021-11-07 13:37 | XMS_ITS | Encounter Summary ---
:1975 Author Organization [employer] Address [address] [address] Care Team Providers Name Role Phone Lubna Yee MD Primary Care Provider Reason for Visit Reason Comments Provider Return Call Request Encounter Details Date Type Department Care Team Description 03/16/2011 Telephone [facility] Lubna Yee, Provider Return Call Medicine [place] Request [address] [address] [phone] Social History Tobacco Use Types Packs/Day Years Used Date Smoking Tobacco: Never Assessed Sex Assigned at Date Recorded Not on file documented as of this encounter Nursing Notes Lubna Yee MD - 03/19/2011 12:46 PM CST Left VM to call back HERER Debbie Ash RN - 03/16/2011 2:16 PM CST Message sent to Dr. Yee. HERER Elinor Chopra - 03/16/2011 2:02 PM CST Patient called to cancel appointment scheduled for later this afternoon because she will not be ableto get to our office and requests a call from Dr Yee. HERER documented in this encounter Plan of Treatment Not on filedocumented as of this encounter Visit Diagnoses Not on filedocumented in this encounter Care Teams Wind Energy Mechanic Relationship Specialty Start Date End Date Lubna Yee MD PCP - General 07/04/10 07/23/11 [address] [place] [address] documented as of this encounter
--- OUTSIDE RECORDS SUMMARY | 2021-11-07 13:37 | XMS_ITS | Encounter Summary ---
:1975 Author Organization [employer] Address [address] [place] [address] Care Team Providers Name Role Phone Lubna Yee MD Primary Care Provider Encounter Details Date Type Department Care Team Description 06/14/2011 Lab Visit [facility] Paresthesias [address] [place] [address] Social History Tobacco Use Types Packs/Day Years [...] sent to staff for printing and distribution. HARDENER documented in this encounter Plan of Treatment [...] sensation documented in this encounter Care Teams Incoming Freight Clerk Relationship Specialty Start Date End Date Lubna Yee MD PCP - General 07/04/10 07/23/11 [address] [place] [address] documented as of this encounter
--- OUTSIDE RECORDS SUMMARY | 2021-11-07 13:37 | XMS_ITS | Encounter Summary ---
:1975 Author Organization [employer] Address [address], [place] [address] Care Team Providers Name Role Phone Lubna Yee MD Primary Care Provider Reason for Visit Reason Comments NUMBNESS Encounter Details Date Type Department Care Team Description 06/12/2011 Telephone [facility] Lubna Yee MD NUMBNESS [address] [facility] [address] [place] [address] [place] [address] [phone] Social History Tobacco Use Types Packs/Day Years [...] on filedocumented in this encounter Care Teams Cardiology Nurse Relationship Specialty Start Date End Date Lubna Yee MD PCP - General 07/04/10 07/23/11 [address] [place] [address] documented as of this encounter
--- OUTSIDE RECORDS SUMMARY | 2021-11-07 13:37 | XMS_ITS | Encounter Summary ---
:1975 Author Organization [facility] Address [address] [address] Care Team Providers Name Role Phone Lubna Yee MD Primary Care Provider Encounter Details Date Type Department Care Team Description 02/27/2009 Office Visit [facility] [address] Jeanette Doyle [facility] [address] [place] [address] [place] [address] [phone] Social History Tobacco Use Types Packs/Day Years Used Date Smoking Tobacco: Never Assessed Sex Assigned at Date Recorded Not on file documented as of this encounter Last Filed Vital Signs Vital Sign Reading Time Taken Comments Blood Pressure 116/75 02/27/2009 10:23 AM ENGLISH ADJUNCT FACULTY Pulse 81 02/27/2009 10:23 AM ENGLISH ADJUNCT FACULTY Temperature 36.8 ??C (98.2 ??F) 02/27/2009 10:23 AM ENGLISH ADJUNCT FACULTY C: 3 6.8 C Respiratory Rate 16 02/27/2009 10:23 AM ENGLISH ADJUNCT FACULTY Oxygen Saturation - - Inhaled Oxygen Concentration - - Weight - - Height - - Body Mass Index - - documented in this encounter Progress Notes Moris Doyle MBBS - 02/27/2009 12:01 AM CST Progress Notes signed by Moris Doyle MD at 02/27/09 1158 Author: Moris Doyle MD Service: (none) Author Type: Physician Filed: 07/22/10 1827 Note Time: 02/27/09 0001 Status: Signed Custodial Foreman: Moris Doyle MD (Physician) SUBJECTIVE: Patient is [...] discharged ambulatory and in stable condition. *SH~DNS~Note ISH ADJUNCT FACULTY documented in this encounter Plan of Treatment Not on filedocumented as of this encounter Visit Diagnoses Not on filedocumented in this encounter Care Teams Sandblast Carver Relationship Specialty Start Date End Date Lubna Yee MD PCP - General 07/04/10 07/23/11 [address] [place] [address] documented as of this encounter
--- OUTSIDE RECORDS SUMMARY | 2021-11-07 13:37 | XMS_ITS | Encounter Summary ---
:1975 Author Organization [employer] Address [address], [place] [address] Care Team Providers Name Role Phone Lubna Yee MD Primary Care Provider Encounter Details Date Type Department Care Team Description 02/03/2010 Office Visit [facility] Family Medic [facility] [place] [address] [address] [phone] Social History Tobacco Use Types Packs/Day Years [...] 12:01 AM CDT NAME: SHARIF PRICE MR#: [id number] ACCT: [id number] VISIT: [id number] DICTATING CLINICIAN: Lubna Yee MD CONFIRM #: [id number] LOC: 602 CLINIC PROGRESS NOTE DATE OF [...] PLAN: See Assessment. ELB:MARIXA C: CONFIRM #: [id number] OPERATOR documented in this encounter Plan of Treatment Not on filedocumented as of this encounter Visit Diagnoses Not on filedocumented in this encounter Care Teams Casket Trimmer Relationship Specialty Start Date End Date Lubna Yee MD PCP - General 07/04/10 07/23/11 [address] [place] [address] documented as of this encounter
--- OUTSIDE RECORDS SUMMARY | 2021-11-07 13:37 | XMS_ITS | Encounter Summary ---
:1975 Author Organization [facility] Address [address], [place] [address] Care Team Providers Name Role Phone Lubna Yee MD Primary Care Provider Encounter Details Date Type Department Care Team Description 02/03/2010 PN Conversion [place] [address] [facility] [address] [place] [address] [place] [address] Social History Tobacco Use Types Packs/Day Years [...] on filedocumented in this encounter Care Teams Childrens Club Attendant Relationship Specialty Start Date End Date Lubna Yee MD PCP - General 07/04/10 07/23/[address] [address] documented as of this encounter
--- OUTSIDE RECORDS SUMMARY | 2021-11-07 13:37 | XMS_ITS | Encounter Summary ---
:1975 Author Organization [employer] Address [address] [place] [address] Care Team Providers Name Role Phone Lubna Yee MD Primary Care Provider Reason for Visit Reason Comments MANTOUX/PPD READ NUMBNESS Encounter Details Date Type Department Care Team Description 06/14/2011 Office Visit Prakash Haro (Primary Dx); Medicine Erica Almendarez PA-C Fatigue; [address] [facility] Unspecified [place] [address] [address] [phone] [place] [address] Social History Tobacco Use Types [...] for psoriatic arthritis and dermatology outside of [facility] may be starting embrel. also history of [...] daily as needed. 30 tablet 1 ??? [employer]-[place]-3 Fatty Acids (FISH OIL) 500-100 mg Cap [...] deficiency documented in this encounter Care Teams Wedding Cake Designer Relationship Specialty Start Date End Date Lubna Yee MD PCP - General 07/04/10 07/23/11 [address] [place] [address] documented as of this encounter
--- OUTSIDE RECORDS SUMMARY | 2021-11-07 13:37 | XMS_ITS | Encounter Summary ---
:1975 Author Organization [employer] Address [address], [place] [address] Care Team Providers Name Role Phone Md DEISI Elaine Primary Care Provider Reason for Visit Reason Comments Refill Encounter Details Date Type Department Care Team Description 07/22/2011 Refill [facility] Family Medic Lubna Abebe MD Refill [address] [address] [phone] Social History Tobacco Use Types Packs/Day Years [...] CDT Lm for pt to call back [phone] and ask for Mis. Please transfer to [phone]. Gabriele Moore MD - 08/08/2011 11:17 AM CDT assisted phentermine is not something that I manage. [...] addressed by covering clinician for Nakia at [facility]. Patient last see in [facility] by float clinician; float clinicians do not refill medications. Please advise. Mis Lyons - 08/08/2011 10:03 AM CDT Pt was last seen by Dina in [place] on 06/14/2011. Routing to correct clinic. Nakia is not longer with [facility]. Medication is still pending with no documentation [...] visit for medication: 12/12/2010[facility] Lub[facility],please forward to appropriate covering provider. Last refill date 12/12/2010 # of tablets dispensed 30 # of refills provided 5 Mis Lyons - 07/24/2011 8:51 AM CDT Pt was last seen by Dina in [place] on 06/14/2011. Routing to correct clinic. documented in this encounter Plan of Treatment Not on filedocumented as of this encounter Visit Diagnoses Not on filedocumented in this encounter Care Teams Software Publisher Relationship Specialty Start Date End Date Md Elaine MD PCP - General 07/24/11 06/12/15 [place] [address] documented as of this encounter
--- OUTSIDE RECORDS SUMMARY | 2021-11-07 13:37 | XMS_ITS | Encounter Summary ---
:1975 Author Organization [employer] Address [address] [address] Care Team Providers Name Role Phone Lubna Yee MD Primary Care Provider Encounter Details Date Type Department Care Team Description 08/15/2010 Office Visit [facility] [place] [address] [facility] [address] [place] [address] [place] [address] [phone] Social History Tobacco Use Types Packs/Day Years Used Date Smoking Tobacco: Never Assessed Sex Assigned at Date Recorded Not on file documented as of this encounter Plan of Treatment Not on filedocumented as of this encounter Visit Diagnoses Not on filedocumented in this encounter Care Teams Soda Flaker Relationship Specialty Start Date End Date Lubna Yee MD PCP - General 07/04/10 07/23/11 [address] [place] [address] documented as of this encounter
--- OUTSIDE RECORDS SUMMARY | 2021-11-07 13:37 | XMS_ITS | Encounter Summary ---
:1975 Author Organization [employer] Address [address] [place] [address] Care Team Providers Name Role Phone Lubna Yee MD Primary Care Provider Encounter Details Date Type Department Care Team Description 06/14/2011 Lab Visit [facility] Paresthesias; [address] Fatigue; [place] [address] Unspecified vitamin D defici [facility] [phone] Social History Tobacco Use Types Packs/Day Years [...] sent to staff for printing and distribution. [employer] Miscellaneous - 05/11/2016 7:41 PM CSTNotes Recorded by Erica Arroyo PA-C on 06/19/2011 at 11:33 AMRreinier, letter done, sent to staff for printing and distribution. [employer] Miscellaneous - 05/11/2016 7:41 PM CSTNotes Recorded by Erica Arroyo PA-C on 06/19/2011 at 11:33 AMReviewed, letter done, sent to staff for printing and distribution. [employer] Miscellaneous - 05/11/2016 7:41 PM CSTNotes Recorded by Erica Arroyo PA-C on 06/19/2011 at 11:33 AMReviewed, letter done, sent to staff for printing and distribution. [employer] Miscellaneous - 05/11/2016 7:41 PM CSTNotes Recorded by Erica Arroyo PA-C on 06/19/2011 at 11:33 AMReviewed, letter done, sent to staff for printing and distribution. [employer] Miscellaneous - 05/11/2016 7:41 PM CSTNotes Recorded by Erica Arroyo PA-C on 06/19/2011 at 11:33 AMReviewed, letter done, sent to staff for printing and distribution. [employer] Miscellaneous - 05/11/2016 7:41 PM CSTNotes Recorded by Erica Arroyo PA-C on 06/19/2011 at 11:33 AMReviewed, letter done, sent to staff for printing and distribution. [employer] documented in this encounter Plan of Treatment [...] or positive, serum will be sent to [facility] ref erence lab for western blot confirmatory testing. Specimen Anatomical Collection Method Collection Time Receive d Time (Source) Location / / Volume Laterality 06/14/2011 8:53 AM 2 CDT 12:58 PM CDT Transcriptions 05/11/2016 7:41 PM CSTNotes Recorded by Erica Arroyo PA-C on 06/19/2011 at 11:33 AMReviewed, letter done, sent to staff for printing and distribution. Erica Arroyo PA-C LAB_1 Performing Organization Address [facility] Code Phon e Number HP CONVERSION C-Reactive [...] Erica Arroyo PA-C LAB_1 Performing Organization Address [facility] Phon e Number HP CONVERSION (ABNORMAL) ESR (06/14/2011 8:53 AM CDT) [facility] Method Time Signature Sedimentation Rate 22 (H) 0 - 20 HP CONVERSI ON mm/hr Specimen Anatomical Collection Method Collection Time Receive d Time (Source) Location / / Volume Laterality 06/14/2011 8:53 AM 2 8:53 CDT AM CDT Narrative HP CONVERSION - 06/14/2011 9:26 AM CDT Performed at [facility] [place] [address] Transcriptions 05/11/2016 7:41 PM CSTNotes Recorded by Erica Arroyo PA-C on 06/19/2011 at 11:33 AMReviewed, letter done, sent to staff for printing and distribution. Erica Arroyo PA-C LAB_1 Performing Organization Address [facility] Code Phon e Number HP CONVERSION TSH [...] Erica Arroyo PA-C LAB_1 Performing Organization Address City/[facility]/ZIP Code Phon e Number HP CONVERSION Rheumatoid [...] Erica Arroyo PA-C LAB_1 Performing Organization Address [facility] Code Phon e Number HP CONVERSION CHERISE [...] Erica Arroyo PA-C LAB_1 Performing Organization Address City/[facility]/ZIP Code Phon e Number HP CONVERSION documented in this encounter Visit Diagnoses Diagnosis Paresthesias Disturbance of skin sensation Fatigue Other malaise and fatigue Unspecified vitamin D deficiency documented in this encounter Care Teams Institution Librarian Relationship Specialty Start Date End Date Lubna Yee MD PCP - General 07/04/10 07/23/[address] [address] documented as of this encounter
--- OUTSIDE RECORDS SUMMARY | 2021-11-07 13:37 | XMS_ITS | Encounter Summary ---
:1975 Author Organization [employer] Address [address], [place] [address] Care Team Providers Name Role Phone Md DEISI Elaine Primary Care Provider Reason for Visit Reason Comments Refill Encounter Details Date Type Department Care Team Description 08/09/2011 Refill [facility] Lubna Abebe MD Refill [address] [address] [phone] Social History Tobacco Use Types Packs/Day Years Used Date Smoking Tobacco: Never Assessed Sex Assigned at Date Recorded Not on file documented as of this encounter Nursing Notes Kasey Jimenes RN - 08/10/2011 12:44 PM CDT LM for Courtney on her personal voicemail that the Phentermine refill has been denied. She needs to schedule an appt with a new provider and see if they will Rx if appropriate. Jonny Butcher MD - 08/10/2011 12:23 PM CDT Per previous refill request this was denied by covering physician yesterday, see copied and pasted noted below from yesterday. She should establish primary care to discuss appropriateness of this refill. I do not manage this medication. Phone message from yesterday. Kasey M Leslie, RN Registered Nurse 08/09/11 10:19 AM Signed Forwarding Phentermine refill request to the covering [...] new provider. No future appt is scheduled. Williams Hadley MD Physician 08/09/11 12:15 PM Signed Pt should see new primary MD to address this and discuss appropriateness of refill. Also I do not manage this medication. Kasey Jimenes RN Registered Nurse 08/09/11 12:22 PM Signed LM for Courtney that the refill request was denied. Will need to make an appt and establish care with anew provider to discuss future use of Phentermine. Priscilla Benitez - 08/10/2011 11:04 AM CDT Prescription Refills Pending Prescriptions Disp Refills ??? phentermine 15 mg capsule [Pharmacy Med Name: PHENTERMINE 15 MG CAPSULE] Sig: Take 1 capsule every morning UNABLE TO REFILL PER MEDICAL REFILL PROTOCOL Comment: Medication not on RN refill list. Last prescription 12/12/10 number 30 refill # 5, by Dr. Yee . documented in this encounter Plan of Treatment Not on filedocumented as of this encounter Visit Diagnoses Not on filedocumented in this encounter Care Teams Senior Business Architect Relationship Specialty Start Date End Date Md Elaine MD PCP - General 07/24/11 06/12/15 [place] [address] documented as of this encounter
--- OUTSIDE RECORDS SUMMARY | 2021-11-07 13:37 | XMS_ITS | Encounter Summary ---
:1975 Author Organization [employer] Address [address], [place] [address] Care Team Providers Name Role Phone Lubna Yee MD Primary Care Provider Encounter Details Date Type Department Care Team Description 02/28/2009 Office Visit [facility] Family Medic [facility] [place] [address] [address] [phone] Social History Tobacco Use Types Packs/Day Years Used Date Smoking Tobacco: Never Assessed Sex Assigned at Date Recorded Not on file documented as of this encounter Last Filed Vital Signs Vital Sign Reading Time Taken Comments Blood Pressure 114/62 02/28/2009 2:19 PM CODING SPEC Pulse 82 02/28/2009 2:19 PM CODING SPEC Temperature - - Respiratory Rate - - Oxygen Saturation - - Inhaled Oxygen Concentration - - Weight 75.3 kg (165 lb 15.8 oz) 02/28/2009 2:19 PM CODING SPEC C: 75.3kg Height - - Body Mass Index - - documented in this encounter Progress Notes Lubna Yee MD - 02/28/2009 12:01 AM CST Progress Notes signed by Lubna Yee MD at 03/06/09 [id number] Author: Lubna Yee MD Service: (none) Author Type: Physician Filed: 07/22/10 8298 Note Time: 02/28/09 0001 Status: Signed Shredding Machine Operator: Lubna Yee MD (Physician) NAME: SHARIF PRICE MR#: [id number] ACCT: [id number] VISIT: [id number] DICTATING CLINICIAN: Lubna Yee MD CONFIRM #: [id number] LOC: 602 CLINIC PROGRESS NOTE DATE OF VISIT: 02/28/2009 SUBJECTIVE: : 1975. HPI: Sharif presents to follow up on her generalized fatigue. She feels that it is from her subclinical hypothyroidism. She last had her TSH and free T4 drawn by her fitter mechanic in 12/2008 and her TSH was 3.97, which is higher than the normal range for her fitter mechanic's lab value with the upper level being 2.50, and her free T4 level of 1.0 was ranged between 0.7 and 1.8. She has a strong family history of thyroid disease in her maternal aunt, maternal grandmother as well as some other family members. She reports symptoms of weight gain, feeling tired, achy. She completes a PHQ-9 questionnaire today and scores a 7 with little interest or pleasure in doing things, feeling down and depressed at times, trouble falling asleep and little energy. She denies any symptoms of acute depression. She has been treated in the past for depression with Paxil and Wellbutrin, but had side effects. She states that that bout of depression was related to adjustment to life after college. She was treated for a vitamin D deficiency back in July with a level of 25 and was replaced with 50,000 international units for 3 months and is currently taking 1000 international units of vitamin D a day. She complains of clogging in her ears and was seen in urgent care and had her left ear cerumen removed. She continues to complain of feeling a little off with her balance and believes that her right ear may need to be checked. She has no pain in that ear or decreased hearing. REVIEW OF SYSTEMS: Complete review of systems is otherwise negative. PAST MEDICAL HISTORY: Reviewed. See PHP in [employer]. MEDICATIONS: Reviewed and updated. See PHP in [employer]. ADR/ALLERGIES: REVIEWED AND UPDATED. SEE PHP IN LASTWORD. HABITS: She is a nonsmoker. She has about a glass of wine a week. She exercises sporadically. FAMILY HISTORY: Significant for a father and mother with generalized anxiety. Maternal aunt and maternal and paternal grandmother with thyroid disorder. OBJECTIVE: VS: BP: 114/62. P: 82. Wt: 166 lb. GENERAL: She is in no acute distress. She is alert and oriented, well groomed. HEENT: Eyes clear. TMs: The left TM and ear canal normal. The right ear canal obstructed with cerumen. It was removed via curette and irrigation. After inspection, there was mild erythema of the ear canal. TM normal. Oropharynx clear. NECK: Supple and nontender. No adenopathy. Thyroid gland nontender. No thyromegaly. CV: Regular. No murmur. LUNGS: Clear. EXTREMITIES: Without lower extremity edema. PSYCH: Mood and affect in good spirits today. Affect congruent with mood. Insight normal. No tangential thoughts. Her speech is normal rate and tone. She makes good eye contact. No delusions, hallucinations, or suicidal ideation. ASSESSMENT: 1. Subclinical hypothyroidism for years. She insists that her fatigue is related to her hypothyroidism. We will give a trial of a very low dose of levothyroxine 0.025 mg daily and she will return to the clinic in 6 weeks for a repeat TSH. I stressed the importance of maintaining a TSH level between 1-3. 2. Vitamin D deficiency. I will recheck her vitamin D 25-hydroxy to make sure that her level is around 50 ng/mL as this can cause symptoms of fatigue and myalgias as well. 3. Right ceruminosis, removed via irrigation and curette. She may use Debrox p.r.n. Return to the clinic as needed. 4. Fatigue. This may be multifactorial. It may be mild depression, subclinical hypothyroidism, vitamin D deficiency. I will check an ABC and a ferritin to make sure she does not have iron deficiency anemia. She will return to the clinic in 6 weeks for a recheck. PLAN: See Assessment. ELB:[id number] C: 03/06/09 18:57 CONFIRM #: [id number] NG SPEC documented in this encounter Plan of Treatment Not on filedocumented as of this encounter Visit Diagnoses Not on filedocumented in this encounter Care Teams Electric Arc Furnace Operator Relationship Specialty Start Date End Date Lubna Yee MD PCP - General 07/04/10 07/23/11 [address] [facility] [place] [address] documented as of this encounter
--- OUTSIDE RECORDS SUMMARY | 2021-11-07 13:37 | XMS_ITS | Encounter Summary ---
:1975 Author Organization [employer] Address [address], [place] [address] Care Team Providers Name Role Phone Md DEISI Elaine Primary Care Provider Encounter Details Date Type Department Care Team Description 11/13/2011 E-Visit Jet Sanchez MD Obstetrics/Gynecolog y [address] [facility] [address] [place] [address] [address] [place] [id number] Social History Tobacco Use Types Packs/Day Years Used Date Smoking Tobacco: Never Assessed Sex Assigned at Date Recorded Not on file documented as of this encounter Miscellaneous Notes Patient Email (Converted) - Trey Corado Provider - 11/14/2011 9:14 AM CDT Subject: RE: E-Visit Submission: E-Visit Form From User: JET LOPEZ I sent the ultrasound results with comments in another NCLC message. Zonia ----- Message ----- From: SHARIF [...] may be an adjustment to new meds. ATION SPEC documented in this encounter Plan of Treatment Not on filedocumented as of this encounter Visit Diagnoses Not on filedocumented in this encounter Care Teams Shellacker Relationship Specialty Start Date End Date Md Elaine MD PCP - General 07/24/11 06/12/15 [place] [address] documented as of this encounter
--- OUTSIDE RECORDS SUMMARY | 2021-11-07 13:37 | XMS_ITS | Encounter Summary ---
:1975 Author Organization [facility] Address [address] [address] Care Team Providers Name Role Phone Lubna Yee MD Primary Care Provider Reason for Visit Reason Comments Other Encounter Details Date Type Department Care Team Description 06/09/2009 Telephone [facility], Message Other [address] [place] [address] Social History Tobacco Use Types Packs/Day Years Used Date Smoking Tobacco: Never Assessed Sex Assigned at Date Recorded Not on file documented as of this encounter [facility], Message - 06/09/2009 9:21 AM CST Phone Note filed by [employer] at 07/22/10127 Author: [employer] Service: (none) Author Type: (none) Filed: 07/22/10127 Note Time: 06/09/09920 Status: Signed Table Games Floor Supervisor: [employer] (Resource) Lab/Radiology Requests Caller Name/Relationship:Courtney/Oz Primary Clammer:Dr. Yee What test is needed and when?states thyroid / vitamin D Why is test needed/requested?f/u per MD *If symptom related, send to triage Hand Clerical Verifier:Courtney/Oz Best call back number:[phone] work or [phone] Is it OK to leave a confidential [...] lab. Acknowledged by KIT VICENTE on 1:43pm CULTURAL INSPECTOR documented in this encounter Plan of Treatment Not on filedocumented as of this encounter Visit Diagnoses Not on filedocumented in this encounter Care Teams Photo Finisher Relationship Specialty Start Date End Date Lubna Yee MD PCP - General 07/04/10 07/23/11 [address] [address] documented as of this encounter
--- OUTSIDE RECORDS SUMMARY | 2021-11-07 13:37 | XMS_ITS | Encounter Summary ---
:1975 Author Organization [employer] Address [address], [place] [address] Care Team Providers Name Role Phone Md DEISI Elaine Primary Care Provider Reason for Visit Reason Comments Annual Exam Encounter Details Date Type Department Care Team Description 10/25/2011 Office Visit Delia Sanchez, Routine log carrier operator ecological examination (Primary Dx); Obstetrics/Gynecolog Female pelvic pain; y [address] [facility] Screening for malignant neop lasm of the cervix; [address] [facility] [place] [address] [phone] Social History Tobacco Use Types Packs/Day Years [...] PM CDT Thank you for enrolling in [facility]. Please follow the instructions below to securely access your online medical record. [facility] allows you to send messages to your doctor, view your test results, renewyour prescriptions, schedule appointments, and more. How Do I Sign Up? 1. In your Internet browser, go to: [email or web address] 2. Click on the Sign Up Now link in the Sign In box. You will see the New Member Sign Up page. 3. Enter your [facility] Access Code exactly as it appears below. You will not need to use this code after you???ve completed the sign-up process. If you do not sign up before the expiration date, you must request a new code. [facility] Access Code: [email or web address] Expires: 11/24/11 01:15 PM 4. Enter your Social Security Number ([id number]) and Date of (mm/dd/yyyy) as indicated and click Submit. You will be taken to the next sign- up page. 5. Create a [facility] ID. This will be your [facility] login ID and cannot be changed, so think of one that is secure and easy to remember. 6. Create a [facility] password. You can change your password at any time. 7. Enter your Password Reset Question and Answer. This can be used at a later time if you forget your password. 8. Enter your e-mail address. You will receive e-mail notification when new information is availablein [facility]. 9. Click Sign Up. You can now view your medical record. Additional Information If you have questions, you can call [phone] to talk to our [facility] staff. 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 She does not smoke and [...] The urethral meatus is normal, and the [place]'s and Bartholin's glands unremarkable. The perirectal tissues [...] Referred to [facility] at [place]. 6. Ongoing plan after results of above [...] o ther endometrial process. Delia Menjivar MD [facility] US Pap Smear (10/25/2011 2:21 PM CDT) Specimen (Source) Anatomical Collection Method Collection Time Re ceived Time Location / / Volume Laterality 10/25/2011 2:21 PM CDT Narrative HP CONVERSION - 11/01/2011 9:38 AM CDT Final GYNECOLOGICAL CYTOLOGY REPORT Pathology #: [id number] ?Date Obtained: 10/25/2011 ? Date Received: 10/26/2011 [...] Delia Menjivar MD LAB_1 Performing Organization Address City/[facility] Code Phon e Number HP CONVERSION Pap Smear Screening (10/25/2011 2:21 PM CDT) P athologist Signature PAP Routine Collected HP CONVERSION Specimen Anatomical Collection Method Collection Time Receive d Time (Source) Location / / Volume Laterality 10/25/2011 2:21 PM 2 5:50 CDT AM CDT Delia Menjivar MD LAB_[address] [facility] Phon e Number HP CONVERSION documented in this encounter Visit Diagnoses Diagnosis Routine gynecological examination - Prim talha Female pelvic pain Unspecified symptom associated with fema le genital organs Screening for malignant neoplasm of the cervix Polycystic ovaries ([facility]) Polycystic ovaries documented in this encounter Care Teams Senior Clinical Data Manager Relationship Specialty Start Date End Date Md Elaine MD PCP - General 07/24/11 06/12/15 [place] [address] documented as of this encounter
--- OUTSIDE RECORDS SUMMARY | 2021-11-07 13:37 | XMS_ITS | Encounter Summary ---
:1975 [facility] Address [address] [address] Care Team Providers Name Role Phone Lubna Yee MD Primary Care Provider Encounter Details Date Type Department Care Team Description 09/08/2008 Procedure Visit [facility] [address] Carlotta Blake MD [address] [facility] [address] [place], [place] [address] [address] [place], [place] [phone] (Wo rk) Social History Tobacco Use Types Packs/Day Years Used Date Smoking Tobacco: Never Assessed Sex Assigned at Date Recorded Not on file documented as of this encounter Progress Notes Carlotta Blake MD - 09/08/2008 12:01 AM CDT Progress Notes signed by Carlotta Blake MD at 09/21/08 0923 Author: Carlotta Blake MD Service: (none) Author Type: Physician Filed: 07/22/10 1408 Note Time: 09/08/082011 Status: Signed Broomcorn Thresher: Carlotta Blake MD (Physician) NAME: SHARIF PRICE MR#: [id number] ACCT: [id number] VISIT: [id number] DICTATING CLINICIAN: CARLOTTA BLAKE MD CONFIRM #: [id number] LOC: 471 CLINIC DEXA REPORT DATE OF VISIT: 09/08/2008 FINAL IMPRESSION: Bone density on Hologic Discovery C. SUBJECTIVE: INTERPRETING PHYSICIAN: CARLOTTA BLAKE MD OSTEOPOROSIS RISK FACTORS FROM PATIENT QUESTIONNAIRE: The patient is a 33-year-old female with a known prior history of osteopenia, is premenopausal. She is currently on vitamin D supplementation plus calcium through the diet. OBJECTIVE: SITE BMD T-SCORE* Z-SCORE L3-L4 0.896 -1.9 -1.8 Tot Hip 1.126 1.5 1.6 Fem Neck 0.923 0.7 0.8 Note: L1 through L2 were excluded from the study because of elevation in Z-score which was significantly higher than L3 and L4. * The T-score = Standard Deviations Above/Below Mean Peak Adult The Z-score = Standard Deviations Above/Below Mean Age/Sex - Matched Peers. It is not available for patients over age 84. WHO DEFINITIONS: Normal BMD: T-score > -1.0 Osteopenia: T-score between -1.0 and -2.5 Osteoporosis: T-score < -2.5 ISCD Standards: For a more accurate fracture risk assessment, reference data is used for all ethnic groups and the 1/3 region is reported for the forearm. ASSESSMENT: Mild low bone mineral density in the lumbar spine based on the lowest Z-score. Ten-year fragility fracture risk, however, is not increased due to the patient's younger age. RECOMMENDATIONS: See osteoporosis guidelines under Medical QuickClicks in Facets for optimum calcium and vitamin D intake. Maintain 25-hydroxyvitamin D in the normal range. Of note, the patient reported 3 falls in the last 12 months on questionnaire; consider therapy for falls prevention/strengthening. Consider repeat bone mineral density scan in the next 8 years. AKN:[id number] C: 09/13/08 08:05 CONFIRM #: [id number] documented in this encounter Plan of Treatment Not on filedocumented as of this encounter Visit Diagnoses Not on filedocumented in this encounter Care Teams National Sales Relationship Specialty Start Date End Date Lubna Yee MD PCP - General 07/04/10 07/23/[address] [place] [address] documented as of this encounter
--- OUTSIDE RECORDS SUMMARY | 2021-11-07 13:37 | XMS_ITS | Encounter Summary ---
:1975 Author Organization [employer] Address [address] [address] Care Team Providers Name Role Phone Lubna Yee MD Primary Care Provider Reason for Visit Reason Comments Other Encounter Details Date Type Department Care Team Description 10/24/2009 Telephone [facility] [place], Message Other [address] [facility] [place] [address] Social History Tobacco Use Types Packs/Day Years Used Date Smoking Tobacco: Never Assessed Sex Assigned at Date Recorded Not on file documented as of this encounter Progress Notes Maikol Conley MD - 10/24/2009 3:31 PM CDT Phone Note filed by Maikol Conley MD at 07/22/10 1305 Author: Maikol Conley MD Service: (none) Author Type: Physician Filed: 07/22/10 1303 Note Time: 10/24/09 1531 Status: Signed Aeronautical Products Sales Engineer: Maikol Conley MD (Physician) Sondra, can you call patient when LEENA comes back at [phone]. If it is positive please fax in ketoconazole 2% cream to use BID X 2-4 weeks to affected area. If negative, OK to refill clobetasol 0.05% cream (30 gm) to apply to affected area BID X 2 weeks. Thanks, KML Created on 24Oct2009 3:31pm by MAIKOL CONLEY On 24Oct2009 3:41pm KIT VICENTE wrote: VM left notifying pt to return call with pharmacy info. LEENA is negative. [phone] Acknowledged by KIT VICENTE on 3:41pm On 24Oct2009 3:47pm KIT VICENTE wrote: pt notified rx faxed Acknowledged by KIT VICENTE on 3:47pm [facility] REGISTERED NURSE documented in this encounter Plan of Treatment Not on filedocumented as of this encounter Visit Diagnoses Not on filedocumented in this encounter Care Teams Embossing Toolsetter Relationship Specialty Start Date End Date Lubna Yee MD PCP - General 07/04/10 07/23/11 [address] [place] [address] documented as of this encounter
--- OUTSIDE RECORDS SUMMARY | 2021-11-07 13:37 | XMS_ITS | Encounter Summary ---
:1975 Author Organization [employer] Address [address] [address] Care Team Providers Name Role Phone Md DEISI Elaine Primary Care Provider Reason for Visit Reason Comments RESULTS, TEST Encounter Details Date Type Department Care Team Description 11/07/2011 Telephone Delia Sanchez MD RESULTS, TEST Obstetrics/Gynecolog y [address] [facility] [address] [place] [address] [address] [place], [place] [id number] Social History Tobacco Use Types Packs/Day Years Used Date Smoking Tobacco: Never Assessed Sex Assigned at Date Recorded Not on file documented as of this encounter Nursing Notes Ezequiel Greenwood RN - 11/23/2011 2:18 PM CDT Left detailed message for pt with information. Delia Menjivar MD - 11/23/2011 2:13 PM CDT please call Courtney and tell her to reply to me via MyChart about whether she is interested in observation, sonohyst or a D&C, hysteroscopy. she can also ask questions through there. it is much more efficient than leaving a message on her cell. Jael Jones RN - 11/19/2011 11:01 AM CDT Patient returns call. She received your message. She is looking for your recommendations as to the follow up she should do. Please call her at work today, private number, may leave detailed message. [phone]. She is signed up for My Chart. Mercy Sherwood RN - 11/19/2011 10:13 AM CDT Message left for pt to call back to talk to provider. Mercy Sherwood RN - 11/14/2011 1:31 PM CDT Message left for pt to call back; informed provider in clinic tomorrow. Delia Menjivar MD - 11/08/2011 3:18 PM CDT Message left requesting call back. Also suggested signing up for MyChart to discuss results. Ezequiel Lopez RN - 11/07/2011 2:05 PM CDT COMPARISON STUDY: None. FINDINGS: Both transabdominal and transvaginal scanning were performed. The uterus measures 7.7 x 3.7 x 4.6 cm and appears within normal limits. The endometrial stripe measures 12 mm in maximum thickness with a more focal, ill-defined, hyperechoic and vascular area in the upper most part of the endometrium. The ovaries appear within normal limits and demonstrate normal vascular flow. There is no free fluid in the cul-de-sac. IMPRESSION: Focal, echogenic area in the endometrium which is suspicious for an endometrial polyp or other endometrial process. Pt calling with questions regarding results and follow up if any. Pt aware that Provider out of office until 11/07. Sent to Provider for review. documented in this encounter Plan of Treatment Not on filedocumented as of this encounter Visit Diagnoses Not on filedocumented in this encounter Care Teams Movie Shot Cameraman Relationship Specialty Start Date End Date Md Elaine MD PCP - General 07/24/11 06/12/15 [place] [address] documented as of this encounter
--- OUTSIDE RECORDS SUMMARY | 2021-11-07 13:37 | XMS_ITS | Encounter Summary ---
:1975 Author [facility] Address [address], [place] [address] Care Team Providers Name Role Phone Lubna Yee MD Primary Care Provider Reason for Visit Reason Comments Other Encounter Details Date Type Department Care Team Description 07/17/2010 [facility]phone [facility], Message Other [address] [place] [address] Social History Tobacco Use Types Packs/Day Years Used Date Smoking Tobacco: Never Assessed Sex Assigned at Date Recorded Not on file documented as of this encounter [facility], Message - 07/17/2010 9:34 AM CDT Phone Note filed by [employer] at 07/27/10 7016 Author: [employer] Service: (none) Author Type: (none) Filed: 07/27/10 1046 Note Time: 07/17/10933 Status: Addendum Floral Assistant: [employer] (Resource) Related Notes: Original Note by Imr Essie (Physician) filed at 07/27/10 1046 Front Line Sx Call Caller Name/Relationship:Courtney/Pt Primary Channel Layer:Dr. Yee Symptom or request?Work in request. Pt is requesting an appt earlier than 08/[address] Yee to discuss sx of fatigue,anxiety & depression. Please contact. Is appointment scheduled & when?yes, 08/01 at 2:30pm Multimedia Instructional Designer:Courtney/Oz Best call back number:[phone] Pharmacy Name:n/a Is it OK to leave a confidential message on this voicemail?Yes *[id number] Created on 17Jul2010 9:34am by CHIQUITA RIOS On 17Jul2010 10:08am HELEN GARCIA wrote: [place] made callback to the patient. Need to get more details on her symptoms of Fatigue, anxiety, and depression for Dr Yee to consider earlier appt. On 18Jul2010 4:21pm KIT BHAKTA wrote: Left Message to call back. Transfer to . On 19Jul2010 10:54am DANUTA SWENSON wrote: Left message at 10:55 am, instructed to call [phone]; tranfer to triage; . On 19Jul2010 11:19am FIDEL MCKNIGHT wrote: [place] spoke to pt. She says that her [...] Plz call either cell above or work: [phone] and OK to LM at the work number. On 19Jul2010 8:39pm LUBNA YEE wrote: pls put her in next Tues in 15min slot in AM. see if she availabel otherwise next available is 07/31. thanks Acknowledged by LUBNA YEE on 8:39pm On 20Jul2010 8:48am KIT VICENTE wrote: VM left notifying pt to return call [phone] Acknowledged by KIT VICENTE on 8:48am On 20Jul2010 8:52am KIT VICENTE wrote: appt schedule pt notified. Acknowledged by KIT VICENTE on 8:52am GENCY SERVICES DIRECTOR documented in this encounter Plan of Treatment Not on filedocumented as of this encounter Visit Diagnoses Not on filedocumented in this encounter Care Teams Customer Resource Specialist Relationship Specialty Start Date End Date Lubna Yee MD PCP - General 07/04/10 07/23/11 [address] [place] [address] documented as of this encounter
--- OUTSIDE RECORDS SUMMARY | 2021-11-07 13:37 | XMS_ITS | Encounter Summary ---
:1975 [facility] Address [address] [address] Care Team Providers Name Role Phone Md DEISI Elaine Primary Care Provider Reason for Visit Reason Comments Surgery Scheduling Log Encounter Details Date Type Department Care Team Description 12/14/2011 Telephone [facility] [place], Surgery S cheduling Log Obstetrics/Gynecolog y [address] [place] [address] [place] [phone] [address] Social History Tobacco Use Types Packs/Day Years Used Date Smoking Tobacco: Never Assessed Sex Assigned at Date Recorded Not on file documented as of this encounter Plan of Treatment Not on filedocumented as of this encounter Visit Diagnoses Not on filedocumented in this encounter Care Teams Spot Worker Relationship Specialty Start Date End Date Md Elaine MD PCP - General 07/24/11 06/12/15 [place] [address] documented as of this encounter
--- OUTSIDE RECORDS SUMMARY | 2021-11-07 13:37 | XMS_ITS | Encounter Summary ---
:1975 Author Organization [employer] Address [address] [place] [address] Care Team Providers Name Role Phone Md DEISI Elaine Primary Care Provider Encounter Details Date Type Department Care Team Description 11/30/2011 Lab Visit [facility], [facility] [address] [facility] . Obesity, Class II, BMI 35-39 .[address] [place], [place] [address] Social History Tobacco Use Types [...] this medication at your follow up appointment. LEDGE ARCHITECT Masoud - 05/11/2016 3:07 PM CSTNotes Recorded [...] this medication at your follow up appointment. LEDGE ARCHITECT Masoud - 05/11/2016 3:07 PM CSTNotes Recorded [...] this medication at your follow [facility]. [facility] 05/11/2016 3:07 PM CSTNotes Recorded [...] this medication at your follow up appointment. [facility] - 05/11/2016 3:07 PM CSTNotes Recorded [...] this medication at your follow up appointment. LEDGE ARCHITECT Miscellaneous - 05/11/2016 3:07 PM CSTNotes Recorded [...] this medication at your follow up appointment. LEDGE ARCHITECT Miscellaneous - 05/11/2016 3:07 PM CSTNotes Recorded [...] this medication at your follow up appointment. LEDGE ARCHITECT documented in this encounter Plan of Treatment [...] - 11/30/2011 11:10 AM CDT Performed at [facility], [address] [place] [address] Transcriptions 05/11/2016 3:07 PM CSTNotes Recorded by [...] appointment. Carlotta Mullen LAB_1 Performing Organization Address [facility] Phon e Number HP CONVERSION Insulin, [...] - 12/03/2011 12:06 AM CDT Performed at [facility] [address] [place] [address] Transcriptions 05/11/2016 3:07 PM CSTNotes Recorded by [...] appointment. Carlotta Mullen LAB_1 Performing Organization Address [facility] Phon e Number HP CONVERSION Hgb [...] Comp Metabolic Panel (11/30/2011 11:04 AM CDT) [facility] gist Method Time Signature Aspartate 17 [...] Direct LDL(If Needed) (11/30/2011 11:04 AM CDT) [facility] Method Time Signature Cholesterol 147 0 - [...] CDT Carlotta Mullen LAB_1 Performing Organization Address [facility] Code Phon e Number HP CONVERSION [...] unspecified documented in this encounter Care Teams Clerical Manager Relationship Specialty Start Date End Date Md Elaine MD PCP - General 07/24/11 06/12/15 [place] [address] documented as of this encounter
--- OUTSIDE RECORDS SUMMARY | 2021-11-07 13:37 | XMS_ITS | Encounter Summary ---
:1975 Author Organization [employer] [facility] Address [address] [address] Care Team Providers Name Role Phone Lubna Yee MD Primary Care Provider Reason for Visit Reason Comments Refill Encounter Details Date Type Department Care Team Description 05/28/2011 Refill [facility] Lubna Yee MD Refill [address] [facility] [address] [place] [address] [place] [address] [phone] Social History Tobacco Use Types Packs/Day Years Used Date Smoking Tobacco: Never Assessed Sex Assigned at Date Recorded Not on file documented as of this encounter Nursing Notes Nicole Moser RN - 05/28/2011 1:11 PM CST faxed documented in this encounter Plan of Treatment Not on filedocumented as of this encounter Visit Diagnoses Not on filedocumented in this encounter Care Teams Book Editor Relationship Specialty Start Date End Date Lubna Yee MD PCP - General 07/04/10 07/23/11 [address] [place] [address] documented as of this encounter
--- OUTSIDE RECORDS SUMMARY | 2021-11-07 13:37 | XMS_ITS | Encounter Summary ---
:1975 Author Organization [facility] Address [address] [address] Care Team Providers Name Role Phone Lubna Yee MD Primary Care Provider Reason for Visit Reason Comments MANTOUX/PPD READ Encounter Details Date Type Department Care Team Description 06/12/2011 Nursing Visit [facility] [place] [facility] PPD sc reening test Medicine (Primary Dx) [address] [place], [place] [address] Social History Tobacco Use Types Packs/Day Years Used Date Smoking Tobacco: Never Assessed Sex Assigned at Date Recorded Not on file documented as of this encounter Plan of Treatment Not on filedocumented as of this encounter Procedures Procedure Name Priority Date/Time Associated Diagnosis Comme nts TB SKIN TEST (PPD) Routine 06/14/2011 4:00 [address] Results for this CDT procedure are i n the results section. documented in this encounter Results TB SKIN TEST (PPD) (06/14/2011 4:00 PM CDT) P athologist Signature TB Skin Test HP CONVERSION Comment: 0 mm negative Specimen (Source) Anatomical Collection Method Collection Time Re ceived Time Location / / Volume Laterality 06/14/2011 4:00 PM CDT Meghan Lockhart MD [facility] Performing Organization Address City/State/ZIP Code Phon e Number HP CONVERSION documented in this encounter Visit Diagnoses Diagnosis PPD screening test - Primary Screening examination for pulmonary tube rculosis documented in this encounter Care Teams Client Service Executive Relationship Specialty Start Date End Date Lubna Yee MD PCP - General 07/04/10 07/23/11 [address] [place] [address] documented as of this encounter
--- OUTSIDE RECORDS SUMMARY | 2021-11-07 13:37 | XMS_ITS | Encounter Summary ---
:1975 Author Organization [employer] Address [address] [place] [address] Care Team Providers Name Role Phone Lubna Yee MD Primary Care Provider Encounter Details Date Type Department Care Team Description 10/24/2009 PN Conversion [place] [address] [facility] [address] [place] [address] [place] [address] Social History Tobacco Use Types Packs/Day Years Used Date Smoking Tobacco: Never Assessed Sex Assigned at Date Recorded Not on file documented as of this encounter Plan of Treatment Not on filedocumented as of this encounter Procedures Procedure Name Priority Date/Time Associated Comments Diagnosis THYROID STIMULATING Routine 10/24/2009 2:44 PM Re sults for this HORMONE CDT procedure are i n the results section. VITAMIN D 25 OH Routine 10/24/2009 2:44 PM Result s for this CDT procedure are i n the results section. LYME ANTIBODY (REFLEX Routine 10/24/2009 2:44 PM Results for this TO LYME CONFIRMATORY CDT procedu re are in PANEL) the results section. documented in this encounter Results VITAMIN D 25 OH (10/24/2009 2:44 PM CDT) P athologist Signature Vitamin D 25 Oh 33 30 - 80 HP CONVERSION ng/mL Comment: REFERENCE INTERVAL: Vitamin D, 25-Hydrox y This assay accurately quantifies the sum of vitamin D3, 25-hydroxy and vitamin D2, 25-hydroxy. 0-17 years: Deficiency: less than 20 ng/mL Optimum level: greater than or equal to 20 ng/mL* *(Chavira CL et al. Pediatrics 2008; 122: 1128-38.) 18 years and older: Deficiency: Less than 20 ng/mL Insufficiency: 20-29 ng/mL Optimum Level: 30-80 ng/mL Possible Toxicity: Greater than 150 ng/m L Performed at [facility] [address] [place] [address] 84 8 Specimen (Source) Anatomical Collection Method Collection Time Re ceived Time Location / / Volume Laterality 10/24/2009 2:44 PM CDT Lubna Yee MD LAB_1 Performing Organization Address City/[facility]/ZIP Code Phon e Number HP CONVERSION Lyme Antibody, and Western Blot(If Needed) (10/24/2009 2:44 PM CDT) athologist Signature Lyme Screen Negative Negative HP CONVERSION Comment: This is screening test. ??If results are equivocal or positive, serum will be sent to [facility] ref erence lab for western blot confirmatory testing. Specimen (Source) Anatomical Collection Method Collection Time Re ceived Time Location / / Volume Laterality 10/24/2009 2:44 PM CDT Lubna Yee MD LAB_1 Performing Organization Address City/[facility]/ZIP Code Phon e Number HP CONVERSION THYROID STIMULATING HORMONE (10/24/2009 2:44 PM CDT) athologist Signature Thyroid 3.30 0.20 - HP CONVERSION Stimulating 4.50 mIU/L Hormone Specimen (Source) Anatomical Collection Method Collection Time Re ceived Time Location / / Volume Laterality 10/24/2009 2:44 PM CDT Lubna Yee MD LAB_1 Performing Organization Address City/State/ZIP Code Phon e Number HP CONVERSION documented in this encounter Visit Diagnoses Not on filedocumented in this encounter Care Teams Lead Atg Developer Relationship Specialty Start Date End Date Lubna Yee MD PCP - General 07/04/10 07/23/11 [address] [place] [address] documented as of this encounter
--- OUTSIDE RECORDS SUMMARY | 2021-11-07 13:37 | XMS_ITS | Encounter Summary ---
:1975 Author [facility] Address [address] [place] [address] Care Team Providers Name Role Phone Md DEISI Elaine Primary Care Provider Reason for Visit Reason Comments RESULTS, TEST Encounter Details Date Type Department Care Team Description 06/15/2011 Telephone [facility] No Pcp, No Pcp, RESULTS, TEST [address] [facility] [place] [address] [place] [address] [phone] Social History Tobacco Use Types Packs/Day Years Used Date Smoking Tobacco: Never Assessed Sex Assigned at Date Recorded Not on file documented as of this encounter Nursing Notes Luis Garzon LPN - 06/15/2011 11:05 AM CDT Patient had ppd read at the [facility] yesterday. patient said she would call [facility] andhave them fax results. note complete. addi Pascual - 06/15/2011 10:21 AM CDT forwarding to [facility], where pt was seen for PPD. Kasey Jimenes, RN - 06/15/2011 10:13 AM CDT Transferring to [facility] where the patient was seen. Radha Austin - 06/15/2011 9:49 AM CDT please fax results from [facility] to clinic fax [phone] documented in this encounter Plan of Treatment Not on filedocumented as of this encounter Visit Diagnoses Not on filedocumented in this encounter Care Teams Resource Agent Relationship Specialty Start Date End Date Md Elaine MD PCP - General 07/24/11 06/12/15 [place] [address] documented as of this encounter
--- OUTSIDE RECORDS SUMMARY | 2021-11-07 13:37 | XMS_ITS | Encounter Summary ---
:1975 Author Organization [employer] Address [address] [address] Care Team Providers Name Role Phone Md DEISI Elaine Primary Care Provider Reason for Visit Reason Comments Appt. Needed Encounter Details Date Type Department Care Team Description 10/23/2011 Telephone Delia Sanchez MD Appt. Needed Obstetrics/Gynecolog y [address] [facility] [address] [place] [address] [place] [address] Social History Tobacco Use Types Packs/Day Years [...] on filedocumented in this encounter Care Teams Fire Management Technician Relationship Specialty Start Date End Date Md Elaine MD PCP - General 07/24/11 06/12/15 [place] [address] documented as of this encounter
--- OUTSIDE RECORDS SUMMARY | 2021-11-07 13:37 | XMS_ITS | Encounter Summary ---
:1975 Author Organization [facility] Address [address] [address] Care Team Providers Name Role Phone Lubna Yee MD Primary Care Provider Reason for Visit Reason Comments Other Encounter Details Date Type Department Care Team Description 09/07/[address] [facility], Message Other [address] [place] [address] Social History Tobacco Use Types Packs/Day Years Used Date Smoking Tobacco: Never Assessed Sex Assigned at Date Recorded Not on file documented as of this encounter [facility], Message - 09/07/2008 9:16 AM CDT Phone Note filed by Movaris at 07/21/101 Author: [employer] Service: (none) Author Type: (none) Filed: 07/21/10332 Note Time: 09/07/08915 Status: Signed Roadability Machine Operator: Movaris (Resource) Non -Symptom Message from Front Line Caller Name/Relationship: Bone density- Lise Primary Body Coverer: elba Message: Missing bone density order please fax to [phone] Aerial Crop Duster:Lies Best call back number:[phone] Is it OK to leave a confidential message on this voicemail? yes *[email or web address] Created on 07Sep2008 9:16am by RONNIE REDDY R On 07Sep2008 10:03am DANUTA SWENSON wrote: CT nurse faxed orders. Bone density recommendation in 09/03/08 calliope player note. F COMMERCIAL OFFICER documented in this encounter Plan of Treatment Not on filedocumented as of this encounter Visit Diagnoses Not on filedocumented in this encounter Care Teams Registration Representative Relationship Specialty Start Date End Date Lubna Yee MD PCP - General 07/04/10 07/23/11 [address] [place] [address] documented as of this encounter
--- OUTSIDE RECORDS SUMMARY | 2021-11-07 13:37 | XMS_ITS | Encounter Summary ---
:1975 Author Organization [employer] Address [address] [address] Care Team Providers Name Role Phone Md DEISI Elaine Primary Care Provider Reason for Visit Reason Comments CONSULT Encounter Details Date Type Department Care Team Description 12/14/2011 Office Visit [facility] Uterine poly p (Primary Dx); Obstetrics/Gynecolog melanie Sandhu MD Influenza vaccine needed [address] [place] [address] [facility] [place] [phone] [address] Social History Tobacco Use Types Packs/Day Years [...] AM CDT Thank you for enrolling in [employer]. Please follow the instructions below to securely access your online medical record. [employer] allows you to send messages to your doctor, view your test results, renewyour prescriptions, schedule appointments, and more. How Do I Sign Up? 1. In your Internet browser, go to: [email or web address] 2. Click on the Sign Up Now link in the Sign In box. You will see the New Member Sign Up page. 3. Enter your [employer] Access Code exactly as it appears below. You will not need to use this code after you???ve completed the sign-up process. If you do not sign up before the expiration date, you must request a new code. [employer] Access Code: Not generated Current [employer] Status: Active 4. Enter your Social Security Number ([id number]) and Date of (mm/dd/yyyy) as indicated and click Submit. You will be taken to the next sign- up page. 5. Create a [employer] ID. This will be your [employer] login ID and cannot be changed, so think of one that is secure and easy to remember. 6. Create a [employer] password. You can change your password at any time. 7. Enter your Password Reset Question and Answer. This can be used at a later time if you forget your password. 8. Enter your e-mail address. You will receive e-mail notification when new information is availablein [employer]. 9. Click Sign Up. You can now view your medical record. Additional Information If you have questions, you can call [phone] to talk to our [employer] staff. Remember, [employer] is NOT to be used for urgent needs. For medical emergencies, dial 911. documented in this encounter Progress Notes Good Hernandez MD - 12/14/2011 9:42 AM CDT Name: Courtney Lang MR#: [id number] Clinician: Good Hernandez MD Date: 12/14/2011 OFFICE DOSIMETRIST VISIT CHIEF COMPLAINT: Endometrial lesion on ultrasound, [...] is currently working with Dr. Mullen at [facility] for weight control and eating disorder. She [...] daily as needed. 30 tablet 1 ??? [place] Oil-Reagan-3 Fatty Acids (FISH OIL) 500-100 mg Cap [...] influenza documented in this encounter Care Teams Fisher Hand Line Relationship Specialty Start Date End Date Md Elaine MD PCP - General 07/24/11 06/12/15 [place] [address] documented as of this encounter
--- OUTSIDE RECORDS SUMMARY | 2021-11-07 13:37 | XMS_ITS | Encounter Summary ---
:1975 Author Organization [facility] Address [address], [place] [address] Care Team Providers Name Role Phone Md DEISI Elaine Primary Care Provider Encounter Details Date Type Department Care Team Description 11/01/2011 Imaging [facility] [address] [place] [address] Social History Tobacco Use Types Packs/Day Years Used Date Smoking Tobacco: Never Assessed Sex Assigned at Date Recorded Not on file documented as of this encounter Plan of Treatment Not on filedocumented as of this encounter Visit Diagnoses Not on filedocumented in this encounter Care Teams Head Sawyer Relationship Specialty Start Date End Date Md Elaine MD PCP - General 07/24/11 06/12/15 [place] [address] documented as of this encounter
--- OUTSIDE RECORDS SUMMARY | 2021-11-07 13:37 | XMS_ITS | Encounter Summary ---
:1975 Author Organization [facility] Address [address] [address] Care Team Providers Name Role Phone Lubna Yee MD Primary Care Provider Encounter Details Date Type Department Care Team Description 08/03/2010 PN Conversion Only [facility] [place] [address] [facility] [address] [place] [address] [place] [address] [phone] Social History Tobacco Use Types Packs/Day Years Used Date Smoking Tobacco: Never Assessed Sex Assigned at Date Recorded Not on file documented as of this encounter Plan of Treatment Not on filedocumented as of this encounter Visit Diagnoses Not on filedocumented in this encounter Care Teams Antique Clocks Repairer Relationship Specialty Start Date End Date Lubna Yee MD PCP - General 07/04/10 07/23/11 [address] [place] [address] documented as of this encounter
--- OUTSIDE RECORDS SUMMARY | 2021-11-07 13:37 | XMS_ITS | Encounter Summary ---
:1975 Author Organization [facility] [employer] Address [address], [place] [address] Care Team Providers Name Role Phone Md DEISI Elaine Primary Care Provider Reason for Visit Reason Comments Refill Encounter Details Date Type Department Care Team Description 08/08/2011 Refill [facility] Lubna Abebe MD Refill [address] [place] [address] [address] [phone] Social History Tobacco Use Types Packs/Day Years [...] as Dr. Yee is no longer at [facility]. Called #[phone] and #[phone], left message for return call to [facility] Lea Martin - 08/08/2011 10:44 AM CDT PRESCRIPTION REFILL Please provide enough refills to last until patient's next visit. Comment: Pharmacy Name: [facility] Phone/Fax#: [phone] fax [phone] or City: [facility] Clinician Name: [facility] Name/Strength: phentermine 15mg cap Si cap po qam Quantity: 30 Last Fill: 12/12/10 *ECODE documented in this encounter Plan of Treatment Not on filedocumented as of this encounter Visit Diagnoses Not on filedocumented in this encounter Care Teams Acct Exec Relationship Specialty Start Date End Date Md Elaine MD PCP - General 07/24/11 06/12/15 [place] [address] documented as of this encounter
--- OUTSIDE RECORDS SUMMARY | 2021-11-07 13:37 | XMS_ITS | Encounter Summary ---
:1975 Author Organization [facility] Address [address] [address] Care Team Providers Name Role Phone Lubna Yee MD Primary Care Provider Reason for Visit Reason Comments ALLERGIC REACTION Encounter Details Date Type Department Care Team Description 06/12/2011 Hospital Encounter [facility] [address] Valentín Hong MD [facility] [address] [place] [address] [phone] Social History Tobacco Use Types Packs/Day Years [...] 0 07/0109/19/2015 SCALP 0.01 % OIL topically. Clare-3 Fatty Acids Indications: PN: 0 05/31/2008 07/20/2019 (FISH OIL) 500 MG documented as of this encounter Progress Notes Catarina Hong MD - 06/12/2011 1:48 PM CDT Progress Notes signed by Catarina Hong MD at 06/19/11 1115 Author: Catarina Hong MD Service: (none) Author Type: Physician Filed: 06/19/11 1115 Note Time: 06/12/11 1348 Status: Signed Butt Presser: Catarina Hong MD (Physician) NAME: SHARIF PRICE MR#: [id number] CSN: [id number] AUTHENTICATING CLINICIAN: Catarina Hong MD CONFIRM #: [id number] LOC: 420 CLINIC PROGRESS NOTE DATE OF [...] normal in the left forearm and hand. Steam Roller Operator strength is normal and symmetrical. Cerebellar function [...] resolve with time. CAM:MEDQ C: CONFIRM #: [id number] documented in this encounter Plan of Treatment Not on filedocumented as of this encounter Visit Diagnoses Diagnosis Paresthesias Disturbance of skin sensation documented in this encounter Care Teams Application Packaging Consultant Relationship Specialty Start Date End Date Lubna Yee MD PCP - General 07/04/10 07/23/11 [address] [place] [address] documented as of this encounter
--- OUTSIDE RECORDS SUMMARY | 2021-11-07 13:37 | XMS_ITS | Encounter Summary ---
:1975 Author Organization [facility] Address [address], [place] [address] Care Team Providers Name Role Phone Md DEISI Elaine Primary Care Provider Encounter Details Date Type Department Care Team Description 10/25/2011 Lab Visit [facility] Laboratory Female pelvic pain [address] [place] [address] Social History Tobacco Use Types [...] Results Urine Culture (10/25/2011 3:03 PM CDT) [facility] Method Time Signature Urine Culture Mixed gram [...] Jet Lopez MD LAB_1 Performing Organization Address City/[facility] Code Phon e Number HP CONVERSION (ABNORMAL) URINE MICROSCOPIC (10/25/2011 3:03 PM CDT) [facility] 911 Method Time Signature Urine WBC 3-4 0 [...] - 10/25/2011 3:50 PM CDT Performed at [facility], [address] [place] [address] Jet Lopez MD LAB_1 Performing Organization Address City/[facility] Phon e Number HP CONVERSION (ABNORMAL) URINALYSIS ROUTINE(MICRO IF POS) (10/25/2011 3:03 PM CDT) [facility] 911 Method Time Signature Urine Type Urine:clean HP [...] U Specific 1.010 1.005 - HP CONVERSION [place] 1.030 Urobilinogen Negative Negative HP CONVERSION Urine Eu/dL Specimen Anatomical Collection Method Collection Time Receive d Time (Source) Location / / Volume Laterality Urine: 10/25/2011 3:03 PM 2 3:03 CDT PM CDT Narrative HP CONVERSION - 10/25/2011 3:50 PM CDT Performed at [facility], [address] [place] [address] Jet Lopez MD LAB_1 Performing Organization Address City/State/[facility] Code Phon e Number HP CONVERSION documented in this encounter Visit Diagnoses Diagnosis Female pelvic pain Unspecified symptom associated with fema le genital organs documented in this encounter Care Teams Messenger Floorperson Relationship Specialty Start Date End Date Md Elaine MD PCP - General 07/24/11 06/12/15 [place] [address] documented as of this encounter
--- OUTSIDE RECORDS SUMMARY | 2021-11-07 13:38 | XMS_ITS | Encounter Summary ---
:1975 Author Organization [facility] Address [address] [place] [address] Care Team Providers Name Role Phone Lubna Yee MD Primary Care Provider Encounter Details Date Type Department Care Team Description 05/28/2008 PN Conversion Only BRAY CONVERSION [address] [facility] [place] [address] Social History Tobacco Use Types Packs/Day Years [...] alcohol intake. She exercises regularly with a horse trainer. OBJECTIVE: Blood pressure 102/66, pulse 62, weight [...] on filedocumented in this encounter Care Teams Analytical Research Chemist Relationship Specialty Start Date End Date Lubna Yee MD PCP - General 07/04/10 07/23/11 [address] [place] [address] documented as of this encounter
--- OUTSIDE RECORDS SUMMARY | 2021-11-07 13:38 | XMS_ITS | Encounter Summary ---
:1975 Author Organization [employer] Address [address] [address] Care Team Providers Name Role Phone Lubna Yee MD Primary Care Provider Encounter Details Date Type Department Care Team Description 05/31/2008 Office Visit [facility] [place] [address] [address] [phone] Social History Tobacco Use Types Packs/Day Years Used Date Smoking Tobacco: Never Assessed Sex Assigned at Date Recorded Not on file documented as of this encounter Last Filed Vital Signs Vital Sign Reading Time Taken Comments Blood Pressure 114/60 05/31/2008 11:03 AM CHARGE MACHINE OPERATOR Pulse 90 05/31/2008 11:03 AM CHARGE MACHINE OPERATOR Temperature - - Respiratory Rate - - Oxygen Saturation - - Inhaled Oxygen Concentration - - Weight 73 kg (160 lb 15.7 oz) 05/31/2008 11:03 AM CHARGE MACHINE OPERATOR C : 73.0kg Height - - Body Mass Index - - documented in this encounter Progress Notes Lubna Yee MD - 05/31/2008 12:01 AM CST Progress Notes signed by Lubna Yee MD at 06/02/08 1244 Author: Lubna Yee MD Service: (none) Author Type: Physician Filed: 07/22/10 1128 Note Time: 05/31/08 0001 Status: Signed Safety Instruction Police Officer: Lubna Yee MD (Physician) NAME: SHARIF PRICE MR#: [id number] ACCT: [id number] VISIT: [id number] DICTATING CLINICIAN: Lubna Yee MD CONFIRM #: [id number] LOC: 602 CLINIC PROGRESS NOTE DATE OF [...] with her partner, Rubén. She works at [employer] in [place]. HABITS: She is a nonsmoker. Occasionally drinks [...] of her irritable colon. PLAN: See assessment. ELB:[id number] C: 06/01/08 12:09 CONFIRM #: [id number] GE MACHINE OPERATOR documented in this encounter Plan of Treatment Not on filedocumented as of this encounter Visit Diagnoses Not on filedocumented in this encounter Care Teams Bale Stacker Relationship Specialty Start Date End Date Lubna Yee MD PCP - General 07/04/10 07/23/11 [address] [place] [address] documented as of this encounter
--- OUTSIDE RECORDS SUMMARY | 2021-11-07 13:38 | XMS_ITS | Encounter Summary ---
:1975 Author Organization [facility] Address [address] [address] Care Team Providers Name Role Phone Lubna Yee MD Primary Care Provider Encounter Details Date Type Department Care Team Description 08/16/2008 PN Conversion [place] [address] [facility] [address] [place] [address] [place] [address] Social History Tobacco Use Types Packs/Day Years Used Date Smoking Tobacco: Never Assessed Sex Assigned at Date Recorded Not on file documented as of this encounter Plan of Treatment Not on filedocumented as of this encounter Procedures Procedure Name Priority Date/Time Associated Comments Diagnosis THYROID STIMULATING Routine 08/16/2008 3:51 PM Re sults for this HORMONE CDT procedure are i n the results section. VITAMIN D 25 OH Routine 08/16/2008 3:51 PM Result s for this CDT procedure are i n the results section. documented in this encounter Results Thyroid Stimulating Hormone (08/16/2008 3:51 PM CDT) P athologist Signature Thyroid 2.09 0.20 - HP CONVERSION Stimulating 4.50 Hormone uIU/mL Specimen (Source) Anatomical Collection Method Collection Time Re ceived Time Location / / Volume Laterality 08/16/2008 3:51 PM CDT Lubna Yee MD LAB_1 Performing Organization Address City/State/ZIP Code Phon e Number HP CONVERSION (ABNORMAL) Vitamin D 25 OH (08/16/2008 3:51 PM CDT) P athologist Signature Vitamin D 25 25 (L) 30 - 80 HP CONVERSION Oh ng/mL Comment: TEST INFORMATION: VITAMIN D, 25-HYDROXY This assay accurately quantifies the sum of vitamin D3, 25-hydroxy and vitamin D2, 25-hydroxy. Deficiency: ??Less than 20 ng/mL Insufficiency: ??20-29 ng/mL Optimum Level: ??30-80 ng/mL Possible Toxicity: ??Greater than 80 ng/ mL Performed at [facility] [address] [place] [address] 8 Specimen (Source) Anatomical Collection Method Collection Time Re ceived Time Location / / Volume Laterality 08/16/2008 3:51 PM CDT Lubna Yee MD LAB_1 Performing Organization Address City/State/[facility] Code Phon e Number HP CONVERSION documented in this encounter Visit Diagnoses Not on filedocumented in this encounter Care Teams Skilled Trades Teacher Relationship Specialty Start Date End Date Lubna Yee MD PCP - General 07/04/10 07/23/11 [address] [place] [address] documented as of this encounter
--- OUTSIDE RECORDS SUMMARY | 2021-11-07 13:38 | XMS_ITS | Encounter Summary ---
:1975 Author Organization [employer] Address [address], [place] [address] Care Team Providers Name Role Phone Lubna Yee MD Primary Care Provider Encounter Details Date Type Department Care Team Description 08/09/2008 Office Visit [facility] [place] [address] [facility] [address] [facility] [place] [address] [place] [phone] (Wo rk) Social History Tobacco Use Types Packs/Day Years Used Date Smoking Tobacco: Never Assessed Sex Assigned at Date Recorded Not on file documented as of this encounter Last Filed Vital Signs Vital Sign Reading Time Taken Comments Blood Pressure 102/72 08/09/2008 9:23 AM CDT Pulse 99 08/09/2008 9:23 AM CDT Temperature 36.7 ??C (98.1 ??F) 08/09/2008 9:23 AM CDT C: 36 .7 C Respiratory Rate 16 08/09/2008 9:23 AM CDT Oxygen Saturation 97% 08/09/2008 9:23 AM CDT Inhaled Oxygen Concentration - - Weight - - Height - - Body Mass Index - - documented in this encounter Progress Notes Bryce Pimentel MD - 08/09/2008 12:01 AM CDT Progress Notes signed by Bryce Pimentel MD at 08/30/08 0744 Author: Bryce Pimentel MD Service: (none) Author Type: Physician Filed: 07/22/10 1321 Note Time: 08/09/08 0001 Status: Signed Digital Imaging Technician: Bryce Pimentel MD (Physician) NAME: SHARIF PRICE MR#: [id number] ACCT: [id number] VISIT: [id number] DICTATING CLINICIAN: BRYCE PIMENTEL MD CONFIRM #: [id number] LOC: 620 CLINIC PROGRESS NOTE DATE OF VISIT: 08/09/2008 SUBJECTIVE: CHIEF COMPLAINT: Fever, left-sided back pain, neck discomfort. HPI: Sharif is a 33-year-old lady who has been sick since Saturday with intermittent fever, pain felt in the left neck, left upper shoulder, and left side of the chest, sometimes going to the left leg. She has been having some chills and sweats. She has also been coughing, but has not been exposed to anybody with pneumonia and has not traveled anywhere. PAST MEDICAL HISTORY: Benign. ADR/ALLERGIES: REVIEWED IN [facility]. MEDICATION: Reviewed in [facility]. REVIEW OF SYSTEMS: Reveals no wheezing. No abdominal pain. No skin rashes. Denies any myalgias or arthralgias. Denies any sinus pain or sore throat. OBJECTIVE: VS: BP: 102/72. T: 98.1. P: 99. R: 16. O2 sat: 97% on room air. GENERAL APPEARANCE: Alert, looking tired. HEENT: Negative. There is vague tenderness in the mid thoracic spine. Cervical spine nontender. She is tender in the left trapezius muscle. LUNGS: Reveal some crepitations left mid lung field. Otherwise clear. Flanks nontender. Chest wall anteriorly is not tender Chest x-ray, PA and lateral, was ordered, interpreted by myself as some fullness with infiltrate in the left mediastinal area. Her white count was normal at ?, but with a left shift. ASSESSMENT: Fever, rule out left-sided pneumonia. PLAN: Discussion. This does not explain the leg pain, but she reported that is intermittent and very mild. I put her on Levaquin 500 daily 10 days and Phenergan with codeine as needed. If she is not much improved within 48 hours, she is to call back. Follow up with her physician within a week. If other symptoms appear, including a skin rash, blisters, etc., she is to call back promptly. AKD:[id number] C: 08/10/08 07:16 CONFIRM #: [id number] documented in this encounter Plan of Treatment Not on filedocumented as of this encounter Procedures Procedure Name Priority Date/Time Associated Diagnosis Comme nts XR CHEST 2 VIEWS Routine 08/09/2008 9:49 AM Resul ts for this CDT procedure are i n the results section. documented in this encounter Results XR Chest 2 Views (08/09/2008 9:49 AM CDT) Anatomical Region Laterality Modality Chest, Lung Other Specimen (Source) Anatomical Location Collection Method / Collectio n Time Received Time / Laterality Volume Impressions 08/09/2008 9:49 AM CDT : ??Left upper lobe infiltrate. ??Follow up is recommended after treatment to ensure resolution. [id number]/ss Dictating TYRELL SHIN RADIOLOGIST Narrative 08/09/2008 9:49 AM CDT CLINICAL HISTORY: ??Cough. FINDINGS: ??No comparisons are available . ??There is increased density in the left upper lobe adjacent to the m ediastinum, consistent with infiltrate. ??The aortic knob is not wel l delineated because of this overlying infiltrate. ??There is questio nable atelectasis vs. infiltrate in the retrocardiac region as well. ??Right lung is clear. Procedure Note Tyrell Henley MD - 06/06/2016Format ting of this note might be different from the original. CLINICAL HISTORY: Cough. FINDINGS: No comparisons are available. There is increased density in the left upper lobe adjacent to the m ediastinum, consistent with infiltrate. The aortic knob is not well delineated because of this overlying infiltrate. There is questiona ble atelectasis vs. infiltrate in the retrocardiac region as well. Right lung is clear. IMPRESSION : Left upper lobe infiltrate. Follow up is recommended after treatment to ensure resolution. [id number]/ss Dictating TYRELL SHIN RADIOLOGIST Bryce Pimentel MD RAD GD documented in this encounter Visit Diagnoses Not on filedocumented in this encounter Care Teams Deck Molder Relationship Specialty Start Date End Date Lubna Yee MD PCP - General 07/04/10 07/23/11 [address] [facility] [place] [address] documented as of this encounter
--- OUTSIDE RECORDS SUMMARY | 2021-11-07 13:38 | XMS_ITS | Encounter Summary ---
:1975 Author Organization [employer] Address [address] [address] Care Team Providers Name Role Phone Lubna Yee MD Primary Care Provider Encounter Details Date Type Department Care Team Description 08/16/2008 Office Visit [facility] [place] [address] [address] [phone] Social History Tobacco Use Types Packs/Day Years [...] signed by Lubna Yee MD at 08/25/08 4214 Author: Lubna Yee MD Service: (none) Author Type: Physician Filed: 07/22/10 1332 Note Time: 08/16/08 0001 Status: Signed Quality Assurance Engineer: Lubna Yee MD (Physician) NAME: SHARIF PRICE MR#: [id number] ACCT: [id number] VISIT: [id number] DICTATING CLINICIAN: Lubna Yee MD CONFIRM #: [id number] LOC: 602 CLINIC PROGRESS NOTE DATE OF [...] pneumonia, or sooner p.r.n. PLAN: See Assessment. ELB:[id number] C: 08/17/08 11:08 CONFIRM #: [id number] documented in this encounter Plan of Treatment Not on filedocumented as of this encounter Visit Diagnoses Not on filedocumented in this encounter Care Teams Personal Carer Relationship Specialty Start Date End Date Lubna Yee MD PCP - General 07/04/10 07/23/[facility] [address] [facility] [address] documented as of this encounter
--- OUTSIDE RECORDS SUMMARY | 2021-11-07 13:38 | XMS_ITS | Encounter Summary ---
:1975 Author Organization [facility] Address [address] [address] Care Team Providers Name Role Phone Lubna Yee MD Primary Care Provider Reason for Visit Reason Comments Other Encounter Details Date Type Department Care Team Description 08/09/2008 Telephone CONV AFTER [facility] [address] Center, Message Other [address] [place] [address] Social History Tobacco Use Types Packs/Day Years Used Date Smoking Tobacco: Never Assessed Sex Assigned at Date Recorded Not on file documented as of this encounter Progress Notes Center, Message - 08/09/2008 7:47 AM CDT Phone Note filed by [employer] at 07/21/10113 Author: [employer] Service: (none) Author Type: (none) Filed: 07/21/10113 Note Time: 08/09/08746 Status: Signed User Experience Manager: [employer] (Resource) Front Line Sx Call Caller Name/Relationship: Janae chen Primary Adaptive Physical Education Specialist:Lubna Yee Symptom or request? states Neck and back stiffness, with fever Is appointment scheduled & when? n Plush Brusher:Janae chen Best call back number:[phone] home Is it OK to leave a [...] Luis Adult Telephone Protocols--Influenza. Call Complete. *SH~DARREL~INFLUENZA~ TRUCTION JOB TITLES documented in this encounter Plan of Treatment Not on filedocumented as of this encounter Visit Diagnoses Not on filedocumented in this encounter Care Teams Sound Engineer Relationship Specialty Start Date End Date Lubna Yee MD PCP - General 07/04/10 07/23/11 [address] [place] [address] documented as of this encounter
--- OUTSIDE RECORDS SUMMARY | 2021-11-07 13:38 | XMS_ITS | Encounter Summary ---
:1975 Author Organization [employer] Address [address] [address] Care Team Providers Name Role Phone Lubna Yee MD Primary Care Provider Encounter Details Date Type Department Care Team Description 08/09/2008 PN Conversion Only [place], [address] [facility] [address] [place] [address] [facility] [place] [phone] (Wo rk) Social History Tobacco Use [...] Complete Blood Count-W/Diff (08/09/2008 9:38 AM CDT) [facility] Method Time Signature White Blood Cell 10.0 [...] - HP CONVERSION Hemoglobin Conc 36.5 gm/dL [place] RDW 11.7 11.0 - HP CONVERSION 15.0 [...] on filedocumented in this encounter Care Teams Help Desk Rep Relationship Specialty Start Date End Date Lubna Yee MD PCP - General 07/04/10 07/23/11 [address] [facility] [place] [address] documented as of this encounter
--- OUTSIDE RECORDS SUMMARY | 2021-11-07 13:38 | XMS_ITS | Encounter Summary ---
:1975 Author Organization [employer] Address [address] [place] [address] Care Team Providers Name Role Phone Lubna Yee MD Primary Care Provider Reason for Visit Reason Comments Other Encounter Details Date Type Department Care Team Description 05/31/2008 Telephone [facility], Message Other [address] [place] [address] Social History Tobacco Use Types Packs/Day Years Used Date Smoking Tobacco: Never Assessed Sex Assigned at Date Recorded Not on file documented as of this encounter Progress Notes Center, Message - 05/31/2008 4:42 PM CST Phone Note filed by [employer] at 07/20/10 5656 Author: [employer] Service: (none) Author Type: (none) Filed: 07/20/10 6962 Note Time: 05/31/08 1642 Status: Signed Adviser Sales: Message Center Non -Symptom Message from Front Line Caller Name/Relationship: Xochitl Primary Family Helper: Dr. Yee She saw Dr. Yee this morning and went to sisal picker prescription from pharmacy that was prescribed and it had a differnt Dr. garfield Allred on it just wants to be sure its the right prescription for her. Her prescriptions are suppose to be Hyomax-SL 0.125.mg sub tabs qty 60 and the second is Zithromyacin 250 tab 6 pack Camp Guard: Xochitl Best call back number: [phone] Is it OK to leave a confidential message on this voicemail? yes *ECODE~[id number] Created on 31May2008 4:42pm by SANKET ANNE On 31May2008 5:02pm HELEN GARCIA wrote: MS verified that the Levsin and Zithromax she received are the correct orders. MS contacted [facility] and the pharmacist had no explanation on why Dr Allred's name was on the Rx. [facility] will correct their records. MS made callback to the patient and gave her this information. CAGER documented in this encounter Plan of Treatment Not on filedocumented as of this encounter Visit Diagnoses Not on filedocumented in this encounter Care Teams Senior Electronics Technician Relationship Specialty Start Date End Date Lubna Yee MD PCP - General 07/04/10 07/23/11 [address] [facility] [place] [address] documented as of this encounter
== END 2021-10-14 12:07 | disposition home or self-care (01) ==
LOC: OB CLI 11:45
PROVIDERS: Visit Provider Obstetrics & Gynecology
DX: Z34.90 Encounter for supervision of normal pregnancy, unspecified, unspecified trimester (principal)
CPT/HCPCS: 87185; J0702

== ENCOUNTER 2021-10-23 04:56 | Inpatient (IN) | payer BC, OTHER, SELFPAY ==
[2021-10-23] VITALS (31 sets, daily range): BP systolic 103–142; BP diastolic 61–84; PULSE 71–104; RESP 16–18; TEMP 36.4–37.3; O2SAT 94–100; BMI 44.8
[2021-10-23] MEDS: LACTATED RINGERS 1000 ML 1,000 ML 990 ML IV (05:40)
[2021-10-23 05:42] LABS: Basophils Absolute Auto 0.02 K/uL (0.00-0.30); Basophils Percent Auto 0.4 % (0.0-3.0); Eosinophils Absolute Auto 0.04 K/uL (0.00-0.50); Eosinophils Percent Auto 0.8 % (0.0-7.0); Hematocrit 40.4 % (33.0-51.0); Hemoglobin* 13.4 gm/dL (12.0-16.0); Immature Granulocytes Abs Auto 0.01 K/uL (0.00-0.30); Lymphocytes Absolute Auto 1.63 K/uL (0.90-2.90); Lymphocytes Percent Auto 31.9 % (20-44); Mean Corpuscular HGB Conc 33 gm/dL (32-36); Mean Corpuscular Hemoglobin 30 pg (26-34); Mean Corpuscular Volume 91 fL (80-100); Monocytes Percent Auto 8.2 % (0.0-11.0); Neutrophils Absolute Auto 2.99 K/uL (1.7-7.0); Neutrophils Percent Auto 58.5 % (42.0-72.0); Platelet Count* 185 K/uL (140-440); RDW Coefficient of Variation % 13.7 % (11.5-15.5); Red Blood Count 4.43 m/uL (4.00-5.20); White Blood Count* 5.11 K/uL (4.50-11.00)
[2021-10-23 05:43] LABS: Slide Review Reflex No
[2021-10-23] MEDS: LACTATED RINGERS 1000 ML 1,000 ML 125 ML IV ×3 (06:40→15:01)
[2021-10-23] MEDS: CEFAZOLIN 3 GM in 0.9 % SODIUM CHLORIDE Mini-bag 100 ML IVPB (07:21)
--- NOTE | 2021-10-23 07:28 | P.PCN_ITS ---
Procedure Note Time Seen by Provider: 07:28 Date Seen: 10/23/21 Date of procedure: 10/23/21 Will [facility] bill your pro fee for this procedure?: Yes Procedure: Please disregard this note is was a duplicate. Surgeon: Coco Daly MD
[2021-10-23] MEDS: KETOROLAC 30 MG/ML inj IVP ×3 (08:25→21:02)
--- NOTE | 2021-10-23 08:35 | P.PCN_ITS ---
Procedure Note Time Seen by Provider: : Date Seen: 10/23/21 Date of procedure: 10/23/21 Will [facility] bill your pro fee for this procedure?: Yes Procedure: Preoperative diagnosis: 46-year-old 2 para 1 now 2 at 37 and 2/7 weeks admitted for a scheduled repeat low transverse section. * Gestational hypertension * Active Covid-19 infection Postoperative diagnosis: Same Procedure: Repeat low-transverse section. Anesthesia: Spinal Surgeon: Coco Daly MD Hebrew Cantor: JEET Dowd Quantitative blood loss: 940 mL IVF: 1500 mL UOP: 50 mL Drain(s): Hurtado to gravity. Specimen: Placenta to pathology Findings: A live male infant was delivered from the direct OA position at 7:57 a.m.. Apgars were 9 at 1 min and 9 at 5 min respectively. Infant weight: 7 lb 12 oz. Nuchal cord(s): Yes, single nuchal cord easily reduced at the surgical field prior to delivery of the 's shoulders. The placenta was delivered spontaneously and complete at 7:59 a.m. Amniotic fluid: Clear. Normal uterus, fallopian tubes and ovaries were noted. Other findings: Normal appendix. Minimal scar tissue. Procedure: Courtney was taken to the OR where spinal anesthetic was found be adequate. A Hurtado catheter was placed. The patient was then placed in the dorsal supine position with a leftward tilt. She was then prepped and draped in a normal sterile manner. A Pfannenstiel skin incision was made and carried through sharply to the underlying layer of fascia. Fascia was incised in the midline and this incision carried laterally with You scissors. The superior aspect of fascial incision was grasped with Amaya clamps, tented up, and the rectus muscles dissected off with a combination of blunt and bipolar cautery dissection. The inferior aspect of the fascial incision was grasped with Amaya clamps, tented up and again the rectus muscles dissected off with a combination of blunt, bipolar cautery and sharp dissection. The rectus muscles were in the midline. The peritoneum was entered bluntly. This opening was extended bluntly. An Kings-O self-retaining retractor was placed. A bladder flap was not created. Uterus was incised in a low transverse manner in the midline. This incision carried laterally with blunt pressure on the inferior and superior aspects of the uterine incision. The amniotic sac was ruptured. The infant's head and body were delivered atraumatically. The infant was shown to the patient and her support person. The umbilical was clamped and cut immediately/after a 30 second delay. The infant was then handed to waiting nursing staff. The placenta was delivered spontaneously. The uterus was cleared of clots and debris. The uterine incision was re-approximated with the uterus in vivo. The 1st layer using 0-Vicryl in a running, locked manner. The 2nd layer using 0-Monocryl in a running, vertical, imbricating layer. Additional sutures needed for hemostasis: Yes: 5 figure of 8 sutures using 2-0 chromic. The pelvis was irrigated with a small amount of normal saline. Deysi was applied to the uterine incision. Excellent hemostasis was confirmed. The Kings retractor was removed. The rectus muscles were not reapproximated. The rectus muscles were then closely inspected to verify hemostasis. Hemostasis was obtained with bipolar cautery. The fascia was then reapproximated using 0-Maxon loop in a running manner. The subcutaneous tissue was then irrigated with saline and hemostasis obtained with bipolar cautery. The subcutaneous tissue was reapproximated using 3-0 plain gut interrupted sutures. The skin was reapproximated using 4-0 Monocryl in a running subcuticular manner. A silver-containing Methiplex dressing was applied. The patient tolerated this procedure well. Sponge, lap and instrument counts were correct x2 active to the procedure. Patient was taken to the recovery area in stable condition. The patient received 3 g of IV Ancef prior to skin incision. 1 g IV TXA after umbilical cord clamp. Surgeon: Coco Daly MD Pathology: specimen obtained, sent to pathology
--- NOTE | 2021-10-23 09:09 | W.ANESCHARGE ---
Anesthesia Charges Start Date/Time Anesthesia Start Date: 10/23/21 Anesthesia Start Time: 07:21 Stop Date/Time Anesthesia Stop Date: 10/23/21 Anesthesia Stop Time: 09:01 Summary Emergency: No
--- NOTE | 2021-10-23 10:46 | P.NB_ITS ---
Nerve Block Nerve Block Time Seen by Provider: 08:30 Date Seen: 10/23/21 Type of block requested by surgeon for post-operative analgesia: TAP Side: bilateral Time out performed: Yes Verification of patient name: Yes Verification of date of : Yes Site marking: site marked Name of person performing procedure: Jamaal Continuous monitoring Was continuous monitoring of O2 sat, B/P, cardiac monitor technician, recorded every 15 minutes?: Yes Procedure Checklist: sterile prep, needles and gloves Ultrasound guided. Images saved: Yes Medications given in 5ml increments after negative aspiration: Marcaine %: 0.25 mL: 30 Needle gauge: 20 and Exparel mL: 10 Patient tolerated procedure well: Yes Additional comments: Needle noted adjacent to nerve Block Charges Block Charge (with Pro Fee): TAP Bilateral Use of Ultrasound Machine for Block: Yes- US Guidance/pain block
--- NOTE | 2021-10-23 10:47 | W.ANESCHARGE ---
Anesthesia Charges Start Date/Time Anesthesia Start Date: 10/23/21 Anesthesia Start Time: 07:21 Stop Date/Time Anesthesia Stop Date: 10/23/21 Anesthesia Stop Time: 09:01 Summary Emergency: No
[2021-10-23] MEDS: guaiFENesin 600 MG TAB.ER.12H 1200 MG PO ×2 (15:12→21:03)
[2021-10-23] MEDS: FLUCONAZOLE 150 MG TABLET PO (16:05)
[2021-10-23 19:10] LABS: Hemoglobin* 12.6 gm/dL (12.0-16.0); Mean Corpuscular HGB Conc 33 gm/dL (32-36); Mean Corpuscular Hemoglobin 31 pg (26-34); Mean Corpuscular Volume 92 fL (80-100); Platelet Count* 131 K/uL (140-440); Red Blood Count 4.12 m/uL (4.00-5.20); White Blood Count* 8.29 K/uL (4.50-11.00)
[2021-10-23 19:15] LABS: Slide Review Reflex No
[2021-10-23 19:30] LABS: Alanine Aminotransferase* 19 U/L (4-35); Aspartate Amino Transferase* 55 U/L (12-35); Creatinine* 0.5 mg/dL (0.5-1.5); Est. Creatinine Clearance* 100.98; Estimated Glomerular Filt Rate 117 ml/min
[2021-10-23 19:31] LABS: Blood Urea Nitrogen* 8 mg/dL (5-24)
[2021-10-23] MEDS: ENOXAPARIN 40 MG/0.4 ML INJ SUBCUT (20:18)
[2021-10-24] VITALS (12 sets, daily range): BP systolic 116–154; BP diastolic 79–87; PULSE 102–104; RESP 16–18; TEMP 36.4–36.7; O2SAT 94–98
[2021-10-24] MEDS: ACETAMINOPHEN 500 MG TABLET 1000 MG PO ×3 (01:45→15:09)
[2021-10-24] MEDS: KETOROLAC 30 MG/ML inj IVP ×2 (03:09→09:57)
--- NOTE | 2021-10-24 08:10 | PM.OBPNCS1 ---
OB - PN: Subj Subjective Time Seen by Provider: 08:10 Date Seen: 10/24/21 Patient comments: no complaints, pain well controlled, tolerating diet and flatus present [place] infant status: [place] feeding status: exclusively Narrative: Courtney states she is doing well today. Her pain is moderately well controlled with her current medication regimen. She feels her symptoms of COVID have improved. She has less congestion and postnasal drip. Her cough is less today also. She was given a dose of Diflucan 150 mg by mouth yesterday for candidiasis in her pannus fold and under her breasts. She should get a 2nd dose prior to leaving the hospital which will likely be on . Her blood pressure has been normal since delivery. OB - PN: Obj Exam Physical Exam: Vital signs: Temp Pulse Resp BP Pulse Ox 97.9 F 104 H 16 116/80 94 10/24/21 01:30 10/24/21 01:30 10/24/21 06:00 10/24/21 05:00 10/24/21 01:30 Narrative: Vital Signs: See EMR MOOD: appropriate CHEST: clear to auscultation HEART: regular rate and rhythm ABDOMEN: soft, non-tender the uterine fundus is 2 cm below Umbilicus, Midline and is appropriate for the stage of recovery. INCISION: Silver-containing dressing dry and intact EXTREMITIES: normal and no edema Constitutional: Constitutional: no acute distress Urinary Catheter Management: Urethral: Cath placed during this visit: no OB - PN: Obj Data Labs Labs: Laboratory Results - last 24 hr 10/23/21 10/23/21 10/24/21 18:50 18:50 06:50 WBC 8.29 RBC 4.12 Hgb 12.6 12.0 Hct 38.0 MCV 92 MCH 31 MCHC 33 Plt Count 131 L BUN 8 Creatinine 0.5 Estimated Creat Clear 100.98 Estimated GFR 117 AST 55 H ALT 19 Procedures Procedures Performed: Status post repeat low-transverse postop day 1. Delivered at 37 weeks 2 days gestation for gestational hypertension. Also with active COVID infection
[2021-10-24] MEDS: DOCUSATE SODIUM 100 MG CAPSULE PO (09:59)
[2021-10-24] MEDS: guaiFENesin 600 MG TAB.ER.12H 1200 MG PO (10:37)
[2021-10-24] MEDS: IBUPROFEN 600 MG TABLET PO (18:15)
[2021-10-25] VITALS (7 sets, daily range): BP systolic 117–132; BP diastolic 82–88; PULSE 85–102; RESP 16–20; TEMP 36.4–36.8; O2SAT 95–98
[2021-10-25] MEDS: ACETAMINOPHEN 500 MG TABLET 1000 MG PO ×3 (03:12→20:11)
[2021-10-25] MEDS: IBUPROFEN 600 MG TABLET PO ×4 (06:00→23:13)
--- NOTE | 2021-10-25 08:01 | P.DS_ITS ---
DS: Providers Provider Date Seen: 10/25/21 Date of admission: 10/23/21 04:56 Admitting Clinician: Coco Daly MD Attending Physician on discharge: Sheree Vilchis CNM Date of Discharge: 10/25/21 DS: Diagnosis Discharge Diagnosis (1) S/P repeat low transverse : Status: Acute (2) Gestational HTN: Status: Acute (3) due to : Status: Acute Exam Const: Vital Signs, click to edit/add: Vital Signs - 24 hr 10/24/21 09:00 10/24/21 11:45 10/24/21 16:40 Temperature 97.8 F 97.6 F 98.0 F Pulse Rate [Right Pulse Oximeter] 104 H 104 H Respiratory Rate 18 16 16 Blood Pressure [Le ft Arm] 133/82 117/81 128/87 Pulse Oximetry 97 96 95 10/24/21 21:27 10/25/21 00:24 10/25/21 03:18 Temperature 97.6 F 97.7 F 98.2 F Pulse Rate [Right Pulse Oximeter] 102 H 102 H 97 Respiratory Rate 18 20 20 Blood Pressure [Le ft Arm] 154/83 H 126/84 130/83 Pulse Oximetry 98 98 98 Documenting provider has reviewed patient's vital signs: yes Common normals: no apparent distress, oriented x3, healthy appearing and well nourished HENMT: Common normals: normocephalic Head and scalp: normocephalic Eye: Common normals: PERRL Pupil: PERRL Neck & C-Spine: Common normals: full ROM and supple Chest: Common normals: inspection of chest normal Other: Breast exam: deferred Resp: Common normals: normal respiratory effort and clear to auscultation bilaterally Auscultation: clear to auscultation bilaterally Cardio: Common normals: regular rate and regular rhythm Rate: regular rate Rhythm: regular rhythm GI: Common normals: Normal to inspection, nondistended, normoactive bowel sounds present, soft to palpation and non-tender Inspection: incision (Dressing in place, clean, dry and intact.) Palpation: soft : OB/external & speculum: Yes external exam normal and Yes perineal/vaginal laceration Uterus: U/1 Lochia: small Back & Pelvis: Common normals: thoracic and lumbar spine normal to inspection Extremity: Common normals: normal to inspection and full ROM Neuro: Common normals: oriented x3 and moves all extremities Psych: Common normals: mental status grossly normal, affect normal and speech normal Speech: normal speech Skin: Common normals: no rashes or lesions noted General skin exam: no rashes or lesions noted OB - DS: Summary Hospital Course Hospital Course: The patient is a 46 year old G 2 P 2 at 37 4/7 weeks gestation that was admitted to the [facility] on 10/23/21 for repeat section due to gestational hypertension. She had an uncomplicated delivery. She delivered a viable male . She is breast feeding and it is going okay. the patient has done well. Blood pressures have been stable. No plans for control , required IVF to get . Peripartum Data Procedures: Procedures Operation Date: 10/23/21 07:00 Actual Procedure Side Surgeon p Repeat Section Coco Daly MD complications: none [place] Gender: Male Infant Discharge Plan: Home Status at Discharge Functional status at discharge: independent ambulation Overall status at discharge: patient is progressing back to baseline Time Spent with Patient Time attestation: Total time spent providing and/or coordinating discharge services: Time spent: Less than 30 minutes Discharge Plan Discharge Disposition: Home, Self-Care Date of Admission: 10/23/21 04:56 Attending Provider on Discharge: Sheree Vilchis Condition: Stable Anticipated Discharge Date/Time: 10/25/21 12:00 Discharge Medications: New docusate sodium 100 mg Capsule 100 mg PO DAILY 21 Days Qty: 100 0RF ibuprofen 600 mg Tablet 600 mg PO Q6H PRN (Reason: Pain) 14 Days Qty: 30 0RF oxycodone 5 mg Tablet 5 mg PO 3XD PRN (Reason: Pain) 7 Days Qty: 21 0RF Continued DHA 200 mg capsule PO 0RF nystatin 100,000 unit/gram ointment 1 applic topical BID Qty: 15 0RF Discontinued omeprazole 40 mg capsule,delayed release(DR/EC) PO DAILY 0RF diphenhydramine HCl 25 mg tablet PO ONCE 0RF diphenhydramine-acetaminophen [Tylenol PM] PO 0RF Discharge Orders: Discharge Order (Routine); Ordered 10/25/21 Ordered By: Coco Daly Patient Education: OB /Breast Feeding Activity Restrictions/Additional Instructions: Discharge instructions were reviewed with the patient including signs and symptoms of infection and home going medications. It is safe to walk and go up/down stairs. Lifting Restrictions: 20 pounds for 6 weeks Nothing vaginally for 6 weeks. No high impact or core exercises for [address] while taking narcotic pain meds. Off Work or School for 8 weeks. Symptoms to report to doctor: -Bleeding that saturates more than one pad per hour ?-Passing clots larger than the size of a golf ball ?-Pain not relieved by prescribed medication ?-Fever above 100.4 degrees Fahrenheit ?-A foul vaginal odor ?-Difficulty in emotions, mood and functions ?-Thoughts of hurting yourself and/or ?-Painful, reddened area in your breast ?-Any drainage, redness or tenderness in your IV/epidural site ?-Severe headache that doesn't improve after taking medications ?-Changes in vision, including temporary loss of vision, blurred vision, and/or light sensitivity ?-Upper abdominal pain (usually under ribs on the right side) ?-Decrease in urination or painful, frequent urinating ?-Chest pain ?-Shortness of breath ?-Tenderness or pain with redness and/swelling in the calf(s) of your leg Follow Up with [facility] provider in 1 week for dressing removal and in 6 weeks for a exam Women's Health clinic. consultation services are available to all mothers and babies for the first year after delivery.? To make an appointment, please call [phone]. Activity Level: Other Activity Detail: see above. Discharge Diet: Regular Follow Up Appointments: [facility] [Provider Group] (1 week for dressing removal and 6 week for routine pp visit) Forms: [employer] Staffing Info Instructions
[2021-10-25] MEDS: guaiFENesin 600 MG TAB.ER.12H 1200 MG PO (09:37)
[2021-10-25] MEDS: DOCUSATE SODIUM 100 MG CAPSULE PO (09:38)
[2021-10-26] MEDS: ACETAMINOPHEN 500 MG TABLET 1000 MG PO ×2 (02:19→08:15)
[2021-10-26 04:35] VITALS: BP 114/79; PULSE 92; RESP 16; TEMP 36.8; O2SAT 96
[2021-10-26] MEDS: IBUPROFEN 600 MG TABLET PO (05:12)
[2021-10-26 07:36] VITALS: BP 109/76; PULSE 83; RESP 16; TEMP 36.4; O2SAT 97
[2021-10-26] MEDS: DOCUSATE SODIUM 100 MG CAPSULE PO (08:22)
[2021-10-26] MEDS: FLUCONAZOLE 150 MG TABLET PO (08:22)
[2021-10-26] MEDS: guaiFENesin 600 MG TAB.ER.12H 1200 MG PO (08:22)
--- NOTE | 2021-10-26 09:05 | PM.OBPNCS1 ---
OB - PN: A/P Assessment and Plan (1) S/P repeat low transverse : Status: Acute (2) Gestational HTN: Status: Acute (3) due to : Status: Acute Plan Repeat -discharge home today Gestational hypertension -BPs WNL -aware of signs to monitor for Lactating mother -may see if desired Covid positive, mild symptoms Plan day: 3 Plan: routine postop care and discharge home OB - PN: Subj Subjective Time Seen by Provider: 09:05 Date Seen: 10/26/21 Patient comments: no complaints [place] infant status: feeding status: exclusively Narrative: Pt ready for discharge. Pain well controlled by current medications. Ambulating w/o difficulty. Voiding w/o difficulty. , which is going well. Did use SNS to help w/ blood sugars. Has covid, mild symptoms. Gestational hypertension. BPs wnl at this time. OB - PN: Obj Exam Physical Exam: Vital signs: Temp Pulse Resp BP Pulse Ox 97.6 F 83 16 109/76 97 10/26/21 07:36 10/26/21 07:36 10/26/21 07:36 10/26/21 07:36 10/26/21 07:36 Constitutional: Constitutional: no acute distress Routine HEENT Exam: Head: Present normocephalic Routine Neck Exam: Neck: Present full ROM Routine Respiratory Exam: Respiratory: Present CTA bilaterally Routine Cardiovascular Exam: Cardiovascular: Present RRR Routine Abdominal Exam: Abdominal: Present normal bowel sounds Routine Extremities Exam: Extremities: Present full ROM and pedal edema (+1) Routine Back/Spine/Pelvis Exam: Back/Spine: Present full ROM Routine Skin Exam: Skin: Present wounds (Dressing on, clean/dry/intact) Routine Neurological Exam: Neurological: Present alert and oriented X3 Routine Psychiatric Exam: Psychiatric: Present normal affect Wound Management: Examination: Present dressed, clean, dry and intact Urinary Catheter Management: Urethral: Cath placed during this visit: no OB - PN: Obj Data Labs Labs: Laboratory Results - last 24 hr 10/23/21 07:30 Surg PTH (Off-Site) See Scanned Report
== END 2021-10-26 10:48 | disposition home or self-care (01) | DRG 540 ==
PROVIDERS: Obstetrics & Gynecology; Admitting Provider Obstetrics & Gynecology; Visit Provider Obstetrics & Gynecology
PROC: 10D00Z1 Extraction of Products of Conception, Low, Open Approach (ICD-10-PCS; CPT 59514; principal; 2021-10-23 07:00)
DX: O34.211 Maternal care for low transverse scar from previous cesarean delivery (principal); O13.4 Gestational [pregnancy-induced] hypertension without significant proteinuria, complicating childbirth; O98.52 Other viral diseases complicating childbirth; U07.1 COVID-19; Z37.0 Single live birth; Z3A.37 37 weeks gestation of pregnancy
CPT/HCPCS: 01961; 36415; 64488; 76942; 82565; 84450; 84460; 84520; 85018; 85025; 85027; 86850; 86900; 86901; 88307; A9270; C9290; J0690; J1650; J1885; J2274; J2370; J2590; J3490; J7120

== ENCOUNTER 2022-10-15 11:46 | Outpatient (CLI) | payer BC, OTHER, SELFPAY | END 2022-10-15 11:47 | disposition home or self-care (01) | PROVIDERS: Visit Provider Obstetrics & Gynecology | DX: R53.83 Other fatigue (principal) | CPT/HCPCS: 82306; 84443 ==

== ENCOUNTER 2023-02-18 07:30 | Outpatient (RCR) | payer BC, OTHER, SELFPAY | END 2023-06-18 23:59 | disposition home or self-care (01) | PROVIDERS: Visit Provider Obstetrics & Gynecology | DX: M53.3 Sacrococcygeal disorders, not elsewhere classified (principal); N39.46 Mixed incontinence; R10.2 Pelvic and perineal pain; M79.605 Pain in left leg; M79.604 Pain in right leg; Z51.89 Encounter for other specified aftercare | CPT/HCPCS: 97110; 97112; 97140; 97162; 97535 ==

== ENCOUNTER 2023-06-22 09:18 | Outpatient (CLI) | payer BC, OTHER, SELFPAY | END 2023-06-22 09:19 | disposition home or self-care (01) | PROVIDERS: Visit Provider Registered Nurse | DX: R11.10 Vomiting, unspecified (principal); R19.7 Diarrhea, unspecified | CPT/HCPCS: 87086 ==

== ENCOUNTER 2024-07-06 09:27 | Outpatient (CLI) | payer BC, OTHER, SELFPAY | END 2024-07-06 09:28 | disposition home or self-care (01) | PROVIDERS: Visit Provider Obstetrics & Gynecology | DX: N92.0 Excessive and frequent menstruation with regular cycle (principal); E66.9 Obesity, unspecified; R53.83 Other fatigue; Z13.1 Encounter for screening for diabetes mellitus; Z13.6 Encounter for screening for cardiovascular disorders | CPT/HCPCS: 80061; 84443 ==

== ENCOUNTER 2024-10-05 14:49 | Outpatient (CLI) | payer BC, OTHER, SELFPAY ==
--- NOTE | 2024-10-05 15:00 | CRLHL7_ITS ---
For Patients: As a result of the Century Cures Act, medical imaging exams and procedure reports are released immediately into your electronic medical record. You may view this report before your referring provider. If you have questions, please contact your health care provider. INDICATION: BILATERAL SCREENING MAMMOGRAM, ASYMPTOMATIC 49 Y/O FEMALE COMPARISON: NONE, BASELINE EXAM TECHNIQUE: Digital mammogram in CC and MLO projections including computer-aided detection (CAD) and tomosynthesis. BREAST COMPOSITION: There are scattered areas of fibroglandular density. FINDINGS: No suspicious findings. ASSESSMENT: BI-RADS 1 Negative RECOMMENDATION: Annual screening mammogram. A lay language report of this examination will be provided to the patient. Dictated by: Miguel Ibarra MD @ 10/06/2024 10:14:23 (Electronically Signed)
== END 2024-10-05 14:50 | disposition home or self-care (01) ==
LOC: MAMMO 14:49
PROVIDERS: Visit Provider Obstetrics & Gynecology
DX: Z12.31 Encounter for screening mammogram for malignant neoplasm of breast (principal)
CPT/HCPCS: 77063; 77067